=== PATIENT | male | born 1965 | race African-American/Black ===

== ENCOUNTER 2016-12-06 04:02 | Inpatient (IN) | payer MEDICARE, OTHER ==
[~2016-12-06] VITALS: Ht 170.2 cm; Wt 142.0 kg
[2016-12-06] VITALS (9 sets, daily range): BP systolic 79–177; BP diastolic 36–100
[2016-12-06] MEDS ORDERED: GABAPENTIN100 MG ORAL (04:09)
[2016-12-06] MEDS ORDERED: ASPIRIN81 MG ORAL (04:09)
[2016-12-06] MEDS ORDERED: METOPROLOL SUC100 MG ORAL (04:09)
[2016-12-06] MEDS ORDERED: CALCIUM ACETAT667 MG PO (04:09)
[2016-12-06] MEDS ORDERED: MINOXIDIL2.5 MG PO (04:09)
[2016-12-06] MEDS ORDERED: CLOPIDOGREL75 MG ORAL (04:09)
--- NOTE | 2016-12-06 04:26 | Emergency Room Report ---
History of Present Illness General Chief Complaint: Dyspnea/Respdistress Source: Patient, EMS Present Illness HPI This is a 51-year-old male with a history of renal failure on hemodialysis Thursday, and Thursday. He had a recent clotted right upper arm fistula. He had a thrombectomy but was unsuccessful for salvage. This was done at [facility] on December 01. He went back to [facility] last night because of fever 102 at home. He has some fever and chills. Some mild short of breath. Also with mild cough to He was diagnosed with pneumonia and UTI. Discharge home with prescription for Levaquin. His lab works there were unremarkable. Troponin negative. BNP is 138. Urine is positive for many bacteria, WBC 11-25. Lactic Acid is 1.3. Potassium is normal. WBC 11.8. Hemoglobin 10.1. Allergies: Coded Allergies: No Known Allergies (Unverified , 12/06/16) Patient History Past Medical History: see triage record, old chart reviewed Past Surgical History: other Pertinent Family History: none Social History: Denies: smoking Immunizations: other Reviewed Nursing Documentation: PMH: Agreed, PSxH: Agreed Nursing Documentation-PMH Hx Hypertension: Yes Hx Dialysis: Yes - T- TH-S Review of Systems Constitutional: Reports: chills, fever, malaise, sweats, weakness Eye: Denies: blurred vision, eye pain ENT: Denies: ear pain, nose congestion, throat swelling Respiratory: Reports: cough Cardiovascular: Denies: chest pain, palpitations Gastrointestinal: Denies: abdominal pain, diarrhea, nausea, vomiting Musculoskeletal: Denies: back pain, joint pain Skin: Denies: rash Neurological: Denies: headache, numbness Endocrine: Denies: increased thirst, increased urine Hematologic/Lymphatic: Denies: easy bruising All Other Systems: negative except mentioned in HPI Physical Exam Vital Signs Date Time Temp Pulse Resp B/P Pulse Ox O2 Delivery O2 Flow Rate FiO2 12/06/16 04:01 98.8 88 18 157/76 95 Room Air vitals with hypertension Sp02 EP Interpretation: reviewed, normal General Appearance: well appearing, alert, mild distress, obese Head: normocephalic, atraumatic Eyes: bilateral eye EOMI, bilateral eye PERRL ENT: hearing grossly normal, normal pharynx Neck: full range of motion, supple, no meningismus Respiratory: chest non-tender, normal breath sounds, decreased breath sounds Cardiovascular #1: regular rate, rhythm, no murmur Gastrointestinal: normal bowel sounds, non tender, no mass, no organomegaly, no bruit, non-distended Musculoskeletal: back normal, normal range of motion, other - Right upper arm: Fistula with no thrill. No pulse. Neurologic: alert, oriented x3 Psychiatric: mood/affect normal Skin: warm/dry Medical Decision Making Diagnostic Impression: Primary Impression: Sepsis Qualified Codes: A41.9 - Sepsis, unspecified organism Additional Impressions: UTI (urinary tract infection) Qualified Codes: N30.00 - Acute cystitis without hematuria ESRD on hemodialysis Morbid obesity with BMI of 45.0-49.9, adult ER Course Patient presents with fever and sepsis. He did have a positive urinalysis at [facility]. I was able to access the EHR bear. Labs are unremarkable. Because patient has a new Edgar catheter, this is concerning for possible line sepsis also. She given Zosyn and vancomycin. Blood pressure stable. We' ll admit for IV antibiotics. I discussed the case with Dr. Pastrana who will admit. EKG Diagnostic Results EKG Time: 04:32 Rate: tachycardiac Rhythm: NSR, other - RBBB. ST Segments: no acute changes Rhythm Strip Diag. Results Rhythm Strip Time: 04:32 EP Interpretation: yes Rate: 100 Rhythm: NSR, no PVC's, no ectopy Chest X-Ray Diagnostic Results Chest X-Ray Diagnostic Results : Chest X-Ray Ordered: Yes # of Views/Limited/Complete: 1 View Indication: Shortness of Breath EP Interpretation: Yes Interpretation: no consolidation, no effusion, no pneumothorax, other - CM Impression: No acute disease Last Vital Signs Date Time Temp Pulse Resp B/P Pulse Ox O2 Delivery O2 Flow Rate FiO2 12/06/16 04:01 98.8 88 18 157/76 95 Room Air Status: improved Disposition: ADMITTED INPATIENT Condition: Serious ALEJA MCCARTY M.D. Dec 06, 2016 04:26
[2016-12-06] MEDS ORDERED: Vancomycin 1.5gm/D5W 250ml 250 ML IVPB ONE (04:30)
[2016-12-06] MEDS ORDERED: Piperacillin/Tazobactam 3.375 GM in NS 110 ML IVPB ONE (04:30)
[2016-12-06] MEDS ORDERED: Acetaminophen 500mg (ES) tab ORAL ONE (04:30)
[2016-12-06] MEDS ORDERED: Zosyn 3.375gm inj ONE (04:50)
[2016-12-06 05:40] LABS: MEAN CORPUSCULAR HEMOGLOBIN 27.8 PG (27.0-31.0); MEAN CORPUSCULAR HGB CONC 31.2 G/DL (32.0-36.0); MEAN CORPUSCULAR VOLUME 89 FL (80-99); MEAN PLATELET VOLUME 7.2 FL (6.5-10.1); PLATELET COUNT 246 K/UL (150-450); RED BLOOD COUNT 3.49 M/UL (4.70-6.10); RED CELL DISTRIBUTION WIDTH 13.3 % (11.6-14.8); WHITE BLOOD COUNT 19.6 K/UL (4.8-10.8)
[2016-12-06 05:45] LABS: INR 1.1 (0.9-1.1); PROTHROMBIN TIME 11.3 SEC (9.30-11.50)
[2016-12-06 05:57] LABS: ALANINE AMINOTRANSFERASE 6 U/L (3-41); ALBUMIN/GLOBULIN RATIO 1.2 (1.0-2.7); ANION GAP 18 (5-15); ASPARTATE AMINO TRANSFERASE 14 U/L (5-40); CALCIUM 9.5 mg/dL (8.6-10.2); CARBON DIOXIDE 22 mEQ/L (20-30); CHLORIDE 97 mEQ/L (98-107); CREATININE 9.3 mg/dL (0.7-1.2); GLOMERULAR FILTRATION RATE 7.3 mL/min (>60); HEMOLYSIS 80; POTASSIUM 5.2 mEQ/L (3.4-4.9); SODIUM 137 mEQ/L (135-145); TOTAL PROTEIN 7.3 g/dL (6.6-8.7)
[2016-12-06 06:04] LABS: REFLEX LACTIC ACID YES OR NO YES
[2016-12-06 06:05] LABS: TROPONIN I < 0.30 ng/mL (<=0.30)
[2016-12-06 06:12] LABS: CKMB < 1.5 ng/mL (< 6.7)
[2016-12-06] MEDS ORDERED: Amikacin Rx to dose MISC PRN (07:45)
[2016-12-06] MEDS ORDERED: Miralax 17gm pkt ORAL PRN (07:45)
[2016-12-06] MEDS ORDERED: D5 1/2NS 1,000 ML IV SCH (08:00)
--- NOTE | 2016-12-06 08:30 | Diagnostic Imaging Report ---
Indication: SOB Technique: XRAY CHEST 1 V Comparison:None Findings: The heart is enlarged. There is pulmonary vascular distribution. A right permacath is in place. A right subclavian/brachiocephalic stent is also present. No pleural fluid. The bones are grossly unremarkable. Impression: Right subclavian/brachycephalic stent. Right-sided permacath. Cardiomegaly with congestive heart failure.
[2016-12-06] MEDS: DuoNeb 0.5-3(2.5)mg/3ml neb HHN PRN ×2 (08:55→13:03)
[2016-12-06 08:59] LABS: LYMPHOCYTES % (MANUAL) 5 % (20-45); NEUTROPHILS % (MANUAL) 93 % (45-75); TOTAL CELLS COUNTED 100
[2016-12-06 09:00] LABS: BAND NEUTROPHILS % (MANUAL) 0 % (0-8); BASOPHILS % (MANUAL) 0 % (0-2); EOSINOPHILS % (MANUAL) 0 % (0-3); HYPOCHROMASIA 1+; PLATELET ESTIMATE ADEQUATE; PLATELET MORPHOLOGY NORMAL
[2016-12-06] MEDS ORDERED: Metoprolol Succinate XL 100mg tab ORAL SCH (09:00)
[2016-12-06] MEDS ORDERED: Minoxidil 2.5mg tab ORAL SCH (09:00)
--- NOTE | 2016-12-06 09:46 | History and Physical ---
History of Present Illness General Date patient seen: Dec 06, 2016 Time patient seen: 09:00 Reason for Hospitalization: Dyspnea/Respdistress Present Illness HPI 51-year-old male with PMH of HTN, ESRD, on hemodialysis Thursday, and Thursday, s/p recent thrombectomy of clotted right upper arm fistula. at [facility] patient came to [place] last night because of fever 102 at home, mild shortness of breath, cough He was diagnosed with pneumonia and UTI and was discharge home with prescription for Levaquin. At home took antibiotic, but had fever, chills and came to ER for evaluation ED workup revealed leukocytosis-19.6, elevated lactic acid-2.3 troponin negative , HH with evidence of anemia renal parameters characteristics of ESRD CXR with evidence of CHF and cardiomegaly ECG SR with RBBB patient reported recently diagnosed with FRANCISCO JAVIER, just received CPAP , not used it yet Allergies: Coded Allergies: No Known Allergies (Unverified , 12/06/16) Medication History Scheduled Aspirin* (Aspirin*), 81 MG ORAL DAILY, (Reported) Clopidogrel* (Clopidogrel*), 75 MG ORAL DAILY, (Reported) Gabapentin* (Gabapentin*), 100 MG ORAL THREE TIMES A DAY, (Reported) Metoprolol Succinate* (Metoprolol Succinate*), 100 MG ORAL DAILY, (Reported) Minoxidil* (Loniten*), 2.5 MG PO DAILY, (Reported) Miscellaneous Medications Calcium Acetate (Calcium Acetate), 667 MG PO, (Reported) Patient History Healthcare decision maker Resuscitation status Advanced Directive on File Review of Systems Constitutional: Reports: fever, weakness Eye: Reports: no symptoms ENT: Reports: no symptoms Respiratory: Reports: see HPI Cardiovascular: Reports: see HPI Gastrointestinal: Reports: no symptoms Genitourinary: Reports: other - ESRD Skin: Reports: no symptoms Psychiatric: Reports: no symptoms Neurological: Reports: no symptoms Endocrine: Reports: no symptoms Hematologic/Lymphatic: Reports: anemia Physical Exam General Appearance: no apparent distress, other - A/A/O x 4 morbidly obese male Lines, tubes and drains: peripheral HEENT: normocephalic, atraumatic, anicteric, mucous membranes moist, PERRL Neck: non-tender, supple Respiratory/Chest: lungs clear, no respiratory distress, no accessory muscle use Cardiovascular/Chest: normal rate, regular rhythm - SR-ST ( up to 108) with BBB Abdomen: normal bowel sounds, non tender, soft - obese Extremities: normal range of motion, non-tender, no calf tenderness, normal capillary refill, non-pitting - +2 BLE Neurologic: no motor/sensory deficits, alert, oriented x 3, responsive Musculoskeletal: normal muscle bulk Last 24 Hour Vital Signs Date Time Temp Pulse Resp B/P Pulse Ox O2 Delivery O2 Flow Rate FiO2 12/06/16 09:09 100 Nasal Cannula 2.0 12/06/16 09:08 Nasal Cannula 2.0 12/06/16 09:06 106 22 100 Nasal Cannula 2.0 12/06/16 08:55 106 22 100 Nasal Cannula 2.0 12/06/16 08:54 106 22 Nasal Cannula 2.0 12/06/16 08:34 98.1 93 22 116/69 93 Nasal Cannula 2.0 12/06/16 06:55 93 28 104/58 100 Nasal Cannula 2.0 12/06/16 06:19 99.1 24 104/47 95 Nasal Cannula 2.0 12/06/16 05:59 99.1 91 24 85/50 100 Nasal Cannula 2.0 12/06/16 05:30 99.4 112 16 177/100 97 Nasal Cannula 2.0 12/06/16 05:30 113 22 Nasal Cannula 2.0 94 12/06/16 04:01 98.8 88 18 157/76 95 Room Air Laboratory Tests Test 12/06/16 04:40 12/06/16 06:50 White Blood Count 19.6 K/UL (4.8-10.8) H Red Blood Count 3.49 M/UL (4.70-6.10) L Hemoglobin 9.7 G/DL (14.2-18.0) L Hematocrit 31.1 % (42.0-52.0) L Mean Corpuscular Volume 89 FL (80-99) Mean Corpuscular Hemoglobin 27.8 PG (27.0-31.0) Mean Corpuscular Hemoglobin Concent 31.2 G/DL (32.0-36.0) L Red Cell Distribution Width 13.3 % (11.6-14.8) Platelet Count 246 K/UL (150-450) Mean Platelet Volume 7.2 FL (6.5-10.1) Neutrophils (%) (Auto) % (45.0-75.0) Lymphocytes (%) (Auto) % (20.0-45.0) Monocytes (%) (Auto) % (1.0-10.0) Eosinophils (%) (Auto) % (0.0-3.0) Basophils (%) (Auto) % (0.0-2.0) Differential Total Cells Counted 100 Neutrophils % (Manual) 93 % (45-75) H Lymphocytes % (Manual) 5 % (20-45) L Monocytes % (Manual) 2 % (1-10) Eosinophils % (Manual) 0 % (0-3) Basophils % (Manual) 0 % (0-2) Band Neutrophils 0 % (0-8) Platelet Estimate Adequate Platelet Morphology Normal Hypochromasia 1+ Prothrombin Time 11.3 SEC (9.30-11.50) Prothromb Time International Ratio 1.1 (0.9-1.1) Activated Partial Thromboplast Time 27 SEC (23-33) Sodium Level 137 mEQ/L (135-145) Potassium Level 5.2 mEQ/L (3.4-4.9) H Chloride Level 97 mEQ/L (98-107) L Carbon Dioxide Level 22 mEQ/L (20-30) Anion Gap 18 (5-15) H Blood Urea Nitrogen 53 mg/dL (7-23) H Creatinine 9.3 mg/dL (0.7-1.2) H Estimat Glomerular Filtration Rate 7.3 mL/min (>60) Glucose Level 119 mg/dL (74-106) H Lactic Acid Level 2.30 mmol/L (0.66-2.22) H 2.10 mmol/L (0.66-2.22) Calcium Level 9.5 mg/dL (8.6-10.2) Total Bilirubin 0.4 mg/dL (0.0-1.2) Aspartate Amino Transf (AST/SGOT) 14 U/L (5-40) Alanine Aminotransferase (ALT/SGPT) 6 U/L (3-41) Alkaline Phosphatase 48 U/L (40-129) Total Creatine Kinase 96 U/L (38-174) Creatine Kinase MB < 1.5 ng/mL (< 6.7) Creatine Kinase MB Relative Index 1.5 Troponin I < 0.30 ng/mL (<=0.30) Total Protein 7.3 g/dL (6.6-8.7) Albumin 4.0 g/dL (3.5-5.2) Globulin 3.3 g/dL Albumin/Globulin Ratio 1.2 (1.0-2.7) Height (Feet): 5 Height (Inches): 7.00 Weight (Pounds): 308 Medications Current Medications Medications (Trade) Dose Ordered Sig/Jeremy Route PRN Reason Start Time Stop Time Status Last Admin Dose Admin Acetaminophen (Tylenol) 650 mg Q4H PRN ORAL Fever 12/06/16 07:45 01/05/17 07:44 Albuterol/ Ipratropium (DuoNeb 0.5-3(2.5)mg/3ml) 3 ml Q4H PRN HHN Shortness of Breath 12/06/16 07:45 12/11/16 07:44 12/06/16 08:55 Amikacin Protocol (Amikacin pharmacy to dose) 1 ea DAILY PRN MISC Per rx protocol 12/06/16 07:45 01/05/17 07:44 Amikacin Sulfate/ Sodium Chloride (Amikin/Sodium Chloride) 112.8 ml @ 225.6 mls/ hr ONCE ONCE IV 12/06/16 11:00 12/06/16 11:29 Aspirin (ASA) 81 mg DAILY ORAL 12/06/16 09:00 01/05/17 08:59 Clopidogrel Bisulfate (Plavix) 75 mg DAILY ORAL 12/06/16 09:00 01/05/17 08:59 Dextrose STAT PRN IV Hypoglycemia 12/06/16 07:45 01/05/17 07:44 Dextrose/Sodium Chloride (D5 0.45% NS) 1,000 ml @ 50 mls/hr Q20H IV 12/06/16 08:00 01/05/17 07:59 Gabapentin (Neurontin) 100 mg THREE TIMES A DAY ORAL 12/06/16 09:00 01/05/17 08:59 Heparin Sodium (Porcine) (Heparin 5000 units/ml) 5,000 units EVERY 12 HOURS SUBQ 12/06/16 09:00 01/05/17 08:59 Metoprolol Succinate (Toprol XL) 100 mg DAILY ORAL 12/06/16 09:00 01/05/17 08:59 Minoxidil (Loniten) 2.5 mg DAILY ORAL 12/06/16 09:00 01/05/17 08:59 Ondansetron HCl (Zofran) 4 mg Q6H PRN IVP Nausea & Vomiting 12/06/16 07:45 01/05/17 07:44 Piperacillin Sod/ Tazobactam Sod 2.25 gm/Dextrose 55 ml @ 110 mls/hr Q8HR IV 12/06/16 14:00 12/11/16 13:59 Polyethylene Glycol (Miralax) 17 gm DAILYPRN PRN ORAL Constipation 12/06/16 07:45 01/05/17 07:44 Temazepam (Restoril) 15 mg HSPRN PRN ORAL Insomnia 12/06/16 07:45 12/13/16 07:44 Vancomycin HCl 1 ea 1 ea DAILY PRN MISC Per rx protocol 12/06/16 07:45 01/05/17 07:44 Assessment/Plan Assessment/Plan ASSESSMENT sepsis , likely with bacteremia ( given clinical course) UTI possible PNA likely skin /soft tissue infection R upper extremity arteriovenous fistula, status post recent thrombectomy. possible infected residual thrombus in Rt upper extremity fistula. diastolic dysfunction pulmonary edema ESRD, on HD hx of HTN FRANCISCO JAVIER anemia of chronic renal disease morbid obesity PLAN OF CARE tele empiric abx fup cx ID consult nephro evla for HD arrangement monitor renal parameters lytes O2 to keep sat above 92% pulmonary toilet prn fup with CXR BiPAP at night BP support, hold all anti HTN at this time ECHO with pEF -60% and RVSP of 29 monitor HH , transfuse prn with goal to keep Hgb above 7 DVT , GI prophylaxis case discussed and evaluated by supervising physician Keith Simon),Denia MEZA Dec 06, 2016 09:46
[2016-12-06] MEDS: Aspirin Baby 81mg ORAL SCH (10:17)
[2016-12-06] MEDS: Heparin 5000 units/ml inj SUBQ SCH ×2 (10:23→22:16)
--- NOTE | 2016-12-06 10:49 | Consultation ---
Consult Note Consult Note asked to eval for dialysis management Chief Complaint: Dyspnea/Respdistress This is a 51-year-old male with a history of renal failure on hemodialysis Thursday, and Thursday. He had a recent clotted right upper arm fistula. He had a thrombectomy but was unsuccessful for salvage. This was done at [facility] on December 01. He went back to [facility] last night because of fever 102 at home. He has some fever and chills. Some mild short of breath. Also with mild cough to He was diagnosed with pneumonia and UTI. Discharge home with prescription for Levaquin. His lab works there were unremarkable. Troponin negative. BNP is 138. Urine is positive for many bacteria, WBC 11-25. Lactic Acid is 1.3. Potassium is normal. WBC 11.8. Hemoglobin 10.1. Hx Hypertension: Yes Hx Dialysis: Yes - T- TH-S . Assessment/Plan ESRD last dialysis [facility] 2 days ago Admitted with sepsis , has right permacath put in 4 days ago HTN Obesity Anemia Plan: HD today Antibiotics BP control Per orders GENNY JACK Dec 06, 2016 10:49
[2016-12-06] MEDS: Amikacin 700 MG in NS 110 ML IV ONE ×2 (11:00→11:48)
[2016-12-06] MEDS ORDERED: Piperacillin/Tazobactam 3.375 GM in NS 110 ML IVPB SCH (12:00)
[2016-12-06 15:47] LABS: TROPONIN I < 0.30 ng/mL (<=0.30)
[2016-12-06] MEDS ORDERED: Amikacin 700 MG in NS 110 ML IV ONE (16:00)
[2016-12-06] MEDS: Zosyn 2.25 gm in D5W 55ml IV SCH ×2 (16:02→22:14)
--- NOTE | 2016-12-06 18:41 | Infectious Diseases Prog Note ---
Assessment/Plan Assessment/Plan Full Infectious diseases consult dictated, work # [id number]. in brief, 51 y/o AAM, morbidly obese, HTNsive nephropathy, ESRD on THS HD, now with sepsis most likely secondary to presumed bacteremia s/p RUE AVF thrombectomy performed on . some blistering over R lateral arm concerning for underlying skin/soft tissue infection or abscess, or could be pressure phenomenom if significant residual clot burden. Continue empiric IV vancomycin, zosyn, and amikacin for now, but suspect his blood cx will end up growing most likely staph aures vs less likely enterococcus. RUQ u/s now of RUE to r/o abscess. hemodynamically tenuous right now but is mentating well and oxygenating on minimal O2 support. please call me with questions, c [phone], covering for Dr. Varela. Subjective Allergies: Coded Allergies: No Known Allergies (Unverified , 12/06/16) Objective Vital Signs Last 24 Hour Vital Signs Date Time Temp Pulse Resp B/P Pulse Ox O2 Delivery O2 Flow Rate FiO2 12/06/16 17:26 102.2 12/06/16 16:00 101.7 98 21 120/64 100 Nasal Cannula 2.0 12/06/16 15:00 Nasal Cannula 2.0 12/06/16 13:06 104 22 100 Nasal Cannula 2.0 12/06/16 13:00 102 22 100 Nasal Cannula 2.0 12/06/16 12:00 99.9 93 26 115/67 100 Nasal Cannula 2.0 12/06/16 11:55 Nasal Cannula 2.0 12/06/16 10:17 150/65 12/06/16 10:17 92 150/65 12/06/16 09:09 100 Nasal Cannula 2.0 12/06/16 09:08 Nasal Cannula 2.0 12/06/16 09:06 106 22 100 Nasal Cannula 2.0 12/06/16 08:55 106 22 100 Nasal Cannula 2.0 12/06/16 08:54 106 22 Nasal Cannula 2.0 12/06/16 08:34 98.1 93 22 116/69 93 Nasal Cannula 2.0 12/06/16 06:55 93 28 104/58 100 Nasal Cannula 2.0 12/06/16 06:19 99.1 24 104/47 95 Nasal Cannula 2.0 12/06/16 05:59 99.1 91 24 85/50 100 Nasal Cannula 2.0 12/06/16 05:30 99.4 112 16 177/100 97 Nasal Cannula 2.0 12/06/16 05:30 113 22 Nasal Cannula 2.0 94 12/06/16 04:01 98.8 88 18 157/76 95 Room Air Height (Feet): 5 Height (Inches): 7.00 Weight (Pounds): 308 Laboratory Tests Test 12/06/16 04:40 12/06/16 06:50 12/06/16 10:23 White Blood Count 19.6 K/UL (4.8-10.8) H Red Blood Count 3.49 M/UL (4.70-6.10) L Hemoglobin 9.7 G/DL (14.2-18.0) L Hematocrit 31.1 % (42.0-52.0) L Mean Corpuscular Volume 89 FL (80-99) Mean Corpuscular Hemoglobin 27.8 PG (27.0-31.0) Mean Corpuscular Hemoglobin Concent 31.2 G/DL (32.0-36.0) L Red Cell Distribution Width 13.3 % (11.6-14.8) Platelet Count 246 K/UL (150-450) Mean Platelet Volume 7.2 FL (6.5-10.1) Neutrophils (%) (Auto) % (45.0-75.0) Lymphocytes (%) (Auto) % (20.0-45.0) Monocytes (%) (Auto) % (1.0-10.0) Eosinophils (%) (Auto) % (0.0-3.0) Basophils (%) (Auto) % (0.0-2.0) Differential Total Cells Counted 100 Neutrophils % (Manual) 93 % (45-75) H Lymphocytes % (Manual) 5 % (20-45) L Monocytes % (Manual) 2 % (1-10) Eosinophils % (Manual) 0 % (0-3) Basophils % (Manual) 0 % (0-2) Band Neutrophils 0 % (0-8) Platelet Estimate Adequate Platelet Morphology Normal Hypochromasia 1+ Prothrombin Time 11.3 SEC (9.30-11.50) Prothromb Time International Ratio 1.1 (0.9-1.1) Activated Partial Thromboplast Time 27 SEC (23-33) Sodium Level 137 mEQ/L (135-145) Potassium Level 5.2 mEQ/L (3.4-4.9) H Chloride Level 97 mEQ/L (98-107) L Carbon Dioxide Level 22 mEQ/L (20-30) Anion Gap 18 (5-15) H Blood Urea Nitrogen 53 mg/dL (7-23) H Creatinine 9.3 mg/dL (0.7-1.2) H Estimat Glomerular Filtration Rate 7.3 mL/min (>60) Glucose Level 119 mg/dL (74-106) H Lactic Acid Level 2.30 mmol/L (0.66-2.22) H 2.10 mmol/L (0.66-2.22) Calcium Level 9.5 mg/dL (8.6-10.2) Total Bilirubin 0.4 mg/dL (0.0-1.2) Aspartate Amino Transf (AST/SGOT) 14 U/L (5-40) Alanine Aminotransferase (ALT/SGPT) 6 U/L (3-41) Alkaline Phosphatase 48 U/L (40-129) Total Creatine Kinase 96 U/L (38-174) Creatine Kinase MB < 1.5 ng/mL (< 6.7) Creatine Kinase MB Relative Index 1.5 Troponin I < 0.30 ng/mL (<=0.30) < 0.30 ng/mL (<=0.30) Total Protein 7.3 g/dL (6.6-8.7) Albumin 4.0 g/dL (3.5-5.2) Globulin 3.3 g/dL Albumin/Globulin Ratio 1.2 (1.0-2.7) Current Medications Medications (Trade) Dose Ordered Sig/Jeremy Route PRN Reason Start Time Stop Time Status Last Admin Dose Admin Acetaminophen (Tylenol) 650 mg Q4H PRN ORAL Fever 12/06/16 07:45 01/05/17 07:44 12/06/16 16:27 Albuterol/ Ipratropium (DuoNeb 0.5-3(2.5)mg/3ml) 3 ml Q4H PRN HHN Shortness of Breath 12/06/16 07:45 12/11/16 07:44 12/06/16 13:03 Amikacin Protocol 1 ea 1 ea DAILY PRN MISC Per rx protocol 12/06/16 07:45 01/05/17 07:44 Aspirin (ASA) 81 mg DAILY ORAL 12/06/16 09:00 01/05/17 08:59 12/06/16 10:17 Clonidine HCl (Catapres) 0.1 mg Q4H PRN ORAL BP over 160 syst 12/06/16 11:00 01/05/17 10:59 Clopidogrel Bisulfate (Plavix) 75 mg DAILY ORAL 12/06/16 09:00 01/05/17 08:59 12/06/16 10:17 Dextrose (Dextrose 50%) STAT PRN IV Hypoglycemia 12/06/16 07:45 01/05/17 07:44 Gabapentin (Neurontin) 100 mg THREE TIMES A DAY ORAL 12/06/16 09:00 01/05/17 08:59 12/06/16 16:24 Heparin Sodium (Porcine) (Heparin 5000 units/ml) 5,000 units EVERY 12 HOURS SUBQ 12/06/16 09:00 01/05/17 08:59 12/06/16 10:23 Ondansetron HCl (Zofran) 4 mg Q6H PRN IVP Nausea & Vomiting 12/06/16 07:45 01/05/17 07:44 Pantoprazole (Protonix) 40 mg EVERY 12 HOURS ORAL 12/06/16 11:00 01/05/17 10:59 12/06/16 11:48 Piperacillin Sod/ Tazobactam Sod/ Dextrose (Zosyn/D5W) 55 ml @ 110 mls/hr Q8HR IV 12/06/16 14:00 12/11/16 13:59 12/06/16 16:02 Polyethylene Glycol (Miralax) 17 gm DAILYPRN PRN ORAL Constipation 12/06/16 07:45 01/05/17 07:44 Temazepam (Restoril) 15 mg HSPRN PRN ORAL Insomnia 12/06/16 07:45 12/13/16 07:44 Vancomycin HCl (Vanco rx to dose) 1 ea DAILY PRN MISC Per rx protocol 12/06/16 17:30 01/05/17 17:29 Humphrey Arana M.D. Dec 06, 2016 18:40
--- NOTE | 2016-12-06 21:15 | Consultation ---
DATE OF CONSULTATION: 12/06/2016 INFECTIOUS DISEASES CONSULTATION Covering for Dr. Varela. CONSULTING PHYSICIAN: Humphrey Arana M.D. REQUESTING PHYSICIAN: Екатерина Pastrana M.D. REASON FOR CONSULTATION: Fever and hypotension in a dialysis patient. HISTORY OF PRESENT ILLNESS: This is a 51-year-old male with hypertensive nephropathy and a history of end-stage renal disease, on hemodialysis, Thursday, , and Thursday, now admitted for four days of subjective fevers and chills, malaise, mild nausea, concerned for septicemia. 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 He has always received dialysis through this fistula, never through a dialysis catheter. His fistula had been working well until of late. He underwent thrombectomy, but was unsuccessful for salvage on Thursday, which was four days prior to presentation on 12/01/2016 at [facility]. Within one to two hours after thrombectomy, began to feel unwell with fevers of 102 degrees at home. He was diagnosed with pneumonia and a UTI and was sent home with prescription for levofloxacin. The patient reports he only took one dose and has continued to feel unwell. The patient endorsed a prior history of staph infection, but no prior history of MRSA infection to his knowledge and he has never had a prior infection in his fistula. He had a right chest wall Port-A-Cath placed on 12/01/2016 and has continued to receive dialysis through it. Upon presentation to our ER this morning, he was noted to be febrile with a T-max of 102 Fahrenheit and initially was tachycardic to heart rate of 106 beats per minute, was borderline tachypneic with a respiratory rate of 22, and had a new O2 requirement requiring two liters nasal cannula. He was initially hypertensive and subsequently underwent the hemodialysis today with net two liters negative off and since that time, he has been hypotensive with systolic blood pressures in the 90s. His laboratory evaluation was notable for a peripheral leukocytosis of 19.6 with a left shift, hemoglobin of 9.7, and platelet count of 246,000. His chemistry panel is notable for hyperkalemia with a potassium of 5.2, a borderline normal carbon dioxide of 22 with an anion gap of 18, and serum creatinine 9.3, presumably at its baseline. Noted to have normal liver function tests and normal total creatinine kinase and a serum albumin of 2.0. He did have an elevated serum lactate at 2.3 that subsequently normalized to 2.1 and he had a coag panel that was within normal limits. He was ordered for urinalysis and urine culture that has to be sent. The patient is oliguric at baseline making less than 6 mL of urine per day and blood cultures x2 from the ER were sent prior to initiation of antibiotics. Both blood culture sets were drawn from peripheral stick and none were drawn from the new Port-A-Cath. In the ER this morning, he was given a dose of intravenous vancomycin 1.5 g at 6 am, a dose of IV Zosyn 3.375 g shortly thereafter, and he has been continued on Zosyn 2.25 g IV q.8 hours since that time. He received a dose of amikacin 700 mg at 4 p.m. today and the patient continues to be febrile. PAST MEDICAL HISTORY: Hypertension, end-stage renal disease, on dialysis Thursday, , and Thursday, right upper extremity AV fistula placed placed approximately three years ago, right AV fistula thrombectomy unsuccessful on 12/01/2016, placement of right chest wall Port-A-Cath for dialysis on 12/01/2016, and a remote history of open cholecystectomy. MEDICATIONS: His home medications include aspirin 81 mg daily, calcium acetate, Plavix, gabapentin, metoprolol long acting daily, and minoxidil. Current and recent antibiotics as described above in the history of present illness. ALLERGIES: No known drug allergies. FAMILY HISTORY: No history of diabetes. No history of end-stage renal disease. Family history is otherwise noncontributory. SOCIAL HISTORY: The patient lives at home. Nonsmoker. Denies any alcohol use. Denies any intravenous drug use. REVIEW OF SYSTEMS: A 11-point review of systems is negative other than as described above in the history of present illness. PHYSICAL EXAMINATION: VITAL SIGNS: Currently vital signs, temperature of 102.2 degrees Fahrenheit, pulse 98, respiratory rate 22, current blood pressure obtained on the left forearm was 90 systolic over 50 diastolic, and he is saturating 98% on 2 liters nasal cannula. GENERAL: The patient is mildly toxic appearing. Appears fatigued and has conversational dyspnea at five to seven words. HEENT: He has no cervical lymphadenopathy. No pharyngeal injection or exudate and he has no conjunctival injection and his sclerae are anicteric. CARDIOVASCULAR: The patient is tachycardic. No murmurs appreciated. PULMONARY: Decreased breath sounds at the bases with poor inspiratory effort. No wheezes or rhonchi appreciated. ABDOMEN: Healed right upper quadrant surgical scar from prior cholecystectomy, obese abdomen, nontender to palpation in all quadrants, and hypoactive bowel sounds. GENITOURINARY: Circumcised. No scrotal edema. No rash. EXTREMITIES: A 1+ bilateral lower extremity edema. Right upper extremity, abnormal anatomy. Has two small clear fluid-filled bullae overlying the lateral aspect of his right upper arm in the medial aspect of the right upper arm. I cannot palpate a thrill nor hear a bruit to his right AV fistula. There is no overlying erythema, but there is warmth and there is swelling at the site. SKIN: He does have a right chest wall Port-A-Cath in place that is healthy in appearance and is nontender to palpation over the exit site. LABORATORY DATA: As described above in the history of present illness, two sets of blood cultures are pending. No growth to date at less than 12 hours. Chest x-ray notable for cardiomegaly and evidence of mild pulmonary edema. ASSESSMENT: This is a 51-year-old obese male with hypertensive nephropathy complicated by end-stage renal disease on chronic dialysis, now admitted with sepsis presumed secondarily to recent right upper extremity thrombectomy and probable bacteremia. The patient is febrile and hypotensive status post two liters negative hemodialysis earlier today, but he is mentating normally and other hemodynamic parameters are within normal limits. 1. Sepsis. 2. Probable bacteremia, pending blood cultures. 3. Probable skin and soft tissue infection round right upper extremity arteriovenous fistula status post recent thrombectomy. 4. Concern for infected residual thrombus in that right upper extremity fistula. 5. Pulmonary edema and increased O2 requirement. 6. Hypotension as above. 7. End-stage renal disease, on dialysis. 8. Morbid obesity. PLAN: 1. Continue empiric intravenous vancomycin dose per pharmacy for troughs greater than 15 to 20, amikacin dose per pharmacy, and Zosyn dose per pharmacy, currently on day #1 of therapy. 2. Urgent right upper extremity ultrasound to rule out soft tissue abscess and to rule out significant residual clot burden in that right AV fistula. 3. Followup blood cultures. 4. Follow cardiopulmonary status and chest x-ray. Thank you for this consultation. Please call me on my cell phone with any questions. Humphrey Arana MD DR: GEOVANNA JOB#: [id number] CC: TATA
[2016-12-07 04:00] VITALS: BP 144/60
[2016-12-07] MEDS: Zosyn 2.25 gm in D5W 55ml IV SCH ×3 (05:18→22:04)
[2016-12-07 05:47] LABS: ABG BASE EXCESS -1.8; ABG PCO2 38.7 mmHg (35.0-45.0)
[2016-12-07 05:48] LABS: ABG ALLEN TEST POSITIVE
[2016-12-07 07:19] LABS: MEAN CORPUSCULAR HGB CONC 30.6 G/DL (32.0-36.0); MEAN CORPUSCULAR VOLUME 92 FL (80-99); PLATELET COUNT 183 K/UL (150-450); RED BLOOD COUNT 3.18 M/UL (4.70-6.10); RED CELL DISTRIBUTION WIDTH 13.9 % (11.6-14.8); WHITE BLOOD COUNT 18.6 K/UL (4.8-10.8)
[2016-12-07 07:50] LABS: MAGNESIUM 1.5 mg/dL (1.7-2.5); PHOSPHORUS 1.9 mg/dL (2.5-4.8)
[2016-12-07 07:52] LABS: CALCIUM 8.9 mg/dL (8.6-10.2); CREATININE 8.1 mg/dL (0.7-1.2); GLOMERULAR FILTRATION RATE 8.5 mL/min (>60); POTASSIUM 4.4 mEQ/L (3.4-4.9); TOTAL PROTEIN 6.9 g/dL (6.6-8.7)
[2016-12-07 07:55] LABS: BAND NEUTROPHILS % (MANUAL) 3 % (0-8); LYMPHOCYTES % (MANUAL) 6 % (20-45); NEUTROPHILS % (MANUAL) 88 % (45-75); TOTAL CELLS COUNTED 100
[2016-12-07 07:56] LABS: BASOPHILS % (MANUAL) 0 % (0-2); EOSINOPHILS % (MANUAL) 0 % (0-3); HYPOCHROMASIA 1+; PLATELET ESTIMATE ADEQUATE; PLATELET MORPHOLOGY NORMAL
[2016-12-07 08:00] VITALS: BP 108/50
[2016-12-07 08:28] LABS: TROPONIN I < 0.30 ng/mL (<=0.30)
[2016-12-07 08:32] LABS: CHOLESTEROL/HDL RATIO 3.7 (3.3-4.4); CRP QUANT 31.9 mg/dL (< 0.5); URIC ACID 4.6 mg/dL (3.0-7.5)
[2016-12-07 08:33] LABS: HEMOGLOBIN A1C 5.1 % (< 6.0)
[2016-12-07 08:41] LABS: THYROID STIMULATING HORMONE 0.736 uIU/mL (0.300-4.500)
--- NOTE | 2016-12-07 09:22 | General Progress Note ---
Assessment/Plan Status: unchanged Assessment/Plan status: ESRD last dialysis 12/06 Admitted with sepsis , has right permacath put in 12/02 HTN Obesity Anemia Plan: HD again in am EPO . B12 ,.... Phos and Mag as needed Antibiotics BP control Per orders and per consultants Subjective ROS Limited/Unobtainable: No Constitutional: Reports: malaise, weakness Respiratory: Reports: shortness of breath Allergies: Coded Allergies: No Known Allergies (Unverified , 12/06/16) Objective Last 24 Hour Vital Signs Date Time Temp Pulse Resp B/P Pulse Ox O2 Delivery O2 Flow Rate FiO2 12/07/16 08:08 Nasal Cannula 3.0 32 12/07/16 08:08 98 Nasal Cannula 3.0 32 12/07/16 08:07 114 20 Nasal Cannula 3.0 32 12/07/16 06:18 102.2 12/07/16 04:00 102.4 109 18 144/60 100 Bi-pap 40 12/07/16 04:00 104 12/07/16 03:55 105 23 96 Facial 40 12/07/16 01:56 100 22 98 Facial 40 12/07/16 00:30 97 17 97 Facial 40 12/07/16 00:00 98 12/06/16 23:13 90 20 Nasal Cannula 2.0 28 12/06/16 23:12 99 Nasal Cannula 2.0 28 12/06/16 23:12 Nasal Cannula 2.0 28 12/06/16 20:34 102.2 90 24 116/60 100 Nasal Cannula 2.0 12/06/16 20:00 98 12/06/16 19:08 98 79/36 12/06/16 17:10 102.0 95 87/50 12/06/16 16:00 101.7 98 21 120/64 100 Nasal Cannula 2.0 12/06/16 16:00 100 12/06/16 15:00 Nasal Cannula 2.0 12/06/16 13:06 104 22 100 Nasal Cannula 2.0 12/06/16 13:00 102 22 100 Nasal Cannula 2.0 12/06/16 12:00 95 12/06/16 12:00 99.9 93 26 115/67 100 Nasal Cannula 2.0 12/06/16 11:55 Nasal Cannula 2.0 12/06/16 10:17 150/65 12/06/16 10:17 92 150/65 Intake and Output 12/06/16 12/07/16 19:00 07:00 Intake Total 540 ml Output Total 2032 ml Balance -1492 ml Intake Oral 540 ml Output Urine Total 2 ml Hemodialysis UF 2030 ml # Bowel Movements 1 3 Laboratory Tests 12/06/16 10:23: Troponin I < 0.30 12/07/16 00:47: Arterial Blood pH 7.391, Arterial Blood Partial Pressure CO2 38.7, Arterial Blood Partial Pressure O2 61.7L, Arterial Blood HCO3 23.0, Arterial Blood Oxygen Saturation 92.9, Arterial Blood Base Excess -1.8, Valdo Test Positive 12/07/16 05:30: Troponin I < 0.30, White Blood Count 18.6H, Red Blood Count 3.18L, Hemoglobin 8.9L, Hematocrit 29.2L, Mean Corpuscular Volume 92, Mean Corpuscular Hemoglobin 28.0, Mean Corpuscular Hemoglobin Concent 30.6L, Red Cell Distribution Width 13.9, Platelet Count 183, Mean Platelet Volume 8.0, Neutrophils (%) (Auto) , Lymphocytes (%) (Auto) , Monocytes (%) (Auto) , Eosinophils (%) (Auto) , Basophils (%) (Auto) , Differential Total Cells Counted 100, Neutrophils % ( Manual) 88H, Lymphocytes % (Manual) 6L, Monocytes % (Manual) 3, Eosinophils % ( Manual) 0, Basophils % (Manual) 0, Band Neutrophils 3, Platelet Estimate Adequate, Platelet Morphology Normal, Hypochromasia 1+, Sodium Level 132L, Potassium Level 4.4, Chloride Level 87L, Carbon Dioxide Level 22, Anion Gap 23H , Blood Urea Nitrogen 45H, Creatinine 8.1H, Estimat Glomerular Filtration Rate 8.5, Glucose Level 250#H, Hemoglobin A1c 5.1, Uric Acid 4.6, Calcium Level 8.9, Phosphorus Level 1.9L, Magnesium Level 1.5L, Iron Level 13L, Total Iron Binding Capacity 175L, Percent Iron Saturation 7L, Unsaturated Iron Binding 162, Ferritin 1040H, Total Bilirubin 0.5, Aspartate Amino Transf (AST/SGOT) 20, Alanine Aminotransferase (ALT/SGPT) 9, Alkaline Phosphatase 42, C-Reactive Protein, Quantitative 31.9H, Pro-B-Type Natriuretic Peptide 81386C, Total Protein 6.9, Albumin 3.5, Globulin 3.4, Albumin/Globulin Ratio 1.0, Triglycerides Level 119, Cholesterol Level 108, LDL Cholesterol 55L, HDL Cholesterol 29, Cholesterol/HDL Ratio 3.7, Vitamin B12 Level 345, Folate [ Pending], Thyroid Stimulating Hormone (TSH) 0.736, Random Vancomycin Level 12.5 Height (Feet): 5 Height (Inches): 7.00 Weight (Pounds): 308 General Appearance: no apparent distress Cardiovascular: tachycardia Respiratory/Chest: decreased breath sounds Abdomen: other - obese GENNY JACK Dec 07, 2016 09:22
[2016-12-07] MEDS ORDERED: Vancomycin 1.5 GM/D5W 250ML IVPB ONE (10:00)
[2016-12-07] MEDS: Vitamin D 50,000 units cap ORAL SCH (10:00)
[2016-12-07] MEDS: Aspirin Baby 81mg ORAL SCH (10:36)
[2016-12-07] MEDS: Heparin 5000 units/ml inj SUBQ SCH ×2 (10:41→22:04)
[2016-12-07 12:00] VITALS: BP 98/44
[2016-12-07] MEDS ORDERED: Sodium Phosphate 15 MM in NS 275 ML IVPB ONE (12:00)
--- NOTE | 2016-12-07 14:59 | Pulmonology Progress Note ---
Assessment/Plan Assessment/Plan ASSESSMENT sepsis with gram positive bacteremia UTI possible PNA likely skin /soft tissue infection R upper extremity arteriovenous fistula, status post recent thrombectomy. possible infected residual thrombus in Rt upper extremity fistula. diastolic dysfunction pulmonary edema ESRD, on HD hx of HTN FRANCISCO JAVIER anemia of chronic renal disease morbid obesity PLAN OF CARE tele empiric abx blood cx + GPC ID follows HD as per nephro, nephro follows monitor renal parameters lytes O2 to keep sat above 92% pulmonary toilet prn CXR today BiPAP at night if agrees BP support, hold all anti HTN at this time ECHO with pEF -60% and RVSP of 29 monitor HH , transfuse prn with goal to keep Hgb above 7 DVT , GI prophylaxis case discussed and evaluated by supervising physician Subjective Allergies: Coded Allergies: No Known Allergies (Unverified , 12/06/16) Subjective leukocytosis, fever blood cx back + GPC no chest pain, no SOB tachy l BP remains on the low side Objective Last 24 Hour Vital Signs Date Time Temp Pulse Resp B/P Pulse Ox O2 Delivery O2 Flow Rate FiO2 12/07/16 12:00 102.0 116 19 98/44 98 Nasal Cannula 3.0 12/07/16 08:08 Nasal Cannula 3.0 32 12/07/16 08:08 98 Nasal Cannula 3.0 32 12/07/16 08:07 114 20 Nasal Cannula 3.0 32 12/07/16 08:00 101.5 110 18 108/50 99 Nasal Cannula 3.0 12/07/16 06:18 102.2 12/07/16 04:00 102.4 109 18 144/60 100 Bi-pap 40 12/07/16 04:00 104 12/07/16 03:55 105 23 96 Facial 40 12/07/16 01:56 100 22 98 Facial 40 12/07/16 00:30 97 17 97 Facial 40 12/07/16 00:00 98 12/06/16 23:13 90 20 Nasal Cannula 2.0 28 12/06/16 23:12 99 Nasal Cannula 2.0 28 12/06/16 23:12 Nasal Cannula 2.0 28 12/06/16 20:34 102.2 90 24 116/60 100 Nasal Cannula 2.0 12/06/16 20:00 98 12/06/16 19:08 98 79/36 12/06/16 17:10 102.0 95 87/50 8/5/17 16:00 101.7 98 21 120/64 100 Nasal Cannula 2.0 12/06/16 16:00 100 12/06/16 15:00 Nasal Cannula 2.0 Intake and Output 12/06/16 12/07/16 19:00 07:00 Intake Total 540 ml Output Total 2032 ml Balance -1492 ml Intake Oral 540 ml Output Urine Total 2 ml Hemodialysis UF 2030 ml # Bowel Movements 1 3 Objective General Appearance: no apparent distress, other - A/A/O x 4 morbidly obese male Lines, tubes and drains: peripheral HEENT: normocephalic, atraumatic, anicteric, mucous membranes moist, PERRL Neck: non-tender, supple Respiratory/Chest: lungs clear, no respiratory distress, no accessory muscle use Cardiovascular/Chest: normal rate, regular rhythm - SR-ST ( up to 108) with BBB Abdomen: normal bowel sounds, non tender, soft - obese Extremities: normal range of motion, non-tender, no calf tenderness, normal capillary refill, non-pitting - +2 BLE Neurologic: no motor/sensory deficits, alert, oriented x 3, responsive Musculoskeletal: normal muscle bulk Microbiology Date/Time Source Procedure Growth Status 12/06/16 05:00 Blood Blood Culture - Preliminary Resulted 12/06/16 04:40 Blood Blood Culture - Preliminary Resulted 12/07/16 04:03 Stool Clostridium difficile Toxin Assay - Final Complete Laboratory Tests 12/07/16 00:47: Arterial Blood pH 7.391, Arterial Blood Partial Pressure CO2 38.7, Arterial Blood Partial Pressure O2 61.7L, Arterial Blood HCO3 23.0, Arterial Blood Oxygen Saturation 92.9, Arterial Blood Base Excess -1.8, Valdo Test Positive 12/07/16 05:30: White Blood Count 18.6H, Red Blood Count 3.18L, Hemoglobin 8.9L, Hematocrit 29.2L, Mean Corpuscular Volume 92, Mean Corpuscular Hemoglobin 28.0, Mean Corpuscular Hemoglobin Concent 30.6L, Red Cell Distribution Width 13.9, Platelet Count 183, Mean Platelet Volume 8.0, Neutrophils (%) (Auto) , Lymphocytes (%) (Auto) , Monocytes (%) (Auto) , Eosinophils (%) (Auto) , Basophils (%) (Auto) , Differential Total Cells Counted 100, Neutrophils % ( Manual) 88H, Lymphocytes % (Manual) 6L, Monocytes % (Manual) 3, Eosinophils % ( Manual) 0, Basophils % (Manual) 0, Band Neutrophils 3, Platelet Estimate Adequate, Platelet Morphology Normal, Hypochromasia 1+, Sodium Level 132L, Potassium Level 4.4, Chloride Level 87L, Carbon Dioxide Level 22, Anion Gap 23H , Blood Urea Nitrogen 45H, Creatinine 8.1H, Estimat Glomerular Filtration Rate 8.5, Glucose Level 250#H, Hemoglobin A1c 5.1, Uric Acid 4.6, Calcium Level 8.9, Phosphorus Level 1.9L, Magnesium Level 1.5L, Iron Level 13L, Total Iron Binding Capacity 175L, Percent Iron Saturation 7L, Unsaturated Iron Binding 162, Ferritin 1040H, Total Bilirubin 0.5, Aspartate Amino Transf (AST/SGOT) 20, Alanine Aminotransferase (ALT/SGPT) 9, Alkaline Phosphatase 42, Troponin I < 0.30, C-Reactive Protein, Quantitative 31.9H, Pro-B-Type Natriuretic Peptide 97702K, Total Protein 6.9, Albumin 3.5, Globulin 3.4, Albumin/Globulin Ratio 1.0 , Triglycerides Level 119, Cholesterol Level 108, LDL Cholesterol 55L, HDL Cholesterol 29, Cholesterol/HDL Ratio 3.7, Vitamin B12 Level 345, Folate [ Pending], Thyroid Stimulating Hormone (TSH) 0.736, Random Vancomycin Level 12.5 Current Medications Medications (Trade) Dose Ordered Sig/Jeremy Route PRN Reason Start Time Stop Time Status Last Admin Dose Admin Acetaminophen (Tylenol) 650 mg Q4H PRN ORAL Fever 12/06/16 07:45 01/05/17 07:44 12/07/16 05:19 Albuterol/ Ipratropium (DuoNeb 0.5-3(2.5)mg/3ml) 3 ml Q4H PRN HHN Shortness of Breath 12/06/16 07:45 12/11/16 07:44 12/06/16 13:03 Amikacin Protocol 1 ea 1 ea DAILY PRN MISC Per rx protocol 12/06/16 07:45 01/05/17 07:44 Aspirin (ASA) 81 mg DAILY ORAL 12/06/16 09:00 01/05/17 08:59 12/07/16 10:36 Clonidine HCl (Catapres) 0.1 mg Q4H PRN ORAL BP over 160 syst 12/06/16 11:00 01/05/17 10:59 Clopidogrel Bisulfate (Plavix) 75 mg DAILY ORAL 12/06/16 09:00 01/05/17 08:59 12/07/16 10:36 Cyanocobalamin (Vitamin B12) 1,000 mcg DAILY SUBQ 12/08/16 09:00 12/10/16 09:01 Dextrose (Dextrose 50%) STAT PRN IV Hypoglycemia 12/06/16 07:45 01/05/17 07:44 Epoetin Dionte (Procrit (for ESRD on dialysis)) 10,000 units THU-THU-THU SUBQ 12/08/16 21:00 01/07/17 20:59 Ergocalciferol (Drisdol) 50,000 intlu QWEEK ORAL 12/07/16 10:00 01/06/17 09:59 Folic Acid (Folate) 2 mg DAILY ORAL 12/07/16 10:00 01/06/17 09:59 12/07/16 10:36 Gabapentin (Neurontin) 100 mg THREE TIMES A DAY ORAL 12/06/16 09:00 01/05/17 08:59 12/07/16 10:50 Heparin Sodium (Porcine) (Heparin 5000 units/ml) 5,000 units EVERY 12 HOURS SUBQ 12/06/16 09:00 01/05/17 08:59 12/07/16 10:41 Ondansetron HCl (Zofran) 4 mg Q6H PRN IVP Nausea & Vomiting 12/06/16 07:45 01/05/17 07:44 Pantoprazole (Protonix) 40 mg EVERY 12 HOURS ORAL 12/06/16 11:00 01/05/17 10:59 12/07/16 10:50 Piperacillin Sod/ Tazobactam Sod/ Dextrose (Zosyn/D5W) 55 ml @ 110 mls/hr Q8HR IV 12/06/16 14:00 12/11/16 13:59 12/07/16 05:18 Polyethylene Glycol (Miralax) 17 gm DAILYPRN PRN ORAL Constipation 12/06/16 07:45 01/05/17 07:44 Sodium Phosphate/ Sodium Chloride (NaPO4/Sodium Chloride) 280 ml @ 70.273 mls/ hr ONCE ONCE IVPB 12/07/16 12:00 12/07/16 15:59 Temazepam (Restoril) 15 mg HSPRN PRN ORAL Insomnia 12/06/16 07:45 12/13/16 07:44 12/07/16 01:49 Vancomycin HCl 1 ea 1 ea DAILY PRN MISC Per rx protocol 12/06/16 17:30 01/05/17 17:29 Keith (LuizaDenia pepper NP Dec 07, 2016 14:59
--- NOTE | 2016-12-07 15:59 | Infectious Diseases Prog Note ---
Assessment/Plan Assessment/Plan ASSESSMENT: 51 y/o AAM, morbidly obese, HTNsive nephropathy, ESRD on [facility] HD, now with sepsis, high grade (4of4 bottles) bacteremia with GPC in clusters. will know ident tommorrow, but most likely staph aureus. s/p RUE AVF thrombectomy performed on . some blistering over R lateral arm concerning for underlying skin/soft tissue infection or abscess, or could be pressure phenomenom if significant residual clot burden. Continue empiric IV vancomycin, zosyn, and amikacin for now, as he is persistently febrile and will wait to narrow abx tommorrow pending final blood cx results. RUQ u/s on thursday of RUE to r/o abscess. hemodynamically tenuous right now but is mentating well and oxygenating on minimal O2 support. His persistent fevers are concerning for infected thrombus. 1. Sepsis. 2. high grade gram positive bacteremia, pending blood cultures. 3. Probable skin and soft tissue infection round right upper extremity arteriovenous fistula status post recent thrombectomy. 4. Concern for infected residual thrombus in that right upper extremity fistula. 5. Pulmonary edema and increased O2 requirement. 6. Hypotension as above. 7. End-stage renal disease, on dialysis. 8. Morbid obesity. PLAN: 1. continue empiric IV vancomycin, amikacin, and zosyn D#2 2. right upper extremity ultrasound to rule out soft tissue abscess and to rule out significant residual clot burden in that right AV fistula. 3. Followup blood cultures final result. 4. repeat blood cx x2 sets now to see if he is starting to clear his bacteremia. 5. obtain blood cx from his R chest wall portacath on thursday with HD 6. TTE on thursday to rule out obvious vegetation on valves. 7. Follow cardiopulmonary status and chest x-ray. covering for Dr. Varela. Subjective Constitutional: Reports: anorexia, chills, fatigue, fever HEENT: Reports: no symptoms Respiratory: Reports: shortness of breath Cardiovascular: Reports: no symptoms Genitourinary: Reports: no symptoms Neurologic: Reports: no symptoms Psychiatric: Reports: no symptoms Skin: Reports: no symptoms Allergies: Coded Allergies: No Known Allergies (Unverified , 12/06/16) Subjective 24 hr events: still febrile o/n. confirmed GPC bacteremia 4/4 bottles. Objective Vital Signs Last 24 Hour Vital Signs Date Time Temp Pulse Resp B/P Pulse Ox O2 Delivery O2 Flow Rate FiO2 12/07/16 12:00 102.0 116 19 98/44 98 Nasal Cannula 3.0 12/07/16 08:08 Nasal Cannula 3.0 32 12/07/16 08:08 98 Nasal Cannula 3.0 32 12/07/16 08:07 114 20 Nasal Cannula 3.0 32 12/07/16 08:00 101.5 110 18 108/50 99 Nasal Cannula 3.0 12/07/16 06:18 102.2 12/07/16 04:00 102.4 109 18 144/60 100 Bi-pap 40 12/07/16 04:00 104 12/07/16 03:55 105 23 96 Facial 40 12/07/16 01:56 100 22 98 Facial 40 12/07/16 00:30 97 17 97 Facial 40 12/07/16 00:00 98 12/06/16 23:13 90 20 Nasal Cannula 2.0 28 12/06/16 23:12 99 Nasal Cannula 2.0 28 12/06/16 23:12 Nasal Cannula 2.0 28 12/06/16 20:34 102.2 90 24 116/60 100 Nasal Cannula 2.0 12/06/16 20:00 98 12/06/16 19:08 98 79/36 12/06/16 17:10 102.0 95 87/50 12/06/16 16:00 101.7 98 21 120/64 100 Nasal Cannula 2.0 12/06/16 16:00 100 Height (Feet): 5 Height (Inches): 7.00 Weight (Pounds): 308 Objective GENERAL: The patient is mildly toxic appearing. Appears fatigued and has conversational dyspnea at five to seven words. falling asleep on rounds. satting well on 2L NC HEENT: He has no cervical lymphadenopathy. No pharyngeal injection or exudate and he has no conjunctival injection and his sclerae are anicteric. CARDIOVASCULAR: The patient is tachycardic. No murmurs appreciated. PULMONARY: Decreased breath sounds at the bases with poor inspiratory effort. No wheezes or rhonchi appreciated. not tachypneic today like he was yesterday ABDOMEN: Healed right upper quadrant surgical scar from prior cholecystectomy, obese abdomen, nontender to palpation in all quadrants, and hypoactive bowel sounds. GENITOURINARY: Circumcised. No scrotal edema. No rash. EXTREMITIES: A 1+ bilateral lower extremity edema. Right upper extremity, abnormal anatomy. Has two small clear fluid-filled bullae overlying the lateral aspect of his right upper arm in the medial aspect of the right upper arm. I cannot palpate a thrill nor hear a bruit to his right AV fistula. There is no overlying erythema, but there is warmth and there is swelling at the site. SKIN: He does have a right chest wall Port-A-Cath in place that is healthy in appearance and is nontender to palpation over the exit site. Microbiology Date/Time Source Procedure Growth Status 12/06/16 05:00 Blood Blood Culture - Preliminary Resulted 12/06/16 04:40 Blood Blood Culture - Preliminary Resulted 12/07/16 04:03 Stool Clostridium difficile Toxin Assay - Final Complete Laboratory Tests Test 12/07/16 00:47 12/07/16 05:30 Arterial Blood pH 7.391 (7.350-7.450) Arterial Blood Partial Pressure CO2 38.7 mmHg (35.0-45.0) Arterial Blood Partial Pressure O2 61.7 mmHg (75.0-100.0) L Arterial Blood HCO3 23.0 mmol/L (22.0-26.0) Arterial Blood Oxygen Saturation 92.9 % (92.0-98.0) Arterial Blood Base Excess -1.8 Valdo Test Positive White Blood Count 18.6 K/UL (4.8-10.8) H Red Blood Count 3.18 M/UL (4.70-6.10) L Hemoglobin 8.9 G/DL (14.2-18.0) L Hematocrit 29.2 % (42.0-52.0) L Mean Corpuscular Volume 92 FL (80-99) Mean Corpuscular Hemoglobin 28.0 PG (27.0-31.0) Mean Corpuscular Hemoglobin Concent 30.6 G/DL (32.0-36.0) L Red Cell Distribution Width 13.9 % (11.6-14.8) Platelet Count 183 K/UL (150-450) Mean Platelet Volume 8.0 FL (6.5-10.1) Neutrophils (%) (Auto) % (45.0-75.0) Lymphocytes (%) (Auto) % (20.0-45.0) Monocytes (%) (Auto) % (1.0-10.0) Eosinophils (%) (Auto) % (0.0-3.0) Basophils (%) (Auto) % (0.0-2.0) Differential Total Cells Counted 100 Neutrophils % (Manual) 88 % (45-75) H Lymphocytes % (Manual) 6 % (20-45) L Monocytes % (Manual) 3 % (1-10) Eosinophils % (Manual) 0 % (0-3) Basophils % (Manual) 0 % (0-2) Band Neutrophils 3 % (0-8) Platelet Estimate Adequate Platelet Morphology Normal Hypochromasia 1+ Sodium Level 132 mEQ/L (135-145) L Potassium Level 4.4 mEQ/L (3.4-4.9) Chloride Level 87 mEQ/L (98-107) L Carbon Dioxide Level 22 mEQ/L (20-30) Anion Gap 23 (5-15) H Blood Urea Nitrogen 45 mg/dL (7-23) H Creatinine 8.1 mg/dL (0.7-1.2) H Estimat Glomerular Filtration Rate 8.5 mL/min (>60) Glucose Level 250 mg/dL (74-106) #H Hemoglobin A1c 5.1 % (< 6.0) Uric Acid 4.6 mg/dL (3.0-7.5) Calcium Level 8.9 mg/dL (8.6-10.2) Phosphorus Level 1.9 mg/dL (2.5-4.8) L Magnesium Level 1.5 mg/dL (1.7-2.5) L Iron Level 13 ug/dL (59-158) L Total Iron Binding Capacity 175 ug/dL (250-400) L Percent Iron Saturation 7 % (15-50) L Unsaturated Iron Binding 162 ug/dL (112-346) Ferritin 1040 ng/mL (10-230) H Total Bilirubin 0.5 mg/dL (0.0-1.2) Aspartate Amino Transf (AST/SGOT) 20 U/L (5-40) Alanine Aminotransferase (ALT/SGPT) 9 U/L (3-41) Alkaline Phosphatase 42 U/L (40-129) Troponin I < 0.30 ng/mL (<=0.30) C-Reactive Protein, Quantitative 31.9 mg/dL (< 0.5) H Pro-B-Type Natriuretic Peptide 13526 pg/mL (0-125) H Total Protein 6.9 g/dL (6.6-8.7) Albumin 3.5 g/dL (3.5-5.2) Globulin 3.4 g/dL Albumin/Globulin Ratio 1.0 (1.0-2.7) Triglycerides Level 119 mg/dL (< 150) Cholesterol Level 108 mg/dL (< 200) LDL Cholesterol 55 mg/dL (60-99) L HDL Cholesterol 29 mg/dL (> 60) Cholesterol/HDL Ratio 3.7 (3.3-4.4) Vitamin B12 Level 345 pg/mL (211-946) Folate Pending Thyroid Stimulating Hormone (TSH) 0.736 uIU/mL (0.300-4.500) Random Vancomycin Level 12.5 ug/mL Current Medications Medications (Trade) Dose Ordered Sig/Jeremy Route PRN Reason Start Time Stop Time Status Last Admin Dose Admin Acetaminophen (Tylenol) 650 mg Q4H PRN ORAL Fever 12/06/16 07:45 01/05/17 07:44 12/07/16 05:19 Albuterol/ Ipratropium (DuoNeb 0.5-3(2.5)mg/3ml) 3 ml Q4H PRN HHN Shortness of Breath 12/06/16 07:45 12/11/16 07:44 12/06/16 13:03 Amikacin Protocol 1 ea 1 ea DAILY PRN MISC Per rx protocol 12/06/16 07:45 01/05/17 07:44 Aspirin (ASA) 81 mg DAILY ORAL 12/06/16 09:00 01/05/17 08:59 12/07/16 10:36 Clonidine HCl (Catapres) 0.1 mg Q4H PRN ORAL BP over 160 syst 12/06/16 11:00 01/05/17 10:59 Clopidogrel Bisulfate (Plavix) 75 mg DAILY ORAL 12/06/16 09:00 01/05/17 08:59 12/07/16 10:36 Cyanocobalamin (Vitamin B12) 1,000 mcg DAILY SUBQ 12/08/16 09:00 12/10/16 09:01 Dextrose (Dextrose 50%) STAT PRN IV Hypoglycemia 12/06/16 07:45 9/4/17 07:44 Epoetin Dionte (Procrit (for ESRD on dialysis)) 10,000 units THU-THU-THU SUBQ 12/08/16 21:00 01/07/17 20:59 Ergocalciferol (Drisdol) 50,000 intlu QWEEK ORAL 12/07/16 10:00 01/06/17 09:59 12/07/16 10:00 Folic Acid (Folate) 2 mg DAILY ORAL 12/07/16 10:00 01/06/17 09:59 12/07/16 10:36 Gabapentin (Neurontin) 100 mg THREE TIMES A DAY ORAL 12/06/16 09:00 01/05/17 08:59 12/07/16 13:00 Heparin Sodium (Porcine) (Heparin 5000 units/ml) 5,000 units EVERY 12 HOURS SUBQ 12/06/16 09:00 01/05/17 08:59 12/07/16 10:41 Ondansetron HCl (Zofran) 4 mg Q6H PRN IVP Nausea & Vomiting 12/06/16 07:45 01/05/17 07:44 Pantoprazole (Protonix) 40 mg EVERY 12 HOURS ORAL 12/06/16 11:00 01/05/17 10:59 12/07/16 10:50 Piperacillin Sod/ Tazobactam Sod/ Dextrose (Zosyn/D5W) 55 ml @ 110 mls/hr Q8HR IV 12/06/16 14:00 12/11/16 13:59 12/07/16 14:00 Polyethylene Glycol (Miralax) 17 gm DAILYPRN PRN ORAL Constipation 12/06/16 07:45 01/05/17 07:44 Sodium Phosphate/ Sodium Chloride (NaPO4/Sodium Chloride) 280 ml @ 70.273 mls/ hr ONCE ONCE IVPB 12/07/16 12:00 12/07/16 15:59 12/07/16 12:00 Temazepam (Restoril) 15 mg HSPRN PRN ORAL Insomnia 12/06/16 07:45 12/13/16 07:44 12/07/16 01:49 Vancomycin HCl 1 ea 1 ea DAILY PRN MISC Per rx protocol 12/06/16 17:30 01/05/17 17:29 Humphrey Arana M.D. Dec 07, 2016 15:59
[2016-12-07 16:00] VITALS: BP 139/86
--- NOTE | 2016-12-07 16:21 | Cardiology Report ---
APPROVED REPORT EKG Measurement Heart [id number] Sinus tachycardia Right bundle branch block Anteroseptal infarct, age undetermined Abnormal ECG
[2016-12-07 20:00] VITALS: BP 93/69
[2016-12-07] MEDS: DuoNeb 0.5-3(2.5)mg/3ml neb HHN PRN (20:09)
[2016-12-07 23:45] VITALS: BP 116/65
[2016-12-08] MEDS ORDERED: CALCIUM ACETAT667 M1 PO (00:44)
[2016-12-08] MEDS ORDERED: MINOXIDIL10 MG PO (00:44)
[2016-12-08] MEDS ORDERED: METOPROLOL TAR100 M1 ORAL (00:44)
[2016-12-08] MEDS: DuoNeb 0.5-3(2.5)mg/3ml neb HHN PRN ×3 (03:03→14:32)
[2016-12-08 04:00] VITALS: BP 118/56
[2016-12-08 05:20] LABS: APPEARANCE,URINE CLEAR; KETONES,URINE NEGATIVE (NEGATIVE); LEUKOCYTE ESTERASE ,URINE NEGATIVE (NEGATIVE); NITRITE,URINE NEGATIVE (NEGATIVE); PH,URINE 5 (4.5-8.0); PROTEIN,URINE 3+ (NEGATIVE); UROBILINOGEN,URINE NORMAL MG/DL (0.0-1.0)
[2016-12-08 05:29] LABS: BACTERIA,URINE FEW /HPF; RBC,URINE 0-2 /HPF (0 - 0); SQUAMOUS EPITHELIAL CELL,UR FEW /LPF (NONE/OCC); WBC,URINE 0-2 /HPF (0 - 0)
[2016-12-08 05:30] LABS: AMORPHOUS SEDIMENT,UR MODERATE /LPF
[2016-12-08] MEDS: Zosyn 2.25 gm in D5W 55ml IV SCH ×2 (05:48→13:38)
[2016-12-08 07:48] LABS: MEAN CORPUSCULAR HEMOGLOBIN 29.1 PG (27.0-31.0); MEAN CORPUSCULAR HGB CONC 32.5 G/DL (32.0-36.0); MEAN CORPUSCULAR VOLUME 90 FL (80-99); MEAN PLATELET VOLUME 8.3 FL (6.5-10.1); PLATELET COUNT 184 K/UL (150-450); RED BLOOD COUNT 3.42 M/UL (4.70-6.10); RED CELL DISTRIBUTION WIDTH 13.5 % (11.6-14.8); WHITE BLOOD COUNT 17.1 K/UL (4.8-10.8)
[2016-12-08 08:00] VITALS: BP 104/60
[2016-12-08 09:05] LABS: BAND NEUTROPHILS % (MANUAL) 0 % (0-8); BASOPHILS % (MANUAL) 0 % (0-2); EOSINOPHILS % (MANUAL) 0 % (0-3); LYMPHOCYTES % (MANUAL) 12 % (20-45); NEUTROPHILS % (MANUAL) 83 % (45-75); PLATELET ESTIMATE ADEQUATE; PLATELET MORPHOLOGY NORMAL; TOTAL CELLS COUNTED 100
[2016-12-08 09:06] LABS: HYPOCHROMASIA 1+
[2016-12-08 09:35] LABS: TROPONIN I < 0.30 ng/mL (<=0.30)
--- NOTE | 2016-12-08 09:42 | General Progress Note ---
Assessment/Plan Status: unchanged Assessment/Plan status: ESRD last dialysis 12/06 Admitted with sepsis , has right permacath put in 12/02 HTN Obesity Anemia Plan: Labs pending recheck ABG today HD today EPO . B12 ,.... Phos and Mag as needed Antibiotics BP control Per orders and per consultants Subjective ROS Limited/Unobtainable: No Constitutional: Reports: malaise Allergies: Coded Allergies: No Known Allergies (Unverified , 12/06/16) Objective Last 24 Hour Vital Signs Date Time Temp Pulse Resp B/P Pulse Ox O2 Delivery O2 Flow Rate FiO2 12/08/16 08:38 69 24 95 Nasal Cannula 3.0 32 12/08/16 08:36 Nasal Cannula 3.0 32 12/08/16 08:36 95 Nasal Cannula 3.0 32 12/08/16 08:36 63 24 Nasal Cannula 3.0 32 12/08/16 08:00 99.1 111 22 104/60 97 Nasal Cannula 3.0 12/08/16 04:00 95 12/08/16 04:00 102.2 110 20 118/56 96 Nasal Cannula 2.0 12/08/16 03:20 102.0 12/08/16 03:02 116 24 95 Nasal Cannula 3.0 32 12/08/16 00:00 117 12/07/16 23:45 101.8 101 22 116/65 95 Nasal Cannula 3.0 12/07/16 22:48 80 22 94 12/07/16 20:18 108 25 100 Bi-pap 40 12/07/16 20:16 108 25 100 Facial 40 12/07/16 20:12 Nasal Cannula 3.0 32 12/07/16 20:11 95 Nasal Cannula 3.0 32 12/07/16 20:11 110 22 Nasal Cannula 3.0 32 12/07/16 20:09 110 22 95 Nasal Cannula 3.0 32 12/07/16 20:00 117 12/07/16 20:00 99.9 108 19 93/69 97 Nasal Cannula 3.0 12/07/16 16:00 100 12/07/16 16:00 99.3 89 24 139/86 100 Nasal Cannula 3.0 12/07/16 12:00 101 12/07/16 12:00 102.0 116 19 98/44 98 Nasal Cannula 3.0 Intake and Output 12/07/16 12/08/16 19:00 07:00 Intake Total 460 ml 110 ml Balance 460 ml 110 ml Intake Oral 460 ml 110 ml # Bowel Movements 2 2 Laboratory Tests 12/08/16 03:45: Urine Color Pale yellow, Urine Appearance Clear, Urine pH 5, Urine Specific [place] 1.010, Urine Protein 3+H, Urine Glucose (UA) Negative, Urine Ketones Negative, Urine Occult Blood 1+H, Urine Nitrite Negative, Urine Bilirubin Negative, Urine Urobilinogen Normal, Urine Leukocyte Esterase Negative, Urine RBC 0-2H, Urine WBC 0-2, Urine Squamous Epithelial Cells Few, Urine Amorphous Sediment ModerateH, Urine Bacteria Few 12/08/16 05:55: White Blood Count 17.1H, Red Blood Count 3.42L, Hemoglobin 10.0L, Hematocrit 30.7L, Mean Corpuscular Volume 90, Mean Corpuscular Hemoglobin 29.1, Mean Corpuscular Hemoglobin Concent 32.5, Red Cell Distribution Width 13.5, Platelet Count 184, Mean Platelet Volume 8.3, Neutrophils (%) (Auto) , Lymphocytes (%) ( Auto) , Monocytes (%) (Auto) , Eosinophils (%) (Auto) , Basophils (%) (Auto) , Differential Total Cells Counted 100, Neutrophils % (Manual) 83H, Lymphocytes % (Manual) 12L, Monocytes % (Manual) 5, Eosinophils % (Manual) 0, Basophils % ( Manual) 0, Band Neutrophils 0, Platelet Estimate Adequate, Platelet Morphology Normal, Hypochromasia 1+, Sodium Level [Pending], Potassium Level [Pending], Chloride Level [Pending], Carbon Dioxide Level [Pending], Blood Urea Nitrogen [ Pending], Creatinine [Pending], Estimat Glomerular Filtration Rate [Pending], Glucose Level [Pending], Uric Acid [Pending], Calcium Level [Pending], Phosphorus Level [Pending], Magnesium Level [Pending], Total Bilirubin [Pending] , Aspartate Amino Transf (AST/SGOT) [Pending], Alanine Aminotransferase (ALT/ SGPT) [Pending], Alkaline Phosphatase [Pending], Troponin I < 0.30, C-Reactive Protein, Quantitative [Pending], Pro-B-Type Natriuretic Peptide [Pending], Total Protein [Pending], Albumin [Pending], Globulin [Pending] Height (Feet): 5 Height (Inches): 7.00 Weight (Pounds): 308 General Appearance: no apparent distress Cardiovascular: other - variable Respiratory/Chest: decreased breath sounds Objective no change in PE GENNY JACK Dec 08, 2016 09:42
[2016-12-08 09:45] LABS: CALCIUM 9.9 mg/dL (8.6-10.2); CRP QUANT 30.5 mg/dL (< 0.5); GLOMERULAR FILTRATION RATE 5.9 mL/min (>60); MAGNESIUM 2.1 mg/dL (1.7-2.5); PHOSPHORUS 5.3 mg/dL (2.5-4.8); POTASSIUM 4.5 mEQ/L (3.4-4.9); TOTAL PROTEIN 7.2 g/dL (6.6-8.7); URIC ACID 6.1 mg/dL (3.0-7.5)
[2016-12-08] MEDS: Vitamin B12 1000mcg/ml Inj SUBQ SCH (09:46)
[2016-12-08] MEDS: Aspirin Baby 81mg ORAL SCH (09:46)
[2016-12-08] MEDS: Heparin 5000 units/ml inj SUBQ SCH ×2 (09:47→21:04)
[2016-12-08 10:19] LABS: ABG ALLEN TEST POSITIVE; ABG BASE EXCESS -5.1; ABG PCO2 43.2 mmHg (35.0-45.0)
--- NOTE | 2016-12-08 11:04 | Diagnostic Imaging Report ---
Indication:Right arm pain. Patient has a arteriovenous access. There is concern for thrombosis an abscess. Technique: Grayscale and duplex Doppler imaging of the right forearm performed. Comparison: None Findings: There is a arteriovenous graft noted within the right forearm. In the area of clinical concern there is a mixed, heterogeneous, hypoechoic collection surrounding the graft. This is either hematoma or phlegmon. Both flow imaging shows no evidence of flow within the graft consistent with thrombosis. Impression: Thrombosed arteriovenous graft in the right forearm. Surrounding heterogeneous collection may be hematoma or abscess. These correlate clinically.
[2016-12-08 12:00] VITALS: BP 127/68
--- NOTE | 2016-12-08 13:02 | Pulmonology Progress Note ---
Assessment/Plan Problems: (1) Sepsis (2) Bacteremia (3) ESRD on hemodialysis (4) Morbid obesity with BMI of 45.0-49.9, adult Assessment/Plan continue Iv abx, check sensitivity WBC slowly coming down HD by nephrology getting better Subjective Constitutional: Reports: no symptoms HEENT: Repors: no symptoms Cardiovascular: Reports: no symptoms Gastrointestinal/Abdominal: Reports: no symptoms Genitourinary: Reports: no symptoms Neurologic: Reports: no symptoms Psychiatric: Reports: no symptoms Skin: Reports: no symptoms Endocrine: Reports: no symptoms Hematologic: Reports: no symptoms Musculoskeletal: Reports: no symptoms Allergies: Coded Allergies: No Known Allergies (Unverified , 12/06/16) Objective Last 24 Hour Vital Signs Date Time Temp Pulse Resp B/P Pulse Ox O2 Delivery O2 Flow Rate FiO2 12/08/16 12:45 76 24 99 Nasal Cannula 4.0 36 12/08/16 12:00 98.2 87 24 127/68 97 Nasal Cannula 2.0 12/08/16 09:04 98.5 12/08/16 08:38 69 24 95 Nasal Cannula 3.0 32 12/08/16 08:36 Nasal Cannula 3.0 32 12/08/16 08:36 95 Nasal Cannula 3.0 32 12/08/16 08:36 63 24 Nasal Cannula 3.0 32 12/08/16 08:00 99.1 111 22 104/60 97 Nasal Cannula 3.0 12/08/16 04:00 95 12/08/16 04:00 102.2 110 20 118/56 96 Nasal Cannula 2.0 12/08/16 03:02 116 24 95 Nasal Cannula 3.0 32 12/08/16 00:00 117 12/07/16 23:45 101.8 101 22 116/65 95 Nasal Cannula 3.0 12/07/16 22:48 80 22 94 12/07/16 20:18 108 25 100 Bi-pap 40 12/07/16 20:16 108 25 100 Facial 40 12/07/16 20:12 Nasal Cannula 3.0 32 12/07/16 20:11 95 Nasal Cannula 3.0 32 12/07/16 20:11 110 22 Nasal Cannula 3.0 32 12/07/16 20:09 110 22 95 Nasal Cannula 3.0 32 12/07/16 20:00 117 12/07/16 20:00 99.9 108 19 93/69 97 Nasal Cannula 3.0 12/07/16 16:00 100 12/07/16 16:00 99.3 89 24 139/86 100 Nasal Cannula 3.0 Intake and Output 12/07/16 12/08/16 19:00 07:00 Intake Total 460 ml 110 ml Balance 460 ml 110 ml Intake Oral 460 ml 110 ml # Bowel Movements 2 2 General Appearance: WD/WN HEENT: normocephalic, atraumatic Respiratory/Chest: chest wall non-tender, lungs clear Cardiovascular: normal peripheral pulses, normal rate, no JVD Abdomen: normal bowel sounds, soft, non tender Extremities: no cyanosis Skin: no rash, no ulcers 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 Complete 12/07/16 04:03 Stool Clostridium difficile Toxin Assay - Final Complete 12/06/16 06:20 Rectum VRE Culture - Final NO VANCOMYCIN RESISTANT ENTEROCOCCUS ... Complete Laboratory Tests 12/08/16 03:45: Urine Color Pale yellow, Urine Appearance Clear, Urine pH 5, Urine Specific [place] 1.010, Urine Protein 3+H, Urine Glucose (UA) Negative, Urine Ketones Negative, Urine Occult Blood 1+H, Urine Nitrite Negative, Urine Bilirubin Negative, Urine Urobilinogen Normal, Urine Leukocyte Esterase Negative, Urine RBC 0-2H, Urine WBC 0-2, Urine Squamous Epithelial Cells Few, Urine Amorphous Sediment ModerateH, Urine Bacteria Few 12/08/16 05:55: White Blood Count 17.1H, Red Blood Count 3.42L, Hemoglobin 10.0L, Hematocrit 30.7L, Mean Corpuscular Volume 90, Mean Corpuscular Hemoglobin 29.1, Mean Corpuscular Hemoglobin Concent 32.5, Red Cell Distribution Width 13.5, Platelet Count 184, Mean Platelet Volume 8.3, Neutrophils (%) (Auto) , Lymphocytes (%) ( Auto) , Monocytes (%) (Auto) , Eosinophils (%) (Auto) , Basophils (%) (Auto) , Differential Total Cells Counted 100, Neutrophils % (Manual) 83H, Lymphocytes % (Manual) 12L, Monocytes % (Manual) 5, Eosinophils % (Manual) 0, Basophils % ( Manual) 0, Band Neutrophils 0, Platelet Estimate Adequate, Platelet Morphology Normal, Hypochromasia 1+, Sodium Level 133L, Potassium Level 4.5, Chloride Level 95L, Carbon Dioxide Level 20, Anion Gap 18H, Blood Urea Nitrogen 64H, Creatinine 11.0H, Estimat Glomerular Filtration Rate 5.9, Glucose Level 101#, Uric Acid 6.1, Calcium Level 9.9, Phosphorus Level 5.3H, Magnesium Level 2.1, Total Bilirubin 0.4, Aspartate Amino Transf (AST/SGOT) 36, Alanine Aminotransferase (ALT/SGPT) 18, Alkaline Phosphatase 50, Troponin I < 0.30, C- Reactive Protein, Quantitative 30.5H, Pro-B-Type Natriuretic Peptide [id number], Total Protein 7.2, Albumin 3.6, Globulin 3.6, Albumin/Globulin Ratio 1.0 12/08/16 09:42: Arterial Blood pH 7.304L, Arterial Blood Partial Pressure CO2 43.2, Arterial Blood Partial Pressure O2 101.1H, Arterial Blood HCO3 21.0L, Arterial Blood Oxygen Saturation 97.2, Arterial Blood Base Excess -5.1, Valdo Test Positive Current Medications Medications (Trade) Dose Ordered Sig/Jeremy Route PRN Reason Start Time Stop Time Status Last Admin Dose Admin Acetaminophen (Tylenol) 650 mg Q4H PRN ORAL Fever 12/06/16 07:45 01/05/17 07:44 12/08/16 08:05 Albuterol/ Ipratropium (DuoNeb 0.5-3(2.5)mg/3ml) 3 ml Q4H PRN HHN Shortness of Breath 12/06/16 07:45 12/11/16 07:44 12/08/16 08:31 Amikacin Protocol 1 ea 1 ea DAILY PRN MISC Per rx protocol 12/06/16 07:45 01/05/17 07:44 Aspirin (ASA) 81 mg DAILY ORAL 12/06/16 09:00 01/05/17 08:59 12/08/16 09:46 Clonidine HCl (Catapres) 0.1 mg Q4H PRN ORAL BP over 160 syst 12/06/16 11:00 01/05/17 10:59 Clopidogrel Bisulfate (Plavix) 75 mg DAILY ORAL 12/06/16 09:00 01/05/17 08:59 12/08/16 09:46 Cyanocobalamin (Vitamin B12) 1,000 mcg DAILY SUBQ 12/08/16 09:00 12/10/16 09:01 12/08/16 09:46 Dextrose (Dextrose 50%) STAT PRN IV Hypoglycemia 12/06/16 07:45 01/05/17 07:44 Epoetin Dionte (Procrit (for ESRD on dialysis)) 10,000 units THU-THU-THU SUBQ 12/08/16 21:00 01/07/17 20:59 Ergocalciferol (Drisdol) 50,000 intlu QWEEK ORAL 12/07/16 10:00 01/06/17 09:59 12/07/16 10:00 Folic Acid (Folate) 2 mg DAILY ORAL 12/07/16 10:00 01/06/17 09:59 12/08/16 09:46 Gabapentin (Neurontin) 100 mg THREE TIMES A DAY ORAL 12/06/16 09:00 01/05/17 08:59 12/08/16 09:46 Heparin Sodium (Porcine) (Heparin 5000 units/ml) 5,000 units EVERY 12 HOURS SUBQ 12/06/16 09:00 01/05/17 08:59 12/08/16 09:47 Ondansetron HCl (Zofran) 4 mg Q6H PRN IVP Nausea & Vomiting 12/06/16 07:45 01/05/17 07:44 Pantoprazole (Protonix) 40 mg EVERY 12 HOURS ORAL 12/06/16 11:00 01/05/17 10:59 12/08/16 09:46 Piperacillin Sod/ Tazobactam Sod/ Dextrose (Zosyn/D5W) 55 ml @ 110 mls/hr Q8HR IV 12/06/16 14:00 12/11/16 13:59 12/08/16 05:48 Polyethylene Glycol (Miralax) 17 gm DAILYPRN PRN ORAL Constipation 12/06/16 07:45 01/05/17 07:44 Temazepam (Restoril) 15 mg HSPRN PRN ORAL Insomnia 12/06/16 07:45 12/13/16 07:44 12/07/16 22:03 Vancomycin HCl (Vanco rx to dose) 1 ea DAILY PRN MISC Per rx protocol 12/06/16 17:30 01/05/17 17:29 BERNADETTE COSTA Dec 08, 2016 13:02
--- NOTE | 2016-12-08 15:06 | Infectious Diseases Prog Note ---
Assessment/Plan Assessment/Plan ASSESSMENT: 51 y/o AAM, morbidly obese, HTNsive nephropathy, ESRD on [facility]S HD, now with high grade Staph aureus bacteremia, and will know whether this is MRSA vs MSSA later today. source appears to be infected RUE thrombosed AVF s/p failed thrombectomy on . U/S demonstrates early abscess formation. surveillance blood cx sent today from HD cath and one peripheral. I suspect he has infected thrombus. 1. Sepsis. 2. high grade Staph aureus bacteremia 3. Infected soft tissue around RUE arteriovenous fistula status post recent thrombectomy. 4. Concern for infected residual thrombus in that right upper extremity fistula. 5. Pulmonary edema and increased O2 requirement. 6. Hypotension as above. 7. End-stage renal disease, on dialysis. 8. Morbid obesity. 9. FRANCISCO JAVIER--not currently using his CPAP 10. TTE on admission negative for obvious Infective Endocarditis PLAN: 1. continue empiric IV vancomycin D#3 2. D/c amikacin and zosyn D#3 now. 2. Vascular surgery consult to evaluate infected RUE AVF 3. Followup admission blood cultures final result (confirm MRSA vs MSSA), and f/ u surveillance blood cx sent 12/08/16. 4. Remove portacath for at least until surveillance blood cx negative for 48 hrs. 5. Follow cardiopulmonary status and chest x-ray. covering for Dr. Varela. Subjective Constitutional: Reports: chills, fever Respiratory: Reports: shortness of breath Gastrointestinal/Abdominal: Reports: no symptoms Genitourinary: Reports: no symptoms Neurologic: Reports: no symptoms Skin: Reports: no symptoms Hematologic: Reports: no symptoms Allergies: Coded Allergies: No Known Allergies (Unverified , 12/06/16) Subjective 24 hr events: still febrile o/n, but looks to have defervesced this afternoon, and patient generally feels better. still with daytime somnolence, hasn't been using his CPAP since admission. confirmed staph aureus bacteremia 08/05 bottles. Objective Vital Signs Last 24 Hour Vital Signs Date Time Temp Pulse Resp B/P Pulse Ox O2 Delivery O2 Flow Rate FiO2 12/08/16 14:40 76 24 99 Nasal Cannula 4.0 36 12/08/16 14:32 76 24 93 Nasal Cannula 3.0 32 12/08/16 14:00 98.1 12/08/16 12:45 76 24 99 Nasal Cannula 4.0 36 12/08/16 12:00 104 12/08/16 12:00 98.2 87 24 127/68 97 Nasal Cannula 2.0 12/08/16 09:04 98.5 12/08/16 08:38 69 24 95 Nasal Cannula 3.0 32 12/08/16 08:36 Nasal Cannula 3.0 32 12/08/16 08:36 95 Nasal Cannula 3.0 32 12/08/16 08:36 63 24 Nasal Cannula 3.0 32 12/08/16 08:00 109 12/08/16 08:00 99.1 111 22 104/60 97 Nasal Cannula 3.0 12/08/16 07:45 99.2 12/08/16 04:00 95 12/08/16 04:00 102.2 110 20 118/56 96 Nasal Cannula 2.0 12/08/16 03:02 116 24 95 Nasal Cannula 3.0 32 12/08/16 00:00 117 12/07/16 23:45 101.8 101 22 116/65 95 Nasal Cannula 3.0 12/07/16 22:48 80 22 94 12/07/16 20:18 108 25 100 Bi-pap 40 12/07/16 20:16 108 25 100 Facial 40 12/07/16 20:12 Nasal Cannula 3.0 32 12/07/16 20:11 95 Nasal Cannula 3.0 32 12/07/16 20:11 110 22 Nasal Cannula 3.0 32 12/07/16 20:09 110 22 95 Nasal Cannula 3.0 32 12/07/16 20:00 117 12/07/16 20:00 99.9 108 19 93/69 97 Nasal Cannula 3.0 12/07/16 16:00 100 12/07/16 16:00 99.3 89 24 139/86 100 Nasal Cannula 3.0 Height (Feet): 5 Height (Inches): 7.00 Weight (Pounds): 308 Objective GENERAL: The patient is mildly toxic appearing. Appears fatigued and has conversational dyspnea at five to seven words. falling asleep on rounds. satting well on 2L [place] HEENT: He has no cervical lymphadenopathy. No pharyngeal injection or exudate and he has no conjunctival injection and his sclerae are anicteric. CARDIOVASCULAR: The patient is tachycardic. No murmurs appreciated. PULMONARY: Decreased breath sounds at the bases with poor inspiratory effort. No wheezes or rhonchi appreciated. not tachypneic today like he was yesterday ABDOMEN: Healed right upper quadrant surgical scar from prior cholecystectomy, obese abdomen, nontender to palpation in all quadrants, and hypoactive bowel sounds. GENITOURINARY: Circumcised. No scrotal edema. No rash. EXTREMITIES: A 1+ bilateral lower extremity edema. Right upper extremity, abnormal anatomy. Has two small clear fluid-filled bullae overlying the lateral aspect of his right upper arm in the medial aspect of the right upper arm. I cannot palpate a thrill nor hear a bruit to his right AV fistula. There is no overlying erythema, but there is warmth and there is swelling at the site. SKIN: He does have a right chest wall Port-A-Cath in place that is healthy in appearance and is nontender to palpation over the exit site. MSK: no pain to palpation over spinous processes. Microbiology Date/Time Source Procedure Growth Status 12/06/16 05:00 Blood Blood Culture - Preliminary Staphylococcus Aureus Resulted 12/06/16 04:40 Blood Blood Culture - Preliminary Staphylococcus Aureus Resulted 12/06/16 06:20 Nasal Nares MRSA Culture - Final NO METHICILLIN RESISTANT STAPH AUREUS... Complete 12/07/16 04:03 Stool Clostridium difficile Toxin Assay - Final Complete 12/06/16 06:20 Rectum VRE Culture - Final NO VANCOMYCIN RESISTANT ENTEROCOCCUS ... Complete Laboratory Tests Test 12/08/16 03:45 12/08/16 05:55 12/08/16 09:42 Urine Color Pale yellow Urine Appearance Clear Urine pH 5 (4.5-8.0) Urine Specific [place] 1.010 (1.005-1.035) Urine Protein 3+ (NEGATIVE) H Urine Glucose (UA) Negative (NEGATIVE) Urine Ketones Negative (NEGATIVE) Urine Occult Blood 1+ (NEGATIVE) H Urine Nitrite Negative (NEGATIVE) Urine Bilirubin Negative (NEGATIVE) Urine Urobilinogen Normal MG/DL (0.0-1.0) Urine Leukocyte Esterase Negative (NEGATIVE) Urine RBC 0-2 /HPF (0 - 0) H Urine WBC 0-2 /HPF (0 - 0) Urine Squamous Epithelial Cells Few /LPF (NONE/OCC) Urine Amorphous Sediment Moderate /LPF (NONE) H Urine Bacteria Few /HPF (NONE) White Blood Count 17.1 K/UL (4.8-10.8) H Red Blood Count 3.42 M/UL (4.70-6.10) L Hemoglobin 10.0 G/DL (14.2-18.0) L Hematocrit 30.7 % (42.0-52.0) L Mean Corpuscular Volume 90 FL (80-99) Mean Corpuscular Hemoglobin 29.1 PG (27.0-31.0) Mean Corpuscular Hemoglobin Concent 32.5 G/DL (32.0-36.0) Red Cell Distribution Width 13.5 % (11.6-14.8) Platelet Count 184 K/UL (150-450) Mean Platelet Volume 8.3 FL (6.5-10.1) Neutrophils (%) (Auto) % (45.0-75.0) Lymphocytes (%) (Auto) % (20.0-45.0) Monocytes (%) (Auto) % (1.0-10.0) Eosinophils (%) (Auto) % (0.0-3.0) Basophils (%) (Auto) % (0.0-2.0) Differential Total Cells Counted 100 Neutrophils % (Manual) 83 % (45-75) H Lymphocytes % (Manual) 12 % (20-45) L Monocytes % (Manual) 5 % (1-10) Eosinophils % (Manual) 0 % (0-3) Basophils % (Manual) 0 % (0-2) Band Neutrophils 0 % (0-8) Platelet Estimate Adequate Platelet Morphology Normal Hypochromasia 1+ Sodium Level 133 mEQ/L (135-145) L Potassium Level 4.5 mEQ/L (3.4-4.9) Chloride Level 95 mEQ/L (98-107) L Carbon Dioxide Level 20 mEQ/L (20-30) Anion Gap 18 (5-15) H Blood Urea Nitrogen 64 mg/dL (7-23) H Creatinine 11.0 mg/dL (0.7-1.2) H Estimat Glomerular Filtration Rate 5.9 mL/min (>60) Glucose Level 101 mg/dL (74-106) # Uric Acid 6.1 mg/dL (3.0-7.5) Calcium Level 9.9 mg/dL (8.6-10.2) Phosphorus Level 5.3 mg/dL (2.5-4.8) H Magnesium Level 2.1 mg/dL (1.7-2.5) Total Bilirubin 0.4 mg/dL (0.0-1.2) Aspartate Amino Transf (AST/SGOT) 36 U/L (5-40) Alanine Aminotransferase (ALT/SGPT) 18 U/L (3-41) Alkaline Phosphatase 50 U/L (40-129) Troponin I < 0.30 ng/mL (<=0.30) C-Reactive Protein, Quantitative 30.5 mg/dL (< 0.5) H Pro-B-Type Natriuretic Peptide 15450 pg/mL (0-125) H Total Protein 7.2 g/dL (6.6-8.7) Albumin 3.6 g/dL (3.5-5.2) Globulin 3.6 g/dL Albumin/Globulin Ratio 1.0 (1.0-2.7) Arterial Blood pH 7.304 (7.350-7.450) Arterial Blood Partial Pressure CO2 43.2 mmHg (35.0-45.0) Arterial Blood Partial Pressure O2 101.1 mmHg (75.0-100.0) H Arterial Blood HCO3 21.0 mmol/L (22.0-26.0) L Arterial Blood Oxygen Saturation 97.2 % (92.0-98.0) Arterial Blood Base Excess -5.1 Valdo Test Positive Current Medications Medications (Trade) Dose Ordered Sig/Jeremy Route PRN Reason Start Time Stop Time Status Last Admin Dose Admin Acetaminophen (Tylenol) 650 mg Q4H PRN ORAL Fever 12/06/16 07:45 01/05/17 07:44 12/08/16 08:05 Albuterol/ Ipratropium (DuoNeb 0.5-3(2.5)mg/3ml) 3 ml Q4H PRN HHN Shortness of Breath 12/06/16 07:45 12/11/16 07:44 12/08/16 14:32 Amikacin Protocol 1 ea 1 ea DAILY PRN MISC Per rx protocol 12/06/16 07:45 01/05/17 07:44 Aspirin (ASA) 81 mg DAILY ORAL 12/06/16 09:00 01/05/17 08:59 12/08/16 09:46 Clonidine HCl (Catapres) 0.1 mg Q4H PRN ORAL BP over 160 syst 12/06/16 11:00 01/05/17 10:59 Clopidogrel Bisulfate (Plavix) 75 mg DAILY ORAL 12/06/16 09:00 01/05/17 08:59 12/08/16 09:46 Cyanocobalamin (Vitamin B12) 1,000 mcg DAILY SUBQ 12/08/16 09:00 12/10/16 09:01 12/08/16 09:46 Dextrose (Dextrose 50%) STAT PRN IV Hypoglycemia 12/06/16 07:45 01/05/17 07:44 Epoetin Dionte (Procrit (for ESRD on dialysis)) 10,000 units THU-THU-THU SUBQ 12/08/16 21:00 01/07/17 20:59 Ergocalciferol (Drisdol) 50,000 intlu QWEEK ORAL 12/07/16 10:00 01/06/17 09:59 12/07/16 10:00 Folic Acid (Folate) 2 mg DAILY ORAL 12/07/16 10:00 01/06/17 09:59 12/08/16 09:46 Gabapentin (Neurontin) 100 mg THREE TIMES A DAY ORAL 12/06/16 09:00 01/05/17 08:59 12/08/16 13:38 Heparin Sodium (Porcine) (Heparin 5000 units/ml) 5,000 units EVERY 12 HOURS SUBQ 12/06/16 09:00 01/05/17 08:59 12/08/16 09:47 Ondansetron HCl (Zofran) 4 mg Q6H PRN IVP Nausea & Vomiting 12/06/16 07:45 01/05/17 07:44 Pantoprazole (Protonix) 40 mg EVERY 12 HOURS ORAL 12/06/16 11:00 01/05/17 10:59 12/08/16 09:46 Piperacillin Sod/ Tazobactam Sod/ Dextrose (Zosyn/D5W) 55 ml @ 110 mls/hr Q8HR IV 12/06/16 14:00 12/11/16 13:59 12/08/16 13:38 Polyethylene Glycol (Miralax) 17 gm DAILYPRN PRN ORAL Constipation 12/06/16 07:45 01/05/17 07:44 Temazepam (Restoril) 15 mg HSPRN PRN ORAL Insomnia 12/06/16 07:45 12/13/16 07:44 12/07/16 22:03 Vancomycin HCl (Vanco rx to dose) 1 ea DAILY PRN MISC Per rx protocol 12/06/16 17:30 01/05/17 17:29 Humphrey Arana M.D. Dec 08, 2016 15:06
[2016-12-08 16:00] VITALS: BP 144/88
[2016-12-08] MEDS ORDERED: NS 550ML IV ONE (16:43)
[2016-12-08 20:13] VITALS: BP 115/72
[2016-12-08] MEDS: Epogen (for ESRD on dialysis) SUBQ SCH (21:05)
[2016-12-09] VITALS (8 sets, daily range): BP systolic 114–182; BP diastolic 56–92
[2016-12-09] MEDS: DuoNeb 0.5-3(2.5)mg/3ml neb HHN PRN ×3 (03:58→18:30)
[2016-12-09 04:47] LABS: BASOPHILS % (AUTO) 0.6 % (0.0-2.0); EOSINOPHILS % (AUTO) 1.6 % (0.0-3.0); LYMPHOCYTES % (AUTO) 9.6 % (20.0-45.0); MEAN CORPUSCULAR HEMOGLOBIN 29.3 PG (27.0-31.0); MEAN CORPUSCULAR HGB CONC 32.9 G/DL (32.0-36.0); MEAN CORPUSCULAR VOLUME 89 FL (80-99); MEAN PLATELET VOLUME 8.2 FL (6.5-10.1); MONOCYTES % (AUTO) 10.5 % (1.0-10.0); NEUTROPHILS % (AUTO) 77.7 % (45.0-75.0); PLATELET COUNT 184 K/UL (150-450); RED CELL DISTRIBUTION WIDTH 13.4 % (11.6-14.8); WHITE BLOOD COUNT 13.7 K/UL (4.8-10.8)
[2016-12-09 05:03] LABS: ALBUMIN/GLOBULIN RATIO 0.9 (1.0-2.7); CALCIUM 9.7 mg/dL (8.6-10.2); CREATININE 11.6 mg/dL (0.7-1.2); GLOMERULAR FILTRATION RATE 5.6 mL/min (>60); POTASSIUM 4.7 mEQ/L (3.4-4.9); TOTAL PROTEIN 7.4 g/dL (6.6-8.7)
[2016-12-09] MEDS ORDERED: Cathflo Alteplase 2mg Inj INJ ONE ×3 (08:15→10:00)
--- NOTE | 2016-12-09 08:58 | General Progress Note ---
Assessment/Plan Status: unchanged Status Narrative on HD now- WBCs lowering Assessment/Plan status: ESRD Admitted with sepsis , has right permacath put in 12/02 HTN Obesity Anemia Plan: HD today, in process EPO . B12 ,.... Phos and Mag as needed Antibiotics BP control Per orders and per consultants Subjective ROS Limited/Unobtainable: No Constitutional: Reports: malaise, weakness Allergies: Coded Allergies: No Known Allergies (Unverified , 12/06/16) Objective Last 24 Hour Vital Signs Date Time Temp Pulse Resp B/P Pulse Ox O2 Delivery O2 Flow Rate FiO2 12/09/16 05:10 Nasal Cannula 4.0 12/09/16 05:00 99.3 101 24 182/92 98 Nasal Cannula 5.0 12/09/16 04:26 196/110 12/09/16 04:00 95 12/09/16 03:59 88 20 96 Nasal Cannula 2.0 28 12/09/16 03:59 84 20 94 Nasal Cannula 2.0 28 12/09/16 03:39 98.2 74 21 100 Nasal Cannula 12/09/16 00:12 97.7 75 20 135/75 99 Nasal Cannula 2.0 12/09/16 00:00 58 12/08/16 20:13 98.1 102 21 115/72 98 Room Air 12/08/16 20:00 69 12/08/16 19:30 80 20 Nasal Cannula 2.0 28 12/08/16 19:30 Nasal Cannula 2.0 28 12/08/16 19:30 94 Nasal Cannula 2.0 28 12/08/16 19:15 98.1 12/08/16 16:00 98.4 85 24 144/88 95 Room Air 12/08/16 16:00 103 12/08/16 14:40 76 24 99 Nasal Cannula 4.0 36 12/08/16 14:32 76 24 93 Nasal Cannula 3.0 32 12/08/16 14:00 98.1 12/08/16 12:45 76 24 99 Nasal Cannula 4.0 36 12/08/16 12:00 104 12/08/16 12:00 98.2 87 24 127/68 97 Nasal Cannula 2.0 Intake and Output 12/08/16 12/09/16 19:00 07:00 Output Total 300 ml Balance -300 ml Output Urine Total 300 ml Laboratory Tests 12/08/16 09:42: Arterial Blood pH 7.304L, Arterial Blood Partial Pressure CO2 43.2, Arterial Blood Partial Pressure O2 101.1H, Arterial Blood HCO3 21.0L, Arterial Blood Oxygen Saturation 97.2, Arterial Blood Base Excess -5.1, Valdo Test Positive 12/08/16 17:40: Random Amikacin Level 11.6 12/09/16 04:30: White Blood Count 13.7H, Red Blood Count 3.20L, Hemoglobin 9.4L, Hematocrit 28.4L, Mean Corpuscular Volume 89, Mean Corpuscular Hemoglobin 29.3, Mean Corpuscular Hemoglobin Concent 32.9, Red Cell Distribution Width 13.4, Platelet Count 184, Mean Platelet Volume 8.2, Neutrophils (%) (Auto) 77.7H, Lymphocytes ( %) (Auto) 9.6L, Monocytes (%) (Auto) 10.5H, Eosinophils (%) (Auto) 1.6, Basophils (%) (Auto) 0.6, Sodium Level 130L, Potassium Level 4.7, Chloride Level 91L, Carbon Dioxide Level 20, Anion Gap 19H, Blood Urea Nitrogen 72H, Creatinine 11.6H, Estimat Glomerular Filtration Rate 5.6, Glucose Level 99, Calcium Level 9.7, Total Bilirubin 0.4, Aspartate Amino Transf (AST/SGOT) 25, Alanine Aminotransferase (ALT/SGPT) 17, Alkaline Phosphatase 48, Pro-B-Type Natriuretic Peptide 54650P, Total Protein 7.4, Albumin 3.6, Globulin 3.8, Albumin/Globulin Ratio 0.9L, Random Vancomycin Level 22.2 Height (Feet): 5 Height (Inches): 7.00 Weight (Pounds): 308 General Appearance: no apparent distress, lethargic Cardiovascular: tachycardia Respiratory/Chest: decreased breath sounds Abdomen: other - obese Edema: 1+ Arm (L), 1+ Arm (R), 1+ Leg (L), 1+ Leg (R), 1+ Pedal (L), 1+ Pedal ( R), 1+ Generalized Objective no change in PE GENNY JACK Dec 09, 2016 08:58
[2016-12-09] MEDS ORDERED: Heparin Sod 1000 units/ml 10ml INJ PRN ×2 (09:00)
--- NOTE | 2016-12-09 09:03 | Diagnostic Imaging Report ---
Indication: SOB Technique: XRAY CHEST 1 V. Comparison: 12/06/2016 Findings: The cardiomediastinal silhouette is unchanged. No new infiltrates are identified. Impression: No significant change from prior examination.
[2016-12-09] MEDS: Aspirin Baby 81mg ORAL SCH (10:53)
[2016-12-09] MEDS: Heparin 5000 units/ml inj SUBQ SCH ×2 (10:56→21:00)
[2016-12-09] MEDS: Vitamin B12 1000mcg/ml Inj SUBQ SCH (10:56)
--- NOTE | 2016-12-09 11:31 | Pulmonology Progress Note ---
Assessment/Plan Problems: (1) Sepsis (2) Bacteremia (3) ESRD on hemodialysis (4) Morbid obesity with BMI of 45.0-49.9, adult Assessment/Plan continue Iv abx, check sensitivity, available now HD by nephrology getting better wbc decreasing Portocath was removed today, Shunt exploration in am Subjective ROS Limited/Unobtainable: No Interval Events: more confused Constitutional: Reports: no symptoms Allergies: Coded Allergies: No Known Allergies (Unverified , 12/06/16) Objective Last 24 Hour Vital Signs Date Time Temp Pulse Resp B/P Pulse Ox O2 Delivery O2 Flow Rate FiO2 12/09/16 10:36 98.6 87 25 144/65 97 Nasal Cannula 4.0 12/09/16 10:35 Nasal Cannula 4.0 12/09/16 08:00 97.1 70 20 114/65 96 12/09/16 05:10 Nasal Cannula 4.0 12/09/16 05:00 99.3 101 24 182/92 98 Nasal Cannula 5.0 12/09/16 04:26 196/110 12/09/16 04:00 95 12/09/16 03:59 88 20 96 Nasal Cannula 2.0 28 12/09/16 03:59 84 20 94 Nasal Cannula 2.0 28 12/09/16 03:39 98.2 74 21 100 Nasal Cannula 12/09/16 00:12 97.7 75 20 135/75 99 Nasal Cannula 2.0 12/09/16 00:00 58 12/08/16 20:13 98.1 102 21 115/72 98 Room Air 12/08/16 20:00 69 12/08/16 19:30 80 20 Nasal Cannula 2.0 28 12/08/16 19:30 Nasal Cannula 2.0 28 12/08/16 19:30 94 Nasal Cannula 2.0 28 12/08/16 19:15 98.1 12/08/16 16:00 98.4 85 24 144/88 95 Room Air 12/08/16 16:00 103 12/08/16 14:40 76 24 99 Nasal Cannula 4.0 36 12/08/16 14:32 76 24 93 Nasal Cannula 3.0 32 12/08/16 14:00 98.1 12/08/16 12:45 76 24 99 Nasal Cannula 4.0 36 12/08/16 12:00 104 12/08/16 12:00 98.2 87 24 127/68 97 Nasal Cannula 2.0 Intake and Output 12/08/16 12/09/16 19:00 07:00 Output Total 300 ml Balance -300 ml Output Urine Total 300 ml General Appearance: WD/WN HEENT: normocephalic, atraumatic Respiratory/Chest: chest wall non-tender, lungs clear Cardiovascular: normal peripheral pulses, normal rate Abdomen: normal bowel sounds, soft, non tender Extremities: no cyanosis Skin: no rash Microbiology Date/Time Source Procedure Growth Status 12/07/16 18:40 Blood Blood Culture - Preliminary Resulted 12/07/16 18:30 Blood Blood Culture - Preliminary Resulted 12/07/16 04:03 Stool Clostridium difficile Toxin Assay - Final Complete 12/08/16 03:45 Urine,Clean Catch Urine Culture - Preliminary NO GROWTH Resulted Laboratory Tests 12/08/16 17:40: Random Amikacin Level 11.6 12/09/16 04:30: White Blood Count 13.7H, Red Blood Count 3.20L, Hemoglobin 9.4L, Hematocrit 28.4L, Mean Corpuscular Volume 89, Mean Corpuscular Hemoglobin 29.3, Mean Corpuscular Hemoglobin Concent 32.9, Red Cell Distribution Width 13.4, Platelet Count 184, Mean Platelet Volume 8.2, Neutrophils (%) (Auto) 77.7H, Lymphocytes ( %) (Auto) 9.6L, Monocytes (%) (Auto) 10.5H, Eosinophils (%) (Auto) 1.6, Basophils (%) (Auto) 0.6, Sodium Level 130L, Potassium Level 4.7, Chloride Level 91L, Carbon Dioxide Level 20, Anion Gap 19H, Blood Urea Nitrogen 72H, Creatinine 11.6H, Estimat Glomerular Filtration Rate 5.6, Glucose Level 99, Calcium Level 9.7, Total Bilirubin 0.4, Aspartate Amino Transf (AST/SGOT) 25, Alanine Aminotransferase (ALT/SGPT) 17, Alkaline Phosphatase 48, Pro-B-Type Natriuretic Peptide 86422J, Total Protein 7.4, Albumin 3.6, Globulin 3.8, Albumin/Globulin Ratio 0.9L, Random Vancomycin Level 22.2 Current Medications Medications (Trade) Dose Ordered Sig/Jeremy Route PRN Reason Start Time Stop Time Status Last Admin Dose Admin Acetaminophen (Tylenol) 650 mg Q4H PRN ORAL Fever 12/06/16 07:45 01/05/17 07:44 12/09/16 10:48 Albuterol/ Ipratropium (DuoNeb 0.5-3(2.5)mg/3ml) 3 ml Q4H PRN HHN Shortness of Breath 12/06/16 07:45 12/11/16 07:44 12/09/16 03:58 Aspirin (ASA) 81 mg DAILY ORAL 12/06/16 09:00 01/05/17 08:59 12/09/16 10:53 Clonidine HCl (Catapres) 0.1 mg Q4H PRN ORAL BP over 160 syst 12/06/16 11:00 01/05/17 10:59 12/09/16 04:26 Clopidogrel Bisulfate (Plavix) 75 mg DAILY ORAL 12/06/16 09:00 01/05/17 08:59 12/09/16 10:49 Cyanocobalamin (Vitamin B12) 1,000 mcg DAILY SUBQ 12/08/16 09:00 12/10/16 09:01 12/09/16 10:56 Dextrose (Dextrose 50%) STAT PRN IV Hypoglycemia 12/06/16 07:45 01/05/17 07:44 Epoetin Dionte (Procrit (for ESRD on dialysis)) 10,000 units THU-THU-THU SUBQ 12/08/16 21:00 01/07/17 20:59 12/08/16 21:05 Ergocalciferol (Drisdol) 50,000 intlu QWEEK ORAL 12/07/16 10:00 01/06/17 09:59 12/07/16 10:00 Folic Acid (Folate) 2 mg DAILY ORAL 12/07/16 10:00 01/06/17 09:59 12/09/16 10:54 Gabapentin (Neurontin) 100 mg THREE TIMES A DAY ORAL 12/06/16 09:00 01/05/17 08:59 12/09/16 10:55 Heparin Sodium (Porcine) (Heparin 5000 units/ml) 5,000 units EVERY 12 HOURS SUBQ 12/06/16 09:00 01/05/17 08:59 12/09/16 10:56 Ondansetron HCl (Zofran) 4 mg Q6H PRN IVP Nausea & Vomiting 12/06/16 07:45 01/05/17 07:44 Pantoprazole (Protonix) 40 mg EVERY 12 HOURS ORAL 12/06/16 11:00 01/05/17 10:59 12/09/16 10:53 Polyethylene Glycol (Miralax) 17 gm DAILYPRN PRN ORAL Constipation 12/06/16 07:45 01/05/17 07:44 Temazepam (Restoril) 15 mg HSPRN PRN ORAL Insomnia 12/06/16 07:45 12/13/16 07:44 12/07/16 22:03 Vancomycin HCl (Vanco rx to dose) 1 ea DAILY PRN MISC Per rx protocol 12/06/16 17:30 01/05/17 17:29 BERNADETTE COSTA Dec 09, 2016 11:30
--- NOTE | 2016-12-09 12:20 | Consultation ---
Consult Note Consult Note Pt admitted with fever and bacteremia, suspicious for dialysis access infection. He reports a recent procedure elsewhere to open a clotted AVF in RUE which was unsuccessful. A Permcath was placed at that time. PMH/ROS/Hosp. course noted. Exam -- NAD; AVSS; cor RRR; lungs CTA; abd. soft, NT/D; extr. no C/C/E, RUE AVF without thrill, palpable organized thrombus, no erythema, NT; Permcath site without discharge or erythema. Labs/imaging reviewed. Assessment/Plan Fever and bacteremia, likely due to infected Permcath -- thrombosed AVF infection less likely. -- Permcath removed and tip sent for C&S... large amount of brownish pus expressed from catheter site and also sent for C&S. -- f/u on culture results -- cont. abx per ID -- temp. catheter placement after a period of abx -- long-term HD access will be planned for when repeat cx's neg. and pt cleared medically for procedure. Discussed with pt and PMD. CYNDI LOPES Dec 09, 2016 12:20
--- NOTE | 2016-12-09 14:16 | Infectious Diseases Prog Note ---
Assessment/Plan Assessment/Plan ASSESSMENT: 51 y/o AAM, morbidly obese, HTNsive nephropathy, ESRD on S HD, now with high grade MSSA bacteremia, and had R chest wall tunneled HD cath tunneled site infection, s/p removal of cath today with exudate and tip being sent for cx. Has RUE thrombosed AVF s/p failed thrombectomy on with fluid collection adjacent to the site seen on u/s. surveillance blood cx from 12/08 from HD cath and one peripheral is ngtd at 24 hrs. 1. Sepsis, resolving. 2. high grade MSSA bacteremia 3. Infected HD cath tunnel tract, s/p removal and bedside debridement 12/09/16. 4. Concern for infected residual thrombus in that right upper extremity fistula vs post procedure hematoma. 5. Pulmonary edema and increased O2 requirement. 6. Hypotension as above. 7. End-stage renal disease, on dialysis. 8. Morbid obesity. 9. FRANCISCO JAVIER--not currently using his CPAP 10. TTE on admission negative for obvious Infective Endocarditis PLAN: --Start Cefazolin IV this afternoon for confirmed MSSA bacteremia. If he had normal renal function, I'd recommend 2g iv q8hr. Given his renal dysfunction, and already responding to vanc, his dose while in hospital will be 1gm IV q24hr and will be dosed in the afternoons to ensure given after HD on dialysis days. Once surveillance blood cx are neg for >72 hrs, has been afebrile for 48-72 hrs , is tolerating therapy, and we confirm RUE not infected, at eventual hospital discharge, he will be switched to Cefazolin 2gm/2gm/3gm (eg. 2gm IV after HD, 2gm after HD, and 3gm after thursday HD). Duration minimum 14 days from time of clearance of blood cultures, but given the thrombus in his RUE, we should plan for 4-6 weeks. --D/c IV vancomycin D#4 now --(12/08 s/p amikacin and zosyn D#3) --Vascular surgery consult to evaluate infected RUE AVF --f/u surveillance blood cx sent 12/08/16. --f/u portacath tip cx and tunneled tract pus. --line holiday for 48-72 hrs. --repeat RUE u/s later this week to re-evaluate whether this fluid collection has organized more into abscess or perhaps rather is stable hematoma --Follow cardiopulmonary status and chest x-ray. covering for Dr. Varela. Subjective Constitutional: Reports: no symptoms Respiratory: Reports: shortness of breath Gastrointestinal/Abdominal: Reports: no symptoms Genitourinary: Reports: no symptoms Allergies: Coded Allergies: No Known Allergies (Unverified , 12/06/16) Subjective 24 hr events: defervesed . still with daytime somnolence, hasn't been using his CPAP since admission. vascular pulled his r chest wall tunneled HD cath and had pus tracked along catheter. swab of exudate and cath tip being sent for cx. Objective Vital Signs Last 24 Hour Vital Signs Date Time Temp Pulse Resp B/P Pulse Ox O2 Delivery O2 Flow Rate FiO2 12/09/16 12:00 98.4 89 21 131/63 98 Room Air 12/09/16 11:53 99 24 98 Nasal Cannula 4.0 36 12/09/16 11:50 Nasal Cannula 4.0 36 12/09/16 11:49 95 Nasal Cannula 4.0 36 12/09/16 11:47 98.4 12/09/16 11:43 91 23 95 Nasal Cannula 4.0 36 12/09/16 11:40 91 23 Nasal Cannula 4.0 36 12/09/16 10:36 98.6 87 25 144/65 97 Nasal Cannula 4.0 12/09/16 10:35 Nasal Cannula 4.0 12/09/16 08:00 97.1 70 20 114/65 96 12/09/16 05:10 Nasal Cannula 4.0 12/09/16 05:00 99.3 101 24 182/92 98 Nasal Cannula 5.0 12/09/16 04:26 196/110 12/09/16 04:00 95 12/09/16 03:59 88 20 96 Nasal Cannula 2.0 28 12/09/16 03:59 84 20 94 Nasal Cannula 2.0 28 12/09/16 03:39 98.2 74 21 100 Nasal Cannula 12/09/16 00:12 97.7 75 20 135/75 99 Nasal Cannula 2.0 12/09/16 00:00 58 12/08/16 20:13 98.1 102 21 115/72 98 Room Air 12/08/16 20:00 69 12/08/16 19:30 80 20 Nasal Cannula 2.0 28 12/08/16 19:30 Nasal Cannula 2.0 28 12/08/16 19:30 94 Nasal Cannula 2.0 28 12/08/16 16:00 98.4 85 24 144/88 95 Room Air 12/08/16 16:00 103 12/08/16 14:40 76 24 99 Nasal Cannula 4.0 36 12/08/16 14:32 76 24 93 Nasal Cannula 3.0 32 Height (Feet): 5 Height (Inches): 7.00 Weight (Pounds): 308 Objective GENERAL: The patient is mildly toxic appearing. Appears fatigued and has conversational dyspnea at five to seven words. falling asleep on rounds. satting well on 2L NC HEENT: He has no cervical lymphadenopathy. No pharyngeal injection or exudate and he has no conjunctival injection and his sclerae are anicteric. CARDIOVASCULAR: The patient is tachycardic. No murmurs appreciated. PULMONARY: Decreased breath sounds at the bases with poor inspiratory effort. No wheezes or rhonchi appreciated. not tachypneic today like he was yesterday ABDOMEN: Healed right upper quadrant surgical scar from prior cholecystectomy, obese abdomen, nontender to palpation in all quadrants, and hypoactive bowel sounds. GENITOURINARY: Circumcised. No scrotal edema. No rash. EXTREMITIES: A 1+ bilateral lower extremity edema. Right upper extremity, abnormal anatomy. Has two small clear fluid-filled bullae overlying the lateral aspect of his right upper arm in the medial aspect of the right upper arm. I cannot palpate a thrill nor hear a bruit to his right AV fistula. There is no overlying erythema, but there is warmth and there is swelling at the site. SKIN: He does have a right chest wall Port-A-Cath in place that is healthy in appearance and is nontender to palpation over the exit site. MSK: no pain to palpation over spinous processes. Microbiology Date/Time Source Procedure Growth Status 12/07/16 18:40 Blood Blood Culture - Preliminary Resulted 12/07/16 18:30 Blood Blood Culture - Preliminary Resulted 12/08/16 19:45 Sputum Expectorated Gram Stain - Final Resulted 12/08/16 19:45 Sputum Expectorated Sputum Culture Pending Resulted 12/07/16 04:03 Stool Clostridium difficile Toxin Assay - Final Complete 12/08/16 03:45 Urine,Clean Catch Urine Culture - Preliminary NO GROWTH Resulted Laboratory Tests Test 12/08/16 17:40 12/09/16 04:30 Random Amikacin Level 11.6 ug/mL White Blood Count 13.7 K/UL (4.8-10.8) H Red Blood Count 3.20 M/UL (4.70-6.10) L Hemoglobin 9.4 G/DL (14.2-18.0) L Hematocrit 28.4 % (42.0-52.0) L Mean Corpuscular Volume 89 FL (80-99) Mean Corpuscular Hemoglobin 29.3 PG (27.0-31.0) Mean Corpuscular Hemoglobin Concent 32.9 G/DL (32.0-36.0) Red Cell Distribution Width 13.4 % (11.6-14.8) Platelet Count 184 K/UL (150-450) Mean Platelet Volume 8.2 FL (6.5-10.1) Neutrophils (%) (Auto) 77.7 % (45.0-75.0) H Lymphocytes (%) (Auto) 9.6 % (20.0-45.0) L Monocytes (%) (Auto) 10.5 % (1.0-10.0) H Eosinophils (%) (Auto) 1.6 % (0.0-3.0) Basophils (%) (Auto) 0.6 % (0.0-2.0) Sodium Level 130 mEQ/L (135-145) L Potassium Level 4.7 mEQ/L (3.4-4.9) Chloride Level 91 mEQ/L (98-107) L Carbon Dioxide Level 20 mEQ/L (20-30) Anion Gap 19 (5-15) H Blood Urea Nitrogen 72 mg/dL (7-23) H Creatinine 11.6 mg/dL (0.7-1.2) H Estimat Glomerular Filtration Rate 5.6 mL/min (>60) Glucose Level 99 mg/dL (74-106) Calcium Level 9.7 mg/dL (8.6-10.2) Total Bilirubin 0.4 mg/dL (0.0-1.2) Aspartate Amino Transf (AST/SGOT) 25 U/L (5-40) Alanine Aminotransferase (ALT/SGPT) 17 U/L (3-41) Alkaline Phosphatase 48 U/L (40-129) Pro-B-Type Natriuretic Peptide 62239 pg/mL (0-125) H Total Protein 7.4 g/dL (6.6-8.7) Albumin 3.6 g/dL (3.5-5.2) Globulin 3.8 g/dL Albumin/Globulin Ratio 0.9 (1.0-2.7) L Random Vancomycin Level 22.2 ug/mL Current Medications Medications (Trade) Dose Ordered Sig/Jeremy Route PRN Reason Start Time Stop Time Status Last Admin Dose Admin Acetaminophen (Tylenol) 650 mg Q4H PRN ORAL Fever 12/06/16 07:45 01/05/17 07:44 12/09/16 10:48 Albuterol/ Ipratropium (DuoNeb 0.5-3(2.5)mg/3ml) 3 ml Q4H PRN HHN Shortness of Breath 12/06/16 07:45 12/11/16 07:44 12/09/16 11:46 Aspirin (ASA) 81 mg DAILY ORAL 12/06/16 09:00 01/05/17 08:59 12/09/16 10:53 Cefazolin Sodium/ Dextrose (Ancef/D5W) 55 ml @ 110 mls/hr Q24HRS IVPB 12/09/16 13:45 12/22/16 15:59 UNV Clonidine HCl (Catapres) 0.1 mg Q4H PRN ORAL BP over 160 syst 12/06/16 11:00 01/05/17 10:59 12/09/16 04:26 Clopidogrel Bisulfate (Plavix) 75 mg DAILY ORAL 12/06/16 09:00 01/05/17 08:59 12/09/16 10:49 Cyanocobalamin (Vitamin B12) 1,000 mcg DAILY SUBQ 12/08/16 09:00 12/10/16 09:01 12/09/16 10:56 Dextrose (Dextrose 50%) STAT PRN IV Hypoglycemia 12/06/16 07:45 01/05/17 07:44 Epoetin Dionte (Procrit (for ESRD on dialysis)) 10,000 units MON-WED-THU SUBQ 12/08/16 21:00 01/07/17 20:59 12/08/16 21:05 Ergocalciferol 20204 intlu 50,000 intlu QWEEK ORAL 12/07/16 10:00 01/06/17 09:59 12/07/16 10:00 Folic Acid (Folate) 2 mg DAILY ORAL 12/07/16 10:00 01/06/17 09:59 12/09/16 10:54 Gabapentin (Neurontin) 100 mg THREE TIMES A DAY ORAL 12/06/16 09:00 01/05/17 08:59 12/09/16 10:55 Heparin Sodium (Porcine) (Heparin 5000 units/ml) 5,000 units EVERY 12 HOURS SUBQ 12/06/16 09:00 01/05/17 08:59 12/09/16 10:56 Ondansetron HCl (Zofran) 4 mg Q6H PRN IVP Nausea & Vomiting 12/06/16 07:45 01/05/17 07:44 Pantoprazole (Protonix) 40 mg EVERY 12 HOURS ORAL 12/06/16 11:00 01/05/17 10:59 12/09/16 10:53 Polyethylene Glycol (Miralax) 17 gm DAILYPRN PRN ORAL Constipation 12/06/16 07:45 01/05/17 07:44 Temazepam (Restoril) 15 mg HSPRN PRN ORAL Insomnia 12/06/16 07:45 12/13/16 07:44 12/07/16 22:03 Humphrey Arana M.D. Dec 09, 2016 14:16
--- NOTE | 2016-12-09 16:12 | Diagnostic Imaging Report ---
Indication: DYSPNEA Technique: One view of the chest Comparison: 12/07/2016 Findings: The heart is enlarged. There is mild interstitial congestion, similar to prior exam allowing for differences in exposure technique. Right subclavian and innominate venous stent is again demonstrated. Previously demonstrated tunneled dialysis catheter has been removed. Impression: Interim tunneled dialysis catheter removal Stable interstitial congestion and cardiomegaly, over 2 days
[2016-12-09] MEDS: ceFAZolin sod 1 GM in D5W 55 ML IVPB SCH (21:05)
[2016-12-10 03:57] VITALS: BP 150/96
--- NOTE | 2016-12-10 06:07 | Infectious Diseases Prog Note ---
Assessment/Plan Assessment/Plan ASSESSMENT: 51 y/o AAM, morbidly obese, HTNsive nephropathy, ESRD on S HD, now with high grade MSSA bacteremia secondary to R chest wall tunneled HD cath tunneled site infection, s/p removal of cath 12/09/16 with exudate and tip sent for cx. Has RUE thrombosed AVF s/p failed thrombectomy on with fluid collection adjacent to the site seen on u/s. surveillance blood cx from 12/07 growing Staph again, but blood cx drawn on 12/08 from HD cath is ngtd at >24 hrs. defervesced as of 12/08. 1. Sepsis, resolving. 2. high grade MSSA bacteremia 3. Infected HD cath tunnel tract, s/p removal and bedside debridement 12/09/16. 4. Concern for infected residual thrombus in that right upper extremity fistula vs post procedure hematoma. 5. Pulmonary edema and increased O2 requirement. 6. Hypotension as above. 7. End-stage renal disease, on dialysis. 8. Morbid obesity. 9. FRANCISCO JAVIER--not currently using his CPAP 10. TTE on admission negative for obvious Infective Endocarditis PLAN: --Continue Cefazolin IV this afternoon for confirmed MSSA bacteremia. If he had normal renal function, I'd recommend 2g iv q8hr. Given his renal dysfunction, and already responding to vanc, his dose while in hospital will be 1gm IV q24hr and will be dosed in the afternoons to ensure given after HD on dialysis days. Once surveillance blood cx are neg for >72 hrs, has been afebrile for 48-72 hrs, is tolerating therapy, and we confirm RUE not infected, at eventual hospital discharge, he will be switched to Cefazolin 2gm/2gm/3gm ( eg. 2gm IV after HD, 2gm after HD, and 3gm after thursday HD). Duration minimum 14 days from time of clearance of blood cultures, but given the thrombus in his RUE, and known indwelling R subclavian vascular stent, we should plan for 4-6 weeks. -- (12/09 s/p IV vancomycin D#) --(12/08 s/p amikacin and zosyn D#3) --s/p Vascular surgery consult --f/u surveillance blood cx sent 12/08/16. --f/u portacath tip cx and tunneled tract pus. --line holiday for 48-72 hrs. --repeat RUE u/s later this week to re-evaluate whether this fluid collection has organized more into abscess or perhaps rather is stable hematoma --Follow cardiopulmonary status and chest x-ray. --repeat surveillance blood cx now. covering for Dr. Varela. Subjective Allergies: Coded Allergies: No Known Allergies (Unverified , 12/06/16) Subjective 24 hr events: defervesed . still with daytime somnolence, hasn't been using his CPAP since admission. vascular pulled his r chest wall tunneled HD cath on 12/09/16 and had pus tracked along catheter. swab of exudate and cath tip being sent for cx. Objective Vital Signs Last 24 Hour Vital Signs Date Time Temp Pulse Resp B/P Pulse Ox O2 Delivery O2 Flow Rate FiO2 12/10/16 04:00 91 12/10/16 03:57 98.2 87 20 150/96 97 Room Air 12/10/16 00:00 75 12/09/16 23:51 98.4 76 21 120/78 93 Nasal Cannula 3.0 12/09/16 22:30 85 20 92 Nasal 12/09/16 20:04 98.6 79 19 134/79 94 Nasal Cannula 3.0 12/09/16 20:00 89 12/09/16 18:32 Nasal Cannula 3.0 32 12/09/16 18:32 92 Nasal Cannula 3.0 32 12/09/16 18:30 68 20 Nasal Cannula 3.0 32 12/09/16 16:00 62 12/09/16 16:00 98.4 62 21 126/56 96 Room Air 12/09/16 12:00 98.4 89 21 131/63 98 Room Air 12/09/16 12:00 94 12/09/16 11:53 99 24 98 Nasal Cannula 4.0 36 12/09/16 11:50 Nasal Cannula 4.0 36 12/09/16 11:49 95 Nasal Cannula 4.0 36 12/09/16 11:47 98.4 12/09/16 11:43 91 23 95 Nasal Cannula 4.0 36 12/09/16 11:40 91 23 Nasal Cannula 4.0 36 12/09/16 10:36 98.6 87 25 144/65 97 Nasal Cannula 4.0 12/09/16 10:35 Nasal Cannula 4.0 12/09/16 08:00 97.1 70 20 114/65 96 12/09/16 08:00 67 Height (Feet): 5 Height (Inches): 7.00 Weight (Pounds): 308 Objective GENERAL: The patient is mildly toxic appearing. Appears fatigued and has conversational dyspnea at five to seven words. falling asleep on rounds. satting well on 2L NC HEENT: He has no cervical lymphadenopathy. No pharyngeal injection or exudate and he has no conjunctival injection and his sclerae are anicteric. CARDIOVASCULAR: The patient is tachycardic. No murmurs appreciated. PULMONARY: Decreased breath sounds at the bases with poor inspiratory effort. No wheezes or rhonchi appreciated. not tachypneic today like he was yesterday ABDOMEN: Healed right upper quadrant surgical scar from prior cholecystectomy, obese abdomen, nontender to palpation in all quadrants, and hypoactive bowel sounds. GENITOURINARY: Circumcised. No scrotal edema. No rash. EXTREMITIES: A 1+ bilateral lower extremity edema. Right upper extremity, abnormal anatomy. Has two small clear fluid-filled bullae overlying the lateral aspect of his right upper arm in the medial aspect of the right upper arm. I cannot palpate a thrill nor hear a bruit to his right AV fistula. There is no overlying erythema, but there is no longer any warmth but there is swelling at the site. SKIN: s/p removal of R chest wall Port-a-cath. no erythema, no fluctuance MSK: no pain to palpation over spinous processes. Microbiology Date/Time Source Procedure Growth Status 12/08/16 10:35 Blood Blood Culture - Preliminary NO GROWTH AFTER 24 HOURS Resulted 12/07/16 18:40 Blood Blood Culture - Preliminary Resulted 12/07/16 18:30 Blood Blood Culture - Preliminary Resulted 12/08/16 19:45 Sputum Expectorated Gram Stain - Final Resulted 12/08/16 19:45 Sputum Expectorated Sputum Culture Pending Resulted 12/08/16 03:45 Urine,Clean Catch Urine Culture - Preliminary NO GROWTH Resulted Patient : RICHMOND MEDELLIN Referring Physician: BERNADETTE COSTA ID Number: [id number] Service Date: 12/09/16 : 1965 Report Date: 12/09/16 Gender: M Accession No.: [id number] Location: 2E Procedure: XRAY Chest 1v Indication: DYSPNEA Technique: One view of the chest Comparison: 12/07/2016 Findings: The heart is enlarged. There is mild interstitial congestion, similar to prior exam allowing for differences in exposure technique. Right subclavian and innominate venous stent is again demonstrated. Previously demonstrated tunneled dialysis catheter has been removed. Impression: Interim tunneled dialysis catheter removal Stable interstitial congestion and cardiomegaly, over 2 days Current Medications Medications (Trade) Dose Ordered Sig/Jeremy Route PRN Reason Start Time Stop Time Status Last Admin Dose Admin Acetaminophen (Tylenol) 650 mg Q4H PRN ORAL Fever 12/06/16 07:45 01/05/17 07:44 12/09/16 10:48 Albuterol/ Ipratropium (DuoNeb 0.5-3(2.5)mg/3ml) 3 ml Q4H PRN HHN Shortness of Breath 12/06/16 07:45 12/11/16 07:44 12/09/16 18:30 Aspirin (ASA) 81 mg DAILY ORAL 12/06/16 09:00 01/05/17 08:59 12/09/16 10:53 Cefazolin Sodium/ Dextrose (Ancef/D5W) 55 ml @ 110 mls/hr Q24HRS IVPB 12/09/16 21:00 12/22/16 20:59 12/09/16 21:05 Clonidine HCl (Catapres) 0.1 mg Q4H PRN ORAL BP over 160 syst 12/06/16 11:00 01/05/17 10:59 12/09/16 04:26 Clopidogrel Bisulfate (Plavix) 75 mg DAILY ORAL 12/06/16 09:00 01/05/17 08:59 12/09/16 10:49 Cyanocobalamin (Vitamin B12) 1,000 mcg DAILY SUBQ 12/08/16 09:00 12/10/16 09:01 12/09/16 10:56 Dextrose (Dextrose 50%) STAT PRN IV Hypoglycemia 12/06/16 07:45 01/05/17 07:44 Epoetin Dionte (Procrit (for ESRD on dialysis)) 10,000 units MON-WED-FRI SUBQ 12/08/16 21:00 01/07/17 20:59 12/08/16 21:05 Ergocalciferol 53288 intlu 50,000 intlu QWEEK ORAL 12/07/16 10:00 01/06/17 09:59 12/07/16 10:00 Folic Acid (Folate) 2 mg DAILY ORAL 12/07/16 10:00 01/06/17 09:59 12/09/16 10:54 Gabapentin (Neurontin) 100 mg THREE TIMES A DAY ORAL 12/06/16 09:00 01/05/17 08:59 12/09/16 18:22 Heparin Sodium (Porcine) (Heparin 5000 units/ml) 5,000 units EVERY 12 HOURS SUBQ 12/06/16 09:00 01/05/17 08:59 12/09/16 10:56 Ondansetron HCl (Zofran) 4 mg Q6H PRN IVP Nausea & Vomiting 12/06/16 07:45 01/05/17 07:44 Pantoprazole (Protonix) 40 mg EVERY 12 HOURS ORAL 12/06/16 11:00 01/05/17 10:59 12/09/16 21:07 Polyethylene Glycol (Miralax) 17 gm DAILYPRN PRN ORAL Constipation 12/06/16 07:45 01/05/17 07:44 Temazepam (Restoril) 15 mg HSPRN PRN ORAL Insomnia 12/06/16 07:45 12/13/16 07:44 12/07/16 22:03 Richmond Arana M.D. Dec 10, 2016 06:06
[2016-12-10 07:22] LABS: BASOPHILS % (AUTO) 1.5 % (0.0-2.0); EOSINOPHILS % (AUTO) 3.9 % (0.0-3.0); LYMPHOCYTES % (AUTO) 11.2 % (20.0-45.0); MEAN CORPUSCULAR HGB CONC 32.1 G/DL (32.0-36.0); MEAN CORPUSCULAR VOLUME 87 FL (80-99); MEAN PLATELET VOLUME 8.6 FL (6.5-10.1); MONOCYTES % (AUTO) 13.1 % (1.0-10.0); NEUTROPHILS % (AUTO) 70.3 % (45.0-75.0); PLATELET COUNT 152 K/UL (150-450); RED BLOOD COUNT 3.19 M/UL (4.70-6.10); RED CELL DISTRIBUTION WIDTH 13.3 % (11.6-14.8); WHITE BLOOD COUNT 10.4 K/UL (4.8-10.8)
[2016-12-10 07:38] LABS: ALBUMIN/GLOBULIN RATIO 1.2 (1.0-2.7); CALCIUM 8.9 mg/dL (8.6-10.2); CREATININE 10.6 mg/dL (0.7-1.2); CRP QUANT 15.7 mg/dL (< 0.5); GLOMERULAR FILTRATION RATE 6.2 mL/min (>60); MAGNESIUM 2.2 mg/dL (1.7-2.5); PHOSPHORUS 6.2 mg/dL (2.5-4.8); POTASSIUM 4.3 mEQ/L (3.4-4.9); TOTAL PROTEIN 6.3 g/dL (6.6-8.7); URIC ACID 6.5 mg/dL (3.0-7.5)
[2016-12-10 08:00] VITALS: BP 136/91
[2016-12-10] MEDS: Aspirin Baby 81mg ORAL SCH (09:00)
[2016-12-10] MEDS: Vitamin B12 1000mcg/ml Inj SUBQ SCH (09:01)
[2016-12-10] MEDS: Heparin 5000 units/ml inj SUBQ SCH ×2 (09:05→20:58)
--- NOTE | 2016-12-10 12:19 | Pulmonology Progress Note ---
Assessment/Plan Problems: (1) Sepsis (2) Bacteremia (3) ESRD on hemodialysis (4) Morbid obesity with BMI of 45.0-49.9, adult Assessment/Plan continue Iv abx, HD by nephrology getting better wbc decreasing Portocath was removed bc from 12/09 still positive pt will get new dialysis access when ok with ID Subjective ROS Limited/Unobtainable: No Constitutional: Reports: no symptoms HEENT: Repors: no symptoms Respiratory: Reports: no symptoms Allergies: Coded Allergies: No Known Allergies (Unverified , 12/06/16) Objective Last 24 Hour Vital Signs Date Time Temp Pulse Resp B/P Pulse Ox O2 Delivery O2 Flow Rate FiO2 12/10/16 08:00 103 12/10/16 08:00 97.7 76 16 136/91 98 Nasal Cannula 3.0 12/10/16 07:58 93 Nasal Cannula 3.0 32 12/10/16 07:58 75 20 Nasal Cannula 3.0 32 12/10/16 07:58 Nasal Cannula 3.0 32 12/10/16 04:00 91 12/10/16 03:57 98.2 87 20 150/96 97 Room Air 12/10/16 00:00 75 12/09/16 23:51 98.4 76 21 120/78 93 Nasal Cannula 3.0 12/09/16 22:30 85 20 92 Nasal 12/09/16 20:04 98.6 79 19 134/79 94 Nasal Cannula 3.0 12/09/16 20:00 89 12/09/16 18:32 Nasal Cannula 3.0 32 12/09/16 18:32 92 Nasal Cannula 3.0 32 12/09/16 18:30 68 20 Nasal Cannula 3.0 32 12/09/16 16:00 62 12/09/16 16:00 98.4 62 21 126/56 96 Room Air Intake and Output 12/09/16 12/10/16 19:00 07:00 Intake Total 200 ml Output Total 3500 ml Balance -3300 ml Intake Oral 200 ml Hemodialysis UF 3500 ml # Bowel Movements 1 General Appearance: WD/WN HEENT: normocephalic, atraumatic Respiratory/Chest: chest wall non-tender, lungs clear Cardiovascular: normal peripheral pulses, normal rate Abdomen: normal bowel sounds, soft, non tender Genitourinary: normal external genitalia Extremities: no cyanosis Skin: no rash 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, no motor/sensory deficits Lymphatic: no neck adenopathy Microbiology Date/Time Source Procedure Growth Status 12/09/16 07:45 Blood Blood Culture - Preliminary Resulted 12/08/16 10:35 Blood Blood Culture - Preliminary NO GROWTH AFTER 24 HOURS Resulted 12/07/16 18:40 Blood Blood Culture - Preliminary Staphylococcus Aureus Resulted 12/07/16 18:30 Blood Blood Culture - Preliminary Staphylococcus Aureus Resulted 12/09/16 11:30 Drainage Fluid Gram Stain Pending Resulted 12/09/16 11:30 Drainage Fluid Body Fluid Culture - Preliminary NO GROWTH AFTER 24 HOURS Resulted 12/09/16 11:30 Other(Specify in comment) Catheter Tip Culture - Preliminary Resulted 12/08/16 19:45 Sputum Expectorated Gram Stain - Final Resulted 12/08/16 19:45 Sputum Expectorated Sputum Culture Pending Resulted 12/08/16 03:45 Urine,Clean Catch Urine Culture - Preliminary NO GROWTH AFTER 24 HOURS Resulted Laboratory Tests 12/10/16 06:20: White Blood Count 10.4, Red Blood Count 3.19L, Hemoglobin 8.9L, Hematocrit 27.8L , Mean Corpuscular Volume 87, Mean Corpuscular Hemoglobin 28.0, Mean Corpuscular Hemoglobin Concent 32.1, Red Cell Distribution Width 13.3, Platelet Count 152, Mean Platelet Volume 8.6, Neutrophils (%) (Auto) 70.3, Lymphocytes (% ) (Auto) 11.2L, Monocytes (%) (Auto) 13.1H, Eosinophils (%) (Auto) 3.9H, Basophils (%) (Auto) 1.5, Sodium Level 135, Potassium Level 4.3, Chloride Level 95L, Carbon Dioxide Level 17L, Anion Gap 23H, Blood Urea Nitrogen 63H, Creatinine 10.6H, Estimat Glomerular Filtration Rate 6.2, Glucose Level 94, Uric Acid 6.5, Calcium Level 8.9, Phosphorus Level 6.2H, Magnesium Level 2.2, Total Bilirubin 0.3, Aspartate Amino Transf (AST/SGOT) 19, Alanine Aminotransferase (ALT/SGPT) 16, Alkaline Phosphatase 51, C-Reactive Protein, Quantitative 15.7H, Pro-B-Type Natriuretic Peptide 67059D, Total Protein 6.3L, Albumin 3.5, Globulin 2.8, Albumin/Globulin Ratio 1.2 Current Medications Medications (Trade) Dose Ordered Sig/Jeremy Route PRN Reason Start Time Stop Time Status Last Admin Dose Admin Acetaminophen (Tylenol) 650 mg Q4H PRN ORAL Fever 12/06/16 07:45 01/05/17 07:44 12/09/16 10:48 Albuterol/ Ipratropium (DuoNeb 0.5-3(2.5)mg/3ml) 3 ml Q4H PRN HHN Shortness of Breath 12/06/16 07:45 12/11/16 07:44 12/09/16 18:30 Aspirin (ASA) 81 mg DAILY ORAL 12/06/16 09:00 01/05/17 08:59 12/10/16 09:00 Cefazolin Sodium/ Dextrose (Ancef/D5W) 55 ml @ 110 mls/hr Q24HRS IVPB 12/09/16 21:00 12/22/16 20:59 12/09/16 21:05 Clonidine HCl (Catapres) 0.1 mg Q4H PRN ORAL BP over 160 syst 12/06/16 11:00 01/05/17 10:59 12/09/16 04:26 Clopidogrel Bisulfate (Plavix) 75 mg DAILY ORAL 12/06/16 09:00 01/05/17 08:59 12/10/16 09:00 Dextrose (Dextrose 50%) STAT PRN IV Hypoglycemia 12/06/16 07:45 01/05/17 07:44 Epoetin Dionte (Procrit (for ESRD on dialysis)) 10,000 units THU-THU-THU SUBQ 12/08/16 21:00 01/07/17 20:59 12/08/16 21:05 Ergocalciferol 24516 intlu 50,000 intlu QWEEK ORAL 12/07/16 10:00 01/06/17 09:59 12/07/16 10:00 Folic Acid (Folate) 2 mg DAILY ORAL 12/07/16 10:00 01/06/17 09:59 12/10/16 09:01 Gabapentin (Neurontin) 100 mg THREE TIMES A DAY ORAL 12/06/16 09:00 01/05/17 08:59 12/10/16 09:01 Heparin Sodium (Porcine) (Heparin 5000 units/ml) 5,000 units EVERY 12 HOURS SUBQ 12/06/16 09:00 01/05/17 08:59 12/10/16 09:05 Ondansetron HCl (Zofran) 4 mg Q6H PRN IVP Nausea & Vomiting 12/06/16 07:45 01/05/17 07:44 Pantoprazole (Protonix) 40 mg EVERY 12 HOURS ORAL 12/06/16 11:00 01/05/17 10:59 12/10/16 09:01 Polyethylene Glycol (Miralax) 17 gm DAILYPRN PRN ORAL Constipation 12/06/16 07:45 01/05/17 07:44 Temazepam (Restoril) 15 mg HSPRN PRN ORAL Insomnia 12/06/16 07:45 12/13/16 07:44 12/07/16 22:03 BERNADETTE COSTA Dec 10, 2016 12:19
--- NOTE | 2016-12-10 13:02 | General Progress Note ---
Progress Note Progress Note All noted; pt feeling better today. Exam -- AVSS; NAD; cath site C&D, no d/c or collection labs/imaging reviewed. Discussed with PMD/Renal -- will plan for new AV shunt and Permcath once cx's neg and cleared for OR by ID/IM. new temp. catheter in meantime for HD access. abx per ID. CYNDI LOPES Dec 10, 2016 13:02
--- NOTE | 2016-12-10 13:42 | General Progress Note ---
Assessment/Plan Status: stable Assessment/Plan status: ESRD Admitted with sepsis , has right permacath put in 12/02 HTN Obesity Anemia Plan: HD 12/09 , permacath removed- EPO . B12 ,.... Phos and Mag as needed Antibiotics BP control Per orders and per consultants re insert Cath in 48-72 hours Subjective ROS Limited/Unobtainable: No Constitutional: Reports: malaise Allergies: Coded Allergies: No Known Allergies (Unverified , 12/06/16) Objective Last 24 Hour Vital Signs Date Time Temp Pulse Resp B/P Pulse Ox O2 Delivery O2 Flow Rate FiO2 12/10/16 08:00 103 12/10/16 08:00 97.7 76 16 136/91 98 Nasal Cannula 3.0 12/10/16 07:58 93 Nasal Cannula 3.0 32 12/10/16 07:58 75 20 Nasal Cannula 3.0 32 12/10/16 07:58 Nasal Cannula 3.0 32 12/10/16 04:00 91 12/10/16 03:57 98.2 87 20 150/96 97 Room Air 12/10/16 00:00 75 12/09/16 23:51 98.4 76 21 120/78 93 Nasal Cannula 3.0 12/09/16 22:30 85 20 92 Nasal 12/09/16 20:04 98.6 79 19 134/79 94 Nasal Cannula 3.0 12/09/16 20:00 89 12/09/16 18:32 Nasal Cannula 3.0 32 12/09/16 18:32 92 Nasal Cannula 3.0 32 12/09/16 18:30 68 20 Nasal Cannula 3.0 32 12/09/16 16:00 62 12/09/16 16:00 98.4 62 21 126/56 96 Room Air Intake and Output 12/09/16 12/10/16 19:00 07:00 Intake Total 200 ml Output Total 3500 ml Balance -3300 ml Intake Oral 200 ml Hemodialysis UF 3500 ml # Bowel Movements 1 Laboratory Tests 12/10/16 06:20: White Blood Count 10.4, Red Blood Count 3.19L, Hemoglobin 8.9L, Hematocrit 27.8L , Mean Corpuscular Volume 87, Mean Corpuscular Hemoglobin 28.0, Mean Corpuscular Hemoglobin Concent 32.1, Red Cell Distribution Width 13.3, Platelet Count 152, Mean Platelet Volume 8.6, Neutrophils (%) (Auto) 70.3, Lymphocytes (% ) (Auto) 11.2L, Monocytes (%) (Auto) 13.1H, Eosinophils (%) (Auto) 3.9H, Basophils (%) (Auto) 1.5, Sodium Level 135, Potassium Level 4.3, Chloride Level 95L, Carbon Dioxide Level 17L, Anion Gap 23H, Blood Urea Nitrogen 63H, Creatinine 10.6H, Estimat Glomerular Filtration Rate 6.2, Glucose Level 94, Uric Acid 6.5, Calcium Level 8.9, Phosphorus Level 6.2H, Magnesium Level 2.2, Total Bilirubin 0.3, Aspartate Amino Transf (AST/SGOT) 19, Alanine Aminotransferase (ALT/SGPT) 16, Alkaline Phosphatase 51, C-Reactive Protein, Quantitative 15.7H, Pro-B-Type Natriuretic Peptide 25386F, Total Protein 6.3L, Albumin 3.5, Globulin 2.8, Albumin/Globulin Ratio 1.2 Height (Feet): 5 Height (Inches): 7.00 Weight (Pounds): 308 General Appearance: no apparent distress Respiratory/Chest: other - permacath out Objective no change in PE GENNY JACK Dec 10, 2016 13:42
[2016-12-10] MEDS: DuoNeb 0.5-3(2.5)mg/3ml neb HHN PRN (15:09)
[2016-12-10 16:00] VITALS: BP 135/74
[2016-12-10 20:00] VITALS: BP 117/65
[2016-12-10] MEDS: Epogen (for ESRD on dialysis) SUBQ SCH (20:58)
[2016-12-10] MEDS: ceFAZolin sod 1 GM in D5W 55 ML IVPB SCH (20:58)
[2016-12-10] MEDS ORDERED: NS 275ml ONE (21:45)
[2016-12-10] MEDS ORDERED: Tubing IV Secondary IV ONE (21:45)
[2016-12-11] VITALS (10 sets, daily range): BP systolic 125–158; BP diastolic 79–95
[2016-12-11 08:44] LABS: INR 1.1 (0.9-1.1); PROTHROMBIN TIME 11.1 SEC (9.30-11.50)
[2016-12-11] MEDS: Aspirin Baby 81mg ORAL SCH (08:50)
[2016-12-11] MEDS: Heparin 5000 units/ml inj SUBQ SCH ×2 (08:50→21:15)
[2016-12-11] MEDS ORDERED: Heparin 2000 units/Ns 1000ml INJ SCH (09:45)
[2016-12-11] MEDS ORDERED: Lidocaine 1% Plain 30 ml INJ SCH (10:00)
--- NOTE | 2016-12-11 11:12 | General Progress Note ---
Assessment/Plan Status: unchanged Assessment/Plan status: ESRD Admitted with sepsis- Line related , has right permacath put in 12/02 HTN Obesity Anemia Plan: HD 12/09 , permacath removed- new cath , temporary for HD- EPO . B12 ,.... Phos and Mag as needed Antibiotics BP control Per orders and per consultants re insert Perma Cath when c/s negative Subjective ROS Limited/Unobtainable: No Constitutional: Reports: malaise Allergies: Coded Allergies: No Known Allergies (Unverified , 12/06/16) Objective Last 24 Hour Vital Signs Date Time Temp Pulse Resp B/P Pulse Ox O2 Delivery O2 Flow Rate FiO2 12/11/16 08:25 91 18 Nasal Cannula 3.0 32 12/11/16 08:25 98 Nasal Cannula 3.0 32 12/11/16 08:25 Nasal Cannula 3.0 32 12/11/16 08:20 98.2 73 20 142/83 100 Room Air 12/11/16 07:37 63 12/11/16 04:00 77 12/11/16 00:00 94 12/11/16 00:00 97.6 87 20 146/79 100 Nasal Cannula 3.0 32 12/10/16 20:19 Nasal Cannula 3.0 32 12/10/16 20:19 79 18 Nasal Cannula 3.0 32 12/10/16 20:18 96 Nasal Cannula 3.0 32 12/10/16 20:00 97.5 82 20 117/65 99 Nasal Cannula 3.0 32 12/10/16 20:00 56 12/10/16 16:00 97.5 86 19 135/74 95 Nasal Cannula 3.0 12/10/16 16:00 90 12/10/16 15:10 90 20 98 Nasal Cannula 3.0 32 12/10/16 12:00 81 Intake and Output 12/10/16 12/11/16 19:00 07:00 Output Total 1 ml Balance -1 ml Stool Total 1 ml # Voids 1 2 # Bowel Movements 1 2 Laboratory Tests 12/11/16 08:10: Prothrombin Time 11.1, Prothromb Time International Ratio 1.1, Activated Partial Thromboplast Time 21L Height (Feet): 5 Height (Inches): 7.00 Weight (Pounds): 308 General Appearance: no apparent distress Cardiovascular: normal rate Respiratory/Chest: decreased breath sounds Abdomen: soft, other - obese Objective no change in PE GENNY JACK Dec 11, 2016 11:12
--- NOTE | 2016-12-11 12:53 | Pulmonology Progress Note ---
Assessment/Plan Problems: (1) Sepsis (2) Bacteremia (3) ESRD on hemodialysis (4) Morbid obesity with BMI of 45.0-49.9, adult Assessment/Plan continue Iv abx, HD by nephrology getting better wbc decreasing, normal now Portocath was removed bc from 12/09 still positive temporary HD access for now Subjective ROS Limited/Unobtainable: No Constitutional: Reports: no symptoms HEENT: Repors: no symptoms Respiratory: Reports: no symptoms Allergies: Coded Allergies: No Known Allergies (Unverified , 12/06/16) Objective Last 24 Hour Vital Signs Date Time Temp Pulse Resp B/P Pulse Ox O2 Delivery O2 Flow Rate FiO2 12/11/16 08:25 91 18 Nasal Cannula 3.0 32 12/11/16 08:25 98 Nasal Cannula 3.0 32 12/11/16 08:25 Nasal Cannula 3.0 32 12/11/16 08:20 98.2 73 20 142/83 100 Room Air 12/11/16 07:37 63 12/11/16 04:00 77 12/11/16 00:00 94 12/11/16 00:00 97.6 87 20 146/79 100 Nasal Cannula 3.0 32 12/10/16 20:19 Nasal Cannula 3.0 32 12/10/16 20:19 79 18 Nasal Cannula 3.0 32 12/10/16 20:18 96 Nasal Cannula 3.0 32 12/10/16 20:00 97.5 82 20 117/65 99 Nasal Cannula 3.0 32 12/10/16 20:00 56 12/10/16 16:00 97.5 86 19 135/74 95 Nasal Cannula 3.0 12/10/16 16:00 90 12/10/16 15:10 90 20 98 Nasal Cannula 3.0 32 Intake and Output 12/10/16 12/11/16 19:00 07:00 Output Total 1 ml Balance -1 ml Stool Total 1 ml # Voids 1 2 # Bowel Movements 1 2 General Appearance: WD/WN HEENT: normocephalic, atraumatic Respiratory/Chest: chest wall non-tender, lungs clear Cardiovascular: normal peripheral pulses, normal rate Abdomen: normal bowel sounds, soft, non tender Genitourinary: normal external genitalia Extremities: no clubbing Microbiology Date/Time Source Procedure Growth Status 12/09/16 07:45 Blood Blood Culture - Preliminary Staphylococcus Aureus Resulted 12/09/16 11:30 Drainage Fluid Gram Stain - Final Resulted 12/09/16 11:30 Body Fluid Culture - Preliminary Staphylococcus Aureus Resulted 12/09/16 11:30 Other(Specify in comment) Catheter Tip Culture - Preliminary Staphylococcus Aureus Resulted 12/08/16 19:45 Sputum Expectorated Gram Stain - Final Complete 12/08/16 19:45 Sputum Expectorated Sputum Culture - Final NORMAL UPPER RESPIRATORY LINA PRESENT Complete Laboratory Tests 12/11/16 08:10: Prothrombin Time 11.1, Prothromb Time International Ratio 1.1, Activated Partial Thromboplast Time 21L Current Medications Medications (Trade) Dose Ordered Sig/Jeremy Route PRN Reason Start Time Stop Time Status Last Admin Dose Admin Acetaminophen (Tylenol) 650 mg Q4H PRN ORAL Fever 12/06/16 07:45 01/05/17 07:44 12/09/16 10:48 Aspirin (ASA) 81 mg DAILY ORAL 12/06/16 09:00 01/05/17 08:59 12/10/16 09:00 Cefazolin Sodium/ Dextrose (Ancef/D5W) 55 ml @ 110 mls/hr Q24HRS IVPB 12/09/16 21:00 12/22/16 20:59 12/10/16 20:58 Clonidine HCl (Catapres) 0.1 mg Q4H PRN ORAL BP over 160 syst 12/06/16 11:00 01/05/17 10:59 12/09/16 04:26 Clopidogrel Bisulfate (Plavix) 75 mg DAILY ORAL 12/06/16 09:00 01/05/17 08:59 12/10/16 09:00 Dextrose (Dextrose 50%) STAT PRN IV Hypoglycemia 12/06/16 07:45 01/05/17 07:44 Epoetin Dionte (Procrit (for ESRD on dialysis)) 10,000 units MON-WED-FRI SUBQ 12/08/16 21:00 01/07/17 20:59 12/10/16 20:58 Ergocalciferol 95774 intlu 50,000 intlu QWEEK ORAL 12/07/16 10:00 01/06/17 09:59 12/07/16 10:00 Folic Acid (Folate) 2 mg DAILY ORAL 12/07/16 10:00 01/06/17 09:59 12/11/16 08:49 Gabapentin (Neurontin) 100 mg THREE TIMES A DAY ORAL 12/06/16 09:00 01/05/17 08:59 12/11/16 08:49 Heparin Sodium (Porcine) (Heparin 5000 units/ml) 5,000 units EVERY 12 HOURS SUBQ 12/06/16 09:00 01/05/17 08:59 12/10/16 09:05 Heparin Sodium/ Sodium Chloride (Heparin 2000 units/Ns 1000ml premix) 2,000 unit ONCE INJ 12/11/16 09:45 12/11/16 15:00 Lidocaine HCl (Xylocaine 1% 30ml) 30 ml ONCE INJ 12/11/16 10:00 12/11/16 15:00 Ondansetron HCl (Zofran) 4 mg Q6H PRN IVP Nausea & Vomiting 12/06/16 07:45 01/05/17 07:44 Pantoprazole (Protonix) 40 mg EVERY 12 HOURS ORAL 12/06/16 11:00 01/05/17 10:59 12/11/16 08:49 Polyethylene Glycol (Miralax) 17 gm DAILYPRN PRN ORAL Constipation 12/06/16 07:45 01/05/17 07:44 Temazepam (Restoril) 15 mg HSPRN PRN ORAL Insomnia 12/06/16 07:45 12/13/16 07:44 12/07/16 22:03 BERNADETTE COSTA Dec 11, 2016 12:53
[2016-12-11] MEDS ORDERED: Heparin Sod 1000 units/ml 10ml ONE (14:29)
--- NOTE | 2016-12-11 15:30 | Diagnostic Imaging Report ---
Indication: Patient requires hemodialysis. Renal failure Findings: After the indications, procedure, risks, complications, and alternatives of the procedure were explained, written informed consent was obtained. The neck was prepped with alcohol. All elements of maximal sterile barrier technique were followed including usage of a cap, mask, sterile gown, sterile gloves, hand hygiene and a large sterile sheet. 1% lidocaine was used to anesthetize the skin. Sonographic evaluation was performed demonstrating a patent and compressible right femoral vein. Access was obtained under real-time ultrasound guidance using an 18 gauge needle and a digital image was saved in archive. An 0.035 wire was then advanced into the vein. Needle exchanged for a dilator. A 30 cm temporary hemodialysis catheter was then advanced over the wire. Wire was removed. Catheter was secured to the skin using 2-0 Prolene suture. Both ports aspirate and flush easily. Fluoroscopic imaging was utilized to negotiate the 035 wire into position. Final position of the hemodialysis catheter was confirmed by fluoroscopy to be within the IVC in good position. The catheter is cleared for use. Total fluoroscopic time 0.5 minutes Impression: Successful placement of right femoral hemodialysis catheter. Catheter is cleared for immediate hemodialysis.
[2016-12-11] MEDS: Heparin Sod 1000 units/ml 10ml INJ SCH (17:15)
[2016-12-11] MEDS: ceFAZolin sod 1 GM in D5W 55 ML IVPB SCH (21:13)
[2016-12-12] VITALS: BP 140/79
[2016-12-12 04:00] VITALS: BP 128/77
[2016-12-12 08:00] VITALS: BP 146/81
[2016-12-12 08:09] LABS: BASOPHILS % (AUTO) 1.1 % (0.0-2.0); EOSINOPHILS % (AUTO) 1.5 % (0.0-3.0); LYMPHOCYTES % (AUTO) 18.8 % (20.0-45.0); MEAN CORPUSCULAR HGB CONC 31.9 G/DL (32.0-36.0); MEAN CORPUSCULAR VOLUME 88 FL (80-99); MEAN PLATELET VOLUME 7.2 FL (6.5-10.1); MONOCYTES % (AUTO) 12.2 % (1.0-10.0); NEUTROPHILS % (AUTO) 66.4 % (45.0-75.0); PLATELET COUNT 260 K/UL (150-450); RED BLOOD COUNT 3.28 M/UL (4.70-6.10); RED CELL DISTRIBUTION WIDTH 13.5 % (11.6-14.8); WHITE BLOOD COUNT 12.8 K/UL (4.8-10.8)
[2016-12-12] MEDS: Aspirin Baby 81mg ORAL SCH (08:28)
[2016-12-12] MEDS: Heparin 5000 units/ml inj SUBQ SCH ×2 (08:31→20:46)
[2016-12-12 08:35] LABS: CALCIUM 9.1 mg/dL (8.6-10.2); CREATININE 8.8 mg/dL (0.7-1.2); CRP QUANT 16.9 mg/dL (< 0.5); GLOMERULAR FILTRATION RATE 7.8 mL/min (>60); PHOSPHORUS 4.2 mg/dL (2.5-4.8); POTASSIUM 3.5 mEQ/L (3.4-4.9); URIC ACID 6.4 mg/dL (3.0-7.5)
--- NOTE | 2016-12-12 10:05 | Infectious Diseases Prog Note ---
Assessment/Plan Assessment/Plan A; MSSA sepsis HD line infection Morbid obesity ESRD on HD Anemia P; Continue Ancef Subjective ROS Limited/Unobtainable: Yes Constitutional: Reports: other - low grade fever, [id number] Allergies: Coded Allergies: No Known Allergies (Unverified , 12/06/16) Objective Vital Signs Last 24 Hour Vital Signs Date Time Temp Pulse Resp B/P Pulse Ox O2 Delivery O2 Flow Rate FiO2 12/12/16 09:29 98.6 12/12/16 09:00 98.6 12/12/16 08:27 108 18 Room Air 12/12/16 08:27 95 Room Air 12/12/16 08:27 Room Air 12/12/16 08:00 100.0 101 19 146/81 96 Room Air 12/12/16 04:00 90 12/12/16 04:00 98.6 72 20 128/77 100 Nasal Cannula 3.0 32 12/12/16 00:00 98.6 98 20 140/79 99 Nasal Cannula 3.0 32 12/12/16 00:00 83 12/11/16 20:00 77 12/11/16 20:00 97.6 72 20 141/93 95 Nasal Cannula 3.0 32 12/11/16 19:48 Nasal Cannula 3.0 32 12/11/16 19:48 97 Nasal Cannula 3.0 32 12/11/16 19:48 83 18 Nasal Cannula 3.0 32 12/11/16 19:06 Room Air 2.0 32 12/11/16 16:23 77 12/11/16 16:00 97.5 82 20 148/88 100 Room Air 12/11/16 15:50 Room Air 2.0 32 12/11/16 15:20 78 24 154/92 100 Nasal Cannula 2.0 12/11/16 15:15 70 22 152/88 100 Nasal Cannula 2.0 12/11/16 15:10 75 24 149/88 100 Nasal Cannula 2.0 12/11/16 15:05 70 25 158/95 100 Nasal Cannula 2.0 12/11/16 14:31 55 25 2.0 12/11/16 12:00 97.5 72 19 149/84 97 Room Air 12/11/16 11:32 87 Height (Feet): 5 Height (Inches): 7.00 Weight (Pounds): 308 General Appearance: no acute distress HEENT: mucous membranes moist Respiratory/Chest: lungs clear Cardiovascular: normal rate Abdomen: soft, non tender Extremities: other - edema of legs Neurologic/Psychiatric: other - sleeping Microbiology Date/Time Source Procedure Growth Status 12/10/16 08:50 Blood Blood Culture - Preliminary NO GROWTH AFTER 24 HOURS Resulted 12/10/16 08:45 Blood Blood Culture - Preliminary NO GROWTH AFTER 24 HOURS Resulted 12/09/16 11:30 Drainage Fluid Gram Stain - Final Resulted 12/09/16 11:30 Body Fluid Culture - Preliminary Staphylococcus Aureus Resulted 12/09/16 11:30 Other(Specify in comment) Catheter Tip Culture - Preliminary Staphylococcus Aureus Resulted Laboratory Tests Test 12/12/16 07:50 White Blood Count 12.8 K/UL (4.8-10.8) H Red Blood Count 3.28 M/UL (4.70-6.10) L Hemoglobin 9.2 G/DL (14.2-18.0) L Hematocrit 28.8 % (42.0-52.0) L Mean Corpuscular Volume 88 FL (80-99) Mean Corpuscular Hemoglobin 28.0 PG (27.0-31.0) Mean Corpuscular Hemoglobin Concent 31.9 G/DL (32.0-36.0) L Red Cell Distribution Width 13.5 % (11.6-14.8) Platelet Count 260 K/UL (150-450) Mean Platelet Volume 7.2 FL (6.5-10.1) Neutrophils (%) (Auto) 66.4 % (45.0-75.0) Lymphocytes (%) (Auto) 18.8 % (20.0-45.0) L Monocytes (%) (Auto) 12.2 % (1.0-10.0) H Eosinophils (%) (Auto) 1.5 % (0.0-3.0) Basophils (%) (Auto) 1.1 % (0.0-2.0) Sodium Level 136 mEQ/L (135-145) Potassium Level 3.5 mEQ/L (3.4-4.9) Chloride Level 93 mEQ/L (98-107) L Carbon Dioxide Level 26 mEQ/L (20-30) Anion Gap 17 (5-15) H Blood Urea Nitrogen 49 mg/dL (7-23) H Creatinine 8.8 mg/dL (0.7-1.2) H Estimat Glomerular Filtration Rate 7.8 mL/min (>60) Glucose Level 103 mg/dL (74-106) Uric Acid 6.4 mg/dL (3.0-7.5) Calcium Level 9.1 mg/dL (8.6-10.2) Phosphorus Level 4.2 mg/dL (2.5-4.8) Magnesium Level 2.0 mg/dL (1.7-2.5) Total Bilirubin 0.3 mg/dL (0.0-1.2) Aspartate Amino Transf (AST/SGOT) 22 U/L (5-40) Alanine Aminotransferase (ALT/SGPT) 12 U/L (3-41) Alkaline Phosphatase 70 U/L (40-129) C-Reactive Protein, Quantitative 16.9 mg/dL (< 0.5) H Pro-B-Type Natriuretic Peptide 22747 pg/mL (0-125) H Total Protein 7.0 g/dL (6.6-8.7) Albumin 3.5 g/dL (3.5-5.2) Globulin 3.5 g/dL Albumin/Globulin Ratio 1.0 (1.0-2.7) Current Medications Medications (Trade) Dose Ordered Sig/Jeremy Route PRN Reason Start Time Stop Time Status Last Admin Dose Admin Acetaminophen (Tylenol) 650 mg Q4H PRN ORAL Fever 12/06/16 07:45 01/05/17 07:44 12/12/16 08:30 Aspirin (ASA) 81 mg DAILY ORAL 12/06/16 09:00 01/05/17 08:59 12/12/16 08:28 Cefazolin Sodium/ Dextrose (Ancef/D5W) 55 ml @ 110 mls/hr Q24HRS IVPB 12/09/16 21:00 12/22/16 20:59 12/11/16 21:13 Clonidine HCl (Catapres) 0.1 mg Q4H PRN ORAL BP over 160 syst 12/06/16 11:00 01/05/17 10:59 12/09/16 04:26 Clopidogrel Bisulfate (Plavix) 75 mg DAILY ORAL 12/06/16 09:00 01/05/17 08:59 12/12/16 08:30 Dextrose (Dextrose 50%) STAT PRN IV Hypoglycemia 12/06/16 07:45 01/05/17 07:44 Epoetin Dionte (Procrit (for ESRD on dialysis)) 10,000 units THU-THU-THU SUBQ 12/08/16 21:00 01/07/17 20:59 12/10/16 20:58 Ergocalciferol 95795 intlu 50,000 intlu QWEEK ORAL 12/07/16 10:00 01/06/17 09:59 12/07/16 10:00 Folic Acid (Folate) 2 mg DAILY ORAL 12/07/16 10:00 01/06/17 09:59 12/12/16 08:28 Gabapentin (Neurontin) 100 mg THREE TIMES A DAY ORAL 12/06/16 09:00 01/05/17 08:59 12/12/16 08:28 Heparin Sodium (Porcine) (Heparin 5000 units/ml) 5,000 units EVERY 12 HOURS SUBQ 12/06/16 09:00 01/05/17 08:59 12/12/16 08:31 Heparin Sodium (Porcine) (Heparin Sod 1000 units/ml 10ml) 2,000 unit ONCE INJ 12/11/16 17:15 12/16/16 17:14 Ondansetron HCl (Zofran) 4 mg Q6H PRN IVP Nausea & Vomiting 12/06/16 07:45 01/05/17 07:44 Pantoprazole (Protonix) 40 mg EVERY 12 HOURS ORAL 12/06/16 11:00 01/05/17 10:59 12/12/16 08:28 Polyethylene Glycol (Miralax) 17 gm DAILYPRN PRN ORAL Constipation 12/06/16 07:45 01/05/17 07:44 Temazepam (Restoril) 15 mg HSPRN PRN ORAL Insomnia 12/06/16 07:45 12/13/16 07:44 12/07/16 22:03 KIRBY SEGURA Dec 12, 2016 10:05
--- NOTE | 2016-12-12 10:42 | General Progress Note ---
Assessment/Plan Status: stable Status Narrative now has femoral cath Assessment/Plan status: ESRD Admitted with sepsis- Line related , has right permacath put in 12/02 HTN Obesity Anemia Plan: HD 12/11 , permacath removed- new cath , temporary for HD- next 12/13 EPO . B12 ,.... Phos and Mag as needed Antibiotics BP control Per orders and per consultants re insert Perma Cath when c/s negative Subjective ROS Limited/Unobtainable: No Constitutional: Reports: malaise Allergies: Coded Allergies: No Known Allergies (Unverified , 12/06/16) Objective Last 24 Hour Vital Signs Date Time Temp Pulse Resp B/P Pulse Ox O2 Delivery O2 Flow Rate FiO2 12/12/16 09:29 98.6 12/12/16 09:00 98.6 12/12/16 08:27 108 18 Room Air 12/12/16 08:27 95 Room Air 12/12/16 08:27 Room Air 12/12/16 08:00 100.0 101 19 146/81 96 Room Air 12/12/16 07:28 100 12/12/16 04:00 90 12/12/16 04:00 98.6 72 20 128/77 100 Nasal Cannula 3.0 32 12/12/16 00:00 98.6 98 20 140/79 99 Nasal Cannula 3.0 32 12/12/16 00:00 83 12/11/16 20:00 77 12/11/16 20:00 97.6 72 20 141/93 95 Nasal Cannula 3.0 32 12/11/16 19:48 Nasal Cannula 3.0 32 12/11/16 19:48 97 Nasal Cannula 3.0 32 12/11/16 19:48 83 18 Nasal Cannula 3.0 32 12/11/16 19:06 Room Air 2.0 32 12/11/16 16:23 77 12/11/16 16:00 97.5 82 20 148/88 100 Room Air 12/11/16 15:50 Room Air 2.0 32 12/11/16 15:20 78 24 154/92 100 Nasal Cannula 2.0 12/11/16 15:15 70 22 152/88 100 Nasal Cannula 2.0 12/11/16 15:10 75 24 149/88 100 Nasal Cannula 2.0 12/11/16 15:05 70 25 158/95 100 Nasal Cannula 2.0 12/11/16 14:31 55 25 2.0 12/11/16 12:00 97.5 72 19 149/84 97 Room Air 12/11/16 11:32 87 Intake and Output 12/11/16 12/12/16 19:00 07:00 Intake Total 440 ml 55 ml Output Total 3300 ml Balance 440 ml -3245 ml Intake Oral 440 ml IV Total 55 ml Hemodialysis UF 3300 ml # Voids 3 Laboratory Tests 12/12/16 07:50: White Blood Count 12.8H, Red Blood Count 3.28L, Hemoglobin 9.2L, Hematocrit 28.8L, Mean Corpuscular Volume 88, Mean Corpuscular Hemoglobin 28.0, Mean Corpuscular Hemoglobin Concent 31.9L, Red Cell Distribution Width 13.5, Platelet Count 260, Mean Platelet Volume 7.2, Neutrophils (%) (Auto) 66.4, Lymphocytes (%) (Auto) 18.8L, Monocytes (%) (Auto) 12.2H, Eosinophils (%) (Auto ) 1.5, Basophils (%) (Auto) 1.1, Sodium Level 136, Potassium Level 3.5, Chloride Level 93L, Carbon Dioxide Level 26, Anion Gap 17H, Blood Urea Nitrogen 49H, Creatinine 8.8H, Estimat Glomerular Filtration Rate 7.8, Glucose Level 103 , Uric Acid 6.4, Calcium Level 9.1, Phosphorus Level 4.2, Magnesium Level 2.0, Total Bilirubin 0.3, Aspartate Amino Transf (AST/SGOT) 22, Alanine Aminotransferase (ALT/SGPT) 12, Alkaline Phosphatase 70, C-Reactive Protein, Quantitative 16.9H, Pro-B-Type Natriuretic Peptide 75829H, Total Protein 7.0, Albumin 3.5, Globulin 3.5, Albumin/Globulin Ratio 1.0 Height (Feet): 5 Height (Inches): 7.00 Weight (Pounds): 308 General Appearance: no apparent distress Objective no change in PE GENNY JACK Dec 12, 2016 10:42
[2016-12-12 12:00] VITALS: BP 133/96
--- NOTE | 2016-12-12 13:02 | Pulmonology Progress Note ---
Assessment/Plan Problems: (1) Sepsis (2) Bacteremia (3) ESRD on hemodialysis (4) Morbid obesity with BMI of 45.0-49.9, adult Assessment/Plan continue Iv abx, wbc still high blood cultures are negative now Portocath was removed bc from 12/09 still positive temporary HD access for now Subjective ROS Limited/Unobtainable: No Constitutional: Reports: no symptoms HEENT: Repors: no symptoms Respiratory: Reports: no symptoms Allergies: Coded Allergies: No Known Allergies (Unverified , 12/06/16) Objective Last 24 Hour Vital Signs Date Time Temp Pulse Resp B/P Pulse Ox O2 Delivery O2 Flow Rate FiO2 12/12/16 12:00 98.1 93 19 133/96 96 Room Air 12/12/16 09:29 98.6 12/12/16 09:00 98.6 12/12/16 08:27 108 18 Room Air 12/12/16 08:27 95 Room Air 12/12/16 08:27 Room Air 12/12/16 08:00 100.0 101 19 146/81 96 Room Air 12/12/16 07:28 100 12/12/16 04:00 90 12/12/16 04:00 98.6 72 20 128/77 100 Nasal Cannula 3.0 32 12/12/16 00:00 98.6 98 20 140/79 99 Nasal Cannula 3.0 32 12/12/16 00:00 83 12/11/16 20:00 77 12/11/16 20:00 97.6 72 20 141/93 95 Nasal Cannula 3.0 32 12/11/16 19:48 Nasal Cannula 3.0 32 12/11/16 19:48 97 Nasal Cannula 3.0 32 12/11/16 19:48 83 18 Nasal Cannula 3.0 32 12/11/16 19:06 Room Air 2.0 32 12/11/16 16:23 77 12/11/16 16:00 97.5 82 20 148/88 100 Room Air 12/11/16 15:50 Room Air 2.0 32 12/11/16 15:20 78 24 154/92 100 Nasal Cannula 2.0 12/11/16 15:15 70 22 152/88 100 Nasal Cannula 2.0 12/11/16 15:10 75 24 149/88 100 Nasal Cannula 2.0 12/11/16 15:05 70 25 158/95 100 Nasal Cannula 2.0 12/11/16 14:31 55 25 2.0 Intake and Output 12/11/16 12/12/16 19:00 07:00 Intake Total 440 ml 55 ml Output Total 3300 ml Balance 440 ml -3245 ml Intake Oral 440 ml IV Total 55 ml Hemodialysis UF 3300 ml # Voids 3 General Appearance: WD/WN, no acute distress HEENT: normocephalic, atraumatic, anicteric Respiratory/Chest: chest wall non-tender, lungs clear Cardiovascular: normal peripheral pulses, normal rate Abdomen: normal bowel sounds, soft, non tender Genitourinary: normal external genitalia Extremities: no clubbing Skin: no rash 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 Microbiology Date/Time Source Procedure Growth Status 12/10/16 08:50 Blood Blood Culture - Preliminary NO GROWTH AFTER 24 HOURS Resulted 12/10/16 08:45 Blood Blood Culture - Preliminary NO GROWTH AFTER 24 HOURS Resulted Laboratory Tests 12/12/16 07:50: White Blood Count 12.8H, Red Blood Count 3.28L, Hemoglobin 9.2L, Hematocrit 28.8L, Mean Corpuscular Volume 88, Mean Corpuscular Hemoglobin 28.0, Mean Corpuscular Hemoglobin Concent 31.9L, Red Cell Distribution Width 13.5, Platelet Count 260, Mean Platelet Volume 7.2, Neutrophils (%) (Auto) 66.4, Lymphocytes (%) (Auto) 18.8L, Monocytes (%) (Auto) 12.2H, Eosinophils (%) (Auto ) 1.5, Basophils (%) (Auto) 1.1, Sodium Level 136, Potassium Level 3.5, Chloride Level 93L, Carbon Dioxide Level 26, Anion Gap 17H, Blood Urea Nitrogen 49H, Creatinine 8.8H, Estimat Glomerular Filtration Rate 7.8, Glucose Level 103 , Uric Acid 6.4, Calcium Level 9.1, Phosphorus Level 4.2, Magnesium Level 2.0, Total Bilirubin 0.3, Aspartate Amino Transf (AST/SGOT) 22, Alanine Aminotransferase (ALT/SGPT) 12, Alkaline Phosphatase 70, C-Reactive Protein, Quantitative 16.9H, Pro-B-Type Natriuretic Peptide 73631G, Total Protein 7.0, Albumin 3.5, Globulin 3.5, Albumin/Globulin Ratio 1.0 Current Medications Medications (Trade) Dose Ordered Sig/Jeremy Route PRN Reason Start Time Stop Time Status Last Admin Dose Admin Acetaminophen (Tylenol) 650 mg Q4H PRN ORAL Fever 12/06/16 07:45 01/05/17 07:44 12/12/16 08:30 Aspirin (ASA) 81 mg DAILY ORAL 12/06/16 09:00 01/05/17 08:59 12/12/16 08:28 Cefazolin Sodium/ Dextrose (Ancef/D5W) 55 ml @ 110 mls/hr Q24HRS IVPB 12/09/16 21:00 12/22/16 20:59 12/11/16 21:13 Clonidine HCl (Catapres) 0.1 mg Q4H PRN ORAL BP over 160 syst 12/06/16 11:00 01/05/17 10:59 12/09/16 04:26 Clopidogrel Bisulfate (Plavix) 75 mg DAILY ORAL 12/06/16 09:00 01/05/17 08:59 12/12/16 08:30 Dextrose (Dextrose 50%) STAT PRN IV Hypoglycemia 12/06/16 07:45 01/05/17 07:44 Epoetin Dionte (Procrit (for ESRD on dialysis)) 10,000 units MON-THU-THU SUBQ 12/08/16 21:00 01/07/17 20:59 12/10/16 20:58 Ergocalciferol 01680 intlu 50,000 intlu QWEEK ORAL 12/07/16 10:00 01/06/17 09:59 12/07/16 10:00 Folic Acid (Folate) 2 mg DAILY ORAL 12/07/16 10:00 01/06/17 09:59 12/12/16 08:28 Gabapentin (Neurontin) 100 mg THREE TIMES A DAY ORAL 12/06/16 09:00 01/05/17 08:59 12/12/16 08:28 Heparin Sodium (Porcine) (Heparin 5000 units/ml) 5,000 units EVERY 12 HOURS SUBQ 12/06/16 09:00 01/05/17 08:59 12/12/16 08:31 Heparin Sodium (Porcine) (Heparin Sod 1000 units/ml 10ml) 2,000 unit ONCE INJ 12/11/16 17:15 12/16/16 17:14 Ondansetron HCl (Zofran) 4 mg Q6H PRN IVP Nausea & Vomiting 12/06/16 07:45 01/05/17 07:44 Pantoprazole (Protonix) 40 mg EVERY 12 HOURS ORAL 12/06/16 11:00 01/05/17 10:59 12/12/16 08:28 Polyethylene Glycol (Miralax) 17 gm DAILYPRN PRN ORAL Constipation 12/06/16 07:45 01/05/17 07:44 Temazepam (Restoril) 15 mg HSPRN PRN ORAL Insomnia 12/06/16 07:45 12/13/16 07:44 12/07/16 22:03 BERNADETTE COSTA Dec 12, 2016 13:02
--- NOTE | 2016-12-12 15:55 | Cardiology Progress Note ---
Assessment/Plan Assessment/Plan intermittent episodes of av block adn mark not clear if duet o sissy sissy morbid obesity esrd on hd [facility] [place] neg chronotropic agents observe if pt is sleep or not during epidose of mark keep on tele iv abx cathter has been removed ekg will repeated [id number] Objective Last 24 Hour Vital Signs Date Time Temp Pulse Resp B/P Pulse Ox O2 Delivery O2 Flow Rate FiO2 12/12/16 12:00 98.1 93 19 133/96 96 Room Air 12/12/16 11:57 42 12/12/16 11:57 82 12/12/16 09:29 98.6 12/12/16 09:00 98.6 12/12/16 08:27 108 18 Room Air 12/12/16 08:27 95 Room Air 12/12/16 08:27 Room Air 12/12/16 08:00 100.0 101 19 146/81 96 Room Air 12/12/16 07:28 100 12/12/16 04:00 90 12/12/16 04:00 98.6 72 20 128/77 100 Nasal Cannula 3.0 32 12/12/16 00:00 98.6 98 20 140/79 99 Nasal Cannula 3.0 32 12/12/16 00:00 83 12/11/16 20:00 77 12/11/16 20:00 97.6 72 20 141/93 95 Nasal Cannula 3.0 32 12/11/16 19:48 Nasal Cannula 3.0 32 12/11/16 19:48 97 Nasal Cannula 3.0 32 12/11/16 19:48 83 18 Nasal Cannula 3.0 32 12/11/16 19:06 Room Air 2.0 32 12/11/16 16:23 77 12/11/16 16:00 97.5 82 20 148/88 100 Room Air Intake and Output 12/11/16 12/12/16 19:00 07:00 Intake Total 440 ml 55 ml Output Total 3300 ml Balance 440 ml -3245 ml Intake Oral 440 ml IV Total 55 ml Hemodialysis UF 3300 ml # Voids 3 Laboratory Tests Test 12/12/16 07:50 White Blood Count 12.8 K/UL (4.8-10.8) H Red Blood Count 3.28 M/UL (4.70-6.10) L Hemoglobin 9.2 G/DL (14.2-18.0) L Hematocrit 28.8 % (42.0-52.0) L Mean Corpuscular Volume 88 FL (80-99) Mean Corpuscular Hemoglobin 28.0 PG (27.0-31.0) Mean Corpuscular Hemoglobin Concent 31.9 G/DL (32.0-36.0) L Red Cell Distribution Width 13.5 % (11.6-14.8) Platelet Count 260 K/UL (150-450) Mean Platelet Volume 7.2 FL (6.5-10.1) Neutrophils (%) (Auto) 66.4 % (45.0-75.0) Lymphocytes (%) (Auto) 18.8 % (20.0-45.0) L Monocytes (%) (Auto) 12.2 % (1.0-10.0) H Eosinophils (%) (Auto) 1.5 % (0.0-3.0) Basophils (%) (Auto) 1.1 % (0.0-2.0) Sodium Level 136 mEQ/L (135-145) Potassium Level 3.5 mEQ/L (3.4-4.9) Chloride Level 93 mEQ/L (98-107) L Carbon Dioxide Level 26 mEQ/L (20-30) Anion Gap 17 (5-15) H Blood Urea Nitrogen 49 mg/dL (7-23) H Creatinine 8.8 mg/dL (0.7-1.2) H Estimat Glomerular Filtration Rate 7.8 mL/min (>60) Glucose Level 103 mg/dL (74-106) Uric Acid 6.4 mg/dL (3.0-7.5) Calcium Level 9.1 mg/dL (8.6-10.2) Phosphorus Level 4.2 mg/dL (2.5-4.8) Magnesium Level 2.0 mg/dL (1.7-2.5) Total Bilirubin 0.3 mg/dL (0.0-1.2) Aspartate Amino Transf (AST/SGOT) 22 U/L (5-40) Alanine Aminotransferase (ALT/SGPT) 12 U/L (3-41) Alkaline Phosphatase 70 U/L (40-129) C-Reactive Protein, Quantitative 16.9 mg/dL (< 0.5) H Pro-B-Type Natriuretic Peptide 77301 pg/mL (0-125) H Total Protein 7.0 g/dL (6.6-8.7) Albumin 3.5 g/dL (3.5-5.2) Globulin 3.5 g/dL Albumin/Globulin Ratio 1.0 (1.0-2.7) Microbiology Date/Time Source Procedure Growth Status 12/10/16 08:50 Blood Blood Culture - Preliminary NO GROWTH AFTER 24 HOURS Resulted 12/10/16 08:45 Blood Blood Culture - Preliminary NO GROWTH AFTER 24 HOURS Resulted TALAT DEJESUS Dec 12, 2016 15:55
[2016-12-12 16:00] VITALS: BP 131/83
[2016-12-12] MEDS: Heparin Sod 1000 units/ml 10ml INJ SCH (17:15)
[2016-12-12 20:00] VITALS: BP 147/92
[2016-12-12] MEDS: ceFAZolin sod 1 GM in D5W 55 ML IVPB SCH (20:40)
[2016-12-12] MEDS: Epogen (for ESRD on dialysis) SUBQ SCH (20:40)
[2016-12-13] VITALS (7 sets, daily range): BP systolic 132–143; BP diastolic 71–93
--- NOTE | 2016-12-13 03:01 | Consultation ---
DATE OF CONSULTATION: 12/12/2016 CARDIOLOGY CONSULTATION: CONSULTING PHYSICIAN: Yusef Velasco M.D. REFERRING PHYSICIAN: Екатерина Pastrana M.D. REASON FOR REFERRAL: Bradycardia. HISTORY OF PRESENT ILLNESS: This is a middle-aged gentleman, 51 years old, who has had history of renal failure, is on hemodialysis with significant history of morbid obesity. He has sleep apnea and he started using a CPAP a few days ago. He is on dialysis and apparently he had an infected shunt and he developed significant chills that caused him to come to the hospital. Usually, he does not have any chest pain, does have shortness of breath. No palpitation. No syncope. No near syncope. No dizziness on standing. He has never had any heart problems previously either, although he has a history of high blood pressure. During the hospitalization over the past few days, he has been noticed to have some episodes of bradycardia, mainly occurring today with these episodes causing some pauses up to 2.4 and 2.5 seconds in duration and questionable episodes of an AV block of a high grade in nature. Therefore, this consultation is requested for evaluation and therapy due to episodes of bradycardia. He really has not had any symptoms, however, associated with these and is not clear whether these occurred at the time of sleep and/or apnea. PAST MEDICAL HISTORY: Positive for high blood pressure. No history of heart attack. No cancer. No stroke. No hepatitis or tuberculosis. No asthma or emphysema. No ulcers. He does have end-stage renal disease, on hemodialysis. No anemia, arthritis, or blood clots anywhere except what was associated due to his shunt and dialysis catheter. No HIV or AIDS. No prior heart issues. He has had a history of cardiac tamponade for which he apparently had two liters of pericardiocentesis that is after diagnosis of his renal failure was occurred and he also has a history of hemodialysis. SOCIAL HISTORY: He used to smoke more than 30 years ago. Does not use tobacco or alcohol or drugs at this time. He tells me that he has been in the [employer] business. FAMILY HISTORY: Negative. REVIEW OF SYSTEMS: Gastrointestinal: He denies any nausea, vomiting, or diarrhea. Some constipation. Genitourinary: He still makes some urine. Pulmonary: He has occasional coughing and, as mentioned, sleep apnea. Neurologic: Negative. Constitutional: He has had fevers and chills as mentioned. PHYSICAL EXAMINATION: GENERAL: Shows to be morbidly obese middle-aged gentleman, very pleasant, in no apparent respiratory distress. VITAL SIGNS: His blood pressure has ranged between 128/77 to 154/92 with heart rates anywhere between 42 to 108. His temperature orally maximum was 100 degrees today. NECK: Supple. LUNGS: Appear to be clear to auscultation and percussion. CARDIAC: Regular rate and rhythm at the present time. No heaves or thrills noted. ABDOMEN: Soft and nontender. Positive bowel sounds. EXTREMITIES: There is no clubbing, cyanosis, or edema. NEUROLOGICAL: He is awake, alert, and responsive. LABORATORY AND DIAGNOSTIC DATA: White count is 12.2, hemoglobin 9.2, and the platelet count 260,000. Sodium was 132, potassium 3.5, chloride 93, bicarbonate 26, BUN 49, creatinine 8.8, and glucose of 103. His A1c was 5.1. His proBNP has been as high as 36,000 and as low as 15,000. His CRP is 16. It has been as high as 30. His coagulations, INR 1.1 and a PTT of 21. His urinalysis on 12/08/2016 showed 0 to 2 RBCs and WBCs. On 12/09/2016, most recent chest x-ray shows enlarged cardiac structures, mild congestion, left subclavian innominate vein stents being present. Tunneled dialysis catheter has been removed. His ultrasound shows thrombosed AV fistula graft in the right forearm and a hematoma or abscess around it. Telemetry shows episodes of bradycardia, possibly Mobitz I and some episodes of Mobitz II. He has high-grade AV block intermixed with sinus rhythm, right bundle-branch conduction defect. The patient has had an echocardiogram. Preliminary report shows ejection fraction 60%. Technically difficult study. Severe right atrial and right ventricular enlargement, pulmonary artery pressures of 29. IVC dilated at 12.3. EKG shows sinus tachycardia with right bundle-branch conduction defect. NOTE: DICTATION INCOMPLETE Yusef Velasco M.D. DR: Mary JOB#: [id number] CC:
[2016-12-13 07:23] LABS: BASOPHILS % (AUTO) 1.3 % (0.0-2.0); EOSINOPHILS % (AUTO) 2.3 % (0.0-3.0); LYMPHOCYTES % (AUTO) 20.9 % (20.0-45.0); MEAN CORPUSCULAR HEMOGLOBIN 28.1 PG (27.0-31.0); MEAN CORPUSCULAR HGB CONC 31.8 G/DL (32.0-36.0); MEAN CORPUSCULAR VOLUME 88 FL (80-99); MEAN PLATELET VOLUME 7.7 FL (6.5-10.1); MONOCYTES % (AUTO) 11.6 % (1.0-10.0); PLATELET COUNT 300 K/UL (150-450); RED CELL DISTRIBUTION WIDTH 13.6 % (11.6-14.8); WHITE BLOOD COUNT 13.4 K/UL (4.8-10.8)
[2016-12-13 07:40] LABS: ALBUMIN/GLOBULIN RATIO 0.9 (1.0-2.7); CALCIUM 9.6 mg/dL (8.6-10.2); CREATININE 10.6 mg/dL (0.7-1.2); GLOMERULAR FILTRATION RATE 6.2 mL/min (>60); MAGNESIUM 2.1 mg/dL (1.7-2.5); PHOSPHORUS 6.8 mg/dL (2.5-4.8); POTASSIUM 3.6 mEQ/L (3.4-4.9); TOTAL PROTEIN 6.9 g/dL (6.6-8.7)
[2016-12-13] MEDS: Aspirin Baby 81mg ORAL SCH (08:25)
[2016-12-13] MEDS: Heparin 5000 units/ml inj SUBQ SCH ×2 (08:30→21:11)
--- NOTE | 2016-12-13 10:58 | General Progress Note ---
Assessment/Plan Status: stable Assessment/Plan status: ESRD Admitted with sepsis- Line related , has right permacath put in 12/02 HTN Obesity Anemia Plan: HD 12/11 , permacath removed- new cath , temporary for HD- 12/13 today- Permacath on Friday 12/15 EPO . B12 ,.... Phos and Mag as needed Antibiotics BP control Per orders and per consultants re insert Perma Cath when c/s negative Subjective ROS Limited/Unobtainable: No Allergies: Coded Allergies: No Known Allergies (Unverified , 12/06/16) Objective Last 24 Hour Vital Signs Date Time Temp Pulse Resp B/P Pulse Ox O2 Delivery O2 Flow Rate FiO2 12/13/16 09:07 Nasal Cannula 3.0 12/13/16 09:07 99 Nasal Cannula 3.0 12/13/16 09:06 94 17 Nasal Cannula 3.0 12/13/16 08:34 97.7 92 20 132/85 97 Nasal Cannula 4.0 12/13/16 08:00 51 12/13/16 04:00 97.7 90 20 136/77 100 Room Air 3.0 32 12/13/16 04:00 83 12/13/16 00:00 97.0 62 20 134/85 100 Room Air 3.0 32 12/13/16 00:00 85 12/12/16 20:00 77 12/12/16 20:00 98.4 75 20 147/92 100 Room Air 3.0 32 12/12/16 19:49 Room Air 12/12/16 19:49 70 20 Room Air 12/12/16 19:49 96 Room Air 12/12/16 16:05 86 12/12/16 16:00 98.1 79 20 131/83 100 Nasal Cannula 3.0 12/12/16 12:00 98.1 93 19 133/96 96 Room Air 12/12/16 11:57 42 12/12/16 11:57 82 Intake and Output 12/12/16 12/13/16 19:00 07:00 Intake Total 720 ml 20 ml Balance 720 ml 20 ml Intake Oral 720 ml 20 ml # Voids 2 # Bowel Movements 2 Laboratory Tests 12/13/16 06:35: White Blood Count 13.4H, Red Blood Count 3.10L, Hemoglobin 8.7L, Hematocrit 27.4L, Mean Corpuscular Volume 88, Mean Corpuscular Hemoglobin 28.1, Mean Corpuscular Hemoglobin Concent 31.8L, Red Cell Distribution Width 13.6, Platelet Count 300, Mean Platelet Volume 7.7, Neutrophils (%) (Auto) 64.0, Lymphocytes (%) (Auto) 20.9, Monocytes (%) (Auto) 11.6H, Eosinophils (%) (Auto) 2.3, Basophils (%) (Auto) 1.3, Sodium Level 135, Potassium Level 3.6, Chloride Level 92L, Carbon Dioxide Level 25, Anion Gap 18H, Blood Urea Nitrogen 60H, Creatinine 10.6H, Estimat Glomerular Filtration Rate 6.2, Glucose Level 105, Calcium Level 9.6, Phosphorus Level 6.8H, Magnesium Level 2.1, Total Bilirubin 0.3, Aspartate Amino Transf (AST/SGOT) 16, Alanine Aminotransferase (ALT/SGPT) 7 , Alkaline Phosphatase 78, Total Protein 6.9, Albumin 3.4L, Globulin 3.5, Albumin/Globulin Ratio 0.9L Height (Feet): 5 Height (Inches): 7.00 Weight (Pounds): 308 General Appearance: no apparent distress Respiratory/Chest: decreased breath sounds Abdomen: soft Objective no change in PE GENNY JACK Dec 13, 2016 10:57
--- NOTE | 2016-12-13 11:13 | Pulmonology Progress Note ---
Assessment/Plan Problems: (1) Sepsis (2) Bacteremia (3) ESRD on hemodialysis (4) Bradycardia (5) Morbid obesity with BMI of 45.0-49.9, adult Assessment/Plan continue Iv abx, wbc still high blood cultures are negative now Portocath was removed cardiology f/u for bradycardia temporary HD access for now keep in teli Subjective ROS Limited/Unobtainable: No Interval Events: no new complains Allergies: Coded Allergies: No Known Allergies (Unverified , 12/06/16) Objective Last 24 Hour Vital Signs Date Time Temp Pulse Resp B/P Pulse Ox O2 Delivery O2 Flow Rate FiO2 12/13/16 09:07 Nasal Cannula 3.0 12/13/16 09:07 99 Nasal Cannula 3.0 12/13/16 09:06 94 17 Nasal Cannula 3.0 12/13/16 08:34 97.7 92 20 132/85 97 Nasal Cannula 4.0 12/13/16 08:00 51 12/13/16 04:00 97.7 90 20 136/77 100 Room Air 3.0 32 12/13/16 04:00 83 12/13/16 00:00 97.0 62 20 134/85 100 Room Air 3.0 32 12/13/16 00:00 85 12/12/16 20:00 77 12/12/16 20:00 98.4 75 20 147/92 100 Room Air 3.0 32 12/12/16 19:49 Room Air 12/12/16 19:49 70 20 Room Air 12/12/16 19:49 96 Room Air 12/12/16 16:05 86 12/12/16 16:00 98.1 79 20 131/83 100 Nasal Cannula 3.0 12/12/16 12:00 98.1 93 19 133/96 96 Room Air 12/12/16 11:57 42 12/12/16 11:57 82 Intake and Output 12/12/16 12/13/16 19:00 07:00 Intake Total 720 ml 20 ml Balance 720 ml 20 ml Intake Oral 720 ml 20 ml # Voids 2 # Bowel Movements 2 Objective General Appearance: WD/WN Lines, tubes and drains: peripheral, central line HEENT: normocephalic, atraumatic Neck: non-tender, normal alignment Respiratory/Chest: chest wall non-tender, lungs clear Cardiovascular/Chest: normal peripheral pulses, normal rate Laboratory Tests 12/13/16 06:35: White Blood Count 13.4H, Red Blood Count 3.10L, Hemoglobin 8.7L, Hematocrit 27.4L, Mean Corpuscular Volume 88, Mean Corpuscular Hemoglobin 28.1, Mean Corpuscular Hemoglobin Concent 31.8L, Red Cell Distribution Width 13.6, Platelet Count 300, Mean Platelet Volume 7.7, Neutrophils (%) (Auto) 64.0, Lymphocytes (%) (Auto) 20.9, Monocytes (%) (Auto) 11.6H, Eosinophils (%) (Auto) 2.3, Basophils (%) (Auto) 1.3, Sodium Level 135, Potassium Level 3.6, Chloride Level 92L, Carbon Dioxide Level 25, Anion Gap 18H, Blood Urea Nitrogen 60H, Creatinine 10.6H, Estimat Glomerular Filtration Rate 6.2, Glucose Level 105, Calcium Level 9.6, Phosphorus Level 6.8H, Magnesium Level 2.1, Total Bilirubin 0.3, Aspartate Amino Transf (AST/SGOT) 16, Alanine Aminotransferase (ALT/SGPT) 7 , Alkaline Phosphatase 78, Total Protein 6.9, Albumin 3.4L, Globulin 3.5, Albumin/Globulin Ratio 0.9L Current Medications Medications (Trade) Dose Ordered Sig/Jeremy Route PRN Reason Start Time Stop Time Status Last Admin Dose Admin Acetaminophen (Tylenol) 650 mg Q4H PRN ORAL Fever 12/06/16 07:45 01/05/17 07:44 12/12/16 08:30 Aspirin (ASA) 81 mg DAILY ORAL 12/06/16 09:00 01/05/17 08:59 12/13/16 08:25 Cefazolin Sodium/ Dextrose (Ancef/D5W) 55 ml @ 110 mls/hr Q24HRS IVPB 12/09/16 21:00 12/22/16 20:59 12/12/16 20:40 Clopidogrel Bisulfate (Plavix) 75 mg DAILY ORAL 12/06/16 09:00 01/05/17 08:59 12/13/16 08:25 Dextrose (Dextrose 50%) STAT PRN IV Hypoglycemia 12/06/16 07:45 01/05/17 07:44 Epoetin Dionte (Procrit (for ESRD on dialysis)) 10,000 units THU-THU-THU SUBQ 12/08/16 21:00 01/07/17 20:59 12/12/16 20:40 Ergocalciferol 79651 intlu 50,000 intlu QWEEK ORAL 12/07/16 10:00 01/06/17 09:59 12/07/16 10:00 Folic Acid (Folate) 2 mg DAILY ORAL 12/07/16 10:00 01/06/17 09:59 12/13/16 08:25 Gabapentin (Neurontin) 100 mg THREE TIMES A DAY ORAL 12/06/16 09:00 01/05/17 08:59 12/13/16 08:25 Heparin Sodium (Porcine) (Heparin 5000 units/ml) 5,000 units EVERY 12 HOURS SUBQ 12/06/16 09:00 01/05/17 08:59 12/13/16 08:30 Heparin Sodium (Porcine) (Heparin Sod 1000 units/ml 10ml) 2,000 unit ONCE INJ 12/11/16 17:15 12/16/16 17:14 Ondansetron HCl (Zofran) 4 mg Q6H PRN IVP Nausea & Vomiting 12/06/16 07:45 01/05/17 07:44 Pantoprazole (Protonix) 40 mg EVERY 12 HOURS ORAL 12/06/16 11:00 01/05/17 10:59 12/13/16 08:25 Polyethylene Glycol (Miralax) 17 gm DAILYPRN PRN ORAL Constipation 12/06/16 07:45 01/05/17 07:44 BERNADETTE COSTA Dec 13, 2016 11:13
[2016-12-13] MEDS ORDERED: Vancomycin 1.5 GM/D5W 250ML IVPB ONE ×2 (14:00→18:00)
[2016-12-13] MEDS: Heparin Sod 1000 units/ml 10ml INJ SCH (17:15)
[2016-12-13] MEDS: ceFAZolin sod 1 GM in D5W 55 ML IVPB SCH (21:09)
[2016-12-14] VITALS: BP 135/77
[2016-12-14 04:00] VITALS: BP 148/76
[2016-12-14 07:51] VITALS: BP 148/79
[2016-12-14] MEDS: Vitamin D 50,000 units cap ORAL SCH (09:43)
[2016-12-14] MEDS: Aspirin Baby 81mg ORAL SCH (09:44)
[2016-12-14] MEDS: Heparin 5000 units/ml inj SUBQ SCH ×2 (09:47→20:55)
--- NOTE | 2016-12-14 10:35 | General Progress Note ---
Assessment/Plan Status: stable Assessment/Plan status: ESRD Admitted with sepsis- Line related , has right permacath put in 12/02 HTN Obesity Anemia Plan: HD 12/11 , permacath removed- new cath , temporary for HD- 12/13 done- Permacath on Friday 12/15 EPO . B12 ,.... Phos and Mag as needed Antibiotics BP control Per orders and per consultants re insert Perma Cath when c/s negative Subjective ROS Limited/Unobtainable: No Constitutional: Reports: malaise Allergies: Coded Allergies: No Known Allergies (Unverified , 12/06/16) Objective Last 24 Hour Vital Signs Date Time Temp Pulse Resp B/P Pulse Ox O2 Delivery O2 Flow Rate FiO2 12/14/16 07:57 Room Air 12/14/16 07:56 100 Room Air 21 12/14/16 07:55 106 16 Room Air 21 12/14/16 07:51 97.5 72 20 148/79 99 Nasal Cannula 3.0 12/14/16 04:25 68 12/14/16 04:00 98.8 76 22 148/76 100 Room Air 12/14/16 00:00 79 12/14/16 00:00 97.7 77 18 135/77 100 Room Air 12/13/16 20:00 98.8 65 20 137/82 100 12/13/16 20:00 56 12/13/16 19:16 95 Nasal Cannula 3.0 12/13/16 19:16 95 17 Nasal Cannula 3.0 12/13/16 19:16 Nasal Cannula 3.0 12/13/16 16:00 98.2 88 20 143/71 100 Nasal Cannula 3.0 12/13/16 16:00 90 12/13/16 15:15 Nasal Cannula 2.0 12/13/16 12:10 Nasal Cannula 2.0 12/13/16 12:00 93 12/13/16 12:00 97.5 84 18 143/93 100 Nasal Cannula 3.0 Intake and Output 12/13/16 12/14/16 19:00 07:00 Intake Total 120 ml 120 ml Output Total 2300 ml 100 ml Balance -2180 ml 20 ml Intake Oral 120 ml 120 ml Output Urine Total 100 ml Hemodialysis UF 2300 ml # Voids 2 Height (Feet): 5 Height (Inches): 7.00 Weight (Pounds): 308 General Appearance: no apparent distress Extremities: other - right upper arm swollen Objective no change in PE GENNY JACK Dec 14, 2016 10:35
--- NOTE | 2016-12-14 10:46 | Pulmonology Progress Note ---
Assessment/Plan Problems: (1) Sepsis (2) Bacteremia (3) ESRD on hemodialysis (4) Bradycardia (5) Morbid obesity with BMI of 45.0-49.9, adult Assessment/Plan continue Iv abx, wbc still high, afebrile blood cultures are negative now Portocath was removed cardiology f/u for bradycardia temporary HD access for now keep in teli Subjective ROS Limited/Unobtainable: No Constitutional: Reports: no symptoms HEENT: Repors: no symptoms Respiratory: Reports: no symptoms Allergies: Coded Allergies: No Known Allergies (Unverified , 12/06/16) Objective Last 24 Hour Vital Signs Date Time Temp Pulse Resp B/P Pulse Ox O2 Delivery O2 Flow Rate FiO2 12/14/16 07:57 Room Air 12/14/16 07:56 100 Room Air 21 12/14/16 07:55 106 16 Room Air 12/14/16 07:51 97.5 72 20 148/79 99 Nasal Cannula 3.0 12/14/16 04:25 68 12/14/16 04:00 98.8 76 22 148/76 100 Room Air 12/14/16 00:00 79 12/14/16 00:00 97.7 77 18 135/77 100 Room Air 12/13/16 20:00 98.8 65 20 137/82 100 12/13/16 20:00 56 12/13/16 19:16 95 Nasal Cannula 3.0 12/13/16 19:16 95 17 Nasal Cannula 3.0 12/13/16 19:16 Nasal Cannula 3.0 12/13/16 16:00 98.2 88 20 143/71 100 Nasal Cannula 3.0 12/13/16 16:00 90 12/13/16 15:15 Nasal Cannula 2.0 12/13/16 12:10 Nasal Cannula 2.0 12/13/16 12:00 93 12/13/16 12:00 97.5 84 18 143/93 100 Nasal Cannula 3.0 Intake and Output 12/13/16 12/14/16 19:00 07:00 Intake Total 120 ml 120 ml Output Total 2300 ml 100 ml Balance -2180 ml 20 ml Intake Oral 120 ml 120 ml Output Urine Total 100 ml Hemodialysis UF 2300 ml # Voids 2 Objective General Appearance: WD/WN Lines, tubes and drains: peripheral, central line HEENT: normocephalic, atraumatic Neck: non-tender, normal alignment Respiratory/Chest: chest wall non-tender, lungs clear Cardiovascular/Chest: normal peripheral pulses, normal rate Current Medications Medications (Trade) Dose Ordered Sig/Jeremy Route PRN Reason Start Time Stop Time Status Last Admin Dose Admin Acetaminophen (Tylenol) 650 mg Q4H PRN ORAL Fever 12/06/16 07:45 01/05/17 07:44 12/12/16 08:30 Aspirin (ASA) 81 mg DAILY ORAL 12/06/16 09:00 01/05/17 08:59 12/14/16 09:44 Cefazolin Sodium/ Dextrose (Ancef/D5W) 55 ml @ 110 mls/hr Q24HRS IVPB 12/09/16 21:00 12/22/16 20:59 12/13/16 21:09 Clopidogrel Bisulfate (Plavix) 75 mg DAILY ORAL 12/06/16 09:00 01/05/17 08:59 12/14/16 09:43 Dextrose (Dextrose 50%) STAT PRN IV Hypoglycemia 12/06/16 07:45 01/05/17 07:44 Epoetin Dionte (Procrit (for ESRD on dialysis)) 10,000 units MON-WED-THU SUBQ 12/08/16 21:00 01/07/17 20:59 12/12/16 20:40 Ergocalciferol 55700 intlu 50,000 intlu QWEEK ORAL 12/07/16 10:00 01/06/17 09:59 12/14/16 09:43 Folic Acid (Folate) 2 mg DAILY ORAL 12/07/16 10:00 01/06/17 09:59 12/14/16 09:44 Gabapentin (Neurontin) 100 mg THREE TIMES A DAY ORAL 12/06/16 09:00 01/05/17 08:59 12/14/16 09:43 Heparin Sodium (Porcine) (Heparin 5000 units/ml) 5,000 units EVERY 12 HOURS SUBQ 12/06/16 09:00 01/05/17 08:59 12/14/16 09:47 Heparin Sodium (Porcine) (Heparin Sod 1000 units/ml 10ml) 2,000 unit ONCE INJ 12/11/16 17:15 12/16/16 17:14 Ondansetron HCl (Zofran) 4 mg Q6H PRN IVP Nausea & Vomiting 12/06/16 07:45 01/05/17 07:44 Pantoprazole (Protonix) 40 mg EVERY 12 HOURS ORAL 12/06/16 11:00 01/05/17 10:59 12/14/16 09:43 Polyethylene Glycol (Miralax) 17 gm DAILYPRN PRN ORAL Constipation 12/06/16 07:45 01/05/17 07:44 Vancomycin HCl (Vanco rx to dose) 1 ea DAILY PRN MISC Per rx protocol 12/13/16 13:00 01/12/17 12:59 BERNADETTE COSTA Dec 14, 2016 10:46
[2016-12-14 11:44] VITALS: BP 139/75
--- NOTE | 2016-12-14 12:12 | Infectious Diseases Prog Note ---
Assessment/Plan Assessment/Plan A; MSSA sepsis HD line infection Morbid obesity ESRD on HD Anemia P; Continue Ancef Discontinue IV Vancomycin Patient is clear for HD access placement Subjective ROS Limited/Unobtainable: No Respiratory: Reports: no symptoms Cardiovascular: Reports: no symptoms Musculoskeletal: Reports: other - in right arm, site of AV fistula, pain, swelling Allergies: Coded Allergies: No Known Allergies (Unverified , 12/06/16) Objective Vital Signs Last 24 Hour Vital Signs Date Time Temp Pulse Resp B/P Pulse Ox O2 Delivery O2 Flow Rate FiO2 12/14/16 11:44 97.2 61 20 139/75 98 Nasal Cannula 3.0 12/14/16 08:00 92 12/14/16 07:57 Room Air 12/14/16 07:56 100 Room Air 21 12/14/16 07:55 106 16 Room Air 21 12/14/16 07:51 97.5 72 20 148/79 99 Nasal Cannula 3.0 12/14/16 04:25 68 12/14/16 04:00 98.8 76 22 148/76 100 Room Air 12/14/16 00:00 79 12/14/16 00:00 97.7 77 18 135/77 100 Room Air 12/13/16 20:00 98.8 65 20 137/82 100 12/13/16 20:00 56 12/13/16 19:16 95 Nasal Cannula 3.0 12/13/16 19:16 95 17 Nasal Cannula 3.0 12/13/16 19:16 Nasal Cannula 3.0 12/13/16 16:00 98.2 88 20 143/71 100 Nasal Cannula 3.0 12/13/16 16:00 90 12/13/16 15:15 Nasal Cannula 2.0 12/13/16 12:10 Nasal Cannula 2.0 Height (Feet): 5 Height (Inches): 7.00 Weight (Pounds): 308 General Appearance: no acute distress HEENT: mucous membranes moist Respiratory/Chest: lungs clear Cardiovascular: normal rate Abdomen: soft, non tender Extremities: other - edema of R arm, femoral HD access Neurologic/Psychiatric: alert, oriented x 3, responsive Current Medications Medications (Trade) Dose Ordered Sig/Jeremy Route PRN Reason Start Time Stop Time Status Last Admin Dose Admin Acetaminophen (Tylenol) 650 mg Q4H PRN ORAL Fever 12/06/16 07:45 9/4/17 07:44 12/12/16 08:30 Aspirin (ASA) 81 mg DAILY ORAL 12/06/16 09:00 01/05/17 08:59 12/14/16 09:44 Cefazolin Sodium/ Dextrose (Ancef/D5W) 55 ml @ 110 mls/hr Q24HRS IVPB 12/09/16 21:00 12/22/16 20:59 12/13/16 21:09 Clopidogrel Bisulfate (Plavix) 75 mg DAILY ORAL 12/06/16 09:00 01/05/17 08:59 12/14/16 09:43 Dextrose (Dextrose 50%) STAT PRN IV Hypoglycemia 12/06/16 07:45 01/05/17 07:44 Epoetin Dionte (Procrit (for ESRD on dialysis)) 10,000 units THU-THU-THU SUBQ 12/08/16 21:00 01/07/17 20:59 12/12/16 20:40 Ergocalciferol 21338 intlu 50,000 intlu QWEEK ORAL 12/07/16 10:00 01/06/17 09:59 12/14/16 09:43 Folic Acid (Folate) 2 mg DAILY ORAL 12/07/16 10:00 01/06/17 09:59 12/14/16 09:44 Gabapentin (Neurontin) 100 mg THREE TIMES A DAY ORAL 12/06/16 09:00 01/05/17 08:59 12/14/16 09:43 Heparin Sodium (Porcine) (Heparin 5000 units/ml) 5,000 units EVERY 12 HOURS SUBQ 12/06/16 09:00 01/05/17 08:59 12/14/16 09:47 Heparin Sodium (Porcine) (Heparin Sod 1000 units/ml 10ml) 2,000 unit ONCE INJ 12/11/16 17:15 12/16/16 17:14 Ondansetron HCl (Zofran) 4 mg Q6H PRN IVP Nausea & Vomiting 12/06/16 07:45 01/05/17 07:44 Pantoprazole (Protonix) 40 mg EVERY 12 HOURS ORAL 12/06/16 11:00 01/05/17 10:59 12/14/16 09:43 Polyethylene Glycol (Miralax) 17 gm DAILYPRN PRN ORAL Constipation 12/06/16 07:45 01/05/17 07:44 Vancomycin HCl (Vanco rx to dose) 1 ea DAILY PRN MISC Per rx protocol 12/13/16 13:00 01/12/17 12:59 KIRBY SEGURA Dec 14, 2016 12:12
--- NOTE | 2016-12-14 14:05 | Consultation ---
Consult Note Consult Note Cardiac EP full consult dictated # [id number] JOBY ROSS Dec 14, 2016 14:05
[2016-12-14] MEDS ORDERED: Heparin 2000 units/Ns 1000ml INJ ONE (14:15)
[2016-12-14 14:35] LABS: BASOPHILS % (AUTO) 1.2 % (0.0-2.0); EOSINOPHILS % (AUTO) 2.5 % (0.0-3.0); LYMPHOCYTES % (AUTO) 17.6 % (20.0-45.0); MEAN CORPUSCULAR HEMOGLOBIN 27.1 PG (27.0-31.0); MEAN CORPUSCULAR HGB CONC 30.6 G/DL (32.0-36.0); MEAN CORPUSCULAR VOLUME 89 FL (80-99); MEAN PLATELET VOLUME 7.5 FL (6.5-10.1); MONOCYTES % (AUTO) 8.3 % (1.0-10.0); NEUTROPHILS % (AUTO) 70.4 % (45.0-75.0); PLATELET COUNT 399 K/UL (150-450); RED BLOOD COUNT 3.41 M/UL (4.70-6.10); RED CELL DISTRIBUTION WIDTH 13.8 % (11.6-14.8); WHITE BLOOD COUNT 13.3 K/UL (4.8-10.8)
[2016-12-14 14:44] LABS: CALCIUM 9.6 mg/dL (8.6-10.2); CREATININE 8.4 mg/dL (0.7-1.2); GLOMERULAR FILTRATION RATE 8.1 mL/min (>60); POTASSIUM 3.8 mEQ/L (3.4-4.9)
[2016-12-14] MEDS ORDERED: NS IV SCH (15:00)
[2016-12-14] MEDS ORDERED: Lidocaine 1% Plain 30 ml INJ PRN (15:00)
[2016-12-14] MEDS ORDERED: SODIUM ACETATE IV SCH (15:00)
[2016-12-14 15:35] VITALS: BP 151/95
[2016-12-14] MEDS ORDERED: Tubing IV Secondary IV ONE (16:44)
[2016-12-14 20:00] VITALS: BP 124/90
[2016-12-14] MEDS: ceFAZolin sod 1 GM in D5W 55 ML IVPB SCH (20:58)
[2016-12-15] VITALS (13 sets, daily range): BP systolic 91–154; BP diastolic 57–93
--- NOTE | 2016-12-15 00:45 | Consultation ---
DATE OF CONSULTATION: 12/14/2016 CARDIAC ELECTROPHYSIOLOGY CONSULT REQUESTING PHYSICIAN: Yusef Velasco M.D. REASON FOR CONSULT: Bradycardia. History Of Present Illness: The patient is a 51-year-old man with a history of hypertension; hypertensive nephropathy with end-stage renal disease, on chronic hemodialysis; history of morbid obesity; and obstructive sleep apnea. He was admitted on 12/06/2016 with fever to 102 degrees, shortness of breath, and cough. He was initially diagnosed with pneumonia and urinary tract infection, treated with Levaquin, but had persistent symptoms and presented to the emergency room. He was diagnosed with an infection of his right tunneled hemodialysis catheter symptoms. He was admitted and diagnosed with an infected right PermCath. This has been removed. He also had a previous unsuccessful thrombectomy for clotted right upper extremity fistula (09/2016). He was placed on telemetry and has been noted to have periods of bradycardia with rates of 50 beats per minute as well as episodes of second degree Mobitz I AV block during the day, periods of bradycardia associated with AV dissociation and second-degree Mobitz I AV block. On 12/12/2016, he was noted to have an episode of AV dissociation. Atrial rate was about 50 beats per minute and ventricular rate 38 beats per minute. This occurred at 1451 hours. Today at about 10:30 a.m., he had another episode of AV block associated with a 2.4 second pause. He reports that today he did take a nap without his CPAP and believes that this was at about left AV block with a pause of 2.4 seconds. He reports having taken a nap this morning. He believes around 11 a.m., without his CPAP. He denies any dizziness, lightheadedness, or syncope. He reports occasional palpitations with sensation of slow heartbeat when awakening from sleep. Cardiac testing done this admission included an echocardiogram, which was a technically difficult study due to the patient's body habitus, but reportedly showed an EF of 60%, moderate left ventricular hypertrophy, right atrial and ventricular enlargement and no significant valve lesions. RV systolic pressure was 29 mmHg. PAST MEDICAL HISTORY: As noted above, hypertension; end-stage renal disease, on hemodialysis; status post right upper extremity AV fistula with subsequent thrombosis; history of right PermCath placement and removal for infection; history of morbid obesity; anemia of chronic disease; and obstructive sleep apnea, on evening CPAP. MEDICATIONS: Subcutaneous heparin 5000 units q.12 h.; Keflex 1 g IV q.24 h.; Epogen 10,000 units Thursday, Thursday, and Thursday subcutaneously; folic acid 2 mg daily; ergocalciferol 50,000 units weekly; Protonix 40 mg b.i.d.; aspirin 81 mg daily, Plavix 75 mg daily, Neurontin 100 mg 3 times daily, Zofran, Tylenol, and MiraLax p.r.n. ALLERGIES: No known drug allergies. SOCIAL HISTORY: The patient is a nonsmoker. Does not drink alcohol or use any drugs. PHYSICAL EXAMINATION: VITAL SIGNS: Blood pressure is 139/75; pulse 61, regular; respirations 20; and afebrile. GENERAL: Alert, morbidly obese, male, in no acute distress. HEENT: Normocephalic and atraumatic. Pupils are equal, round, and reactive to light. Sclerae anicteric. NECK: Supple. There is no jugular venous distention. No carotid bruits. LUNGS: Clear to auscultation bilaterally. HEART: Regular. S1 and S2 with a 1/6 systolic ejection murmur along the left sternal border. No S3. ABDOMEN: Obese, soft, and nontender. Exam limited by obesity. EXTREMITIES: 2+ pitting pedal and ankle edema bilaterally. LABORATORY AND DIAGNOSTIC DATA: Hemoglobin 8.7, white blood count 13,400, and platelets 300,000. Sodium 135, potassium 3.6, chloride 92, bicarbonate 25, BUN 60, and creatinine 10.6. TSH 0.73. On 12/07/2016, troponin less than 0.3. EKG shows sinus tachycardia at 114 beats per minute, right bundle-branch block, and Q-waves V1 to V3 (no old EKG available for comparison), EKG from 12/06/2016. Telemetry has shown sinus rhythm to sinus tachycardia as well as 2 episodes of AV block with pauses up to 2.4 seconds. ASSESSMENT AND RECOMMENDATIONS: The patient is a 51-year-old man with a history of obstructive sleep apnea, on evening CPAP; end-stage renal disease, on hemodialysis; hypertension; and morbid obesity, who was admitted with an infected PermCath, which has been removed. He is being treated with intravenous antibiotics. Initial blood cultures showed Staphylococcus aureus (2 on 12/07/2016 and 2 on ). His blood cultures from 12/07/2016 through 12/09/2016 were positive for Staphylococcus aureus as was the catheter-tip culture. Subsequent blood cultures have been negative. He is noted to have episodes of bradycardia with AV block/AV dissociation. These episodes have occurred without symptoms and occur during the day, however, I suspect they are during sleep and reflects sleep apnea at times when he is not wearing his CPAP mask. I would recommend continued telemetry monitoring and use of CPAP with sleep. He had been on beta-blockers, but these have been discontinued (metoprolol 100 mg daily). I would recommend that the patient remain off all negative chronotropic and dromotropic agents. At this point, there is no indication for permanent or temporary pacing. Thank you for allowing me to see him in electrophysiology consultation. I will be happy to follow him with you as needed for any arrhythmia issues that arise. Tomasa Obregon M.D. DR: Roby JOB#: [id number] CC:
[2016-12-15] MEDS: Aspirin Baby 81mg ORAL SCH (07:23)
[2016-12-15] MEDS: Heparin 5000 units/ml inj SUBQ SCH ×2 (07:24→21:00)
[2016-12-15 08:03] LABS: BASOPHILS % (AUTO) 0.8 % (0.0-2.0); EOSINOPHILS % (AUTO) 2.6 % (0.0-3.0); MEAN CORPUSCULAR HEMOGLOBIN 28.3 PG (27.0-31.0); MEAN CORPUSCULAR HGB CONC 31.8 G/DL (32.0-36.0); MEAN CORPUSCULAR VOLUME 89 FL (80-99); MONOCYTES % (AUTO) 8.4 % (1.0-10.0); NEUTROPHILS % (AUTO) 71.1 % (45.0-75.0); PLATELET COUNT 412 K/UL (150-450); RED BLOOD COUNT 3.01 M/UL (4.70-6.10); RED CELL DISTRIBUTION WIDTH 14.1 % (11.6-14.8)
[2016-12-15 08:18] LABS: PROTHROMBIN TIME 10.4 SEC (9.30-11.50)
[2016-12-15 08:26] LABS: CALCIUM 9.7 mg/dL (8.6-10.2); CRP QUANT 16.3 mg/dL (< 0.5); GLOMERULAR FILTRATION RATE 6.7 mL/min (>60); PHOSPHORUS 6.4 mg/dL (2.5-4.8); POTASSIUM 3.6 mEQ/L (3.4-4.9); TOTAL PROTEIN 7.2 g/dL (6.6-8.7)
--- NOTE | 2016-12-15 08:55 | Infectious Diseases Prog Note ---
Assessment/Plan Assessment/Plan A; MSSA sepsis HD line infection Morbid obesity ESRD on HD Anemia P; Continue Ancef Patient is clear for HD access placement Subjective ROS Limited/Unobtainable: No Constitutional: Reports: no symptoms Respiratory: Reports: no symptoms Cardiovascular: Reports: no symptoms Gastrointestinal/Abdominal: Reports: no symptoms Genitourinary: Reports: no symptoms Musculoskeletal: Reports: other, swelling Allergies: Coded Allergies: No Known Allergies (Unverified , 12/06/16) Objective Vital Signs Last 24 Hour Vital Signs Date Time Temp Pulse Resp B/P Pulse Ox O2 Delivery O2 Flow Rate FiO2 12/15/16 08:00 97.9 67 21 154/93 98 Nasal Cannula 2.0 12/15/16 04:00 82 12/15/16 04:00 98.3 58 24 124/78 97 Bi-pap 12/15/16 00:00 70 20 139/75 97 Nasal Cannula 3.0 12/15/16 00:00 78 12/14/16 20:24 62 12/14/16 20:00 98.0 86 20 124/90 99 Nasal Cannula 3.0 12/14/16 19:30 98 20 Nasal Cannula 2.0 28 12/14/16 19:30 95 Nasal Cannula 2.0 28 12/14/16 19:30 Nasal Cannula 2.0 28 12/14/16 16:00 97 12/14/16 15:35 97.7 93 20 151/95 100 Nasal Cannula 3.0 12/14/16 12:00 67 12/14/16 11:44 97.2 61 20 139/75 98 Nasal Cannula 3.0 Height (Feet): 5 Height (Inches): 7.00 Weight (Pounds): 308 General Appearance: no acute distress HEENT: mucous membranes moist Respiratory/Chest: lungs clear Cardiovascular: normal rate Abdomen: soft, non tender Extremities: other - edema of R arm Neurologic/Psychiatric: alert, oriented x 3, responsive Laboratory Tests Test 12/14/16 13:45 12/15/16 07:35 White Blood Count 13.3 K/UL (4.8-10.8) H 13.0 K/UL (4.8-10.8) H Red Blood Count 3.41 M/UL (4.70-6.10) L 3.01 M/UL (4.70-6.10) L Hemoglobin 9.2 G/DL (14.2-18.0) L 8.5 G/DL (14.2-18.0) L Hematocrit 30.2 % (42.0-52.0) L 26.8 % (42.0-52.0) L Mean Corpuscular Volume 89 FL (80-99) 89 FL (80-99) Mean Corpuscular Hemoglobin 27.1 PG (27.0-31.0) 28.3 PG (27.0-31.0) Mean Corpuscular Hemoglobin Concent 30.6 G/DL (32.0-36.0) L 31.8 G/DL (32.0-36.0) L Red Cell Distribution Width 13.8 % (11.6-14.8) 14.1 % (11.6-14.8) Platelet Count 399 K/UL (150-450) 412 K/UL (150-450) Mean Platelet Volume 7.5 FL (6.5-10.1) 7.0 FL (6.5-10.1) Neutrophils (%) (Auto) 70.4 % (45.0-75.0) 71.1 % (45.0-75.0) Lymphocytes (%) (Auto) 17.6 % (20.0-45.0) L 17.0 % (20.0-45.0) L Monocytes (%) (Auto) 8.3 % (1.0-10.0) 8.4 % (1.0-10.0) Eosinophils (%) (Auto) 2.5 % (0.0-3.0) 2.6 % (0.0-3.0) Basophils (%) (Auto) 1.2 % (0.0-2.0) 0.8 % (0.0-2.0) Sodium Level 135 mEQ/L (135-145) 137 mEQ/L (135-145) Potassium Level 3.8 mEQ/L (3.4-4.9) 3.6 mEQ/L (3.4-4.9) Chloride Level 95 mEQ/L (98-107) L 95 mEQ/L (98-107) L Carbon Dioxide Level 25 mEQ/L (20-30) 25 mEQ/L (20-30) Anion Gap 15 (5-15) 17 (5-15) H Blood Urea Nitrogen 47 mg/dL (7-23) H 53 mg/dL (7-23) H Creatinine 8.4 mg/dL (0.7-1.2) H 10.0 mg/dL (0.7-1.2) H Estimat Glomerular Filtration Rate 8.1 mL/min (>60) 6.7 mL/min (>60) Glucose Level 107 mg/dL (74-106) H 87 mg/dL (74-106) Calcium Level 9.6 mg/dL (8.6-10.2) 9.7 mg/dL (8.6-10.2) Prothrombin Time 10.4 SEC (9.30-11.50) Prothromb Time International Ratio 1.0 (0.9-1.1) Activated Partial Thromboplast Time 29 SEC (23-33) Phosphorus Level 6.4 mg/dL (2.5-4.8) H Magnesium Level 2.5 mg/dL (1.7-2.5) Total Bilirubin 0.3 mg/dL (0.0-1.2) Aspartate Amino Transf (AST/SGOT) 11 U/L (5-40) Alanine Aminotransferase (ALT/SGPT) 5 U/L (3-41) Alkaline Phosphatase 66 U/L (40-129) C-Reactive Protein, Quantitative 16.3 mg/dL (< 0.5) H Total Protein 7.2 g/dL (6.6-8.7) Albumin 3.6 g/dL (3.5-5.2) Globulin 3.6 g/dL Albumin/Globulin Ratio 1.0 (1.0-2.7) Current Medications Medications (Trade) Dose Ordered Sig/Jeremy Route PRN Reason Start Time Stop Time Status Last Admin Dose Admin Acetaminophen (Tylenol) 650 mg Q4H PRN ORAL Fever 12/06/16 07:45 01/05/17 07:44 12/12/16 08:30 Aspirin (ASA) 81 mg DAILY ORAL 12/06/16 09:00 01/05/17 08:59 12/14/16 09:44 Cefazolin Sodium/ Dextrose (Ancef/D5W) 55 ml @ 110 mls/hr Q24HRS IVPB 12/09/16 21:00 12/22/16 20:59 12/14/16 20:58 Clopidogrel Bisulfate (Plavix) 75 mg DAILY ORAL 12/06/16 09:00 01/05/17 08:59 12/14/16 09:43 Dextrose (Dextrose 50%) STAT PRN IV Hypoglycemia 12/06/16 07:45 01/05/17 07:44 Epoetin Dionte (Procrit (for ESRD on dialysis)) 10,000 units THU-THU-THU SUBQ 12/08/16 21:00 01/07/17 20:59 12/12/16 20:40 Ergocalciferol 43099 intlu 50,000 intlu QWEEK ORAL 12/07/16 10:00 01/06/17 09:59 12/14/16 09:43 Folic Acid (Folate) 2 mg DAILY ORAL 12/07/16 10:00 01/06/17 09:59 12/15/16 08:14 Gabapentin (Neurontin) 100 mg THREE TIMES A DAY ORAL 12/06/16 09:00 01/05/17 08:59 12/15/16 08:14 Heparin Sodium (Porcine) (Heparin 5000 units/ml) 5,000 units EVERY 12 HOURS SUBQ 12/06/16 09:00 01/05/17 08:59 12/14/16 09:47 Heparin Sodium/ Sodium Chloride (Heparin 2000 units/Ns 1000ml premix) 2,000 unit ONCE ONCE INJ 12/15/16 11:30 12/15/16 11:31 Lidocaine/ Epinephrine (Xylocaine 1%/ Epi MPF) 20 ml ONCE ONCE INJ 12/15/16 11:30 12/15/16 11:31 Ondansetron HCl (Zofran) 4 mg Q6H PRN IVP Nausea & Vomiting 12/06/16 07:45 01/05/17 07:44 Pantoprazole (Protonix) 40 mg EVERY 12 HOURS ORAL 12/06/16 11:00 01/05/17 10:59 12/15/16 08:14 Polyethylene Glycol (Miralax) 17 gm DAILYPRN PRN ORAL Constipation 12/06/16 07:45 01/05/17 07:44 KIRBY SEGURA Dec 15, 2016 08:55
[2016-12-15] MEDS ORDERED: Dyna-Hex 2% Top Sol 8oz TOPIC SCH (09:00)
[2016-12-15] MEDS ORDERED: Lidocaine 1% Plain 30 ml INJ ONE ×2 (09:56→16:36)
[2016-12-15] MEDS ORDERED: Bacitracin Oint 15gm Tube TOPIC ONE (09:56)
[2016-12-15] MEDS ORDERED: Bupivacaine 0.5% Inj 30 ml vial INJ ONE ×2 (09:57→16:36)
[2016-12-15] MEDS ORDERED: Bacitracin 50000 Units Vial ONE (09:57)
--- NOTE | 2016-12-15 10:57 | General Progress Note ---
Assessment/Plan Status: stable Assessment/Plan status: ESRD Admitted with sepsis- Line related , has right permacath put in 12/02 HTN Obesity Anemia Plan: HD 12/11 , permacath removed- new cath , temporary for HD- 12/13 done- next 12/16 Permacath on Friday 12/15 EPO . B12 ,.... Phos and Mag as needed Antibiotics BP control Per orders and per consultants re insert Perma Cath when c/s negative Subjective ROS Limited/Unobtainable: No Constitutional: Reports: malaise Allergies: Coded Allergies: No Known Allergies (Unverified , 12/06/16) Objective Last 24 Hour Vital Signs Date Time Temp Pulse Resp B/P Pulse Ox O2 Delivery O2 Flow Rate FiO2 12/15/16 08:00 97.9 67 21 154/93 98 Nasal Cannula 2.0 12/15/16 08:00 85 12/15/16 04:00 82 12/15/16 04:00 98.3 58 24 124/78 97 Bi-pap 12/15/16 00:00 70 20 139/75 97 Nasal Cannula 3.0 12/15/16 00:00 78 12/14/16 20:24 62 12/14/16 20:00 98.0 86 20 124/90 99 Nasal Cannula 3.0 12/14/16 19:30 98 20 Nasal Cannula 2.0 28 12/14/16 19:30 95 Nasal Cannula 2.0 28 12/14/16 19:30 Nasal Cannula 2.0 28 12/14/16 16:00 97 12/14/16 15:35 97.7 93 20 151/95 100 Nasal Cannula 3.0 12/14/16 12:00 67 12/14/16 11:44 97.2 61 20 139/75 98 Nasal Cannula 3.0 Intake and Output 12/14/16 12/15/16 19:00 07:00 Intake Total 360 ml Balance 360 ml Intake Oral 360 ml # Voids 1 Laboratory Tests 12/14/16 13:45: White Blood Count 13.3H, Red Blood Count 3.41L, Hemoglobin 9.2L, Hematocrit 30.2L, Mean Corpuscular Volume 89, Mean Corpuscular Hemoglobin 27.1, Mean Corpuscular Hemoglobin Concent 30.6L, Red Cell Distribution Width 13.8, Platelet Count 399, Mean Platelet Volume 7.5, Neutrophils (%) (Auto) 70.4, Lymphocytes (%) (Auto) 17.6L, Monocytes (%) (Auto) 8.3, Eosinophils (%) (Auto) 2.5, Basophils (%) (Auto) 1.2, Sodium Level 135, Potassium Level 3.8, Chloride Level 95L, Carbon Dioxide Level 25, Anion Gap 15, Blood Urea Nitrogen 47H, Creatinine 8.4H, Estimat Glomerular Filtration Rate 8.1, Glucose Level 107H, Calcium Level 9.6 12/15/16 07:35: White Blood Count 13.0H, Red Blood Count 3.01L, Hemoglobin 8.5L, Hematocrit 26.8L, Mean Corpuscular Volume 89, Mean Corpuscular Hemoglobin 28.3, Mean Corpuscular Hemoglobin Concent 31.8L, Red Cell Distribution Width 14.1, Platelet Count 412, Mean Platelet Volume 7.0, Neutrophils (%) (Auto) 71.1, Lymphocytes (%) (Auto) 17.0L, Monocytes (%) (Auto) 8.4, Eosinophils (%) (Auto) 2.6, Basophils (%) (Auto) 0.8, Sodium Level 137, Potassium Level 3.6, Chloride Level 95L, Carbon Dioxide Level 25, Anion Gap 17H, Blood Urea Nitrogen 53H, Creatinine 10.0H, Estimat Glomerular Filtration Rate 6.7, Glucose Level 87, Calcium Level 9.7, Prothrombin Time 10.4, Prothromb Time International Ratio 1.0 , Activated Partial Thromboplast Time 29, Phosphorus Level 6.4H, Magnesium Level 2.5, Total Bilirubin 0.3, Aspartate Amino Transf (AST/SGOT) 11, Alanine Aminotransferase (ALT/SGPT) 5, Alkaline Phosphatase 66, C-Reactive Protein, Quantitative 16.3H, Total Protein 7.2, Albumin 3.6, Globulin 3.6, Albumin/ Globulin Ratio 1.0 Height (Feet): 5 Height (Inches): 7.00 Weight (Pounds): 308 General Appearance: no apparent distress Objective no change in PE GENNY JACK Dec 15, 2016 10:57
--- NOTE | 2016-12-15 11:19 | Pulmonology Progress Note ---
Assessment/Plan Problems: (1) Sepsis (2) Bacteremia (3) ESRD on hemodialysis (4) Bradycardia (5) Morbid obesity with BMI of 45.0-49.9, adult Assessment/Plan continue Iv abx, afebrile blood cultures are negative now Portocath was removed cardiology f/u for bradycardia temporary HD access for now for HD access today Subjective ROS Limited/Unobtainable: No Constitutional: Reports: no symptoms HEENT: Repors: no symptoms Respiratory: Reports: no symptoms Allergies: Coded Allergies: No Known Allergies (Unverified , 12/06/16) Objective Last 24 Hour Vital Signs Date Time Temp Pulse Resp B/P Pulse Ox O2 Delivery O2 Flow Rate FiO2 12/15/16 08:00 97.9 67 21 154/93 98 Nasal Cannula 2.0 12/15/16 08:00 85 12/15/16 04:00 82 12/15/16 04:00 98.3 58 24 124/78 97 Bi-pap 12/15/16 00:00 70 20 139/75 97 Nasal Cannula 3.0 12/15/16 00:00 78 12/14/16 20:24 62 12/14/16 20:00 98.0 86 20 124/90 99 Nasal Cannula 3.0 12/14/16 19:30 98 20 Nasal Cannula 2.0 28 12/14/16 19:30 95 Nasal Cannula 2.0 28 12/14/16 19:30 Nasal Cannula 2.0 28 12/14/16 16:00 97 12/14/16 15:35 97.7 93 20 151/95 100 Nasal Cannula 3.0 12/14/16 12:00 67 12/14/16 11:44 97.2 61 20 139/75 98 Nasal Cannula 3.0 Intake and Output 12/14/16 12/15/16 19:00 07:00 Intake Total 360 ml Balance 360 ml Intake Oral 360 ml # Voids 1 Objective General Appearance: WD/WN Lines, tubes and drains: peripheral, central line HEENT: normocephalic, atraumatic Neck: non-tender, normal alignment Respiratory/Chest: chest wall non-tender, lungs clear Cardiovascular/Chest: normal peripheral pulses, normal rate Laboratory Tests 12/14/16 13:45: White Blood Count 13.3H, Red Blood Count 3.41L, Hemoglobin 9.2L, Hematocrit 30.2L, Mean Corpuscular Volume 89, Mean Corpuscular Hemoglobin 27.1, Mean Corpuscular Hemoglobin Concent 30.6L, Red Cell Distribution Width 13.8, Platelet Count 399, Mean Platelet Volume 7.5, Neutrophils (%) (Auto) 70.4, Lymphocytes (%) (Auto) 17.6L, Monocytes (%) (Auto) 8.3, Eosinophils (%) (Auto) 2.5, Basophils (%) (Auto) 1.2, Sodium Level 135, Potassium Level 3.8, Chloride Level 95L, Carbon Dioxide Level 25, Anion Gap 15, Blood Urea Nitrogen 47H, Creatinine 8.4H, Estimat Glomerular Filtration Rate 8.1, Glucose Level 107H, Calcium Level 9.6 12/15/16 07:35: White Blood Count 13.0H, Red Blood Count 3.01L, Hemoglobin 8.5L, Hematocrit 26.8L, Mean Corpuscular Volume 89, Mean Corpuscular Hemoglobin 28.3, Mean Corpuscular Hemoglobin Concent 31.8L, Red Cell Distribution Width 14.1, Platelet Count 412, Mean Platelet Volume 7.0, Neutrophils (%) (Auto) 71.1, Lymphocytes (%) (Auto) 17.0L, Monocytes (%) (Auto) 8.4, Eosinophils (%) (Auto) 2.6, Basophils (%) (Auto) 0.8, Sodium Level 137, Potassium Level 3.6, Chloride Level 95L, Carbon Dioxide Level 25, Anion Gap 17H, Blood Urea Nitrogen 53H, Creatinine 10.0H, Estimat Glomerular Filtration Rate 6.7, Glucose Level 87, Calcium Level 9.7, Prothrombin Time 10.4, Prothromb Time International Ratio 1.0 , Activated Partial Thromboplast Time 29, Phosphorus Level 6.4H, Magnesium Level 2.5, Total Bilirubin 0.3, Aspartate Amino Transf (AST/SGOT) 11, Alanine Aminotransferase (ALT/SGPT) 5, Alkaline Phosphatase 66, C-Reactive Protein, Quantitative 16.3H, Total Protein 7.2, Albumin 3.6, Globulin 3.6, Albumin/ Globulin Ratio 1.0 Current Medications Medications (Trade) Dose Ordered Sig/Jeremy Route PRN Reason Start Time Stop Time Status Last Admin Dose Admin Acetaminophen (Tylenol) 650 mg Q4H PRN ORAL Fever 12/06/16 07:45 01/05/17 07:44 12/12/16 08:30 Aspirin (ASA) 81 mg DAILY ORAL 12/06/16 09:00 01/05/17 08:59 12/14/16 09:44 Cefazolin Sodium/ Dextrose (Ancef/D5W) 55 ml @ 110 mls/hr Q24HRS IVPB 12/09/16 21:00 12/22/16 20:59 12/14/16 20:58 Clopidogrel Bisulfate (Plavix) 75 mg DAILY ORAL 12/06/16 09:00 01/05/17 08:59 12/14/16 09:43 Dextrose (Dextrose 50%) STAT PRN IV Hypoglycemia 12/06/16 07:45 01/05/17 07:44 Epoetin Dionte (Procrit (for ESRD on dialysis)) 10,000 units THU-THU-THU SUBQ 12/08/16 21:00 01/07/17 20:59 12/12/16 20:40 Ergocalciferol 30694 intlu 50,000 intlu QWEEK ORAL 12/07/16 10:00 01/06/17 09:59 12/14/16 09:43 Folic Acid (Folate) 2 mg DAILY ORAL 12/07/16 10:00 01/06/17 09:59 12/15/16 08:14 Gabapentin (Neurontin) 100 mg THREE TIMES A DAY ORAL 12/06/16 09:00 01/05/17 08:59 12/15/16 08:14 Heparin Sodium (Porcine) (Heparin 5000 units/ml) 5,000 units EVERY 12 HOURS SUBQ 12/06/16 09:00 01/05/17 08:59 12/14/16 09:47 Heparin Sodium/ Sodium Chloride (Heparin 2000 units/Ns 1000ml premix) 2,000 unit ONCE ONCE INJ 12/15/16 11:30 12/15/16 11:31 Lidocaine/ Epinephrine (Xylocaine 1%/ Epi MPF) 20 ml ONCE ONCE INJ 12/15/16 11:30 12/15/16 11:31 Ondansetron HCl (Zofran) 4 mg Q6H PRN IVP Nausea & Vomiting 12/06/16 07:45 01/05/17 07:44 Pantoprazole (Protonix) 40 mg EVERY 12 HOURS ORAL 12/06/16 11:00 01/05/17 10:59 12/15/16 08:14 Polyethylene Glycol (Miralax) 17 gm DAILYPRN PRN ORAL Constipation 12/06/16 07:45 01/05/17 07:44 BERNADETTE COSTA Dec 15, 2016 11:19
[2016-12-15] MEDS ORDERED: Lidocaine 1% 10mg/ml/Epi 0.005mg/ml 30ml vial INJ ONE (11:30)
[2016-12-15] MEDS ORDERED: Heparin 2000 units/Ns 1000ml INJ ONE (11:30)
[2016-12-15] MEDS ORDERED: Zemuron 50mg/5ml Inj IV ONE (12:00)
[2016-12-15] MEDS ORDERED: NS Irrig 1000ml ONE (12:00)
[2016-12-15] MEDS ORDERED: fentaNYL 100 mcg/2 mL IV ONE (12:00)
[2016-12-15] MEDS ORDERED: ePHEDrine 50mg/ml Inj ONE (12:00)
[2016-12-15] MEDS ORDERED: Nimbex 2mg/ml Inj 10ML IVP ONE (12:00)
[2016-12-15] MEDS ORDERED: Sterile Water Irrig 1000ml IRRIG ONE (12:00)
[2016-12-15] MEDS ORDERED: Midazolam 2mg/2ml Inj ONE (12:00)
[2016-12-15] MEDS ORDERED: NS 275ml ONE (12:00)
[2016-12-15] MEDS ORDERED: NS Irrig 1000ml IRRIG ONE (12:15)
--- NOTE | 2016-12-15 12:20 | Pre-Procedure Note/Attestation ---
Pre-Procedure Note/Attestation Complete Prior to Procedure Planned Procedure: right Procedure Narrative: Exploration of right arm dialysis shunt, possible thrombectomy, revision, ligation, and dialysis catheter replacement Indications for Procedure Pre-Operative Diagnosis: Thrombosed AVF; ESRD Attestation I attest that I discussed the nature of the procedure; its benefits; risks and complications; and alternatives (and the risks and benefits of such alternatives ), prior to the procedure, with the patient (or the patient's legal pharmacy services representative). I attest that, if there was a reasonable possibility of needing a blood transfusion, the patient (or the patient's legal pharmacy services representative) was given the [facility] standardized written summary, pursuant to the Marty Jewell Blood Safety Act ([place] Health and Safety Code # 1645, as amended). I attest that I re-evaluated the patient just prior to the surgery and that there has been no change in the patient's H&P, except as documented below: CYNDI LOPES Dec 15, 2016 12:20
[2016-12-15] MEDS ORDERED: Iothalamate Meglumine 60% 30ML INJ ONE ×2 (13:29→16:42)
--- NOTE | 2016-12-15 13:47 | Anethesia Preoperative Eval ---
Anesthesia Pre-op PMH/ROS General Date of Evaluation: Dec 15, 2016 Time of Evaluation: 12:00 Anesthesiologist: Semaj ASA Score: ASA 3 Mallampati Score Class I : Soft palate, uvula, fauces, pillars visible Class II: Soft palate, uvula, fauces visible Class III: Soft palate, base of uvula visible Class IV: Only hard plate visible Mallampati Classification: Class III Surgeon: Yas Diagnosis: Clotted right UE AV Fistula Surgical Procedure: Dialysis catheter placement, A-V shunt right upper extremity Family History: no anesthesia problems Allergies: Coded Allergies: No Known Allergies (Unverified , 12/06/16) Medications: see eMAR Past Medical History Cardiovascular: Reports: HTN, IA - Sammy-septal IA by EKG, Denies: CAD, arrhythmia, other, valve dz Pulmonary: Reports: FRANCISCO JAVIER, Denies: COPD, asthma, other Gastrointestinal/Genitourinary: Reports: ESRD - On HD (last 12/13), Denies: CRI, GERD, other Neurologic/Psychiatric: Denies: CVA, TIA, dementia, depression/anxiety, other Endocrine: Denies: DM, hypothyroidism, other, steroids HEENT: Denies: [place]SK[place] (L), KALSKAG (R), cataract (L), cataract (R), glaucoma, other Hematology/Immune: Denies: DVT, anemia, bleeding disorder, other Other: obesity PMH Narrative: HTN, ESRD, FRANCISCO JAVIER, morbid obesity, UTI, Pneumonia PSxH Narrative: A-V fistula Anesthesia Pre-op Phys. Exam Physician Exam Last Vital Signs Date Time Temp Pulse Resp B/P Pulse Ox O2 Delivery O2 Flow Rate FiO2 12/15/16 08:00 97.9 67 21 154/93 98 Nasal Cannula 2.0 12/14/16 19:30 28 Constitutional: NAD Neurologic: CN 2-12 intact Cardiovascular: RRR, no M/R/G Respiratory: CTA Gastrointestinal: S/NT/ND Airway Exam Mallampati Score: Class III MO: full ROM: full Teeth: intact Anesthesia Pre-op A/P Labs Hematology Test 12/14/16 13:45 12/15/16 07:35 White Blood Count 13.3 K/UL (4.8-10.8) H 13.0 K/UL (4.8-10.8) H Red Blood Count 3.41 M/UL (4.70-6.10) L 3.01 M/UL (4.70-6.10) L Hemoglobin 9.2 G/DL (14.2-18.0) L 8.5 G/DL (14.2-18.0) L Hematocrit 30.2 % (42.0-52.0) L 26.8 % (42.0-52.0) L Mean Corpuscular Volume 89 FL (80-99) 89 FL (80-99) Mean Corpuscular Hemoglobin 27.1 PG (27.0-31.0) 28.3 PG (27.0-31.0) Mean Corpuscular Hemoglobin Concent 30.6 G/DL (32.0-36.0) L 31.8 G/DL (32.0-36.0) L Red Cell Distribution Width 13.8 % (11.6-14.8) 14.1 % (11.6-14.8) Platelet Count 399 K/UL (150-450) 412 K/UL (150-450) Mean Platelet Volume 7.5 FL (6.5-10.1) 7.0 FL (6.5-10.1) Neutrophils (%) (Auto) 70.4 % (45.0-75.0) 71.1 % (45.0-75.0) Lymphocytes (%) (Auto) 17.6 % (20.0-45.0) L 17.0 % (20.0-45.0) L Monocytes (%) (Auto) 8.3 % (1.0-10.0) 8.4 % (1.0-10.0) Eosinophils (%) (Auto) 2.5 % (0.0-3.0) 2.6 % (0.0-3.0) Basophils (%) (Auto) 1.2 % (0.0-2.0) 0.8 % (0.0-2.0) Coagulation Test 12/15/16 07:35 Prothrombin Time 10.4 SEC (9.30-11.50) Prothromb Time International Ratio 1.0 (0.9-1.1) Activated Partial Thromboplast Time 29 SEC (23-33) Chemistry Test 12/14/16 13:45 12/15/16 07:35 Sodium Level 135 mEQ/L (135-145) 137 mEQ/L (135-145) Potassium Level 3.8 mEQ/L (3.4-4.9) 3.6 mEQ/L (3.4-4.9) Chloride Level 95 mEQ/L (98-107) L 95 mEQ/L (98-107) L Carbon Dioxide Level 25 mEQ/L (20-30) 25 mEQ/L (20-30) Anion Gap 15 (5-15) 17 (5-15) H Blood Urea Nitrogen 47 mg/dL (7-23) H 53 mg/dL (7-23) H Creatinine 8.4 mg/dL (0.7-1.2) H 10.0 mg/dL (0.7-1.2) H Estimat Glomerular Filtration Rate 8.1 mL/min (>60) 6.7 mL/min (>60) Glucose Level 107 mg/dL (74-106) H 87 mg/dL (74-106) Calcium Level 9.6 mg/dL (8.6-10.2) 9.7 mg/dL (8.6-10.2) Phosphorus Level 6.4 mg/dL (2.5-4.8) H Magnesium Level 2.5 mg/dL (1.7-2.5) Total Bilirubin 0.3 mg/dL (0.0-1.2) Aspartate Amino Transf (AST/SGOT) 11 U/L (5-40) Alanine Aminotransferase (ALT/SGPT) 5 U/L (3-41) Alkaline Phosphatase 66 U/L (40-129) C-Reactive Protein, Quantitative 16.3 mg/dL (< 0.5) H Total Protein 7.2 g/dL (6.6-8.7) Albumin 3.6 g/dL (3.5-5.2) Globulin 3.6 g/dL Albumin/Globulin Ratio 1.0 (1.0-2.7) Studies Pre-op Studies: EKG - Sinus tachy, RBBB, Sammy-septal IA, echo - EF 55%, LVH, BARBIE Risk Assessment & Plan Assessment: Morbidly obese, ESRD, HTN patient here for dialysis catheter exchange and right UE shunt and removal of right UE clotted shunt. Plan: GA (LMA vs ETT). Status Change Before Surgery: No Pre-Antibiotics Drug: Patient on abx LINDEN ROSE M.D. Dec 15, 2016 13:47
--- NOTE | 2016-12-15 13:51 | Immediate Post-Op Evaluation ---
Immediate Post-Op Evalulation Immediate Post-Op Evalulation Procedure: Dialysis catheter change, A-V shunt right UE Date of Evaluation: Dec 15, 2016 Time of Evaluation: 19:20 IV Fluids: 1700 Blood Products: 250 Estimated Blood Loss: 700 Blood Pressure Systolic: 99 Blood Pressure Diastolic: 58 Pulse Rate: 110 Respiratory Rate: 14 O2 Sat by Pulse Oximetry: 99 Nausea: No Vomiting: No Complications Patient extubated in the OR but was tachypneic and unable to maintain his airway. Attempted to intubate with glide scope unsuccessful. LMA placed but was not able to oxygenate or ventilate effectively. Patient had 2 brief periods of hypoxia down to approximately 30% saturation with bradycardia to 45 BPM. Each episode was followed with saturations of 88-93%. Patient eventually intubated using fiberoptic nasal intubation with #7.0 ETT. Saturations of 100% , HR 120, BP 155/97. Cis-Atracurium, Dilauded and Rocuronium given. CXR in OR showed that the ETT was above the approximately 4cm above the zurdo. Patient was transferred to the ICU on a vent. Patient to be dialyzed tonight as per Dr. Sorenson. Labs to be drawn and one unit ob PRBC to be transfused if warranted. Patient Status: no response, ventilated, none Hydration Status: adequate Drug: None LINDEN ROSE M.D. Dec 15, 2016 13:51
[2016-12-15] MEDS ORDERED: Tubing IV Secondary IV ONE (16:26)
--- NOTE | 2016-12-15 19:13 | Brief Operative Note ---
Immediate Post Operative Note Operative Note Pre-op Diagnosis: Thrombosed AVF; ESRD Procedure: right arm AV shunt exploration, thrombectomy, resection of aneurysm, excision of stent-graft, repair of brachial artery, permcath placement Post-op Diagnosis: same as pre-op Findings: consistent w/pre-op dx studies Surgeon: Ana Maria Sorenson Anesthesiologist: Semaj Anesthesia: general Specimen: yes - AVF aneurysm and stent-graft Complications: none Condition: stable Fluids: 1700 ml crystalloid and 1 unit PRBC Estimated Blood Loss: volume - 700 ml Drains: HIGINIO Implant(s) used?: Yes - permcath via left IJ CYNDI SORENSON Dec 15, 2016 19:13
[2016-12-15] MEDS ORDERED: LORazepam Inj 2mg/ml 1ml IV PRN ×2 (19:30→20:00)
[2016-12-15] MEDS ORDERED: Hydromorphone 0.5mg/0.5ml inj IVP PRN ×2 (19:30→20:00)
[2016-12-15 20:05] LABS: MEAN CORPUSCULAR HEMOGLOBIN 29.8 PG (27.0-31.0); MEAN CORPUSCULAR VOLUME 90 FL (80-99); MEAN PLATELET VOLUME 6.9 FL (6.5-10.1); PLATELET COUNT 350 K/UL (150-450); RED BLOOD COUNT 2.86 M/UL (4.70-6.10); RED CELL DISTRIBUTION WIDTH 14.4 % (11.6-14.8); WHITE BLOOD COUNT 15.9 K/UL (4.8-10.8)
[2016-12-15 20:07] LABS: BASOPHILS % (AUTO) 0.6 % (0.0-2.0); EOSINOPHILS % (AUTO) 0.5 % (0.0-3.0); LYMPHOCYTES % (AUTO) 6.9 % (20.0-45.0); NEUTROPHILS % (AUTO) 87.9 % (45.0-75.0)
--- NOTE | 2016-12-15 20:07 | Cardiology Progress Note ---
Assessment/Plan Assessment/Plan intermittent episodes of av block possible due to FRANCISCO JAVIER francisco javier morbid obesity esrd on hd infected dialysis catheter hs of cardiac tamponade years ago staph bacteremia avoid neg chronotropic agents now postop: right arm AV shunt exploration, thrombectomy, resection of aneurysm , excision of stent-graft, repair of brachial artery, permcath placement monitor rate adn rhytm iv abx wean off vent as possible not bardy now iv abx watch h/h post op Subjective ROS Limited/Unobtainable: Yes Subjective post op seen in icu morgan vent nto communicative Objective Last 24 Hour Vital Signs Date Time Temp Pulse Resp B/P Pulse Ox O2 Delivery O2 Flow Rate FiO2 12/15/16 19:53 106 15 60 12/15/16 19:45 60 12/15/16 19:45 97.6 106 11 96/64 97 Mechanical Ventilator 60 12/15/16 19:30 105 15 99/57 97 Mechanical Ventilator 60 12/15/16 19:30 Mechanical Ventilator 12/15/16 19:30 Mechanical Ventilator 12/15/16 19:22 110 14 99 12/15/16 19:20 109 16 94/58 97 Mechanical Ventilator 60 12/15/16 19:10 110 16 91/58 96 Mechanical Ventilator 60 12/15/16 19:05 110 16 99/58 96 Mechanical Ventilator 60 12/15/16 19:00 60 12/15/16 19:00 97.1 109 16 95/58 97 Mechanical Ventilator 60 12/15/16 08:00 97.9 67 21 154/93 98 Nasal Cannula 2.0 12/15/16 08:00 85 12/15/16 04:00 82 12/15/16 04:00 98.3 58 24 124/78 97 Bi-pap 12/15/16 00:00 70 20 139/75 97 Nasal Cannula 3.0 12/15/16 00:00 78 12/14/16 20:24 62 General Appearance: on vent, other - responsive to his nam bu4 very drwosey Cardiovascular: normal rate, tachycardia Respiratory/Chest: rhonchi - bilaterally Abdomen: normal bowel sounds, non tender, soft Extremities: no swelling Intake and Output 12/14/16 12/15/16 19:00 07:00 Intake Total 360 ml Balance 360 ml Intake Oral 360 ml # Voids 1 Laboratory Tests Test 12/15/16 07:35 12/15/16 19:48 White Blood Count 13.0 K/UL (4.8-10.8) H Pending Red Blood Count 3.01 M/UL (4.70-6.10) L Pending Hemoglobin 8.5 G/DL (14.2-18.0) L Pending Hematocrit 26.8 % (42.0-52.0) L Pending Mean Corpuscular Volume 89 FL (80-99) Pending Mean Corpuscular Hemoglobin 28.3 PG (27.0-31.0) Pending Mean Corpuscular Hemoglobin Concent 31.8 G/DL (32.0-36.0) L Pending Red Cell Distribution Width 14.1 % (11.6-14.8) Pending Platelet Count 412 K/UL (150-450) Pending Mean Platelet Volume 7.0 FL (6.5-10.1) Pending Neutrophils (%) (Auto) 71.1 % (45.0-75.0) Pending Lymphocytes (%) (Auto) 17.0 % (20.0-45.0) L Pending Monocytes (%) (Auto) 8.4 % (1.0-10.0) Pending Eosinophils (%) (Auto) 2.6 % (0.0-3.0) Pending Basophils (%) (Auto) 0.8 % (0.0-2.0) Pending Prothrombin Time 10.4 SEC (9.30-11.50) Prothromb Time International Ratio 1.0 (0.9-1.1) Activated Partial Thromboplast Time 29 SEC (23-33) Sodium Level 137 mEQ/L (135-145) Pending Potassium Level 3.6 mEQ/L (3.4-4.9) Pending Chloride Level 95 mEQ/L (98-107) L Pending Carbon Dioxide Level 25 mEQ/L (20-30) Pending Anion Gap 17 (5-15) H Blood Urea Nitrogen 53 mg/dL (7-23) H Pending Creatinine 10.0 mg/dL (0.7-1.2) H Pending Estimat Glomerular Filtration Rate 6.7 mL/min (>60) Pending Glucose Level 87 mg/dL (74-106) Pending Calcium Level 9.7 mg/dL (8.6-10.2) Pending Phosphorus Level 6.4 mg/dL (2.5-4.8) H Magnesium Level 2.5 mg/dL (1.7-2.5) Total Bilirubin 0.3 mg/dL (0.0-1.2) Aspartate Amino Transf (AST/SGOT) 11 U/L (5-40) Alanine Aminotransferase (ALT/SGPT) 5 U/L (3-41) Alkaline Phosphatase 66 U/L (40-129) C-Reactive Protein, Quantitative 16.3 mg/dL (< 0.5) H Total Protein 7.2 g/dL (6.6-8.7) Albumin 3.6 g/dL (3.5-5.2) Globulin 3.6 g/dL Albumin/Globulin Ratio 1.0 (1.0-2.7) TALAT DEJESUS Dec 15, 2016 20:07
[2016-12-15 20:23] LABS: CALCIUM 8.9 mg/dL (8.6-10.2); CREATININE 9.9 mg/dL (0.7-1.2); GLOMERULAR FILTRATION RATE 6.7 mL/min (>60); POTASSIUM 4.3 mEQ/L (3.4-4.9)
[2016-12-15] MEDS ORDERED: Miralax 17gm pkt ORAL PRN (20:30)
[2016-12-15] MEDS: ceFAZolin sod 1 GM in D5W 55 ML IVPB SCH (21:16)
[2016-12-15 21:54] LABS: ABG PCO2 56.7 mmHg (35.0-45.0)
[2016-12-15 21:55] LABS: ABG ALLEN TEST POSITIVE; ABG BASE EXCESS -7.1
[2016-12-15] MEDS: Epogen (for ESRD on dialysis) SUBQ SCH (21:55)
[2016-12-16] VITALS (26 sets, daily range): BP systolic 100–133; BP diastolic 50–87
[2016-12-16] MEDS: Morphine Sulfate 4mg/ml Inj IVP PRN ×2 (00:47→03:03)
[2016-12-16] MEDS: LORazepam Inj 2mg/ml 1ml IV PRN ×2 (01:31→04:34)
[2016-12-16 04:53] LABS: MEAN CORPUSCULAR HEMOGLOBIN 28.4 PG (27.0-31.0); MEAN CORPUSCULAR HGB CONC 32.1 G/DL (32.0-36.0); MEAN CORPUSCULAR VOLUME 89 FL (80-99); MEAN PLATELET VOLUME 6.4 FL (6.5-10.1); PLATELET COUNT 377 K/UL (150-450); RED BLOOD COUNT 2.74 M/UL (4.70-6.10); WHITE BLOOD COUNT 13.7 K/UL (4.8-10.8)
[2016-12-16 05:08] LABS: ALBUMIN/GLOBULIN RATIO 0.8 (1.0-2.7); CALCIUM 8.9 mg/dL (8.6-10.2); CREATININE 10.7 mg/dL (0.7-1.2); GLOMERULAR FILTRATION RATE 6.2 mL/min (>60); MAGNESIUM 1.9 mg/dL (1.7-2.5); PHOSPHORUS 7.4 mg/dL (2.5-4.8); POTASSIUM 4.7 mEQ/L (3.4-4.9); TOTAL PROTEIN 6.6 g/dL (6.6-8.7)
--- NOTE | 2016-12-16 07:40 | Pulmonolgy Critical Care Note ---
Critical Care - Asmt/Plan Problems: (1) Respiratory failure, acute (2) Sepsis (3) Bacteremia (4) UTI (urinary tract infection) (5) Morbid obesity with BMI of 45.0-49.9, adult (6) ESRD on hemodialysis Respiratory: monitor respiratory rate, adjust FIO2, CXR Cardiac: continue to monitor HR/BP Renal: F/U I&O, keep IV fluid, check electrolytes Infectious Disease: check cultures, continue antibiotics Gastrointestinal: continue feedings/current rate Endocrine: monitor blood sugar, check HgA1C, continue sliding scale insulin Hematologic: monitor H/H, transfuse if hgb<8.5 Neurologic: PRN Ativan, keep patient comfortable Affect: PRN ativan Prophylaxis: Heparin Notes Reviewed: electronics engineer, cardio, renal Discussed with: nurses, consultants, immigration case managerassistant front desk manager - Objective Last 24 Hour Vital Signs Date Time Temp Pulse Resp B/P Pulse Ox O2 Delivery O2 Flow Rate FiO2 12/16/16 07:00 76 18 114/68 100 Mechanical Ventilator 40 12/16/16 06:00 40 12/16/16 06:00 78 18 115/70 99 Mechanical Ventilator 40 12/16/16 05:12 80 18 40 12/16/16 05:00 75 16 107/66 100 Mechanical Ventilator 40 12/16/16 04:00 78 12/16/16 04:00 97.6 77 18 111/77 100 Mechanical Ventilator 40 12/16/16 03:30 84 18 40 12/16/16 03:03 97.6 12/16/16 03:00 85 16 109/69 100 Mechanical Ventilator 40 12/16/16 02:00 76 16 114/72 100 Mechanical Ventilator 40 12/16/16 02:00 40 12/16/16 01:00 76 16 107/70 98 Mechanical Ventilator 40 12/16/16 00:35 85 18 40 12/16/16 00:00 98.7 86 16 115/75 100 Mechanical Ventilator 40 12/16/16 00:00 92 12/15/16 23:30 84 18 40 12/15/16 23:00 92 16 113/74 98 Mechanical Ventilator 40 12/15/16 22:00 101 14 115/71 98 Mechanical Ventilator 40 12/15/16 22:00 40 12/15/16 21:30 102 14 40 12/15/16 21:00 104 14 143/76 99 Mechanical Ventilator 60 12/15/16 20:00 98.7 102 10 124/78 93 Mechanical Ventilator 60 12/15/16 20:00 60 12/15/16 20:00 98 12/15/16 19:53 106 15 60 12/15/16 19:45 60 12/15/16 19:45 97.6 106 11 96/64 97 Mechanical Ventilator 60 12/15/16 19:30 105 15 99/57 97 Mechanical Ventilator 60 12/15/16 19:30 Mechanical Ventilator 12/15/16 19:30 Mechanical Ventilator 12/15/16 19:22 110 14 99 12/15/16 19:20 109 16 94/58 97 Mechanical Ventilator 60 12/15/16 19:10 110 16 91/58 96 Mechanical Ventilator 60 12/15/16 19:05 110 16 99/58 96 Mechanical Ventilator 60 12/15/16 19:00 60 12/15/16 19:00 97.1 109 16 95/58 97 Mechanical Ventilator 60 12/15/16 08:00 97.9 67 21 154/93 98 Nasal Cannula 2.0 12/15/16 08:00 85 Status: sedated Condition: critical HEENT: atraumatic Neck: full ROM Lungs: clear Heart: HR/BP stable, HR/BP unstable, regular Abdomen: soft, non-tender, feeding tube Extremities: no C/C/E, edema Decubiti: location Critical Care - Subjective ROS Limited/Unobtainable: Yes ICU Day: 2 Intubation Day: 2 Condition: critical EKG Rhythm: Sinus Rhythm FI02: 40 Vent Support Breath Rate: 18 Vent Support Mode: AC Vent Tidal Volume: 700 Sputum Amount: Small PIP: 34 I&O: Intake and Output 12/15/16 12/16/16 19:00 07:00 Intake Total 1950 ml 355 ml Output Total 750 ml 40 ml Balance 1200 ml 315 ml IV Total 1700 ml 355 ml Blood Product 250 ml Drainage Total 50 ml 40 ml Estimated Blood Loss 700 ml CXR: ET tube in correct position, No pulmonary edema ET-Tube: 7.0 Labs: Laboratory Tests Test 12/15/16 19:48 12/15/16 21:32 12/16/16 04:00 White Blood Count 15.9 K/UL (4.8-10.8) H 13.7 K/UL (4.8-10.8) H Red Blood Count 2.86 M/UL (4.70-6.10) L 2.74 M/UL (4.70-6.10) L Hemoglobin 8.5 G/DL (14.2-18.0) L 7.8 G/DL (14.2-18.0) L Hematocrit 25.8 % (42.0-52.0) L 24.3 % (42.0-52.0) L Mean Corpuscular Volume 90 FL (80-99) 89 FL (80-99) Mean Corpuscular Hemoglobin 29.8 PG (27.0-31.0) 28.4 PG (27.0-31.0) Mean Corpuscular Hemoglobin Concent 33.0 G/DL (32.0-36.0) 32.1 G/DL (32.0-36.0) Red Cell Distribution Width 14.4 % (11.6-14.8) 14.0 % (11.6-14.8) Platelet Count 350 K/UL (150-450) 377 K/UL (150-450) Mean Platelet Volume 6.9 FL (6.5-10.1) 6.4 FL (6.5-10.1) L Neutrophils (%) (Auto) 87.9 % (45.0-75.0) H % (45.0-75.0) Lymphocytes (%) (Auto) 6.9 % (20.0-45.0) L % (20.0-45.0) Monocytes (%) (Auto) 4.0 % (1.0-10.0) % (1.0-10.0) Eosinophils (%) (Auto) 0.5 % (0.0-3.0) % (0.0-3.0) Basophils (%) (Auto) 0.6 % (0.0-2.0) % (0.0-2.0) Sodium Level 138 mEQ/L (135-145) 138 mEQ/L (135-145) Potassium Level 4.3 mEQ/L (3.4-4.9) 4.7 mEQ/L (3.4-4.9) Chloride Level 98 mEQ/L (98-107) 97 mEQ/L (98-107) L Carbon Dioxide Level 20 mEQ/L (20-30) 21 mEQ/L (20-30) Anion Gap 20 (5-15) H 20 (5-15) H Blood Urea Nitrogen 55 mg/dL (7-23) H 59 mg/dL (7-23) H Creatinine 9.9 mg/dL (0.7-1.2) H 10.7 mg/dL (0.7-1.2) H Estimat Glomerular Filtration Rate 6.7 mL/min (>60) 6.2 mL/min (>60) Glucose Level 142 mg/dL (74-106) H 108 mg/dL (74-106) H Calcium Level 8.9 mg/dL (8.6-10.2) 8.9 mg/dL (8.6-10.2) Arterial Blood pH 7.188 (7.350-7.450) Arterial Blood Partial Pressure CO2 56.7 mmHg (35.0-45.0) *H Arterial Blood Partial Pressure O2 200.7 mmHg (75.0-100.0) H Arterial Blood HCO3 21.1 mmol/L (22.0-26.0) L Arterial Blood Oxygen Saturation 98.6 % (92.0-98.0) H Arterial Blood Base Excess -7.1 Valdo Test Positive Neutrophils % (Manual) Pending Lymphocytes % (Manual) Pending Platelet Estimate Pending Platelet Morphology Pending Phosphorus Level 7.4 mg/dL (2.5-4.8) H Magnesium Level 1.9 mg/dL (1.7-2.5) Total Bilirubin 0.4 mg/dL (0.0-1.2) Aspartate Amino Transf (AST/SGOT) 45 U/L (5-40) H Alanine Aminotransferase (ALT/SGPT) 8 U/L (3-41) Alkaline Phosphatase 192 U/L (40-129) H Total Protein 6.6 g/dL (6.6-8.7) Albumin 3.1 g/dL (3.5-5.2) L Globulin 3.5 g/dL Albumin/Globulin Ratio 0.8 (1.0-2.7) L BERNADETTE COSTA Dec 16, 2016 07:40
[2016-12-16 07:43] LABS: ANISOCYTOSIS 1+; BAND NEUTROPHILS % (MANUAL) 0 % (0-8); BASOPHILS % (MANUAL) 0 % (0-2); EOSINOPHILS % (MANUAL) 1 % (0-3); HYPOCHROMASIA 1+; LYMPHOCYTES % (MANUAL) 16 % (20-45); NEUTROPHILS % (MANUAL) 79 % (45-75); PLATELET ESTIMATE ADEQUATE; PLATELET MORPHOLOGY NORMAL; TOTAL CELLS COUNTED 100
--- NOTE | 2016-12-16 07:47 | 48 Hour Post Anesthesia Eval ---
Post Anesthesia Evaluation Procedure: Dialysis catheter change, A-V shunt right UE Date of Evaluation: Dec 16, 2016 Time of Evaluation: 07:45 Blood Pressure Systolic: 114 0: 68 Pulse Rate: 76 Respiratory Rate: 18 Temperature (Fahrenheit): 97.6 O2 Sat by Pulse Oximetry: 100 Airway: patent Nausea: No Vomiting: No Pain Intensity: 2 Hydration Status: adequate Cardiopulmonary Status: Stable Mental Status/LOC: patient returned to baseline Follow-up Care/Observations: 0 Post-Anesthesia Complications: 0 Follow-up care needed: N/A Sebas Lemon MD Dec 16, 2016 07:47
[2016-12-16] MEDS: Heparin 5000 units/ml inj SUBQ SCH ×2 (09:00→20:32)
[2016-12-16] MEDS: Aspirin Baby 81mg ORAL SCH (09:00)
[2016-12-16] MEDS ORDERED: Heparin Sod 1000 units/ml 10ml INJ ONE (09:30)
--- NOTE | 2016-12-16 10:42 | Infectious Diseases Prog Note ---
Assessment/Plan Assessment/Plan A; MSSA sepsis HD line infection Morbid obesity ESRD on HD Anemia Perioprative respiratory failure s/p removal of AV graft & repair of aneurysm P; Continue Ancef Antibiotics should continued at least for 4 weeks from 12/09/2016 @ time of discharge may switch to IV Vancomycin @ time of HD Subjective ROS Limited/Unobtainable: Yes Respiratory: Reports: other - developed perioperative respiratory failure, intubated, in ICU Hematologic: Reports: bleeding, other - from R arm SV shunt sugery Allergies: Coded Allergies: No Known Allergies (Unverified , 12/06/16) Objective Vital Signs Last 24 Hour Vital Signs Date Time Temp Pulse Resp B/P Pulse Ox O2 Delivery O2 Flow Rate FiO2 12/16/16 10:00 95 18 106/66 99 Mechanical Ventilator 40 12/16/16 09:34 Endotracheal Tube 40 12/16/16 09:32 99.8 80 18 114/72 100 Mechanical Ventilator 40 12/16/16 09:28 84 18 40 12/16/16 09:00 82 18 114/72 100 Mechanical Ventilator 40 12/16/16 08:00 98.8 80 18 114/71 100 Mechanical Ventilator 40 12/16/16 08:00 40 12/16/16 08:00 80 12/16/16 07:47 76 18 100 12/16/16 07:29 77 18 40 12/16/16 07:00 76 18 114/68 100 Mechanical Ventilator 40 12/16/16 06:00 40 12/16/16 06:00 78 18 115/70 99 Mechanical Ventilator 40 12/16/16 05:12 80 18 40 12/16/16 05:00 75 16 107/66 100 Mechanical Ventilator 40 12/16/16 04:00 78 12/16/16 04:00 97.6 77 18 111/77 100 Mechanical Ventilator 40 12/16/16 03:30 84 18 40 12/16/16 03:03 97.6 12/16/16 03:00 85 16 109/69 100 Mechanical Ventilator 40 12/16/16 02:00 76 16 114/72 100 Mechanical Ventilator 40 12/16/16 02:00 40 12/16/16 01:00 76 16 107/70 98 Mechanical Ventilator 40 12/16/16 00:35 85 18 40 12/16/16 00:00 98.7 86 16 115/75 100 Mechanical Ventilator 40 12/16/16 00:00 92 12/15/16 23:30 84 18 40 12/15/16 23:00 92 16 113/74 98 Mechanical Ventilator 40 12/15/16 22:00 101 14 115/71 98 Mechanical Ventilator 40 12/15/16 22:00 40 12/15/16 21:30 102 14 40 12/15/16 21:00 104 14 143/76 99 Mechanical Ventilator 60 12/15/16 20:00 98.7 102 10 124/78 93 Mechanical Ventilator 60 12/15/16 20:00 60 12/15/16 20:00 98 12/15/16 19:53 106 15 60 12/15/16 19:45 60 12/15/16 19:45 97.6 106 11 96/64 97 Mechanical Ventilator 60 12/15/16 19:30 105 15 99/57 97 Mechanical Ventilator 60 12/15/16 19:30 Mechanical Ventilator 12/15/16 19:30 Mechanical Ventilator 12/15/16 19:22 110 14 99 12/15/16 19:20 109 16 94/58 97 Mechanical Ventilator 60 12/15/16 19:10 110 16 91/58 96 Mechanical Ventilator 60 12/15/16 19:05 110 16 99/58 96 Mechanical Ventilator 60 12/15/16 19:00 60 12/15/16 19:00 97.1 109 16 95/58 97 Mechanical Ventilator 60 Height (Feet): 5 Height (Inches): 7.00 Weight (Pounds): 0 HEENT: other - orally intubated Respiratory/Chest: lungs clear, other - on ventilator Cardiovascular: normal rate, other - Tunneled HD line Abdomen: soft, non tender Extremities: other - generalized edema Neurologic/Psychiatric: alert, responsive Laboratory Tests Test 12/15/16 19:48 12/15/16 21:32 12/16/16 04:00 White Blood Count 15.9 K/UL (4.8-10.8) H 13.7 K/UL (4.8-10.8) H Red Blood Count 2.86 M/UL (4.70-6.10) L 2.74 M/UL (4.70-6.10) L Hemoglobin 8.5 G/DL (14.2-18.0) L 7.8 G/DL (14.2-18.0) L Hematocrit 25.8 % (42.0-52.0) L 24.3 % (42.0-52.0) L Mean Corpuscular Volume 90 FL (80-99) 89 FL (80-99) Mean Corpuscular Hemoglobin 29.8 PG (27.0-31.0) 28.4 PG (27.0-31.0) Mean Corpuscular Hemoglobin Concent 33.0 G/DL (32.0-36.0) 32.1 G/DL (32.0-36.0) Red Cell Distribution Width 14.4 % (11.6-14.8) 14.0 % (11.6-14.8) Platelet Count 350 K/UL (150-450) 377 K/UL (150-450) Mean Platelet Volume 6.9 FL (6.5-10.1) 6.4 FL (6.5-10.1) L Neutrophils (%) (Auto) 87.9 % (45.0-75.0) H % (45.0-75.0) Lymphocytes (%) (Auto) 6.9 % (20.0-45.0) L % (20.0-45.0) Monocytes (%) (Auto) 4.0 % (1.0-10.0) % (1.0-10.0) Eosinophils (%) (Auto) 0.5 % (0.0-3.0) % (0.0-3.0) Basophils (%) (Auto) 0.6 % (0.0-2.0) % (0.0-2.0) Sodium Level 138 mEQ/L (135-145) 138 mEQ/L (135-145) Potassium Level 4.3 mEQ/L (3.4-4.9) 4.7 mEQ/L (3.4-4.9) Chloride Level 98 mEQ/L (98-107) 97 mEQ/L (98-107) L Carbon Dioxide Level 20 mEQ/L (20-30) 21 mEQ/L (20-30) Anion Gap 20 (5-15) H 20 (5-15) H Blood Urea Nitrogen 55 mg/dL (7-23) H 59 mg/dL (7-23) H Creatinine 9.9 mg/dL (0.7-1.2) H 10.7 mg/dL (0.7-1.2) H Estimat Glomerular Filtration Rate 6.7 mL/min (>60) 6.2 mL/min (>60) Glucose Level 142 mg/dL (74-106) H 108 mg/dL (74-106) H Calcium Level 8.9 mg/dL (8.6-10.2) 8.9 mg/dL (8.6-10.2) Arterial Blood pH 7.188 (7.350-7.450) Arterial Blood Partial Pressure CO2 56.7 mmHg (35.0-45.0) *H Arterial Blood Partial Pressure O2 200.7 mmHg (75.0-100.0) H Arterial Blood HCO3 21.1 mmol/L (22.0-26.0) L Arterial Blood Oxygen Saturation 98.6 % (92.0-98.0) H Arterial Blood Base Excess -7.1 Valdo Test Positive Differential Total Cells Counted 100 Neutrophils % (Manual) 79 % (45-75) H Lymphocytes % (Manual) 16 % (20-45) L Monocytes % (Manual) 4 % (1-10) Eosinophils % (Manual) 1 % (0-3) Basophils % (Manual) 0 % (0-2) Band Neutrophils 0 % (0-8) Platelet Estimate Adequate Platelet Morphology Normal Hypochromasia 1+ Anisocytosis 1+ Phosphorus Level 7.4 mg/dL (2.5-4.8) H Magnesium Level 1.9 mg/dL (1.7-2.5) Total Bilirubin 0.4 mg/dL (0.0-1.2) Aspartate Amino Transf (AST/SGOT) 45 U/L (5-40) H Alanine Aminotransferase (ALT/SGPT) 8 U/L (3-41) Alkaline Phosphatase 192 U/L (40-129) H Total Protein 6.6 g/dL (6.6-8.7) Albumin 3.1 g/dL (3.5-5.2) L Globulin 3.5 g/dL Albumin/Globulin Ratio 0.8 (1.0-2.7) L Current Medications Medications (Trade) Dose Ordered Sig/Jeremy Route PRN Reason Start Time Stop Time Status Last Admin Dose Admin Acetaminophen (Tylenol) 650 mg Q4H PRN ORAL T>100.5 12/15/16 08:00 01/14/17 07:59 Aspirin (ASA) 81 mg DAILY ORAL 12/16/16 09:00 01/15/17 08:59 Cefazolin Sodium/ Dextrose (Ancef/D5W) 55 ml @ 110 mls/hr Q24HRS IVPB 12/15/16 21:00 12/22/16 20:59 12/15/16 21:16 Chlorhexidine Gluconate (Annamarie-Hex 2%) 1 applic BEDTIME TOPIC 12/16/16 21:00 01/15/17 20:59 Clopidogrel Bisulfate (Plavix) 75 mg DAILY ORAL 12/16/16 09:00 01/15/17 08:59 Dextrose (Dextrose 50%) STAT PRN IV Hypoglycemia 12/15/16 21:00 01/14/17 20:59 Epoetin Dionte (Procrit (for ESRD on dialysis)) 10,000 units [id number] SUBQ 12/17/16 21:00 01/16/17 20:59 Ergocalciferol (Drisdol) 50,000 intlu QWEEK ORAL 12/21/16 10:00 01/20/17 09:59 Folic Acid (Folate) 2 mg DAILY ORAL 12/16/16 09:00 01/15/17 08:59 Gabapentin (Neurontin) 100 mg THREE TIMES A DAY ORAL 12/16/16 09:00 01/15/17 08:59 Heparin Sodium (Porcine) (Heparin 5000 units/ml) 5,000 units EVERY 12 HOURS SUBQ 12/15/16 21:00 01/14/17 20:59 Lorazepam (Ativan 2mg/ml 1ml) 2 mg Q2H PRN IV For Anxiety 12/15/16 21:45 12/22/16 21:44 12/16/16 04:34 Morphine Sulfate (Morphine Sulfate) 4 mg Q2H PRN IVP PAIN 4-10 12/15/16 21:45 12/22/16 21:44 12/16/16 03:03 Ondansetron HCl (Zofran) 4 mg Q6H PRN IVP Nausea & Vomiting 12/15/16 22:00 01/14/17 21:59 Pantoprazole (Protonix) 40 mg EVERY 12 HOURS ORAL 12/15/16 21:00 01/14/17 20:59 Polyethylene Glycol (Miralax) 17 gm DAILYPRN PRN ORAL Constipation 12/15/16 20:30 01/14/17 20:29 KIRBY SEGURA Dec 16, 2016 10:42
--- NOTE | 2016-12-16 10:43 | Diagnostic Imaging Report ---
Indication: Post intubation Technique: One view of the chest Comparison: 12/09/2016 Findings: Interim placement of an endotracheal tube, tip of which projects just above the thoracic inlet. Interim placement of a left jugular tunneled dialysis catheter, tip making a hairpin turn at the innominate venous confluence. Right subclavian/innominate venous stent is again demonstrated. Heart remains enlarged. There is atelectasis and some consolidation at the right lung base. The left lung and pleural space are clear. Impression: High position of endotracheal tube, tip just above the thoracic inlet and just below the vocal cords. This critical value was discussed by phone with Dr. Pastrana at the time of interpretation Suboptimal position of tip of tunneled dialysis catheter, as described. This was discussed by phone with Dr. Sorenson at the time of interpretation graft developing right basilar atelectasis and possible consolidation Cardiomegaly Other findings as described
--- NOTE | 2016-12-16 12:10 | Diagnostic Imaging Report ---
Indication: DYSPNEA Technique: One view of the chest Comparison: 12/15/2016 Findings: Persistent high position of endotracheal tube, above the thoracic inlet and just below the vocal cords. Persistent position of left arm tunneled dialysis catheter, making a hairpin loop within the downstream innominate vein. Right sided venous stent unchanged. Less optimal inspiration with increasing bibasilar atelectasis. Heart remains enlarged. Impression: Persistent high position of endotracheal tube. Dr. Pastrana previously notified Hypoventilatory exam with basilar atelectasis and crowding of vascular markings. Cardiomegaly Other findings as described
--- NOTE | 2016-12-16 12:42 | General Progress Note ---
Assessment/Plan Status: unchanged Status Narrative post op vascular surg on 12/15 now on vent in ICU Assessment/Plan status: ESRD Admitted with sepsis- Line related , has right permacath put in 12/02 HTN Obesity Anemia Plan: HD today- and UF weaning as possible- Has left permacath now EPO . B12 ,.... monitor H&H Phos and Mag as needed Antibiotics BP control Per orders and per consultants Subjective ROS Limited/Unobtainable: Yes Allergies: Coded Allergies: No Known Allergies (Unverified , 12/06/16) Objective Last 24 Hour Vital Signs Date Time Temp Pulse Resp B/P Pulse Ox O2 Delivery O2 Flow Rate FiO2 12/16/16 12:00 99 12/16/16 12:00 99.6 80 17 100/72 100 Mechanical Ventilator 40 12/16/16 12:00 40 12/16/16 11:00 98 16 106/66 100 Mechanical Ventilator 40 12/16/16 10:59 97 18 40 12/16/16 10:00 95 18 106/66 99 Mechanical Ventilator 40 12/16/16 09:34 Endotracheal Tube 40 12/16/16 09:32 99.8 80 18 114/72 100 Mechanical Ventilator 40 12/16/16 09:28 84 18 40 12/16/16 09:00 82 18 114/72 100 Mechanical Ventilator 40 12/16/16 08:00 98.8 80 18 114/71 100 Mechanical Ventilator 40 12/16/16 08:00 40 12/16/16 08:00 80 12/16/16 07:47 76 18 100 12/16/16 07:29 77 18 40 12/16/16 07:00 76 18 114/68 100 Mechanical Ventilator 40 12/16/16 06:00 40 12/16/16 06:00 78 18 115/70 99 Mechanical Ventilator 40 12/16/16 05:12 80 18 40 12/16/16 05:00 75 16 107/66 100 Mechanical Ventilator 40 12/16/16 04:00 78 12/16/16 04:00 97.6 77 18 111/77 100 Mechanical Ventilator 40 12/16/16 03:30 84 18 40 12/16/16 03:03 97.6 12/16/16 03:00 85 16 109/69 100 Mechanical Ventilator 40 12/16/16 02:00 76 16 114/72 100 Mechanical Ventilator 40 12/16/16 02:00 40 12/16/16 01:00 76 16 107/70 98 Mechanical Ventilator 40 12/16/16 00:35 85 18 40 12/16/16 00:00 98.7 86 16 115/75 100 Mechanical Ventilator 40 12/16/16 00:00 92 12/15/16 23:30 84 18 40 12/15/16 23:00 92 16 113/74 98 Mechanical Ventilator 40 12/15/16 22:00 101 14 115/71 98 Mechanical Ventilator 40 12/15/16 22:00 40 12/15/16 21:30 102 14 40 12/15/16 21:00 104 14 143/76 99 Mechanical Ventilator 60 12/15/16 20:00 98.7 102 10 124/78 93 Mechanical Ventilator 60 12/15/16 20:00 60 12/15/16 20:00 98 12/15/16 19:53 106 15 60 12/15/16 19:45 60 12/15/16 19:45 97.6 106 11 96/64 97 Mechanical Ventilator 60 12/15/16 19:30 105 15 99/57 97 Mechanical Ventilator 60 12/15/16 19:30 Mechanical Ventilator 12/15/16 19:30 Mechanical Ventilator 12/15/16 19:22 110 14 99 12/15/16 19:20 109 16 94/58 97 Mechanical Ventilator 60 12/15/16 19:10 110 16 91/58 96 Mechanical Ventilator 60 12/15/16 19:05 110 16 99/58 96 Mechanical Ventilator 60 12/15/16 19:00 60 12/15/16 19:00 97.1 109 16 95/58 97 Mechanical Ventilator 60 Intake and Output 12/15/16 12/16/16 19:00 07:00 Intake Total 1950 ml 355 ml Output Total 750 ml 40 ml Balance 1200 ml 315 ml Intake Oral 0 ml IV Total 1700 ml 355 ml Blood Product 250 ml Drainage Total 50 ml 40 ml Estimated Blood Loss 700 ml Laboratory Tests 12/15/16 19:48: White Blood Count 15.9H, Red Blood Count 2.86L, Hemoglobin 8.5L, Hematocrit 25.8L, Mean Corpuscular Volume 90, Mean Corpuscular Hemoglobin 29.8, Mean Corpuscular Hemoglobin Concent 33.0, Red Cell Distribution Width 14.4, Platelet Count 350, Mean Platelet Volume 6.9, Neutrophils (%) (Auto) 87.9H, Lymphocytes ( %) (Auto) 6.9L, Monocytes (%) (Auto) 4.0, Eosinophils (%) (Auto) 0.5, Basophils (%) (Auto) 0.6, Sodium Level 138, Potassium Level 4.3, Chloride Level 98, Carbon Dioxide Level 20, Anion Gap 20H, Blood Urea Nitrogen 55H, Creatinine 9.9H , Estimat Glomerular Filtration Rate 6.7, Glucose Level 142H, Calcium Level 8.9 12/15/16 21:32: Arterial Blood pH 7.188*L, Arterial Blood Partial Pressure CO2 56.7*H, Arterial Blood Partial Pressure O2 200.7H, Arterial Blood HCO3 21.1L, Arterial Blood Oxygen Saturation 98.6H, Arterial Blood Base Excess -7.1, Valdo Test Positive 12/16/16 04:00: White Blood Count 13.7H, Red Blood Count 2.74L, Hemoglobin 7.8L, Hematocrit 24.3L, Mean Corpuscular Volume 89, Mean Corpuscular Hemoglobin 28.4, Mean Corpuscular Hemoglobin Concent 32.1, Red Cell Distribution Width 14.0, Platelet Count 377, Mean Platelet Volume 6.4L, Neutrophils (%) (Auto) , Lymphocytes (%) ( Auto) , Monocytes (%) (Auto) , Eosinophils (%) (Auto) , Basophils (%) (Auto) , Sodium Level 138, Potassium Level 4.7, Chloride Level 97L, Carbon Dioxide Level 21, Anion Gap 20H, Blood Urea Nitrogen 59H, Creatinine 10.7H, Estimat Glomerular Filtration Rate 6.2, Glucose Level 108H, Calcium Level 8.9, Differential Total Cells Counted 100, Neutrophils % (Manual) 79H, Lymphocytes % (Manual) 16L, Monocytes % (Manual) 4, Eosinophils % (Manual) 1, Basophils % ( Manual) 0, Band Neutrophils 0, Platelet Estimate Adequate, Platelet Morphology Normal, Hypochromasia 1+, Anisocytosis 1+, Phosphorus Level 7.4H, Magnesium Level 1.9, Total Bilirubin 0.4, Aspartate Amino Transf (AST/SGOT) 45H, Alanine Aminotransferase (ALT/SGPT) 8, Alkaline Phosphatase 192H, Total Protein 6.6, Albumin 3.1L, Globulin 3.5, Albumin/Globulin Ratio 0.8L Height (Feet): 5 Height (Inches): 7.00 Weight (Pounds): 0 General Appearance: no apparent distress EENT: other - intubated on Vent Cardiovascular: normal rate Respiratory/Chest: decreased breath sounds Abdomen: soft, other - obese Objective no other change in PE GENNY JACK Dec 16, 2016 12:42
--- NOTE | 2016-12-16 13:46 | Cardiology Progress Note ---
Assessment/Plan Assessment/Plan intermittent episodes of av block possible due to FRANCISCO JAVIER francisco javier morbid obesity esrd on hd infected dialysis catheter hs of cardiac tamponade years ago staph bacteremia avoid neg chronotropic agents now postop: right arm AV shunt exploration, thrombectomy, resection of aneurysm , excision of stent-graft, repair of brachial artery, permcath placement monitor rate adn rhytm iv abx wean off vent as possible not bardy now telel showed 2 episodes of short pause at tiem of sleep iv abx watch h/h post op Subjective Cardiovascular: Denies: chest pain, lightheadedness Gastrointestinal/Abdominal: Denies: nausea Genitourinary: Denies: burning Subjective in icu on the vent responsive Objective Last 24 Hour Vital Signs Date Time Temp Pulse Resp B/P Pulse Ox O2 Delivery O2 Flow Rate FiO2 12/16/16 13:16 102 27 40 12/16/16 13:00 102 20 111/72 100 Mechanical Ventilator 40 12/16/16 12:44 Mechanical Ventilator 40 12/16/16 12:42 99.4 99 18 106/67 100 Mechanical Ventilator 40 12/16/16 12:00 99 12/16/16 12:00 99.6 80 17 100/72 100 Mechanical Ventilator 40 12/16/16 12:00 40 12/16/16 11:00 98 16 106/66 100 Mechanical Ventilator 40 12/16/16 10:59 97 18 40 12/16/16 10:00 95 18 106/66 99 Mechanical Ventilator 40 12/16/16 09:34 Endotracheal Tube 40 12/16/16 09:32 99.8 80 18 114/72 100 Mechanical Ventilator 40 12/16/16 09:28 84 18 40 12/16/16 09:00 82 18 114/72 100 Mechanical Ventilator 40 12/16/16 08:00 98.8 80 18 114/71 100 Mechanical Ventilator 40 12/16/16 08:00 40 12/16/16 08:00 80 12/16/16 07:47 76 18 100 12/16/16 07:29 77 18 40 12/16/16 07:00 76 18 114/68 100 Mechanical Ventilator 40 12/16/16 06:00 40 12/16/16 06:00 78 18 115/70 99 Mechanical Ventilator 40 12/16/16 05:12 80 18 40 12/16/16 05:00 75 16 107/66 100 Mechanical Ventilator 40 12/16/16 04:00 78 12/16/16 04:00 97.6 77 18 111/77 100 Mechanical Ventilator 40 12/16/16 03:30 84 18 40 12/16/16 03:03 97.6 12/16/16 03:00 85 16 109/69 100 Mechanical Ventilator 40 12/16/16 02:00 76 16 114/72 100 Mechanical Ventilator 40 12/16/16 02:00 40 12/16/16 01:00 76 16 107/70 98 Mechanical Ventilator 40 12/16/16 00:35 85 18 40 12/16/16 00:00 98.7 86 16 115/75 100 Mechanical Ventilator 40 12/16/16 00:00 92 12/15/16 23:30 84 18 40 12/15/16 23:00 92 16 113/74 98 Mechanical Ventilator 40 12/15/16 22:00 101 14 115/71 98 Mechanical Ventilator 40 12/15/16 22:00 40 12/15/16 21:30 102 14 40 12/15/16 21:00 104 14 143/76 99 Mechanical Ventilator 60 12/15/16 20:00 98.7 102 10 124/78 93 Mechanical Ventilator 60 12/15/16 20:00 60 12/15/16 20:00 98 12/15/16 19:53 106 15 60 12/15/16 19:45 60 12/15/16 19:45 97.6 106 11 96/64 97 Mechanical Ventilator 60 12/15/16 19:30 105 15 99/57 97 Mechanical Ventilator 60 12/15/16 19:30 Mechanical Ventilator 12/15/16 19:30 Mechanical Ventilator 12/15/16 19:22 110 14 99 12/15/16 19:20 109 16 94/58 97 Mechanical Ventilator 60 12/15/16 19:10 110 16 91/58 96 Mechanical Ventilator 60 12/15/16 19:05 110 16 99/58 96 Mechanical Ventilator 60 12/15/16 19:00 60 12/15/16 19:00 97.1 109 16 95/58 97 Mechanical Ventilator 60 General Appearance: no apparent distress, obese, on vent, isolation precautions Neck: supple Cardiovascular: normal rate, regular rhythm Respiratory/Chest: lungs clear, rhonchi - bilaterally Abdomen: normal bowel sounds, non tender, soft Extremities: no swelling Intake and Output 12/15/16 12/16/16 19:00 07:00 Intake Total 1950 ml 355 ml Output Total 750 ml 40 ml Balance 1200 ml 315 ml Intake Oral 0 ml IV Total 1700 ml 355 ml Blood Product 250 ml Drainage Total 50 ml 40 ml Estimated Blood Loss 700 ml Laboratory Tests Test 12/15/16 19:48 12/15/16 21:32 12/16/16 04:00 White Blood Count 15.9 K/UL (4.8-10.8) H 13.7 K/UL (4.8-10.8) H Red Blood Count 2.86 M/UL (4.70-6.10) L 2.74 M/UL (4.70-6.10) L Hemoglobin 8.5 G/DL (14.2-18.0) L 7.8 G/DL (14.2-18.0) L Hematocrit 25.8 % (42.0-52.0) L 24.3 % (42.0-52.0) L Mean Corpuscular Volume 90 FL (80-99) 89 FL (80-99) Mean Corpuscular Hemoglobin 29.8 PG (27.0-31.0) 28.4 PG (27.0-31.0) Mean Corpuscular Hemoglobin Concent 33.0 G/DL (32.0-36.0) 32.1 G/DL (32.0-36.0) Red Cell Distribution Width 14.4 % (11.6-14.8) 14.0 % (11.6-14.8) Platelet Count 350 K/UL (150-450) 377 K/UL (150-450) Mean Platelet Volume 6.9 FL (6.5-10.1) 6.4 FL (6.5-10.1) L Neutrophils (%) (Auto) 87.9 % (45.0-75.0) H % (45.0-75.0) Lymphocytes (%) (Auto) 6.9 % (20.0-45.0) L % (20.0-45.0) Monocytes (%) (Auto) 4.0 % (1.0-10.0) % (1.0-10.0) Eosinophils (%) (Auto) 0.5 % (0.0-3.0) % (0.0-3.0) Basophils (%) (Auto) 0.6 % (0.0-2.0) % (0.0-2.0) Sodium Level 138 mEQ/L (135-145) 138 mEQ/L (135-145) Potassium Level 4.3 mEQ/L (3.4-4.9) 4.7 mEQ/L (3.4-4.9) Chloride Level 98 mEQ/L (98-107) 97 mEQ/L (98-107) L Carbon Dioxide Level 20 mEQ/L (20-30) 21 mEQ/L (20-30) Anion Gap 20 (5-15) H 20 (5-15) H Blood Urea Nitrogen 55 mg/dL (7-23) H 59 mg/dL (7-23) H Creatinine 9.9 mg/dL (0.7-1.2) H 10.7 mg/dL (0.7-1.2) H Estimat Glomerular Filtration Rate 6.7 mL/min (>60) 6.2 mL/min (>60) Glucose Level 142 mg/dL (74-106) H 108 mg/dL (74-106) H Calcium Level 8.9 mg/dL (8.6-10.2) 8.9 mg/dL (8.6-10.2) Arterial Blood pH 7.188 (7.350-7.450) Arterial Blood Partial Pressure CO2 56.7 mmHg (35.0-45.0) *H Arterial Blood Partial Pressure O2 200.7 mmHg (75.0-100.0) H Arterial Blood HCO3 21.1 mmol/L (22.0-26.0) L Arterial Blood Oxygen Saturation 98.6 % (92.0-98.0) H Arterial Blood Base Excess -7.1 Valdo Test Positive Differential Total Cells Counted 100 Neutrophils % (Manual) 79 % (45-75) H Lymphocytes % (Manual) 16 % (20-45) L Monocytes % (Manual) 4 % (1-10) Eosinophils % (Manual) 1 % (0-3) Basophils % (Manual) 0 % (0-2) Band Neutrophils 0 % (0-8) Platelet Estimate Adequate Platelet Morphology Normal Hypochromasia 1+ Anisocytosis 1+ Phosphorus Level 7.4 mg/dL (2.5-4.8) H Magnesium Level 1.9 mg/dL (1.7-2.5) Total Bilirubin 0.4 mg/dL (0.0-1.2) Aspartate Amino Transf (AST/SGOT) 45 U/L (5-40) H Alanine Aminotransferase (ALT/SGPT) 8 U/L (3-41) Alkaline Phosphatase 192 U/L (40-129) H Total Protein 6.6 g/dL (6.6-8.7) Albumin 3.1 g/dL (3.5-5.2) L Globulin 3.5 g/dL Albumin/Globulin Ratio 0.8 (1.0-2.7) L TALAT DEJESUS Dec 16, 2016 13:46
[2016-12-16 14:33] LABS: ABG ALLEN TEST POSITIVE; ABG BASE EXCESS -3.2; ABG PCO2 38.7 mmHg (35.0-45.0)
--- NOTE | 2016-12-16 16:45 | Cardiology Report ---
APPROVED REPORT EKG Measurement Heart [id number] Sinus tachycardia Left axis deviation Right bundle branch block Abnormal ECG
[2016-12-16] MEDS: ceFAZolin sod 1 GM in D5W 55 ML IVPB SCH (20:31)
[2016-12-16] MEDS ORDERED: Dyna-Hex 2% Top Sol 8oz TOPIC SCH (21:00)
[2016-12-17] VITALS (20 sets, daily range): BP systolic 104–157; BP diastolic 72–110
[2016-12-17 05:31] LABS: TROPONIN I < 0.30 ng/mL (<=0.30)
[2016-12-17 05:34] LABS: ALBUMIN/GLOBULIN RATIO 0.7 (1.0-2.7); CALCIUM 9.6 mg/dL (8.6-10.2); CREATININE 8.9 mg/dL (0.7-1.2); GLOMERULAR FILTRATION RATE 7.6 mL/min (>60); MAGNESIUM 1.9 mg/dL (1.7-2.5); PHOSPHORUS 7.3 mg/dL (2.5-4.8); TOTAL PROTEIN 7.6 g/dL (6.6-8.7)
[2016-12-17 05:41] LABS: CRP QUANT 18.2 mg/dL (< 0.5); URIC ACID 8.4 mg/dL (3.0-7.5)
[2016-12-17 05:44] LABS: BASOPHILS % (AUTO) 0.6 % (0.0-2.0); LYMPHOCYTES % (AUTO) 12.4 % (20.0-45.0); MEAN CORPUSCULAR HEMOGLOBIN 28.1 PG (27.0-31.0); MEAN CORPUSCULAR HGB CONC 31.7 G/DL (32.0-36.0); MEAN CORPUSCULAR VOLUME 89 FL (80-99); MEAN PLATELET VOLUME 6.7 FL (6.5-10.1); MONOCYTES % (AUTO) 8.9 % (1.0-10.0); NEUTROPHILS % (AUTO) 76.1 % (45.0-75.0); PLATELET COUNT 396 K/UL (150-450); RED BLOOD COUNT 3.16 M/UL (4.70-6.10); RED CELL DISTRIBUTION WIDTH 13.6 % (11.6-14.8); WHITE BLOOD COUNT 15.4 K/UL (4.8-10.8)
[2016-12-17 08:05] LABS: OTHERS PATHOLOGIST COMMENT
[2016-12-17] MEDS: Heparin 5000 units/ml inj SUBQ SCH ×2 (08:56→21:46)
[2016-12-17] MEDS: Aspirin Baby 81mg ORAL SCH (09:33)
[2016-12-17] MEDS ORDERED: NS 275ml ONE (10:01)
--- NOTE | 2016-12-17 10:10 | Pulmonolgy Critical Care Note ---
Critical Care - Asmt/Plan Problems: (1) Respiratory failure, acute (2) Sepsis (3) Bacteremia (4) UTI (urinary tract infection) (5) Morbid obesity with BMI of 45.0-49.9, adult (6) ESRD on hemodialysis Respiratory: monitor respiratory rate, adjust FIO2, CXR Cardiac: continue to monitor HR/BP Renal: F/U I&O, check electrolytes, other - HD Infectious Disease: check cultures Gastrointestinal: continue feedings/current rate Endocrine: monitor blood sugar, check TSH, check HgA1C Hematologic: monitor H/H Neurologic: PRN Morphine Prophylaxis: Protonix Notes Reviewed: scrap picker, cardio, renal Discussed with: nurses, consultants, telephonic case managercircuit manager - Objective Last 24 Hour Vital Signs Date Time Temp Pulse Resp B/P Pulse Ox O2 Delivery O2 Flow Rate FiO2 12/17/16 09:00 102 19 153/93 99 Venturi Mask 40 12/17/16 08:00 98 12/17/16 08:00 10.0 40 12/17/16 08:00 99.0 98 18 149/99 98 Venturi Mask 40 12/17/16 07:44 Venturi Mask 8.0 40 12/17/16 07:43 99 Venturi Mask 8.0 40 12/17/16 07:00 100 17 157/102 99 Venturi Mask 40 12/17/16 06:00 88 15 145/99 95 Venturi Mask 40 12/17/16 05:00 104 25 140/93 98 Venturi Mask 40 12/17/16 04:00 10.0 40 12/17/16 04:00 98.0 84 25 145/72 98 Venturi Mask 40 12/17/16 04:00 104 12/17/16 03:00 104 25 136/84 98 Venturi Mask 40 12/17/16 02:00 105 19 123/110 100 Venturi Mask 40 12/17/16 01:00 105 19 141/78 100 Venturi Mask 40 12/17/16 00:00 10.0 40 12/17/16 00:00 75 12/17/16 00:00 97.9 90 25 142/85 97 Venturi Mask 40 12/16/16 23:00 99 12 124/50 98 Venturi Mask 40 12/16/16 22:00 96 12 124/81 98 Venturi Mask 40 12/16/16 21:00 91 14 119/87 98 Venturi Mask 40 12/16/16 20:43 98 Venturi Mask 8.0 40 12/16/16 20:43 Venturi Mask 8.0 40 12/16/16 20:00 97.8 80 16 125/69 97 Venturi Mask 40 12/16/16 20:00 90 12/16/16 20:00 10.0 12/16/16 19:00 96 12 124/81 98 Venturi Mask 10.0 40 12/16/16 18:00 96 26 131/82 100 Venturi Mask 10.0 40 12/16/16 17:00 97 25 133/85 100 Venturi Mask 10.0 40 12/16/16 16:00 98.0 97 27 133/85 100 Venturi Mask 10.0 40 12/16/16 16:00 10.0 12/16/16 15:52 98 12/16/16 15:30 99 Venturi Mask 8.0 40 12/16/16 15:13 Venturi Mask 8.0 40 12/16/16 15:13 Venturi Mask 8.0 40 12/16/16 15:00 103 21 125/87 99 Mechanical Ventilator 40 12/16/16 14:00 102 21 132/86 99 Mechanical Ventilator 40 12/16/16 13:16 102 27 40 12/16/16 13:00 102 20 111/72 100 Mechanical Ventilator 40 12/16/16 12:44 Mechanical Ventilator 40 12/16/16 12:42 99.4 99 18 106/67 100 Mechanical Ventilator 40 12/16/16 12:00 99 12/16/16 12:00 99.6 80 17 100/72 100 Mechanical Ventilator 40 12/16/16 12:00 40 12/16/16 11:00 98 16 106/66 100 Mechanical Ventilator 40 12/16/16 10:59 97 18 40 Status: awake Condition: improving HEENT: atraumatic Lungs: clear Heart: HR/BP stable, HR/BP unstable, regular Abdomen: non-tender, active bowel sounds, feeding tube Extremities: no C/C/E, edema Critical Care - Subjective ROS Limited/Unobtainable: No ICU Day: 3 Intubation Day: extubated yesterday Condition: improving FI02: 40 Vent Support Breath Rate: 18 Vent Support Mode: CPAP Vent Tidal Volume: 700 Sputum Amount: Moderate PIP: 39 I&O: Intake and Output 12/16/16 12/17/16 19:00 07:00 Intake Total 270 ml 75 ml Output Total 3025 ml 100 ml Balance -2755 ml -25 ml Intake Oral 0 ml 20 ml IV Total 55 ml Blood Product 250 ml Other 20 ml Output Urine Total 100 ml Hemodialysis UF 3000 ml Other 25 ml CXR: DRE ET-Tube: 7.0 ET Position: 26 Labs: Laboratory Tests Test 12/16/16 14:20 12/17/16 04:59 Arterial Blood pH 7.369 (7.350-7.450) Arterial Blood Partial Pressure CO2 38.7 mmHg (35.0-45.0) Arterial Blood Partial Pressure O2 89.7 mmHg (75.0-100.0) Arterial Blood HCO3 21.8 mmol/L (22.0-26.0) L Arterial Blood Oxygen Saturation 96.3 % (92.0-98.0) Arterial Blood Base Excess -3.2 Valdo Test Positive White Blood Count 15.4 K/UL (4.8-10.8) H Red Blood Count 3.16 M/UL (4.70-6.10) L Hemoglobin 8.9 G/DL (14.2-18.0) L Hematocrit 28.0 % (42.0-52.0) L Mean Corpuscular Volume 89 FL (80-99) Mean Corpuscular Hemoglobin 28.1 PG (27.0-31.0) Mean Corpuscular Hemoglobin Concent 31.7 G/DL (32.0-36.0) L Red Cell Distribution Width 13.6 % (11.6-14.8) Platelet Count 396 K/UL (150-450) Mean Platelet Volume 6.7 FL (6.5-10.1) Neutrophils (%) (Auto) 76.1 % (45.0-75.0) H Lymphocytes (%) (Auto) 12.4 % (20.0-45.0) L Monocytes (%) (Auto) 8.9 % (1.0-10.0) Eosinophils (%) (Auto) 2.0 % (0.0-3.0) Basophils (%) (Auto) 0.6 % (0.0-2.0) Sodium Level 137 mEQ/L (135-145) Potassium Level 4.0 mEQ/L (3.4-4.9) Chloride Level 96 mEQ/L (98-107) L Carbon Dioxide Level 21 mEQ/L (20-30) Anion Gap 20 (5-15) H Blood Urea Nitrogen 46 mg/dL (7-23) H Creatinine 8.9 mg/dL (0.7-1.2) H Estimat Glomerular Filtration Rate 7.6 mL/min (>60) Glucose Level 103 mg/dL (74-106) Uric Acid 8.4 mg/dL (3.0-7.5) H Calcium Level 9.6 mg/dL (8.6-10.2) Phosphorus Level 7.3 mg/dL (2.5-4.8) H Magnesium Level 1.9 mg/dL (1.7-2.5) Total Bilirubin 0.4 mg/dL (0.0-1.2) Aspartate Amino Transf (AST/SGOT) 30 U/L (5-40) Alanine Aminotransferase (ALT/SGPT) 5 U/L (3-41) Alkaline Phosphatase 178 U/L (40-129) H Troponin I < 0.30 ng/mL (<=0.30) C-Reactive Protein, Quantitative 18.2 mg/dL (< 0.5) H Pro-B-Type Natriuretic Peptide 6254 pg/mL (0-125) H Total Protein 7.6 g/dL (6.6-8.7) Albumin 3.3 g/dL (3.5-5.2) L Globulin 4.3 g/dL Albumin/Globulin Ratio 0.7 (1.0-2.7) L BERNADETTE COSTA Dec 17, 2016 10:10
--- NOTE | 2016-12-17 11:03 | Diagnostic Imaging Report ---
Indication: DYSPNEA Technique: One view of the chest Comparison: 12/16/2016 Findings: Better inspiration currently. Interim endotracheal extubation. Persists a hairpin configuration of the tip of the left chest port catheter. Right subclavian/innominate venous stent again demonstrated. The heart is enlarged. Atelectasis and/or scarring is seen in the left lung base. Lungs and pleural spaces are otherwise clear. Impression: Improved inspiration. Minimal left basilar atelectasis but no acute process otherwise Other stable findings as described
--- NOTE | 2016-12-17 12:36 | Infectious Diseases Prog Note ---
Assessment/Plan Assessment/Plan ASSESSMENT: 51 y/o AAM, morbidly obese, HTNsive nephropathy, ESRD on THS HD, now with high grade MSSA bacteremia secondary to R chest wall tunneled HD cath tunneled site MSSA infection, s/p removal of cath 12/09/16, with clearance of bacteremia on 12/10/16. s/p RUE AV fistula thrombectomy, resection of aneurysm, excision of endoluminal stent-graft, and placement of tunneled L IJ HD cath on , extubated post-op on 12/16/16. 1. Sepsis, resolving. 2. high grade MSSA bacteremia, s/p line holiday. 3. Infected HD cath tunnel tract, s/p removal and bedside debridement 12/09/16. 4. Infected RUE fistula thrombus requiring thrombectomy, resection of aneurysm, and excision of endoluminal stent graft on 12/15/16. 5. Pulmonary edema improving s/p extubation 12/16/16. 6. Hypotension as above. 7. End-stage renal disease, on dialysis. 8. Morbid obesity. 9. FRANCISCO JAVIER 10. TTE on admission negative for obvious Infective Endocarditis 11. leukocytosis, stable today PLAN: --Continue Cefazolin IV 1gm IV q24hr , D#11/28 s/p clearance of bacteremia. -- (12/09 s/p IV vancomycin D#) --(12/08 s/p amikacin and zosyn D#3) --send R femoral CVC tip for culture today when removed --s/p Vascular surgery consult --Follow cardiopulmonary status and chest x-ray. --If he fevers of leukocytosis fails to improve over the next 48hrs, will plan to repeat surveillance blood cx. --monitor CBC. covering for Dr. Varela. Subjective Constitutional: Reports: no symptoms Respiratory: Reports: shortness of breath Allergies: Coded Allergies: No Known Allergies (Unverified , 12/06/16) Subjective 24 hr events: defervesed . vascular pulled his r chest wall tunneled HD cath on 12/09/16 and had pus tracked along catheter, cx of tip and swab of exudate positive for MSSA. blood cx cleared as of 12/10/16. extubated yesterday post op. Objective Vital Signs Last 24 Hour Vital Signs Date Time Temp Pulse Resp B/P Pulse Ox O2 Delivery O2 Flow Rate FiO2 12/17/16 12:00 109 12/17/16 11:20 97 Nasal Cannula 2.0 28 12/17/16 11:00 82 19 128/94 99 Nasal Cannula 2.0 12/17/16 10:00 93 19 140/93 99 Nasal Cannula 2.0 12/17/16 09:00 102 19 153/93 99 Venturi Mask 40 12/17/16 08:00 98 12/17/16 08:00 10.0 40 12/17/16 08:00 99.0 98 18 149/99 98 Venturi Mask 40 12/17/16 07:44 Venturi Mask 8.0 40 12/17/16 07:43 99 Venturi Mask 8.0 40 12/17/16 07:00 100 17 157/102 99 Venturi Mask 40 12/17/16 06:00 88 15 145/99 95 Venturi Mask 40 12/17/16 05:00 104 25 140/93 98 Venturi Mask 40 12/17/16 04:00 10.0 40 12/17/16 04:00 98.0 84 25 145/72 98 Venturi Mask 40 12/17/16 04:00 104 12/17/16 03:00 104 25 136/84 98 Venturi Mask 40 12/17/16 02:00 105 19 123/110 100 Venturi Mask 40 12/17/16 01:00 105 19 141/78 100 Venturi Mask 40 12/17/16 00:00 10.0 40 12/17/16 00:00 75 12/17/16 00:00 97.9 90 25 142/85 97 Venturi Mask 40 12/16/16 23:00 99 12 124/50 98 Venturi Mask 40 12/16/16 22:00 96 12 124/81 98 Venturi Mask 40 12/16/16 21:00 91 14 119/87 98 Venturi Mask 40 12/16/16 20:43 98 Venturi Mask 8.0 40 12/16/16 20:43 Venturi Mask 8.0 40 12/16/16 20:00 97.8 80 16 125/69 97 Venturi Mask 40 12/16/16 20:00 90 12/16/16 20:00 10.0 12/16/16 19:00 96 12 124/81 98 Venturi Mask 10.0 40 12/16/16 18:00 96 26 131/82 100 Venturi Mask 10.0 40 12/16/16 17:00 97 25 133/85 100 Venturi Mask 10.0 40 12/16/16 16:00 98.0 97 27 133/85 100 Venturi Mask 10.0 40 12/16/16 16:00 10.0 12/16/16 15:52 98 12/16/16 15:30 99 Venturi Mask 8.0 40 12/16/16 15:13 Venturi Mask 8.0 40 12/16/16 15:13 Venturi Mask 8.0 40 12/16/16 15:00 103 21 125/87 99 Mechanical Ventilator 40 12/16/16 14:00 102 21 132/86 99 Mechanical Ventilator 40 12/16/16 13:16 102 27 40 12/16/16 13:00 102 20 111/72 100 Mechanical Ventilator 40 12/16/16 12:44 Mechanical Ventilator 40 12/16/16 12:42 99.4 99 18 106/67 100 Mechanical Ventilator 40 Height (Feet): 5 Height (Inches): 7.00 Weight (Pounds): 309 Objective GENERAL: non toxic appearing. O2 via Nasal cannula. mild dysphonia s/p extubation. mentating well. HEENT: He has no cervical lymphadenopathy. No pharyngeal injection or exudate and he has no conjunctival injection and his sclerae are anicteric. CARDIOVASCULAR: The patient is tachycardic. No murmurs appreciated. PULMONARY: Decreased breath sounds at the bases with poor inspiratory effort. No wheezes or rhonchi appreciated. breathing comfortably. ABDOMEN: Healed right upper quadrant surgical scar from prior cholecystectomy, obese abdomen, nontender to palpation in all quadrants, and hypoactive bowel sounds. GENITOURINARY: Circumcised. No scrotal edema. No rash. no claudio in place EXTREMITIES: 1+ bilateral lower extremity edema. Right upper extremity in post-op dressing prox to elbow. R hand swollen but non tender, not erythematous, NVI distally. R groin cvc c/d/i. SKIN: s/p removal of R chest wall Port-a-cath on 12/09/16. no erythema, no fluctuance MSK: no pain to palpation over spinous processes, no cva tenderness to percussion. Neuro: non focal Laboratory Tests Test 12/16/16 14:20 12/17/16 04:59 Arterial Blood pH 7.369 (7.350-7.450) Arterial Blood Partial Pressure CO2 38.7 mmHg (35.0-45.0) Arterial Blood Partial Pressure O2 89.7 mmHg (75.0-100.0) Arterial Blood HCO3 21.8 mmol/L (22.0-26.0) L Arterial Blood Oxygen Saturation 96.3 % (92.0-98.0) Arterial Blood Base Excess -3.2 Valdo Test Positive White Blood Count 15.4 K/UL (4.8-10.8) H Red Blood Count 3.16 M/UL (4.70-6.10) L Hemoglobin 8.9 G/DL (14.2-18.0) L Hematocrit 28.0 % (42.0-52.0) L Mean Corpuscular Volume 89 FL (80-99) Mean Corpuscular Hemoglobin 28.1 PG (27.0-31.0) Mean Corpuscular Hemoglobin Concent 31.7 G/DL (32.0-36.0) L Red Cell Distribution Width 13.6 % (11.6-14.8) Platelet Count 396 K/UL (150-450) Mean Platelet Volume 6.7 FL (6.5-10.1) Neutrophils (%) (Auto) 76.1 % (45.0-75.0) H Lymphocytes (%) (Auto) 12.4 % (20.0-45.0) L Monocytes (%) (Auto) 8.9 % (1.0-10.0) Eosinophils (%) (Auto) 2.0 % (0.0-3.0) Basophils (%) (Auto) 0.6 % (0.0-2.0) Sodium Level 137 mEQ/L (135-145) Potassium Level 4.0 mEQ/L (3.4-4.9) Chloride Level 96 mEQ/L (98-107) L Carbon Dioxide Level 21 mEQ/L (20-30) Anion Gap 20 (5-15) H Blood Urea Nitrogen 46 mg/dL (7-23) H Creatinine 8.9 mg/dL (0.7-1.2) H Estimat Glomerular Filtration Rate 7.6 mL/min (>60) Glucose Level 103 mg/dL (74-106) Uric Acid 8.4 mg/dL (3.0-7.5) H Calcium Level 9.6 mg/dL (8.6-10.2) Phosphorus Level 7.3 mg/dL (2.5-4.8) H Magnesium Level 1.9 mg/dL (1.7-2.5) Total Bilirubin 0.4 mg/dL (0.0-1.2) Aspartate Amino Transf (AST/SGOT) 30 U/L (5-40) Alanine Aminotransferase (ALT/SGPT) 5 U/L (3-41) Alkaline Phosphatase 178 U/L (40-129) H Troponin I < 0.30 ng/mL (<=0.30) C-Reactive Protein, Quantitative 18.2 mg/dL (< 0.5) H Pro-B-Type Natriuretic Peptide 6254 pg/mL (0-125) H Total Protein 7.6 g/dL (6.6-8.7) Albumin 3.3 g/dL (3.5-5.2) L Globulin 4.3 g/dL Albumin/Globulin Ratio 0.7 (1.0-2.7) L Current Medications Medications (Trade) Dose Ordered Sig/Jeremy Route PRN Reason Start Time Stop Time Status Last Admin Dose Admin Acetaminophen (Tylenol) 650 mg Q4H PRN ORAL T>100.5 12/15/16 08:00 01/14/17 07:59 Aspirin (ASA) 81 mg DAILY ORAL 12/16/16 09:00 01/15/17 08:59 12/17/16 09:33 Cefazolin Sodium/ Dextrose (Ancef/D5W) 55 ml @ 110 mls/hr Q24HRS IVPB 12/15/16 21:00 12/22/16 20:59 12/16/16 20:31 Chlorhexidine Gluconate (Annamarie-Hex 2%) 1 applic BEDTIME TOPIC 12/16/16 21:00 01/15/17 20:59 12/16/16 20:41 Clopidogrel Bisulfate (Plavix) 75 mg DAILY ORAL 12/16/16 09:00 01/15/17 08:59 12/17/16 08:54 Dextrose (Dextrose 50%) STAT PRN IV Hypoglycemia 12/15/16 21:00 01/14/17 20:59 Epoetin Dionte (Procrit (for ESRD on dialysis)) 10,000 units THU-THU-THU SUBQ 12/17/16 21:00 01/16/17 20:59 Ergocalciferol (Drisdol) 50,000 intlu QWEEK ORAL 12/21/16 10:00 01/20/17 09:59 Folic Acid (Folate) 2 mg DAILY ORAL 12/16/16 09:00 01/15/17 08:59 12/17/16 08:54 Gabapentin (Neurontin) 100 mg THREE TIMES A DAY ORAL 12/16/16 09:00 01/15/17 08:59 12/17/16 08:54 Heparin Sodium (Porcine) (Heparin 5000 units/ml) 5,000 units EVERY 12 HOURS SUBQ 12/15/16 21:00 01/14/17 20:59 12/17/16 08:56 Lorazepam (Ativan 2mg/ml 1ml) 2 mg Q2H PRN IV For Anxiety 12/15/16 21:45 12/22/16 21:44 12/16/16 04:34 Morphine Sulfate (Morphine Sulfate) 4 mg Q2H PRN IVP PAIN 4-10 12/15/16 21:45 12/22/16 21:44 12/16/16 03:03 Ondansetron HCl (Zofran) 4 mg Q6H PRN IVP Nausea & Vomiting 12/15/16 22:00 01/14/17 21:59 Pantoprazole (Protonix) 40 mg EVERY 12 HOURS ORAL 12/15/16 21:00 01/14/17 20:59 12/17/16 08:54 Polyethylene Glycol (Miralax) 17 gm DAILYPRN PRN ORAL Constipation 12/15/16 20:30 01/14/17 20:29 Humphrye Arana M.D. Dec 17, 2016 12:36
--- NOTE | 2016-12-17 15:24 | General Progress Note ---
Assessment/Plan Status: stable Status Narrative extubated- sitting in chair Assessment/Plan status: ESRD Admitted with sepsis- Line related , has right permacath put in 12/02 HTN Obesity Anemia Plan: HD in am- remove femoral cath Has left permacath now EPO . B12 ,.... monitor H&H add renvela and laxatives Phos and Mag as needed Antibiotics BP control Per orders and per consultants Subjective ROS Limited/Unobtainable: No Constitutional: Reports: malaise, weakness Allergies: Coded Allergies: No Known Allergies (Unverified , 12/06/16) Objective Last 24 Hour Vital Signs Date Time Temp Pulse Resp B/P Pulse Ox O2 Delivery O2 Flow Rate FiO2 12/17/16 14:00 106 20 145/94 100 Nasal Cannula 2.0 12/17/16 13:00 96 20 109/72 100 Nasal Cannula 2.0 12/17/16 12:00 98.9 103 19 119/86 99 Nasal Cannula 2.0 12/17/16 12:00 109 12/17/16 11:20 97 Nasal Cannula 2.0 28 12/17/16 11:00 82 19 128/94 99 Nasal Cannula 2.0 12/17/16 10:00 93 19 140/93 99 Nasal Cannula 2.0 12/17/16 09:00 102 19 153/93 99 Venturi Mask 40 12/17/16 08:00 98 12/17/16 08:00 10.0 40 12/17/16 08:00 99.0 98 18 149/99 98 Venturi Mask 40 12/17/16 07:44 Venturi Mask 8.0 40 12/17/16 07:43 99 Venturi Mask 8.0 40 12/17/16 07:00 100 17 157/102 99 Venturi Mask 40 12/17/16 06:00 88 15 145/99 95 Venturi Mask 40 12/17/16 05:00 104 25 140/93 98 Venturi Mask 40 12/17/16 04:00 10.0 40 12/17/16 04:00 98.0 84 25 145/72 98 Venturi Mask 40 12/17/16 04:00 104 12/17/16 03:00 104 25 136/84 98 Venturi Mask 40 12/17/16 02:00 105 19 123/110 100 Venturi Mask 40 12/17/16 01:00 105 19 141/78 100 Venturi Mask 40 12/17/16 00:00 10.0 40 12/17/16 00:00 75 12/17/16 00:00 97.9 90 25 142/85 97 Venturi Mask 40 12/16/16 23:00 99 12 124/50 98 Venturi Mask 40 12/16/16 22:00 96 12 124/81 98 Venturi Mask 40 12/16/16 21:00 91 14 119/87 98 Venturi Mask 40 12/16/16 20:43 98 Venturi Mask 8.0 40 12/16/16 20:43 Venturi Mask 8.0 40 12/16/16 20:00 97.8 80 16 125/69 97 Venturi Mask 40 12/16/16 20:00 90 12/16/16 20:00 10.0 12/16/16 19:00 96 12 124/81 98 Venturi Mask 10.0 40 12/16/16 18:00 96 26 131/82 100 Venturi Mask 10.0 40 12/16/16 17:00 97 25 133/85 100 Venturi Mask 10.0 40 12/16/16 16:00 98.0 97 27 133/85 100 Venturi Mask 10.0 40 12/16/16 16:00 10.0 12/16/16 15:52 98 12/16/16 15:30 99 Venturi Mask 8.0 40 Intake and Output 12/16/16 12/17/16 19:00 07:00 Intake Total 270 ml 75 ml Output Total 3025 ml 100 ml Balance -2755 ml -25 ml Intake Oral 0 ml 20 ml IV Total 55 ml Blood Product 250 ml Other 20 ml Output Urine Total 100 ml Hemodialysis UF 3000 ml Other 25 ml Laboratory Tests 12/17/16 04:59: White Blood Count 15.4H, Red Blood Count 3.16L, Hemoglobin 8.9L, Hematocrit 28.0L, Mean Corpuscular Volume 89, Mean Corpuscular Hemoglobin 28.1, Mean Corpuscular Hemoglobin Concent 31.7L, Red Cell Distribution Width 13.6, Platelet Count 396, Mean Platelet Volume 6.7, Neutrophils (%) (Auto) 76.1H, Lymphocytes (%) (Auto) 12.4L, Monocytes (%) (Auto) 8.9, Eosinophils (%) (Auto) 2.0, Basophils (%) (Auto) 0.6, Sodium Level 137, Potassium Level 4.0, Chloride Level 96L, Carbon Dioxide Level 21, Anion Gap 20H, Blood Urea Nitrogen 46H, Creatinine 8.9H, Estimat Glomerular Filtration Rate 7.6, Glucose Level 103, Uric Acid 8.4H, Calcium Level 9.6, Phosphorus Level 7.3H, Magnesium Level 1.9, Total Bilirubin 0.4, Aspartate Amino Transf (AST/SGOT) 30, Alanine Aminotransferase (ALT/SGPT) 5, Alkaline Phosphatase 178H, Troponin I < 0.30, C- Reactive Protein, Quantitative 18.2H, Pro-B-Type Natriuretic Peptide 6254H, Total Protein 7.6, Albumin 3.3L, Globulin 4.3, Albumin/Globulin Ratio 0.7L Height (Feet): 5 Height (Inches): 7.00 Weight (Pounds): 309 General Appearance: no apparent distress, lethargic Cardiovascular: tachycardia Respiratory/Chest: decreased breath sounds, other - left permacath Abdomen: other - obese Objective no other change in PE GENNY JACK Dec 17, 2016 15:24
--- NOTE | 2016-12-17 17:38 | Cardiology Progress Note ---
Assessment/Plan Assessment/Plan intermittent episodes of av block possible due to FRANCISCO JAVIER francisco javier morbid obesity esrd on hd infected dialysis catheter hs of cardiac tamponade years ago staph bacteremia avoid neg chronotropic agents now postop: right arm AV shunt exploration, thrombectomy, resection of aneurysm , excision of stent-graft, repair of brachial artery, permcath placement monitor rate adn rhytm off vent now not bardy now telel iv abx hgb stabel cxr imporved bp is fien agree with mery out of icu Subjective Cardiovascular: Denies: chest pain, lightheadedness, palpitations Respiratory: Denies: shortness of breath Gastrointestinal/Abdominal: Denies: abdominal pain Genitourinary: Denies: burning Subjective extubted awak sittin federico the chair Objective Last 24 Hour Vital Signs Date Time Temp Pulse Resp B/P Pulse Ox O2 Delivery O2 Flow Rate FiO2 12/17/16 17:00 98 26 122/92 100 Nasal Cannula 2.0 12/17/16 16:00 104 12/17/16 16:00 98.8 78 18 110/79 100 Nasal Cannula 2.0 12/17/16 15:00 78 20 104/85 100 Nasal Cannula 2.0 12/17/16 14:00 106 20 145/94 100 Nasal Cannula 2.0 12/17/16 13:00 96 20 109/72 100 Nasal Cannula 2.0 12/17/16 12:00 98.9 103 19 119/86 99 Nasal Cannula 2.0 12/17/16 12:00 109 12/17/16 11:20 97 Nasal Cannula 2.0 28 12/17/16 11:00 82 19 128/94 99 Nasal Cannula 2.0 12/17/16 10:00 93 19 140/93 99 Nasal Cannula 2.0 12/17/16 09:00 102 19 153/93 99 Venturi Mask 40 12/17/16 08:00 98 12/17/16 08:00 10.0 40 12/17/16 08:00 99.0 98 18 149/99 98 Venturi Mask 40 12/17/16 07:44 Venturi Mask 8.0 40 12/17/16 07:43 99 Venturi Mask 8.0 40 12/17/16 07:00 100 17 157/102 99 Venturi Mask 40 12/17/16 06:00 88 15 145/99 95 Venturi Mask 40 12/17/16 05:00 104 25 140/93 98 Venturi Mask 40 12/17/16 04:00 10.0 40 12/17/16 04:00 98.0 84 25 145/72 98 Venturi Mask 40 12/17/16 04:00 104 12/17/16 03:00 104 25 136/84 98 Venturi Mask 40 12/17/16 02:00 105 19 123/110 100 Venturi Mask 40 12/17/16 01:00 105 19 141/78 100 Venturi Mask 40 12/17/16 00:00 10.0 40 12/17/16 00:00 75 12/17/16 00:00 97.9 90 25 142/85 97 Venturi Mask 40 12/16/16 23:00 99 12 124/50 98 Venturi Mask 40 12/16/16 22:00 96 12 124/81 98 Venturi Mask 40 12/16/16 21:00 91 14 119/87 98 Venturi Mask 40 12/16/16 20:43 98 Venturi Mask 8.0 40 12/16/16 20:43 Venturi Mask 8.0 40 12/16/16 20:00 97.8 80 16 125/69 97 Venturi Mask 40 12/16/16 20:00 90 12/16/16 20:00 10.0 12/16/16 19:00 96 12 124/81 98 Venturi Mask 10.0 40 12/16/16 18:00 96 26 131/82 100 Venturi Mask 10.0 40 General Appearance: no apparent distress, alert Neck: supple Cardiovascular: normal rate Respiratory/Chest: lungs clear, normal breath sounds Abdomen: normal bowel sounds, non tender, soft Extremities: trace edema Intake and Output 12/16/16 12/17/16 19:00 07:00 Intake Total 270 ml 75 ml Output Total 3025 ml 100 ml Balance -2755 ml -25 ml Intake Oral 0 ml 20 ml IV Total 55 ml Blood Product 250 ml Other 20 ml Output Urine Total 100 ml Hemodialysis UF 3000 ml Other 25 ml Laboratory Tests Test 12/17/16 04:59 White Blood Count 15.4 K/UL (4.8-10.8) H Red Blood Count 3.16 M/UL (4.70-6.10) L Hemoglobin 8.9 G/DL (14.2-18.0) L Hematocrit 28.0 % (42.0-52.0) L Mean Corpuscular Volume 89 FL (80-99) Mean Corpuscular Hemoglobin 28.1 PG (27.0-31.0) Mean Corpuscular Hemoglobin Concent 31.7 G/DL (32.0-36.0) L Red Cell Distribution Width 13.6 % (11.6-14.8) Platelet Count 396 K/UL (150-450) Mean Platelet Volume 6.7 FL (6.5-10.1) Neutrophils (%) (Auto) 76.1 % (45.0-75.0) H Lymphocytes (%) (Auto) 12.4 % (20.0-45.0) L Monocytes (%) (Auto) 8.9 % (1.0-10.0) Eosinophils (%) (Auto) 2.0 % (0.0-3.0) Basophils (%) (Auto) 0.6 % (0.0-2.0) Sodium Level 137 mEQ/L (135-145) Potassium Level 4.0 mEQ/L (3.4-4.9) Chloride Level 96 mEQ/L (98-107) L Carbon Dioxide Level 21 mEQ/L (20-30) Anion Gap 20 (5-15) H Blood Urea Nitrogen 46 mg/dL (7-23) H Creatinine 8.9 mg/dL (0.7-1.2) H Estimat Glomerular Filtration Rate 7.6 mL/min (>60) Glucose Level 103 mg/dL (74-106) Uric Acid 8.4 mg/dL (3.0-7.5) H Calcium Level 9.6 mg/dL (8.6-10.2) Phosphorus Level 7.3 mg/dL (2.5-4.8) H Magnesium Level 1.9 mg/dL (1.7-2.5) Total Bilirubin 0.4 mg/dL (0.0-1.2) Aspartate Amino Transf (AST/SGOT) 30 U/L (5-40) Alanine Aminotransferase (ALT/SGPT) 5 U/L (3-41) Alkaline Phosphatase 178 U/L (40-129) H Troponin I < 0.30 ng/mL (<=0.30) C-Reactive Protein, Quantitative 18.2 mg/dL (< 0.5) H Pro-B-Type Natriuretic Peptide 6254 pg/mL (0-125) H Total Protein 7.6 g/dL (6.6-8.7) Albumin 3.3 g/dL (3.5-5.2) L Globulin 4.3 g/dL Albumin/Globulin Ratio 0.7 (1.0-2.7) L TALAT DEJESUS Dec 17, 2016 17:38
[2016-12-17] MEDS ORDERED: Docusate 100mg cap ORAL SCH (18:00)
[2016-12-17] MEDS ORDERED: LORazepam Inj 2mg/ml 1ml IV PRN (18:30)
[2016-12-17] MEDS ORDERED: ceFAZolin sod 1 GM in D5W 55 ML IVPB SCH (21:00)
[2016-12-17] MEDS ORDERED: Epogen (for ESRD on dialysis) SUBQ SCH (21:00)
[2016-12-17] MEDS: ceFAZolin sod 1 GM in D5W 55 ML IVPB SCH (21:41)
[2016-12-17] MEDS: Epogen (for ESRD on dialysis) SUBQ SCH (21:47)
[2016-12-17] MEDS: Dyna-Hex 2% Top Sol 8oz TOPIC SCH (22:01)
[2016-12-18] VITALS (8 sets, daily range): BP systolic 128–178; BP diastolic 68–89
[2016-12-18 06:01] LABS: BASOPHILS % (AUTO) 0.6 % (0.0-2.0); EOSINOPHILS % (AUTO) 2.7 % (0.0-3.0); LYMPHOCYTES % (AUTO) 13.7 % (20.0-45.0); MEAN CORPUSCULAR HEMOGLOBIN 28.5 PG (27.0-31.0); MEAN CORPUSCULAR VOLUME 89 FL (80-99); MEAN PLATELET VOLUME 6.7 FL (6.5-10.1); MONOCYTES % (AUTO) 9.6 % (1.0-10.0); NEUTROPHILS % (AUTO) 73.4 % (45.0-75.0); PLATELET COUNT 368 K/UL (150-450); RED BLOOD COUNT 2.95 M/UL (4.70-6.10); RED CELL DISTRIBUTION WIDTH 13.9 % (11.6-14.8); WHITE BLOOD COUNT 14.3 K/UL (4.8-10.8)
[2016-12-18 06:43] LABS: ALBUMIN/GLOBULIN RATIO 0.9 (1.0-2.7); CALCIUM 9.3 mg/dL (8.6-10.2); CREATININE 10.8 mg/dL (0.7-1.2); GLOMERULAR FILTRATION RATE 6.1 mL/min (>60); MAGNESIUM 2.3 mg/dL (1.7-2.5); PHOSPHORUS 7.8 mg/dL (2.5-4.8); POTASSIUM 3.8 mEQ/L (3.4-4.9); TOTAL PROTEIN 7.5 g/dL (6.6-8.7)
[2016-12-18 06:44] LABS: URIC ACID 10.2 mg/dL (3.0-7.5)
[2016-12-18] MEDS: Docusate 100mg cap ORAL SCH ×3 (08:26→17:47)
[2016-12-18] MEDS: Aspirin Baby 81mg ORAL SCH (08:26)
[2016-12-18] MEDS: Heparin 5000 units/ml inj SUBQ SCH ×2 (08:30→22:20)
[2016-12-18 08:43] LABS: ERYTHROCYTE SEDIMENTATION RATE 116 MM/HR (0-20)
--- NOTE | 2016-12-18 09:36 | General Progress Note ---
Assessment/Plan Status: stable - post extubation Assessment/Plan status: ESRD Admitted with sepsis- Line related , has right permacath put in 12/02 HTN Obesity Anemia Plan: HD today- remove femoral cath if OK with Vasc Surg Has left permacath now EPO . B12 ,.... monitor H&H add renvela and laxatives Phos and Mag as needed Antibiotics BP control Per orders and per consultants Subjective ROS Limited/Unobtainable: No Constitutional: Reports: weakness Allergies: Coded Allergies: No Known Allergies (Unverified , 12/06/16) Objective Last 24 Hour Vital Signs Date Time Temp Pulse Resp B/P Pulse Ox O2 Delivery O2 Flow Rate FiO2 12/18/16 08:16 97.7 89 20 136/68 100 Nasal Cannula 2.0 12/18/16 08:00 89 12/18/16 04:00 97.2 101 24 146/89 100 Nasal Cannula 2.0 12/18/16 04:00 81 12/18/16 00:00 98.4 77 21 128/72 99 Nasal Cannula 2.0 12/18/16 00:00 92 12/17/16 22:00 Nasal Cannula 2.0 28 12/17/16 22:00 98 Nasal Cannula 2.0 28 12/17/16 20:00 102 12/17/16 20:00 97.7 94 19 139/84 99 Nasal Cannula 2.0 12/17/16 18:00 97.0 83 19 131/78 98 Room Air 12/17/16 17:00 98 26 122/92 100 Nasal Cannula 2.0 12/17/16 16:00 104 12/17/16 16:00 98.8 78 18 110/79 100 Nasal Cannula 2.0 12/17/16 15:00 78 20 104/85 100 Nasal Cannula 2.0 12/17/16 14:00 106 20 145/94 100 Nasal Cannula 2.0 12/17/16 13:00 96 20 109/72 100 Nasal Cannula 2.0 12/17/16 12:00 98.9 103 19 119/86 99 Nasal Cannula 2.0 12/17/16 12:00 109 12/17/16 11:20 97 Nasal Cannula 2.0 28 12/17/16 11:00 82 19 128/94 99 Nasal Cannula 2.0 12/17/16 10:00 93 19 140/93 99 Nasal Cannula 2.0 Intake and Output 12/17/16 12/18/16 19:00 07:00 Intake Total 450 ml 255 ml Output Total 150 ml 25 ml Balance 300 ml 230 ml Intake Oral 400 ml 200 ml IV Total 55 ml Other 50 ml Output Urine Total 150 ml Drainage Total 25 ml # Voids 1 1 Laboratory Tests 12/18/16 05:00: White Blood Count 14.3H, Red Blood Count 2.95L, Hemoglobin 8.4L, Hematocrit 26.3L, Mean Corpuscular Volume 89, Mean Corpuscular Hemoglobin 28.5, Mean Corpuscular Hemoglobin Concent 32.0, Red Cell Distribution Width 13.9, Platelet Count 368, Mean Platelet Volume 6.7, Neutrophils (%) (Auto) 73.4, Lymphocytes (% ) (Auto) 13.7L, Monocytes (%) (Auto) 9.6, Eosinophils (%) (Auto) 2.7, Basophils (%) (Auto) 0.6, Erythrocyte Sedimentation Rate 116H, Sodium Level 135, Potassium Level 3.8, Chloride Level 94L, Carbon Dioxide Level 21, Anion Gap 20H , Blood Urea Nitrogen 59H, Creatinine 10.8H, Estimat Glomerular Filtration Rate 6.1, Glucose Level 104, Uric Acid 10.2H, Calcium Level 9.3, Phosphorus Level 7.8H, Magnesium Level 2.3, Total Bilirubin 0.3, Aspartate Amino Transf (AST/SGOT ) 18, Alanine Aminotransferase (ALT/SGPT) 5, Alkaline Phosphatase 135H, C- Reactive Protein, Quantitative 24.0H, Pro-B-Type Natriuretic Peptide 6089H, Total Protein 7.5, Albumin 3.7, Globulin 3.8, Albumin/Globulin Ratio 0.9L Height (Feet): 5 Height (Inches): 7.00 Weight (Pounds): 328 General Appearance: no apparent distress Cardiovascular: normal rate Respiratory/Chest: decreased breath sounds Abdomen: other - obese Edema: 1+ Arm (L), 1+ Arm (R), 1+ Leg (L), 1+ Leg (R), 1+ Pedal (L), 1+ Pedal ( R), 1+ Generalized Objective no other change in PE GENNY JACK Dec 18, 2016 09:36
[2016-12-18] MEDS: Miralax 17gm pkt ORAL PRN (12:41)
[2016-12-18] MEDS ORDERED: RENVELA800 MG ORAL (14:42)
--- NOTE | 2016-12-18 14:53 | Pulmonology Progress Note ---
Assessment/Plan Problems: (1) Sepsis (2) Bacteremia (3) ESRD on hemodialysis (4) Bradycardia (5) Morbid obesity with BMI of 45.0-49.9, adult Assessment/Plan continue Iv abx, afebrile blood cultures are negative now dc femoral line temporary HD access for now dc to snif with iv abx for 20 days. Subjective ROS Limited/Unobtainable: No Constitutional: Reports: no symptoms HEENT: Repors: no symptoms Respiratory: Reports: no symptoms Allergies: Coded Allergies: No Known Allergies (Unverified , 12/06/16) Objective Last 24 Hour Vital Signs Date Time Temp Pulse Resp B/P Pulse Ox O2 Delivery O2 Flow Rate FiO2 12/18/16 12:47 Nasal Cannula 2.0 12/18/16 12:45 97.3 100 22 140/83 97 Nasal Cannula 2.0 12/18/16 12:00 85 12/18/16 11:49 98.3 98 20 178/77 94 12/18/16 09:10 Nasal Cannula 2.0 12/18/16 09:00 97.7 69 24 165/83 93 Nasal Cannula 2.0 12/18/16 08:16 97.7 89 20 136/68 100 Nasal Cannula 2.0 12/18/16 08:00 89 12/18/16 04:00 97.2 101 24 146/89 100 Nasal Cannula 2.0 12/18/16 04:00 81 12/18/16 00:00 98.4 77 21 128/72 99 Nasal Cannula 2.0 12/18/16 00:00 92 12/17/16 22:00 Nasal Cannula 2.0 28 12/17/16 22:00 98 Nasal Cannula 2.0 28 12/17/16 20:00 102 12/17/16 20:00 97.7 94 19 139/84 99 Nasal Cannula 2.0 12/17/16 18:00 97.0 83 19 131/78 98 Room Air 12/17/16 17:00 98 26 122/92 100 Nasal Cannula 2.0 12/17/16 16:00 104 12/17/16 16:00 98.8 78 18 110/79 100 Nasal Cannula 2.0 12/17/16 15:00 78 20 104/85 100 Nasal Cannula 2.0 Intake and Output 12/17/16 12/18/16 19:00 07:00 Intake Total 450 ml 255 ml Output Total 150 ml 25 ml Balance 300 ml 230 ml Intake Oral 400 ml 200 ml IV Total 55 ml Other 50 ml Output Urine Total 150 ml Drainage Total 25 ml # Voids 1 1 Objective General Appearance: WD/WN Lines, tubes and drains: peripheral, central line HEENT: normocephalic, atraumatic Neck: non-tender, normal alignment Respiratory/Chest: chest wall non-tender, lungs clear Cardiovascular/Chest: normal peripheral pulses, normal rate Laboratory Tests 12/18/16 05:00: White Blood Count 14.3H, Red Blood Count 2.95L, Hemoglobin 8.4L, Hematocrit 26.3L, Mean Corpuscular Volume 89, Mean Corpuscular Hemoglobin 28.5, Mean Corpuscular Hemoglobin Concent 32.0, Red Cell Distribution Width 13.9, Platelet Count 368, Mean Platelet Volume 6.7, Neutrophils (%) (Auto) 73.4, Lymphocytes (% ) (Auto) 13.7L, Monocytes (%) (Auto) 9.6, Eosinophils (%) (Auto) 2.7, Basophils (%) (Auto) 0.6, Erythrocyte Sedimentation Rate 116H, Sodium Level 135, Potassium Level 3.8, Chloride Level 94L, Carbon Dioxide Level 21, Anion Gap 20H , Blood Urea Nitrogen 59H, Creatinine 10.8H, Estimat Glomerular Filtration Rate 6.1, Glucose Level 104, Uric Acid 10.2H, Calcium Level 9.3, Phosphorus Level 7.8H, Magnesium Level 2.3, Total Bilirubin 0.3, Aspartate Amino Transf (AST/SGOT ) 18, Alanine Aminotransferase (ALT/SGPT) 5, Alkaline Phosphatase 135H, C- Reactive Protein, Quantitative 24.0H, Pro-B-Type Natriuretic Peptide 6089H, Total Protein 7.5, Albumin 3.7, Globulin 3.8, Albumin/Globulin Ratio 0.9L Current Medications Medications (Trade) Dose Ordered Sig/Jeremy Route PRN Reason Start Time Stop Time Status Last Admin Dose Admin Acetaminophen (Tylenol) 650 mg Q4H PRN ORAL T>100.5 12/17/16 18:30 01/16/17 18:29 Aspirin (ASA) 81 mg DAILY ORAL 12/18/16 09:00 01/17/17 08:59 12/18/16 08:26 Cefazolin Sodium/ Dextrose (Ancef/D5W) 55 ml @ 110 mls/hr Q24HRS IVPB 12/17/16 21:00 12/24/16 20:59 12/17/16 21:48 Chlorhexidine Gluconate (Annamarie-Hex 2%) 1 applic BEDTIME TOPIC 12/17/16 21:00 01/16/17 20:59 12/17/16 22:01 Clopidogrel Bisulfate (Plavix) 75 mg DAILY ORAL 12/18/16 09:00 01/17/17 08:59 12/18/16 08:27 Dextrose (Dextrose 50%) STAT PRN IV Hypoglycemia 12/17/16 21:00 01/16/17 20:59 Docusate Sodium (Colace) 100 mg THREE TIMES A DAY ORAL 12/18/16 09:00 01/17/17 08:59 12/18/16 12:39 Epoetin Dionte (Procrit (for ESRD on dialysis)) 10,000 units THU-THU-THU SUBQ 12/17/16 21:00 01/16/17 20:59 12/17/16 21:47 Ergocalciferol (Drisdol) 50,000 intlu QWEEK ORAL 12/21/16 10:00 01/20/17 09:59 Folic Acid (Folate) 2 mg DAILY ORAL 12/18/16 09:00 01/17/17 08:59 12/18/16 08:26 Gabapentin (Neurontin) 100 mg THREE TIMES A DAY ORAL 12/18/16 09:00 01/17/17 08:59 12/18/16 12:39 Heparin Sodium (Porcine) (Heparin 5000 units/ml) 5,000 units EVERY 12 HOURS SUBQ 12/17/16 21:00 01/16/17 20:59 12/18/16 08:30 Lorazepam (Ativan 2mg/ml 1ml) 2 mg Q2H PRN IV For Anxiety 12/17/16 18:30 12/24/16 18:29 Morphine Sulfate (Morphine Sulfate) 4 mg Q2H PRN IVP PAIN 4-10 12/17/16 18:30 12/24/16 18:29 Ondansetron HCl (Zofran) 4 mg Q6H PRN IVP Nausea & Vomiting 12/17/16 18:30 01/16/17 18:29 Pantoprazole (Protonix) 40 mg EVERY 12 HOURS ORAL 12/17/16 21:00 01/16/17 20:59 12/18/16 08:27 Polyethylene Glycol (Miralax) 17 gm DAILYPRN PRN ORAL Constipation 12/17/16 20:30 01/16/17 20:29 12/18/16 12:41 Sevelamer Carbonate (Renvela) 2,400 mg THREE TIMES A DAY ORAL 12/18/16 09:00 01/17/17 08:59 12/18/16 12:39 BERNADETTE COSTA Dec 18, 2016 14:53
[2016-12-18] MEDS ORDERED: CEFAZOLIN IV ×2 (15:08)
--- NOTE | 2016-12-18 15:11 | Discharge Instructions ---
Discharge Instructions Discharge Instructions Call MD/Return to Hospital if: Fevers, pain/swelling to right arm. Special Instructions Cefazolin IV dosing is 2gm after each Thursday hemodialysis, 2gm after each hemodialysis, and 3gm after each thursday hemodialysis. To complete 20 more days worth of cefazolin, with final dose through [id number]. For Congestive Heart Failure Reminder Report to your physician any weight gain of 5 pounds or more in one week. Humphrey Arana M.D. Dec 18, 2016 15:11
--- NOTE | 2016-12-18 15:14 | Infectious Diseases Prog Note ---
Assessment/Plan Assessment/Plan ASSESSMENT: 51 y/o AAM, morbidly obese, HTNsive nephropathy, ESRD on S HD, now with high grade MSSA bacteremia secondary to R chest wall tunneled HD cath tunneled site MSSA infection, s/p removal of cath 12/09/16, with clearance of bacteremia on 12/10/16. s/p RUE AV fistula thrombectomy, resection of aneurysm, excision of endoluminal stent-graft, and placement of tunneled L IJ HD cath on , extubated post-op on 12/16/16. 1. Sepsis, resolving. 2. high grade MSSA bacteremia, s/p line holiday. 3. Infected HD cath tunnel tract, s/p removal and bedside debridement 12/09/16. 4. Infected RUE fistula thrombus requiring thrombectomy, resection of aneurysm, and excision of endoluminal stent graft on 12/15/16. 5. Pulmonary edema improving s/p extubation 12/16/16. 6. Hypotension as above. 7. End-stage renal disease, on dialysis. 8. Morbid obesity. 9. FRANCISCO JAVIER 10. TTE on admission negative for obvious Infective Endocarditis 11. leukocytosis, stable today PLAN: --Continue cefazolin but adjust to intermittent dosingm IV after each thursday HD, 2gm IV after each HD, and 3gm IV after each Thursday HD, D# 12/29 s/p clearance of bacteremia. final dose through [id number]. -- (12/09 s/p IV vancomycin D#) --(12/08 s/p amikacin and zosyn D#3) --send R femoral CVC tip for culture today when removed --s/p Vascular surgery consult --Follow cardiopulmonary status and chest x-ray. --If he fevers of leukocytosis fails to improve over the next 48hrs, will plan to repeat surveillance blood cx. --monitor CBC. covering for Dr. Varela. Subjective Constitutional: Reports: no symptoms Cardiovascular: Reports: no symptoms Skin: Reports: no symptoms Allergies: Coded Allergies: No Known Allergies (Unverified , 12/06/16) Subjective 24 hr events: defervesed . vascular pulled his r chest wall tunneled HD cath on 12/09/16 and had pus tracked along catheter, cx of tip and swab of exudate positive for MSSA. blood cx cleared as of 12/10/16. extubated yesterday post op. Objective Vital Signs Last 24 Hour Vital Signs Date Time Temp Pulse Resp B/P Pulse Ox O2 Delivery O2 Flow Rate FiO2 12/18/16 12:47 Nasal Cannula 2.0 12/18/16 12:45 97.3 100 22 140/83 97 Nasal Cannula 2.0 12/18/16 12:00 85 12/18/16 11:49 98.3 98 20 178/77 94 12/18/16 09:10 Nasal Cannula 2.0 12/18/16 09:00 97.7 69 24 165/83 93 Nasal Cannula 2.0 12/18/16 08:16 97.7 89 20 136/68 100 Nasal Cannula 2.0 12/18/16 08:00 89 12/18/16 04:00 97.2 101 24 146/89 100 Nasal Cannula 2.0 12/18/16 04:00 81 12/18/16 00:00 98.4 77 21 128/72 99 Nasal Cannula 2.0 12/18/16 00:00 92 12/17/16 22:00 Nasal Cannula 2.0 28 12/17/16 22:00 98 Nasal Cannula 2.0 28 12/17/16 20:00 102 12/17/16 20:00 97.7 94 19 139/84 99 Nasal Cannula 2.0 12/17/16 18:00 97.0 83 19 131/78 98 Room Air 12/17/16 17:00 98 26 122/92 100 Nasal Cannula 2.0 12/17/16 16:00 104 12/17/16 16:00 98.8 78 18 110/79 100 Nasal Cannula 2.0 Height (Feet): 5 Height (Inches): 7.00 Weight (Pounds): 328 Objective GENERAL: non toxic appearing. O2 via Nasal cannula. mild dysphonia s/p extubation. mentating well. HEENT: He has no cervical lymphadenopathy. No pharyngeal injection or exudate and he has no conjunctival injection and his sclerae are anicteric. CARDIOVASCULAR: The patient is tachycardic. No murmurs appreciated. L sided tunneled cath in place now. PULMONARY: Decreased breath sounds at the bases with poor inspiratory effort. No wheezes or rhonchi appreciated. breathing comfortably. ABDOMEN: Healed right upper quadrant surgical scar from prior cholecystectomy, obese abdomen, nontender to palpation in all quadrants, and hypoactive bowel sounds. GENITOURINARY: Circumcised. No scrotal edema. No rash. no claudio in place EXTREMITIES: 1+ bilateral lower extremity edema. Right upper extremity in post-op dressing prox to elbow. R hand swollen but non tender, not erythematous, NVI distally. R femoral cath being dc'ed. SKIN: s/p removal of R chest wall Port-a-cath on 12/09/16. no erythema, no fluctuance MSK: no pain to palpation over spinous processes, no cva tenderness to percussion. Neuro: non focal Laboratory Tests Test 12/18/16 05:00 White Blood Count 14.3 K/UL (4.8-10.8) H Red Blood Count 2.95 M/UL (4.70-6.10) L Hemoglobin 8.4 G/DL (14.2-18.0) L Hematocrit 26.3 % (42.0-52.0) L Mean Corpuscular Volume 89 FL (80-99) Mean Corpuscular Hemoglobin 28.5 PG (27.0-31.0) Mean Corpuscular Hemoglobin Concent 32.0 G/DL (32.0-36.0) Red Cell Distribution Width 13.9 % (11.6-14.8) Platelet Count 368 K/UL (150-450) Mean Platelet Volume 6.7 FL (6.5-10.1) Neutrophils (%) (Auto) 73.4 % (45.0-75.0) Lymphocytes (%) (Auto) 13.7 % (20.0-45.0) L Monocytes (%) (Auto) 9.6 % (1.0-10.0) Eosinophils (%) (Auto) 2.7 % (0.0-3.0) Basophils (%) (Auto) 0.6 % (0.0-2.0) Erythrocyte Sedimentation Rate 116 MM/HR (0-20) H Sodium Level 135 mEQ/L (135-145) Potassium Level 3.8 mEQ/L (3.4-4.9) Chloride Level 94 mEQ/L (98-107) L Carbon Dioxide Level 21 mEQ/L (20-30) Anion Gap 20 (5-15) H Blood Urea Nitrogen 59 mg/dL (7-23) H Creatinine 10.8 mg/dL (0.7-1.2) H Estimat Glomerular Filtration Rate 6.1 mL/min (>60) Glucose Level 104 mg/dL (74-106) Uric Acid 10.2 mg/dL (3.0-7.5) H Calcium Level 9.3 mg/dL (8.6-10.2) Phosphorus Level 7.8 mg/dL (2.5-4.8) H Magnesium Level 2.3 mg/dL (1.7-2.5) Total Bilirubin 0.3 mg/dL (0.0-1.2) Aspartate Amino Transf (AST/SGOT) 18 U/L (5-40) Alanine Aminotransferase (ALT/SGPT) 5 U/L (3-41) Alkaline Phosphatase 135 U/L (40-129) H C-Reactive Protein, Quantitative 24.0 mg/dL (< 0.5) H Pro-B-Type Natriuretic Peptide 6089 pg/mL (0-125) H Total Protein 7.5 g/dL (6.6-8.7) Albumin 3.7 g/dL (3.5-5.2) Globulin 3.8 g/dL Albumin/Globulin Ratio 0.9 (1.0-2.7) L Current Medications Medications (Trade) Dose Ordered Sig/Jeremy Route PRN Reason Start Time Stop Time Status Last Admin Dose Admin Acetaminophen (Tylenol) 650 mg Q4H PRN ORAL T>100.5 12/17/16 18:30 01/16/17 18:29 Aspirin (ASA) 81 mg DAILY ORAL 12/18/16 09:00 01/17/17 08:59 12/18/16 08:26 Cefazolin Sodium 50 ml @ 100 mls/hr ONCE A WEEK IVPB 12/18/16 14:45 01/07/17 18:00 UNV Cefazolin Sodium (Ancef 2gm/50ml premix) 50 ml @ 100 mls/hr ONCE A WEEK IV 12/23/16 14:45 01/06/17 14:44 UNV Cefazolin Sodium 3 gm/Dextrose 110 ml @ 220 mls/hr ONCE A WEEK IVPB 12/20/16 14:45 01/03/17 18:00 UNV Chlorhexidine Gluconate (Annamarie-Hex 2%) 1 applic BEDTIME TOPIC 12/17/16 21:00 01/16/17 20:59 12/17/16 22:01 Clopidogrel Bisulfate (Plavix) 75 mg DAILY ORAL 12/18/16 09:00 01/17/17 08:59 12/18/16 08:27 Dextrose (Dextrose 50%) STAT PRN IV Hypoglycemia 12/17/16 21:00 01/16/17 20:59 Docusate Sodium (Colace) 100 mg THREE TIMES A DAY ORAL 12/18/16 09:00 01/17/17 08:59 12/18/16 12:39 Epoetin Dionte (Procrit (for ESRD on dialysis)) 10,000 units THU-THU-THU SUBQ 12/17/16 21:00 01/16/17 20:59 12/17/16 21:47 Ergocalciferol (Drisdol) 50,000 intlu QWEEK ORAL 12/21/16 10:00 01/20/17 09:59 Folic Acid (Folate) 2 mg DAILY ORAL 12/18/16 09:00 01/17/17 08:59 12/18/16 08:26 Gabapentin (Neurontin) 100 mg THREE TIMES A DAY ORAL 12/18/16 09:00 01/17/17 08:59 12/18/16 12:39 Heparin Sodium (Porcine) (Heparin 5000 units/ml) 5,000 units EVERY 12 HOURS SUBQ 12/17/16 21:00 01/16/17 20:59 12/18/16 08:30 Lorazepam (Ativan 2mg/ml 1ml) 2 mg Q2H PRN IV For Anxiety 12/17/16 18:30 12/24/16 18:29 Morphine Sulfate (Morphine Sulfate) 4 mg Q2H PRN IVP PAIN 4-10 12/17/16 18:30 12/24/16 18:29 Ondansetron HCl (Zofran) 4 mg Q6H PRN IVP Nausea & Vomiting 12/17/16 18:30 01/16/17 18:29 Pantoprazole (Protonix) 40 mg EVERY 12 HOURS ORAL 12/17/16 21:00 01/16/17 20:59 12/18/16 08:27 Polyethylene Glycol (Miralax) 17 gm DAILYPRN PRN ORAL Constipation 12/17/16 20:30 01/16/17 20:29 12/18/16 12:41 Sevelamer Carbonate 2400 mg 2,400 mg THREE TIMES A DAY ORAL 12/18/16 09:00 01/17/17 08:59 12/18/16 12:39 Humphrey Arana M.D. Dec 18, 2016 15:14
[2016-12-18] MEDS ORDERED: ceFAZolin 2gm/50ml Premix 50 ML IVPB SCH (18:00)
--- NOTE | 2016-12-18 18:54 | Cardiology Progress Note ---
Assessment/Plan Assessment/Plan intermittent episodes of av block possible due to FRANCISCO JAVIER francisco javier morbid obesity esrd on hd infected dialysis catheter hs of cardiac tamponade years ago staph bacteremia avoid neg chronotropic agents now postop: right arm AV shunt exploration, thrombectomy, resection of aneurysm , excision of stent-graft, repair of brachial artery, permcath placement short mark episode at tiem sleep at times awake iv abx hgb stabel cxr imporved bp is fine at time high may need antihypertensive meds Subjective Cardiovascular: Denies: chest pain, lightheadedness, palpitations Respiratory: Denies: shortness of breath Gastrointestinal/Abdominal: Denies: abdominal pain Genitourinary: Denies: burning Objective Last 24 Hour Vital Signs Date Time Temp Pulse Resp B/P Pulse Ox O2 Delivery O2 Flow Rate FiO2 12/18/16 16:00 103 12/18/16 16:00 97.8 91 20 144/76 94 12/18/16 12:47 Nasal Cannula 2.0 12/18/16 12:45 97.3 100 22 140/83 97 Nasal Cannula 2.0 12/18/16 12:00 85 12/18/16 11:49 98.3 98 20 178/77 94 12/18/16 09:10 Nasal Cannula 2.0 12/18/16 09:00 97.7 69 24 165/83 93 Nasal Cannula 2.0 12/18/16 08:16 97.7 89 20 136/68 100 Nasal Cannula 2.0 12/18/16 08:00 89 12/18/16 04:00 97.2 101 24 146/89 100 Nasal Cannula 2.0 12/18/16 04:00 81 12/18/16 00:00 98.4 77 21 128/72 99 Nasal Cannula 2.0 12/18/16 00:00 92 12/17/16 22:00 Nasal Cannula 2.0 28 12/17/16 22:00 98 Nasal Cannula 2.0 28 12/17/16 20:00 102 12/17/16 20:00 97.7 94 19 139/84 99 Nasal Cannula 2.0 General Appearance: alert, obese Neck: supple Cardiovascular: normal rate, regular rhythm Respiratory/Chest: lungs clear, normal breath sounds Abdomen: soft Extremities: no swelling Intake and Output 12/17/16 12/18/16 19:00 07:00 Intake Total 450 ml 255 ml Output Total 150 ml 25 ml Balance 300 ml 230 ml Intake Oral 400 ml 200 ml IV Total 55 ml Other 50 ml Output Urine Total 150 ml Drainage Total 25 ml # Voids 1 1 Laboratory Tests Test 12/18/16 05:00 White Blood Count 14.3 K/UL (4.8-10.8) H Red Blood Count 2.95 M/UL (4.70-6.10) L Hemoglobin 8.4 G/DL (14.2-18.0) L Hematocrit 26.3 % (42.0-52.0) L Mean Corpuscular Volume 89 FL (80-99) Mean Corpuscular Hemoglobin 28.5 PG (27.0-31.0) Mean Corpuscular Hemoglobin Concent 32.0 G/DL (32.0-36.0) Red Cell Distribution Width 13.9 % (11.6-14.8) Platelet Count 368 K/UL (150-450) Mean Platelet Volume 6.7 FL (6.5-10.1) Neutrophils (%) (Auto) 73.4 % (45.0-75.0) Lymphocytes (%) (Auto) 13.7 % (20.0-45.0) L Monocytes (%) (Auto) 9.6 % (1.0-10.0) Eosinophils (%) (Auto) 2.7 % (0.0-3.0) Basophils (%) (Auto) 0.6 % (0.0-2.0) Erythrocyte Sedimentation Rate 116 MM/HR (0-20) H Sodium Level 135 mEQ/L (135-145) Potassium Level 3.8 mEQ/L (3.4-4.9) Chloride Level 94 mEQ/L (98-107) L Carbon Dioxide Level 21 mEQ/L (20-30) Anion Gap 20 (5-15) H Blood Urea Nitrogen 59 mg/dL (7-23) H Creatinine 10.8 mg/dL (0.7-1.2) H Estimat Glomerular Filtration Rate 6.1 mL/min (>60) Glucose Level 104 mg/dL (74-106) Uric Acid 10.2 mg/dL (3.0-7.5) H Calcium Level 9.3 mg/dL (8.6-10.2) Phosphorus Level 7.8 mg/dL (2.5-4.8) H Magnesium Level 2.3 mg/dL (1.7-2.5) Total Bilirubin 0.3 mg/dL (0.0-1.2) Aspartate Amino Transf (AST/SGOT) 18 U/L (5-40) Alanine Aminotransferase (ALT/SGPT) 5 U/L (3-41) Alkaline Phosphatase 135 U/L (40-129) H C-Reactive Protein, Quantitative 24.0 mg/dL (< 0.5) H Pro-B-Type Natriuretic Peptide 6089 pg/mL (0-125) H Total Protein 7.5 g/dL (6.6-8.7) Albumin 3.7 g/dL (3.5-5.2) Globulin 3.8 g/dL Albumin/Globulin Ratio 0.9 (1.0-2.7) TALAT SANCHEZ Dec 18, 2016 18:54
[2016-12-18] MEDS: Dyna-Hex 2% Top Sol 8oz TOPIC SCH (22:18)
[2016-12-19] VITALS (7 sets, daily range): BP systolic 99–158; BP diastolic 49–99
[2016-12-19] MEDS: Docusate 100mg cap ORAL SCH ×3 (09:17→17:44)
[2016-12-19] MEDS: Heparin 5000 units/ml inj SUBQ SCH ×2 (09:18→21:46)
[2016-12-19] MEDS: Aspirin Baby 81mg ORAL SCH (09:18)
[2016-12-19 10:17] LABS: BASOPHILS % (AUTO) 0.5 % (0.0-2.0); EOSINOPHILS % (AUTO) 2.8 % (0.0-3.0); LYMPHOCYTES % (AUTO) 14.1 % (20.0-45.0); MEAN CORPUSCULAR HEMOGLOBIN 26.8 PG (27.0-31.0); MEAN CORPUSCULAR HGB CONC 30.3 G/DL (32.0-36.0); MEAN CORPUSCULAR VOLUME 89 FL (80-99); MEAN PLATELET VOLUME 6.7 FL (6.5-10.1); MONOCYTES % (AUTO) 9.9 % (1.0-10.0); NEUTROPHILS % (AUTO) 72.7 % (45.0-75.0); PLATELET COUNT 354 K/UL (150-450); RED CELL DISTRIBUTION WIDTH 13.8 % (11.6-14.8); WHITE BLOOD COUNT 13.7 K/UL (4.8-10.8)
[2016-12-19 10:40] LABS: ALBUMIN/GLOBULIN RATIO 0.9 (1.0-2.7); CALCIUM 9.8 mg/dL (8.6-10.2); CRP QUANT 21.6 mg/dL (< 0.5); GLOMERULAR FILTRATION RATE 5.9 mL/min (>60); MAGNESIUM 2.2 mg/dL (1.7-2.5); PHOSPHORUS 6.6 mg/dL (2.5-4.8); TOTAL PROTEIN 7.8 g/dL (6.6-8.7); URIC ACID 9.2 mg/dL (3.0-7.5)
--- NOTE | 2016-12-19 13:38 | Pulmonology Progress Note ---
Assessment/Plan Problems: (1) Sepsis (2) Bacteremia (3) ESRD on hemodialysis (4) Bradycardia (5) Morbid obesity with BMI of 45.0-49.9, adult Assessment/Plan continue Iv abx, afebrile blood cultures are negative now dc femoral line temporary HD access for now av shunt placement on Left arm on Thursday Subjective ROS Limited/Unobtainable: No Constitutional: Reports: no symptoms HEENT: Repors: no symptoms Respiratory: Reports: no symptoms Allergies: Coded Allergies: No Known Allergies (Unverified , 12/06/16) Objective Last 24 Hour Vital Signs Date Time Temp Pulse Resp B/P Pulse Ox O2 Delivery O2 Flow Rate FiO2 12/19/16 12:00 97.9 98 21 133/79 96 Nasal Cannula 3.0 12/19/16 12:00 80 12/19/16 08:00 102 12/19/16 08:00 97.6 99 20 135/99 100 Nasal Cannula 3.0 12/19/16 04:00 64 12/19/16 04:00 97.7 77 20 102/72 100 Nasal Cannula 2.0 28 12/19/16 00:00 97.0 96 20 99/49 96 Nasal Cannula 2.0 28 12/19/16 00:00 96 12/18/16 20:01 96 Nasal Cannula 2.0 28 12/18/16 20:01 Nasal Cannula 2.0 28 12/18/16 20:00 93 12/18/16 20:00 97.0 93 20 150/75 100 Nasal Cannula 2.0 28 12/18/16 16:00 103 12/18/16 16:00 97.8 91 20 144/76 94 Intake and Output 12/18/16 12/19/16 19:00 07:00 Intake Total 390 ml 250 ml Output Total 3410 ml 5 ml Balance -3020 ml 245 ml Intake Oral 390 ml 250 ml Drainage Total 10 ml 5 ml Hemodialysis UF 3400 ml # Voids 1 Objective General Appearance: WD/WN Lines, tubes and drains: peripheral, central line HEENT: normocephalic, atraumatic Neck: non-tender, normal alignment Respiratory/Chest: chest wall non-tender, lungs clear Cardiovascular/Chest: normal peripheral pulses, normal rate Laboratory Tests 12/19/16 09:40: White Blood Count 13.7H, Red Blood Count 3.20L, Hemoglobin 8.6L, Hematocrit 28.4L, Mean Corpuscular Volume 89, Mean Corpuscular Hemoglobin 26.8L, Mean Corpuscular Hemoglobin Concent 30.3L, Red Cell Distribution Width 13.8, Platelet Count 354, Mean Platelet Volume 6.7, Neutrophils (%) (Auto) 72.7, Lymphocytes (%) (Auto) 14.1L, Monocytes (%) (Auto) 9.9, Eosinophils (%) (Auto) 2.8, Basophils (%) (Auto) 0.5, Sodium Level 133L, Potassium Level 4.0, Chloride Level 92L, Carbon Dioxide Level 23, Anion Gap 18H, Blood Urea Nitrogen 52H, Creatinine 11.0H, Estimat Glomerular Filtration Rate 5.9, Glucose Level 103, Uric Acid 9.2H, Calcium Level 9.8, Phosphorus Level 6.6H, Magnesium Level 2.2, Total Bilirubin 0.3, Gamma Glutamyl Transpeptidase 74H, Aspartate Amino Transf ( AST/SGOT) 13, Alanine Aminotransferase (ALT/SGPT) 5, Alkaline Phosphatase 118, C -Reactive Protein, Quantitative 21.6H, Pro-B-Type Natriuretic Peptide 4658H, Total Protein 7.8, Albumin 3.8, Globulin 4.0, Albumin/Globulin Ratio 0.9L Current Medications Medications (Trade) Dose Ordered Sig/Jeremy Route PRN Reason Start Time Stop Time Status Last Admin Dose Admin Acetaminophen (Tylenol) 650 mg Q4H PRN ORAL T>100.5 12/17/16 18:30 01/16/17 18:29 Aspirin (ASA) 81 mg DAILY ORAL 12/18/16 09:00 01/17/17 08:59 12/19/16 09:18 Cefazolin Sodium 50 ml @ 100 mls/hr ONCE A WEEK IVPB 12/18/16 18:00 01/07/17 17:59 12/18/16 17:48 Cefazolin Sodium (Ancef 2gm/50ml premix) 50 ml @ 100 mls/hr ONCE A WEEK IV 12/23/16 18:00 01/06/17 17:59 Cefazolin Sodium 3 gm/Dextrose 110 ml @ 220 mls/hr ONCE A WEEK IVPB 12/20/16 18:00 01/03/17 17:59 Chlorhexidine Gluconate (Annamarie-Hex 2%) 1 applic BEDTIME TOPIC 12/17/16 21:00 01/16/17 20:59 12/18/16 22:18 Clopidogrel Bisulfate (Plavix) 75 mg DAILY ORAL 12/18/16 09:00 01/17/17 08:59 12/19/16 09:17 Dextrose (Dextrose 50%) STAT PRN IV Hypoglycemia 12/17/16 21:00 01/16/17 20:59 Docusate Sodium (Colace) 100 mg THREE TIMES A DAY ORAL 12/18/16 09:00 01/17/17 08:59 12/19/16 13:08 Epoetin Dionte (Procrit (for ESRD on dialysis)) 10,000 units MON-THU-THU SUBQ 12/17/16 21:00 01/16/17 20:59 12/17/16 21:47 Ergocalciferol (Drisdol) 50,000 intlu QWEEK ORAL 12/21/16 10:00 01/20/17 09:59 Folic Acid (Folate) 2 mg DAILY ORAL 12/18/16 09:00 01/17/17 08:59 12/19/16 09:18 Gabapentin (Neurontin) 100 mg THREE TIMES A DAY ORAL 12/18/16 09:00 01/17/17 08:59 12/19/16 13:09 Heparin Sodium (Porcine) (Heparin 5000 units/ml) 5,000 units EVERY 12 HOURS SUBQ 12/17/16 21:00 01/16/17 20:59 12/19/16 09:18 Lorazepam (Ativan 2mg/ml 1ml) 2 mg Q2H PRN IV For Anxiety 12/17/16 18:30 12/24/16 18:29 Morphine Sulfate (Morphine Sulfate) 4 mg Q2H PRN IVP PAIN 4-10 12/17/16 18:30 12/24/16 18:29 Ondansetron HCl (Zofran) 4 mg Q6H PRN IVP Nausea & Vomiting 12/17/16 18:30 01/16/17 18:29 Pantoprazole (Protonix) 40 mg EVERY 12 HOURS ORAL 12/17/16 21:00 01/16/17 20:59 12/19/16 09:18 Polyethylene Glycol (Miralax) 17 gm DAILYPRN PRN ORAL Constipation 12/17/16 20:30 01/16/17 20:29 12/18/16 12:41 Sevelamer Carbonate 2400 mg 2,400 mg THREE TIMES A DAY ORAL 12/18/16 09:00 01/17/17 08:59 12/19/16 13:08 BERNADETTE COSTA Dec 19, 2016 13:38
--- NOTE | 2016-12-19 14:11 | General Progress Note ---
Assessment/Plan Status: stable Assessment/Plan status: ESRD Admitted with sepsis- Line related , has right permacath put in 12/02 HTN Obesity Anemia Plan: HD due in am remove femoral cath if OK with Vasc Surg Has left permacath now EPO . B12 ,.... monitor H&H add renvela and laxatives Phos and Mag as needed Antibiotics BP control Per orders and per consultants Subjective ROS Limited/Unobtainable: No Allergies: Coded Allergies: No Known Allergies (Unverified , 12/06/16) Objective Last 24 Hour Vital Signs Date Time Temp Pulse Resp B/P Pulse Ox O2 Delivery O2 Flow Rate FiO2 12/19/16 12:00 97.9 98 21 133/79 96 Nasal Cannula 3.0 12/19/16 12:00 80 12/19/16 08:00 102 12/19/16 08:00 97.6 99 20 135/99 100 Nasal Cannula 3.0 12/19/16 04:00 64 12/19/16 04:00 97.7 77 20 102/72 100 Nasal Cannula 2.0 28 12/19/16 00:00 97.0 96 20 99/49 96 Nasal Cannula 2.0 28 12/19/16 00:00 96 12/18/16 20:01 96 Nasal Cannula 2.0 28 12/18/16 20:01 Nasal Cannula 2.0 28 12/18/16 20:00 93 12/18/16 20:00 97.0 93 20 150/75 100 Nasal Cannula 2.0 28 12/18/16 16:00 103 12/18/16 16:00 97.8 91 20 144/76 94 Intake and Output 12/18/16 12/19/16 19:00 07:00 Intake Total 390 ml 250 ml Output Total 3410 ml 5 ml Balance -3020 ml 245 ml Intake Oral 390 ml 250 ml Drainage Total 10 ml 5 ml Hemodialysis UF 3400 ml # Voids 1 Laboratory Tests 12/19/16 09:40: White Blood Count 13.7H, Red Blood Count 3.20L, Hemoglobin 8.6L, Hematocrit 28.4L, Mean Corpuscular Volume 89, Mean Corpuscular Hemoglobin 26.8L, Mean Corpuscular Hemoglobin Concent 30.3L, Red Cell Distribution Width 13.8, Platelet Count 354, Mean Platelet Volume 6.7, Neutrophils (%) (Auto) 72.7, Lymphocytes (%) (Auto) 14.1L, Monocytes (%) (Auto) 9.9, Eosinophils (%) (Auto) 2.8, Basophils (%) (Auto) 0.5, Sodium Level 133L, Potassium Level 4.0, Chloride Level 92L, Carbon Dioxide Level 23, Anion Gap 18H, Blood Urea Nitrogen 52H, Creatinine 11.0H, Estimat Glomerular Filtration Rate 5.9, Glucose Level 103, Uric Acid 9.2H, Calcium Level 9.8, Phosphorus Level 6.6H, Magnesium Level 2.2, Total Bilirubin 0.3, Gamma Glutamyl Transpeptidase 74H, Aspartate Amino Transf ( AST/SGOT) 13, Alanine Aminotransferase (ALT/SGPT) 5, Alkaline Phosphatase 118, C -Reactive Protein, Quantitative 21.6H, Pro-B-Type Natriuretic Peptide 4658H, Total Protein 7.8, Albumin 3.8, Globulin 4.0, Albumin/Globulin Ratio 0.9L Height (Feet): 5 Height (Inches): 7.00 Weight (Pounds): 320 General Appearance: no apparent distress Objective no other change in PE GENNY JACK Dec 19, 2016 14:11
[2016-12-19] MEDS ORDERED: Tubing Blood Filter IV ONE (16:35)
[2016-12-19] MEDS ORDERED: NS 275ml ONE (16:35)
[2016-12-19] MEDS ORDERED: Tubing IV Secondary IV ONE (16:35)
--- NOTE | 2016-12-19 17:08 | Infectious Diseases Prog Note ---
Assessment/Plan Assessment/Plan ASSESSMENT: 51 y/o AAM, morbidly obese, HTNsive nephropathy, ESRD on S HD, now with high grade MSSA bacteremia secondary to R chest wall tunneled HD cath tunneled site MSSA infection, s/p removal of cath 12/09/16, with clearance of bacteremia on 12/10/16. s/p RUE AV fistula thrombectomy, resection of aneurysm, excision of endoluminal stent-graft, and placement of tunneled L IJ HD cath on , extubated post-op on 12/16/16. 1. Sepsis, resolving. 2. high grade MSSA bacteremia, s/p line holiday. 3. Infected HD cath tunnel tract, s/p removal and bedside debridement 12/09/16. 4. Infected RUE fistula thrombus requiring thrombectomy, resection of aneurysm, and excision of endoluminal stent graft on 12/15/16. 5. Pulmonary edema improving s/p extubation 12/16/16. 6. Hypotension as above. 7. End-stage renal disease, on dialysis. 8. Morbid obesity. 9. FRANCISCO JAVIER 10. TTE on admission negative for obvious Infective Endocarditis 11. leukocytosis, stable today PLAN: --Continue cefazolin 2gm IV after each thursday HD, 2gm IV after each HD, and 3gm IV after each Thursday HD, D#01/29 s/p clearance of bacteremia. final dose through [id number]. -- (12/09 s/p IV vancomycin D#) --(12/08 s/p amikacin and zosyn D#3) --s/p Vascular surgery consult --Follow cardiopulmonary status and chest x-ray. --monitor CBC. covering for Dr. Varela. Subjective Constitutional: Reports: no symptoms Respiratory: Reports: shortness of breath Cardiovascular: Reports: no symptoms Gastrointestinal/Abdominal: Reports: no symptoms Genitourinary: Reports: no symptoms Skin: Reports: no symptoms Musculoskeletal: Reports: no symptoms Allergies: Coded Allergies: No Known Allergies (Unverified , 12/06/16) Subjective 24 hr events: defervesed . vascular pulled his r chest wall tunneled HD cath on 12/09/16 and had pus tracked along catheter, cx of tip and swab of exudate positive for MSSA. blood cx cleared as of 12/10/16. extubated yesterday post op. Objective Vital Signs Last 24 Hour Vital Signs Date Time Temp Pulse Resp B/P Pulse Ox O2 Delivery O2 Flow Rate FiO2 12/19/16 16:00 97.8 84 21 147/91 99 Nasal Cannula 2.0 12/19/16 12:00 97.9 98 21 133/79 96 Nasal Cannula 3.0 12/19/16 12:00 80 12/19/16 08:00 102 12/19/16 08:00 97.6 99 20 135/99 100 Nasal Cannula 3.0 12/19/16 04:00 64 12/19/16 04:00 97.7 77 20 102/72 100 Nasal Cannula 2.0 28 12/19/16 00:00 97.0 96 20 99/49 96 Nasal Cannula 2.0 28 12/19/16 00:00 96 12/18/16 20:01 96 Nasal Cannula 2.0 28 12/18/16 20:01 Nasal Cannula 2.0 28 12/18/16 20:00 93 12/18/16 20:00 97.0 93 20 150/75 100 Nasal Cannula 2.0 28 Height (Feet): 5 Height (Inches): 7.00 Weight (Pounds): 320 Objective GENERAL: non toxic appearing. O2 via Nasal cannula. mild dysphonia s/p extubation. mentating well. HEENT: He has no cervical lymphadenopathy. No pharyngeal injection or exudate and he has no conjunctival injection and his sclerae are anicteric. CARDIOVASCULAR: The patient is tachycardic. No murmurs appreciated. L sided tunneled cath in place now. PULMONARY: Decreased breath sounds at the bases with poor inspiratory effort. No wheezes or rhonchi appreciated. breathing comfortably. ABDOMEN: Healed right upper quadrant surgical scar from prior cholecystectomy, obese abdomen, nontender to palpation in all quadrants, and hypoactive bowel sounds. GENITOURINARY: Circumcised. No scrotal edema. No rash. no claudio in place EXTREMITIES: 1+ bilateral lower extremity edema. Right upper extremity in post-op dressing prox to elbow. R hand swollen but non tender, not erythematous, NVI distally. R femoral cath being dc'ed. SKIN: s/p removal of R chest wall Port-a-cath on 8/8/17. no erythema, no fluctuance MSK: no pain to palpation over spinous processes, no cva tenderness to percussion. Neuro: non focal Laboratory Tests Test 12/19/16 09:40 White Blood Count 13.7 K/UL (4.8-10.8) H Red Blood Count 3.20 M/UL (4.70-6.10) L Hemoglobin 8.6 G/DL (14.2-18.0) L Hematocrit 28.4 % (42.0-52.0) L Mean Corpuscular Volume 89 FL (80-99) Mean Corpuscular Hemoglobin 26.8 PG (27.0-31.0) L Mean Corpuscular Hemoglobin Concent 30.3 G/DL (32.0-36.0) L Red Cell Distribution Width 13.8 % (11.6-14.8) Platelet Count 354 K/UL (150-450) Mean Platelet Volume 6.7 FL (6.5-10.1) Neutrophils (%) (Auto) 72.7 % (45.0-75.0) Lymphocytes (%) (Auto) 14.1 % (20.0-45.0) L Monocytes (%) (Auto) 9.9 % (1.0-10.0) Eosinophils (%) (Auto) 2.8 % (0.0-3.0) Basophils (%) (Auto) 0.5 % (0.0-2.0) Sodium Level 133 mEQ/L (135-145) L Potassium Level 4.0 mEQ/L (3.4-4.9) Chloride Level 92 mEQ/L (98-107) L Carbon Dioxide Level 23 mEQ/L (20-30) Anion Gap 18 (5-15) H Blood Urea Nitrogen 52 mg/dL (7-23) H Creatinine 11.0 mg/dL (0.7-1.2) H Estimat Glomerular Filtration Rate 5.9 mL/min (>60) Glucose Level 103 mg/dL (74-106) Uric Acid 9.2 mg/dL (3.0-7.5) H Calcium Level 9.8 mg/dL (8.6-10.2) Phosphorus Level 6.6 mg/dL (2.5-4.8) H Magnesium Level 2.2 mg/dL (1.7-2.5) Total Bilirubin 0.3 mg/dL (0.0-1.2) Gamma Glutamyl Transpeptidase 74 U/L (8-61) H Aspartate Amino Transf (AST/SGOT) 13 U/L (5-40) Alanine Aminotransferase (ALT/SGPT) 5 U/L (3-41) Alkaline Phosphatase 118 U/L (40-129) C-Reactive Protein, Quantitative 21.6 mg/dL (< 0.5) H Pro-B-Type Natriuretic Peptide 4658 pg/mL (0-125) H Total Protein 7.8 g/dL (6.6-8.7) Albumin 3.8 g/dL (3.5-5.2) Globulin 4.0 g/dL Albumin/Globulin Ratio 0.9 (1.0-2.7) L Current Medications Medications (Trade) Dose Ordered Sig/Jeremy Route PRN Reason Start Time Stop Time Status Last Admin Dose Admin Acetaminophen (Tylenol) 650 mg Q4H PRN ORAL T>100.5 12/17/16 18:30 01/16/17 18:29 Aspirin (ASA) 81 mg DAILY ORAL 12/18/16 09:00 01/17/17 08:59 12/19/16 09:18 Cefazolin Sodium 50 ml @ 100 mls/hr ONCE A WEEK IV 12/23/16 18:00 01/06/17 17:59 Cefazolin Sodium 50 ml @ 100 mls/hr ONCE A WEEK IVPB 12/18/16 18:00 01/07/17 17:59 12/18/16 17:48 Cefazolin Sodium 3 gm/Dextrose 110 ml @ 220 mls/hr ONCE A WEEK IVPB 12/20/16 18:00 01/03/17 17:59 Chlorhexidine Gluconate (Annamarie-Hex 2%) 1 applic BEDTIME TOPIC 12/17/16 21:00 01/16/17 20:59 12/18/16 22:18 Clopidogrel Bisulfate (Plavix) 75 mg DAILY ORAL 12/18/16 09:00 01/17/17 08:59 12/19/16 09:17 Dextrose (Dextrose 50%) STAT PRN IV Hypoglycemia 12/17/16 21:00 01/16/17 20:59 Docusate Sodium (Colace) 100 mg THREE TIMES A DAY ORAL 12/18/16 09:00 01/17/17 08:59 12/19/16 13:08 Epoetin Dionte (Procrit (for ESRD on dialysis)) 10,000 units THU-THU-THU SUBQ 12/17/16 21:00 01/16/17 20:59 12/17/16 21:47 Ergocalciferol (Drisdol) 50,000 intlu QWEEK ORAL 12/21/16 10:00 01/20/17 09:59 Folic Acid (Folate) 2 mg DAILY ORAL 12/18/16 09:00 01/17/17 08:59 12/19/16 09:18 Gabapentin (Neurontin) 100 mg THREE TIMES A DAY ORAL 12/18/16 09:00 01/17/17 08:59 12/19/16 13:09 Heparin Sodium (Porcine) (Heparin 5000 units/ml) 5,000 units EVERY 12 HOURS SUBQ 12/17/16 21:00 01/16/17 20:59 12/19/16 09:18 Lorazepam (Ativan 2mg/ml 1ml) 2 mg Q2H PRN IV For Anxiety 12/17/16 18:30 12/24/16 18:29 Morphine Sulfate (Morphine Sulfate) 4 mg Q2H PRN IVP PAIN 4-10 12/17/16 18:30 12/24/16 18:29 Ondansetron HCl (Zofran) 4 mg Q6H PRN IVP Nausea & Vomiting 12/17/16 18:30 01/16/17 18:29 Pantoprazole (Protonix) 40 mg EVERY 12 HOURS ORAL 12/17/16 21:00 01/16/17 20:59 12/19/16 09:18 Polyethylene Glycol (Miralax) 17 gm DAILYPRN PRN ORAL Constipation 12/17/16 20:30 01/16/17 20:29 12/18/16 12:41 Sevelamer Carbonate 2400 mg 2,400 mg THREE TIMES A DAY ORAL 12/18/16 09:00 01/17/17 08:59 12/19/16 13:08 Sodium Chloride (Sodium Chloride 1000ml bag) 1,000 ml @ 10 mls/hr Q24H IV 12/19/16 16:14 12/19/16 22:00 Humphrey Arana M.D. Dec 19, 2016 17:08
--- NOTE | 2016-12-19 18:53 | Cardiology Progress Note ---
Assessment/Plan Assessment/Plan intermittent episodes of av block possible due to FRANCISCO JAVIER francisco javier morbid obesity esrd on hd infected dialysis catheter hs of cardiac tamponade years ago staph bacteremia avoid neg chronotropic agents now postop: right arm AV shunt exploration, thrombectomy, resection of aneurysm , excision of stent-graft, repair of brachial artery, permcath placement no sig pauses iv abx hgb stabel bp at tiem high at time low will observe Subjective Cardiovascular: Reports: lightheadedness - miin weh stood up , Denies: chest pain Respiratory: Denies: shortness of breath Gastrointestinal/Abdominal: Denies: abdomen distended Objective Last 24 Hour Vital Signs Date Time Temp Pulse Resp B/P Pulse Ox O2 Delivery O2 Flow Rate FiO2 12/19/16 16:00 85 12/19/16 16:00 97.8 84 21 147/91 99 Nasal Cannula 2.0 12/19/16 12:00 97.9 98 21 133/79 96 Nasal Cannula 3.0 12/19/16 12:00 80 12/19/16 08:00 102 12/19/16 08:00 97.6 99 20 135/99 100 Nasal Cannula 3.0 12/19/16 04:00 64 12/19/16 04:00 97.7 77 20 102/72 100 Nasal Cannula 2.0 28 12/19/16 00:00 97.0 96 20 99/49 96 Nasal Cannula 2.0 28 12/19/16 00:00 96 12/18/16 20:01 96 Nasal Cannula 2.0 28 12/18/16 20:01 Nasal Cannula 2.0 28 12/18/16 20:00 93 12/18/16 20:00 97.0 93 20 150/75 100 Nasal Cannula 2.0 28 General Appearance: no apparent distress, alert Cardiovascular: normal rate, regular rhythm Respiratory/Chest: lungs clear Abdomen: normal bowel sounds, non tender, soft Extremities: no swelling Intake and Output 12/18/16 12/19/16 19:00 07:00 Intake Total 390 ml 250 ml Output Total 3410 ml 5 ml Balance -3020 ml 245 ml Intake Oral 390 ml 250 ml Drainage Total 10 ml 5 ml Hemodialysis UF 3400 ml # Voids 1 Laboratory Tests Test 12/19/16 09:40 White Blood Count 13.7 K/UL (4.8-10.8) H Red Blood Count 3.20 M/UL (4.70-6.10) L Hemoglobin 8.6 G/DL (14.2-18.0) L Hematocrit 28.4 % (42.0-52.0) L Mean Corpuscular Volume 89 FL (80-99) Mean Corpuscular Hemoglobin 26.8 PG (27.0-31.0) L Mean Corpuscular Hemoglobin Concent 30.3 G/DL (32.0-36.0) L Red Cell Distribution Width 13.8 % (11.6-14.8) Platelet Count 354 K/UL (150-450) Mean Platelet Volume 6.7 FL (6.5-10.1) Neutrophils (%) (Auto) 72.7 % (45.0-75.0) Lymphocytes (%) (Auto) 14.1 % (20.0-45.0) L Monocytes (%) (Auto) 9.9 % (1.0-10.0) Eosinophils (%) (Auto) 2.8 % (0.0-3.0) Basophils (%) (Auto) 0.5 % (0.0-2.0) Sodium Level 133 mEQ/L (135-145) L Potassium Level 4.0 mEQ/L (3.4-4.9) Chloride Level 92 mEQ/L (98-107) L Carbon Dioxide Level 23 mEQ/L (20-30) Anion Gap 18 (5-15) H Blood Urea Nitrogen 52 mg/dL (7-23) H Creatinine 11.0 mg/dL (0.7-1.2) H Estimat Glomerular Filtration Rate 5.9 mL/min (>60) Glucose Level 103 mg/dL (74-106) Uric Acid 9.2 mg/dL (3.0-7.5) H Calcium Level 9.8 mg/dL (8.6-10.2) Phosphorus Level 6.6 mg/dL (2.5-4.8) H Magnesium Level 2.2 mg/dL (1.7-2.5) Total Bilirubin 0.3 mg/dL (0.0-1.2) Gamma Glutamyl Transpeptidase 74 U/L (8-61) H Aspartate Amino Transf (AST/SGOT) 13 U/L (5-40) Alanine Aminotransferase (ALT/SGPT) 5 U/L (3-41) Alkaline Phosphatase 118 U/L (40-129) C-Reactive Protein, Quantitative 21.6 mg/dL (< 0.5) H Pro-B-Type Natriuretic Peptide 4658 pg/mL (0-125) H Total Protein 7.8 g/dL (6.6-8.7) Albumin 3.8 g/dL (3.5-5.2) Globulin 4.0 g/dL Albumin/Globulin Ratio 0.9 (1.0-2.7) TALAT SANCHEZ Dec 19, 2016 18:53
[2016-12-19] MEDS: Dyna-Hex 2% Top Sol 8oz TOPIC SCH (21:39)
[2016-12-19] MEDS: Epogen (for ESRD on dialysis) SUBQ SCH (21:40)
[2016-12-20 04:07] VITALS: BP 142/98
--- NOTE | 2016-12-20 08:04 | Pulmonology Progress Note ---
Assessment/Plan Assessment/Plan ASSESSMENT sepsis with MSSA bacteremia MSSA bacteremia, Infected HD cath tunnel tract, s/p removal and bedside debridement 12/09/16. Infected RUE fistula thrombus requiring thrombectomy, resection of aneurysm, and excision of endoluminal stent graft on 12/15/16. acute respiratory failure ( due to pulmonary edema) , requiring intubation s/p extubation 12/16 acute DVT LUE pulmonary edema diastolic dysfunction HTN, End-stage renal disease, on dialysis. Morbid obesity. FRANCISCO JAVIER anemia of chronic renal disease PLAN OF CARE tele abx, ID follows HD as per nephro, nephro follows needs removal of Edgar cath monitor renal parameters lytes start heparin gtt for acute DVT, will hold on Coumadin until Edgar dc, then do bridge ( dsicussed with nephro) O2 to keep sat above 92% pulmonary toilet prn CXR with improvement BiPAP at night prn if agrees BP management, no further hypotension ECHO with pEF -60% and RVSP of 29 monitor HH , transfuse prn with goal to keep Hgb above 7 DVT , GI prophylaxis on EPO, monitor HH, transfuse prn with goal to keep Hgb above 7 case discussed and evaluated by supervising physician Subjective Allergies: Coded Allergies: No Known Allergies (Unverified , 12/06/16) Subjective leukocytosis trending down, afebrile c/o earlier of pain and swelling LUE Venous Duplex done stat with evidence of acute DVT LUE blood cx back + GPC no chest pain, no SOB Objective Last 24 Hour Vital Signs Date Time Temp Pulse Resp B/P Pulse Ox O2 Delivery O2 Flow Rate FiO2 12/20/16 04:42 98.6 12/20/16 04:07 98.6 75 19 142/98 95 Nasal Cannula 3.0 12/20/16 04:00 81 12/20/16 00:00 77 12/19/16 23:56 98.8 86 20 151/94 98 Nasal Cannula 3.0 12/19/16 20:03 98.2 80 21 158/93 100 Nasal Cannula 3.0 12/19/16 20:00 89 12/19/16 16:00 85 12/19/16 16:00 97.8 84 21 147/91 99 Nasal Cannula 2.0 12/19/16 12:00 97.9 98 21 133/79 96 Nasal Cannula 3.0 12/19/16 12:00 80 Intake and Output 12/19/16 12/20/16 19:00 07:00 Intake Total 530 ml 10 ml Balance 530 ml 10 ml Intake Oral 500 ml IV Total 30 ml 10 ml Objective General Appearance: no apparent distress, A/A/O x 4 morbidly obese male HEENT: normocephalic, atraumatic, anicteric, mucous membranes moist, PERRL Neck: non-tender, supple Respiratory/Chest: lungs clear, no respiratory distress, no accessory muscle use Cardiovascular/Chest: normal rate, regular rhythm - SR with BBB; L jugular Perma cath, R femoral Edgar Abdomen: normal bowel sounds, non tender, soft, obese Extremities: normal range of motion, non-tender, no calf tenderness, normal capillary refill, non-pitting - +1 BLE. LUE + edema and TTP Neurologic: no motor/sensory deficits, alert, oriented x 3, responsive Musculoskeletal: normal muscle bulk Laboratory Tests 12/19/16 09:40: White Blood Count 13.7H, Red Blood Count 3.20L, Hemoglobin 8.6L, Hematocrit 28.4L, Mean Corpuscular Volume 89, Mean Corpuscular Hemoglobin 26.8L, Mean Corpuscular Hemoglobin Concent 30.3L, Red Cell Distribution Width 13.8, Platelet Count 354, Mean Platelet Volume 6.7, Neutrophils (%) (Auto) 72.7, Lymphocytes (%) (Auto) 14.1L, Monocytes (%) (Auto) 9.9, Eosinophils (%) (Auto) 2.8, Basophils (%) (Auto) 0.5, Sodium Level 133L, Potassium Level 4.0, Chloride Level 92L, Carbon Dioxide Level 23, Anion Gap 18H, Blood Urea Nitrogen 52H, Creatinine 11.0H, Estimat Glomerular Filtration Rate 5.9, Glucose Level 103, Uric Acid 9.2H, Calcium Level 9.8, Phosphorus Level 6.6H, Magnesium Level 2.2, Total Bilirubin 0.3, Gamma Glutamyl Transpeptidase 74H, Aspartate Amino Transf ( AST/SGOT) 13, Alanine Aminotransferase (ALT/SGPT) 5, Alkaline Phosphatase 118, C -Reactive Protein, Quantitative 21.6H, Pro-B-Type Natriuretic Peptide 4658H, Total Protein 7.8, Albumin 3.8, Globulin 4.0, Albumin/Globulin Ratio 0.9L Current Medications Medications (Trade) Dose Ordered Sig/Jeremy Route PRN Reason Start Time Stop Time Status Last Admin Dose Admin Acetaminophen (Tylenol) 650 mg Q4H PRN ORAL T>100.5 12/17/16 18:30 01/16/17 18:29 12/20/16 03:43 Aspirin (ASA) 81 mg DAILY ORAL 12/18/16 09:00 01/17/17 08:59 12/19/16 09:18 Cefazolin Sodium 50 ml @ 100 mls/hr ONCE A WEEK IVPB 12/18/16 18:00 01/07/17 17:59 12/18/16 17:48 Cefazolin Sodium (Ancef 2gm/50ml premix) 50 ml @ 100 mls/hr ONCE A WEEK IV 12/23/16 18:00 01/06/17 17:59 Cefazolin Sodium 3 gm/Dextrose 110 ml @ 220 mls/hr ONCE A WEEK IVPB 12/20/16 18:00 01/03/17 17:59 Chlorhexidine Gluconate (Annamarie-Hex 2%) 1 applic BEDTIME TOPIC 12/17/16 21:00 01/16/17 20:59 12/19/16 21:39 Clopidogrel Bisulfate (Plavix) 75 mg DAILY ORAL 12/18/16 09:00 01/17/17 08:59 12/19/16 09:17 Dextrose (Dextrose 50%) STAT PRN IV Hypoglycemia 12/17/16 21:00 01/16/17 20:59 Docusate Sodium (Colace) 100 mg THREE TIMES A DAY ORAL 12/18/16 09:00 01/17/17 08:59 12/19/16 17:44 Epoetin Dionte (Procrit (for ESRD on dialysis)) 10,000 units MON-WED-THU SUBQ 12/17/16 21:00 01/16/17 20:59 12/19/16 21:40 Ergocalciferol (Drisdol) 50,000 intlu QWEEK ORAL 12/21/16 10:00 01/20/17 09:59 Folic Acid (Folate) 2 mg DAILY ORAL 12/18/16 09:00 01/17/17 08:59 12/19/16 09:18 Gabapentin (Neurontin) 100 mg THREE TIMES A DAY ORAL 12/18/16 09:00 01/17/17 08:59 12/19/16 17:44 Heparin Sodium (Porcine) (Heparin 5000 units/ml) 5,000 units EVERY 12 HOURS SUBQ 12/17/16 21:00 01/16/17 20:59 12/19/16 21:46 Lorazepam (Ativan 2mg/ml 1ml) 2 mg Q2H PRN IV For Anxiety 12/17/16 18:30 12/24/16 18:29 Morphine Sulfate (Morphine Sulfate) 4 mg Q2H PRN IVP PAIN 4-10 12/17/16 18:30 12/24/16 18:29 Ondansetron HCl (Zofran) 4 mg Q6H PRN IVP Nausea & Vomiting 12/17/16 18:30 01/16/17 18:29 Pantoprazole (Protonix) 40 mg EVERY 12 HOURS ORAL 12/17/16 21:00 01/16/17 20:59 12/19/16 21:39 Polyethylene Glycol (Miralax) 17 gm DAILYPRN PRN ORAL Constipation 12/17/16 20:30 01/16/17 20:29 12/18/16 12:41 Sevelamer Carbonate 2400 mg 2,400 mg THREE TIMES A DAY ORAL 12/18/16 09:00 01/17/17 08:59 12/19/16 17:43 Denia aPrker NP ([facility]anchte[facility]) Dec 20, 2016 08:03
[2016-12-20 08:16] VITALS: BP 141/106
[2016-12-20] MEDS: Docusate 100mg cap ORAL SCH ×3 (08:44→17:25)
[2016-12-20] MEDS: Miralax 17gm pkt ORAL PRN (08:45)
[2016-12-20] MEDS: Aspirin Baby 81mg ORAL SCH (08:46)
[2016-12-20] MEDS: Heparin 5000 units/ml inj SUBQ SCH (08:58)
--- NOTE | 2016-12-20 09:41 | Cardiology Progress Note ---
Assessment/Plan Assessment/Plan intermittent episodes of av block possible due to FRANCISCO JAVIER francisco javier morbid obesity esrd on hd infected dialysis catheter hs of cardiac tamponade years ago staph bacteremia left arm pain and swelling avoid neg chronotropic agents now postop: right arm AV shunt exploration, thrombectomy, resection of aneurysm , excision of stent-graft, repair of brachial artery, permcath placement no sig pauses on reveiw of tele 12/20/2016 iv abx hgb stabel bp now ruunnign high but has left arm pian will have duplex of the arm will add norvasc one dose tod ay then reevluate need tomorrow Subjective Cardiovascular: Denies: chest pain Respiratory: Denies: shortness of breath Gastrointestinal/Abdominal: Denies: abdomen distended Genitourinary: Denies: burning Subjective has pain in kristel entire left arm i s swollen no fever no chills Objective Last 24 Hour Vital Signs Date Time Temp Pulse Resp B/P Pulse Ox O2 Delivery O2 Flow Rate FiO2 12/20/16 08:16 97.0 83 21 141/106 100 Nasal Cannula 12/20/16 04:42 98.6 12/20/16 04:07 98.6 75 19 142/98 95 Nasal Cannula 3.0 12/20/16 04:00 81 12/20/16 00:00 77 12/19/16 23:56 98.8 86 20 151/94 98 Nasal Cannula 3.0 12/19/16 20:03 98.2 80 21 158/93 100 Nasal Cannula 3.0 12/19/16 20:00 89 12/19/16 16:00 85 12/19/16 16:00 97.8 84 21 147/91 99 Nasal Cannula 2.0 12/19/16 12:00 97.9 98 21 133/79 96 Nasal Cannula 3.0 12/19/16 12:00 80 General Appearance: no apparent distress, alert Neck: supple Cardiovascular: normal rate, regular rhythm Respiratory/Chest: lungs clear Abdomen: normal bowel sounds, non tender, soft Extremities: moderate edema - bilater uee left worse than right , pain on palp of kristel hadn and arm on kristel left Intake and Output 12/19/16 12/20/16 19:00 07:00 Intake Total 530 ml 10 ml Balance 530 ml 10 ml Intake Oral 500 ml IV Total 30 ml 10 ml Laboratory Tests Test 12/19/16 09:40 White Blood Count 13.7 K/UL (4.8-10.8) H Red Blood Count 3.20 M/UL (4.70-6.10) L Hemoglobin 8.6 G/DL (14.2-18.0) L Hematocrit 28.4 % (42.0-52.0) L Mean Corpuscular Volume 89 FL (80-99) Mean Corpuscular Hemoglobin 26.8 PG (27.0-31.0) L Mean Corpuscular Hemoglobin Concent 30.3 G/DL (32.0-36.0) L Red Cell Distribution Width 13.8 % (11.6-14.8) Platelet Count 354 K/UL (150-450) Mean Platelet Volume 6.7 FL (6.5-10.1) Neutrophils (%) (Auto) 72.7 % (45.0-75.0) Lymphocytes (%) (Auto) 14.1 % (20.0-45.0) L Monocytes (%) (Auto) 9.9 % (1.0-10.0) Eosinophils (%) (Auto) 2.8 % (0.0-3.0) Basophils (%) (Auto) 0.5 % (0.0-2.0) Sodium Level 133 mEQ/L (135-145) L Potassium Level 4.0 mEQ/L (3.4-4.9) Chloride Level 92 mEQ/L (98-107) L Carbon Dioxide Level 23 mEQ/L (20-30) Anion Gap 18 (5-15) H Blood Urea Nitrogen 52 mg/dL (7-23) H Creatinine 11.0 mg/dL (0.7-1.2) H Estimat Glomerular Filtration Rate 5.9 mL/min (>60) Glucose Level 103 mg/dL (74-106) Uric Acid 9.2 mg/dL (3.0-7.5) H Calcium Level 9.8 mg/dL (8.6-10.2) Phosphorus Level 6.6 mg/dL (2.5-4.8) H Magnesium Level 2.2 mg/dL (1.7-2.5) Total Bilirubin 0.3 mg/dL (0.0-1.2) Gamma Glutamyl Transpeptidase 74 U/L (8-61) H Aspartate Amino Transf (AST/SGOT) 13 U/L (5-40) Alanine Aminotransferase (ALT/SGPT) 5 U/L (3-41) Alkaline Phosphatase 118 U/L (40-129) C-Reactive Protein, Quantitative 21.6 mg/dL (< 0.5) H Pro-B-Type Natriuretic Peptide 4658 pg/mL (0-125) H Total Protein 7.8 g/dL (6.6-8.7) Albumin 3.8 g/dL (3.5-5.2) Globulin 4.0 g/dL Albumin/Globulin Ratio 0.9 (1.0-2.7) TALAT SANCHEZ Dec 20, 2016 09:41
[2016-12-20] MEDS ORDERED: Nitroglycerin Subl 0.4mg tab SL PRN (10:30)
[2016-12-20] MEDS: Morphine Sulfate 4mg/ml Inj IVP PRN ×3 (10:32→22:52)
--- NOTE | 2016-12-20 10:34 | General Progress Note ---
Assessment/Plan Status: unchanged, deteriorating Status Narrative DVT left arm Assessment/Plan status: ESRD Admitted with sepsis- Line related , has right permacath put in 12/02 HTN Obesity Anemia Plan: HD today- heparin for LUE thrombosis Cont per cardio remove femoral cath if OK with Vasc Surg Has left permacath now- EPO . B12 ,.... monitor H&H add renvela and laxatives Phos and Mag as needed Antibiotics BP control Per orders and per consultants Subjective ROS Limited/Unobtainable: No Constitutional: Reports: malaise Respiratory: Reports: shortness of breath Allergies: Coded Allergies: No Known Allergies (Unverified , 12/06/16) Objective Last 24 Hour Vital Signs Date Time Temp Pulse Resp B/P Pulse Ox O2 Delivery O2 Flow Rate FiO2 12/20/16 08:16 97.0 83 21 141/106 100 Nasal Cannula 12/20/16 08:00 84 12/20/16 04:42 98.6 12/20/16 04:07 98.6 75 19 142/98 95 Nasal Cannula 3.0 12/20/16 04:00 81 12/20/16 00:00 77 12/19/16 23:56 98.8 86 20 151/94 98 Nasal Cannula 3.0 12/19/16 20:03 98.2 80 21 158/93 100 Nasal Cannula 3.0 12/19/16 20:00 89 12/19/16 16:00 85 12/19/16 16:00 97.8 84 21 147/91 99 Nasal Cannula 2.0 12/19/16 12:00 97.9 98 21 133/79 96 Nasal Cannula 3.0 12/19/16 12:00 80 Intake and Output 12/19/16 12/20/16 19:00 07:00 Intake Total 530 ml 10 ml Balance 530 ml 10 ml Intake Oral 500 ml IV Total 30 ml 10 ml Height (Feet): 5 Height (Inches): 7.00 Weight (Pounds): 325 General Appearance: mild distress Cardiovascular: normal rate Respiratory/Chest: decreased breath sounds Abdomen: soft, other - distended Objective no other change in PE GENNY JACK Dec 20, 2016 10:34
[2016-12-20] MEDS ORDERED: Heparin 5000 units/ml inj IV ONE ×3 (10:45→19:45)
[2016-12-20] MEDS ORDERED: Heparin 25,000u/D5W 500ml 500 ML IV SCH ×3 (10:45→11:45)
[2016-12-20 11:57] VITALS: BP 127/97
[2016-12-20] MEDS: Heparin 25,000u/D5W 500ml 500 ML IV SCH ×3 (12:38→23:11)
[2016-12-20 14:38] LABS: BASOPHILS % (AUTO) 0.8 % (0.0-2.0); EOSINOPHILS % (AUTO) 2.3 % (0.0-3.0); LYMPHOCYTES % (AUTO) 13.9 % (20.0-45.0); MEAN CORPUSCULAR HEMOGLOBIN 27.8 PG (27.0-31.0); MEAN CORPUSCULAR HGB CONC 31.4 G/DL (32.0-36.0); MEAN CORPUSCULAR VOLUME 88 FL (80-99); MEAN PLATELET VOLUME 7.3 FL (6.5-10.1); MONOCYTES % (AUTO) 8.2 % (1.0-10.0); NEUTROPHILS % (AUTO) 74.8 % (45.0-75.0); PLATELET COUNT 357 K/UL (150-450); RED BLOOD COUNT 3.16 M/UL (4.70-6.10); WHITE BLOOD COUNT 16.1 K/UL (4.8-10.8)
[2016-12-20 14:44] LABS: TROPONIN I < 0.30 ng/mL (<=0.30)
--- NOTE | 2016-12-20 15:16 | Infectious Diseases Prog Note ---
Assessment/Plan Assessment/Plan ASSESSMENT: 51 y/o AAM, morbidly obese, HTNsive nephropathy, ESRD on THS HD, now with high grade MSSA bacteremia secondary to R chest wall tunneled HD cath tunneled site MSSA infection, s/p removal of cath 12/09/16, with clearance of bacteremia on 12/10/16. s/p RUE AV fistula thrombectomy, resection of aneurysm, excision of endoluminal stent-graft, and placement of tunneled L IJ HD cath on , extubated post-op on 12/16/16, now on heparin gtt for large RUE DVT extending from IJ through subclavian through basilic/cephalic past elbow. A bit volume up so planned for -3L net negative on HD today. 1. Sepsis, resolving. 2. high grade MSSA bacteremia, s/p line holiday. 3. Infected HD cath tunnel tract, s/p removal and bedside debridement 12/09/16. 4. Infected RUE fistula thrombus requiring thrombectomy, resection of aneurysm, and excision of endoluminal stent graft on 12/15/16. 5. Pulmonary edema improving s/p extubation 12/16/16. 6. Hypotension, resolved. 7. LUE DVT c/b pain and diffuse edema but exam negative for phlegmasia cerulea dolens. 7. End-stage renal disease, on dialysis. 8. Morbid obesity. 9. FRANCISCO JAVIER 10. TTE on admission negative for obvious Infective Endocarditis 11. leukocytosis, stable today PLAN: --b/c of new LUE thrombus in [place] vessels, will extend his abx for 6 weeks from date of negative blood cx. Continue cefazolin 2gm IV after each thursday HD, 2gm IV after each HD, and 3gm IV after each Thursday HD, D# s/ p clearance of bacteremia. final dose through [id number]. -- (12/09 s/p IV vancomycin D#4) --(12/08 s/p amikacin and zosyn D#3) --s/p Vascular surgery consult --Follow cardiopulmonary status and chest x-ray. --monitor CBC --monitor LUE edema. --monitor temperature. 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 covering for Dr. Varela. Subjective Constitutional: Reports: no symptoms Respiratory: Reports: dry cough, shortness of breath Cardiovascular: Reports: no symptoms Neurologic: Reports: no symptoms Skin: Reports: no symptoms Hematologic: Reports: no symptoms Musculoskeletal: Reports: pain Allergies: Coded Allergies: No Known Allergies (Unverified , 12/06/16) Subjective 24 hr events: defervesed . vascular pulled his r chest wall tunneled HD cath on 12/09/16 and had pus tracked along catheter, cx of tip and swab of exudate positive for MSSA. blood cx cleared as of 12/10/16. Objective Vital Signs Last 24 Hour Vital Signs Date Time Temp Pulse Resp B/P Pulse Ox O2 Delivery O2 Flow Rate FiO2 12/20/16 12:00 85 12/20/16 11:57 97.2 71 20 127/97 99 Nasal Cannula 12/20/16 10:35 188/105 12/20/16 08:16 97.0 83 21 141/106 100 Nasal Cannula 12/20/16 08:00 84 12/20/16 04:42 98.6 12/20/16 04:07 98.6 75 19 142/98 95 Nasal Cannula 3.0 12/20/16 04:00 81 12/20/16 00:00 77 12/19/16 23:56 98.8 86 20 151/94 98 Nasal Cannula 3.0 12/19/16 20:03 98.2 80 21 158/93 100 Nasal Cannula 3.0 12/19/16 20:00 89 12/19/16 16:00 85 12/19/16 16:00 97.8 84 21 147/91 99 Nasal Cannula 2.0 Height (Feet): 5 Height (Inches): 7.00 Weight (Pounds): 325 Objective GENERAL: non toxic appearing. O2 via Nasal cannula. mentating well. HEENT: He has no cervical lymphadenopathy. No pharyngeal injection or exudate and he has no conjunctival injection and his sclerae are anicteric. CARDIOVASCULAR: No murmurs appreciated. L sided chest wall tunneled cath in place now. PULMONARY: Decreased breath sounds at the bases with poor inspiratory effort. No wheezes or rhonchi appreciated. ABDOMEN: Healed right upper quadrant surgical scar from prior cholecystectomy, obese abdomen, nontender to palpation in all quadrants, and hypoactive bowel sounds. GENITOURINARY: Circumcised. No scrotal edema. No rash. no claudio in place EXTREMITIES: 1+ bilateral lower extremity edema. Right upper extremity in post-op dressing prox to elbow. R hand swollen but non tender, not erythematous, NVI distally. R femoral cath in place c/d/i. LUE diffusely edematous w/o cyanosis. SKIN: s/p removal of R chest wall Port-a-cath on 12/09/16. no erythema, no fluctuance MSK: no pain to palpation over spinous processes, no cva tenderness to percussion. Neuro: non focal Laboratory Tests Test 12/20/16 14:10 White Blood Count 16.1 K/UL (4.8-10.8) H Red Blood Count 3.16 M/UL (4.70-6.10) L Hemoglobin 8.8 G/DL (14.2-18.0) L Hematocrit 27.9 % (42.0-52.0) L Mean Corpuscular Volume 88 FL (80-99) Mean Corpuscular Hemoglobin 27.8 PG (27.0-31.0) Mean Corpuscular Hemoglobin Concent 31.4 G/DL (32.0-36.0) L Red Cell Distribution Width 14.0 % (11.6-14.8) Platelet Count 357 K/UL (150-450) Mean Platelet Volume 7.3 FL (6.5-10.1) Neutrophils (%) (Auto) 74.8 % (45.0-75.0) Lymphocytes (%) (Auto) 13.9 % (20.0-45.0) L Monocytes (%) (Auto) 8.2 % (1.0-10.0) Eosinophils (%) (Auto) 2.3 % (0.0-3.0) Basophils (%) (Auto) 0.8 % (0.0-2.0) Activated Partial Thromboplast Time 51 SEC (23-33) H Troponin I < 0.30 ng/mL (<=0.30) Current Medications Medications (Trade) Dose Ordered Sig/Jeremy Route PRN Reason Start Time Stop Time Status Last Admin Dose Admin Acetaminophen (Tylenol) 650 mg Q4H PRN ORAL T>100.5 12/17/16 18:30 01/16/17 18:29 12/20/16 03:43 Amlodipine Besylate 2.5 mg 2.5 mg ONCE ONCE ORAL 12/20/16 18:00 12/20/16 18:01 Aspirin (ASA) 81 mg DAILY ORAL 12/18/16 09:00 01/17/17 08:59 12/20/16 08:46 Cefazolin Sodium 50 ml @ 100 mls/hr ONCE A WEEK IVPB 12/18/16 18:00 01/07/17 17:59 12/18/16 17:48 Cefazolin Sodium (Ancef 2gm/50ml premix) 50 ml @ 100 mls/hr ONCE A WEEK IV 12/23/16 18:00 01/06/17 17:59 Cefazolin Sodium 3 gm/Dextrose 110 ml @ 220 mls/hr ONCE A WEEK IVPB 12/20/16 18:00 01/03/17 17:59 Chlorhexidine Gluconate (Annamarie-Hex 2%) 1 applic BEDTIME TOPIC 12/17/16 21:00 01/16/17 20:59 12/19/16 21:39 Clopidogrel Bisulfate (Plavix) 75 mg DAILY ORAL 12/18/16 09:00 01/17/17 08:59 12/20/16 08:44 Dextrose (Dextrose 50%) STAT PRN IV Hypoglycemia 12/17/16 21:00 01/16/17 20:59 Docusate Sodium (Colace) 100 mg THREE TIMES A DAY ORAL 12/18/16 09:00 01/17/17 08:59 12/20/16 12:27 Epoetin Dionte (Procrit (for ESRD on dialysis)) 10,000 units THU-THU-THU SUBQ 12/17/16 21:00 01/16/17 20:59 12/19/16 21:40 Ergocalciferol (Drisdol) 50,000 intlu QWEEK ORAL 12/21/16 10:00 01/20/17 09:59 Folic Acid (Folate) 2 mg DAILY ORAL 12/18/16 09:00 01/17/17 08:59 12/20/16 08:46 Gabapentin (Neurontin) 100 mg THREE TIMES A DAY ORAL 12/18/16 09:00 01/17/17 08:59 12/20/16 12:27 Heparin Sodium/ Dextrose (Heparin) 500 ml @ 45.64 mls/ hr adjust per protocol IV 12/20/16 12:00 01/19/17 11:29 12/20/16 12:38 Lorazepam (Ativan 2mg/ml 1ml) 2 mg Q2H PRN IV For Anxiety 12/17/16 18:30 12/24/16 18:29 Morphine Sulfate (Morphine Sulfate) 4 mg Q2H PRN IVP PAIN 4-10 12/17/16 18:30 12/24/16 18:29 12/20/16 10:32 Nitroglycerin (Ntg) 0.4 mg Q5M PRN SL Prn Chest Pain 12/20/16 10:30 01/19/17 10:29 12/20/16 10:35 Ondansetron HCl (Zofran) 4 mg Q6H PRN IVP Nausea & Vomiting 12/17/16 18:30 01/16/17 18:29 Pantoprazole (Protonix) 40 mg EVERY 12 HOURS ORAL 12/17/16 21:00 01/16/17 20:59 12/20/16 08:47 Polyethylene Glycol (Miralax) 17 gm DAILYPRN PRN ORAL Constipation 12/17/16 20:30 01/16/17 20:29 12/20/16 08:45 Sevelamer Carbonate 2400 mg 2,400 mg THREE TIMES A DAY ORAL 12/18/16 09:00 01/17/17 08:59 12/20/16 12:27 Humphrey Arana M.D. Dec 20, 2016 15:16
[2016-12-20] MEDS ORDERED: CEFAZOLIN SOD IVPB SCH (18:00)
[2016-12-20] MEDS ORDERED: D5W IVPB SCH (18:00)
[2016-12-20 20:21] VITALS: BP 199/100
[2016-12-20 20:30] VITALS: BP 195/105
[2016-12-20] MEDS: Dyna-Hex 2% Top Sol 8oz TOPIC SCH (20:47)
[2016-12-21] VITALS (8 sets, daily range): BP systolic 104–187; BP diastolic 60–120
[2016-12-21 03:35] LABS: MEAN CORPUSCULAR HEMOGLOBIN 27.4 PG (27.0-31.0); MEAN CORPUSCULAR HGB CONC 31.4 G/DL (32.0-36.0); MEAN CORPUSCULAR VOLUME 87 FL (80-99); MEAN PLATELET VOLUME 7.3 FL (6.5-10.1); PLATELET COUNT 383 K/UL (150-450); RED BLOOD COUNT 3.31 M/UL (4.70-6.10); RED CELL DISTRIBUTION WIDTH 13.6 % (11.6-14.8); WHITE BLOOD COUNT 18.1 K/UL (4.8-10.8)
[2016-12-21] MEDS: Heparin 25,000u/D5W 500ml 500 ML IV SCH ×2 (04:08→11:18)
[2016-12-21 04:39] LABS: BAND NEUTROPHILS % (MANUAL) 4 % (0-8); BASOPHILS % (MANUAL) 0 % (0-2); EOSINOPHILS % (MANUAL) 1 % (0-3); LYMPHOCYTES % (MANUAL) 10 % (20-45); NEUTROPHILS % (MANUAL) 78 % (45-75); PLATELET ESTIMATE INCREASED; PLATELET MORPHOLOGY NORMAL; TOTAL CELLS COUNTED 100
[2016-12-21 04:40] LABS: HYPOCHROMASIA 1+; POLYCHROMASIA 1+
[2016-12-21 05:41] LABS: TROPONIN I < 0.30 ng/mL (<=0.30)
[2016-12-21 05:44] LABS: ALBUMIN/GLOBULIN RATIO 0.9 (1.0-2.7); CALCIUM 9.6 mg/dL (8.6-10.2); CHOLESTEROL/HDL RATIO 2.6 (3.3-4.4); CREATININE 9.4 mg/dL (0.7-1.2); CRP QUANT 20.9 mg/dL (< 0.5); GLOMERULAR FILTRATION RATE 7.2 mL/min (>60); MAGNESIUM 2.1 mg/dL (1.7-2.5); PHOSPHORUS 6.4 mg/dL (2.5-4.8); POTASSIUM 4.4 mEQ/L (3.4-4.9); TOTAL PROTEIN 7.8 g/dL (6.6-8.7); URIC ACID 7.4 mg/dL (3.0-7.5)
[2016-12-21] MEDS: Miralax 17gm pkt ORAL PRN (08:50)
[2016-12-21] MEDS: Docusate 100mg cap ORAL SCH ×3 (08:51→17:29)
[2016-12-21] MEDS: Aspirin Baby 81mg ORAL SCH (08:51)
[2016-12-21] MEDS: Morphine Sulfate 4mg/ml Inj IVP PRN (08:52)
--- NOTE | 2016-12-21 09:14 | General Progress Note ---
Assessment/Plan Status: unchanged Assessment/Plan status: ESRD Admitted with sepsis- Line related , has right permacath put in 12/02 HTN Obesity Anemia DVT left UE Plan: HD in am On heparin for LUE thrombosis Cont per cardio Has left permacath now- EPO . B12 ,.... monitor H&H add renvela and laxatives Phos and Mag as needed Antibiotics BP control Per orders and per consultants Subjective ROS Limited/Unobtainable: No Constitutional: Reports: malaise Allergies: Coded Allergies: No Known Allergies (Unverified , 12/06/16) Objective Last 24 Hour Vital Signs Date Time Temp Pulse Resp B/P Pulse Ox O2 Delivery O2 Flow Rate FiO2 12/21/16 08:09 96.8 89 20 160/93 98 Nasal Cannula 3.0 12/21/16 04:48 97.3 93 20 104/82 93 Nasal Cannula 12/21/16 04:00 114 12/21/16 00:07 98.0 99 20 124/99 93 Nasal Cannula 2.0 12/21/16 00:00 99 12/20/16 21:32 105 195/105 12/20/16 20:30 105 195/105 12/20/16 20:21 98.0 93 20 199/100 98 Nasal Cannula 2.0 12/20/16 20:00 102 12/20/16 19:55 95 Nasal Cannula 2.0 28 12/20/16 19:55 Nasal Cannula 2.0 28 12/20/16 17:24 70 162/87 12/20/16 16:45 Nasal Cannula 2.0 12/20/16 16:00 70 12/20/16 13:40 Nasal Cannula 2.0 12/20/16 12:00 85 12/20/16 11:57 97.2 71 20 127/97 99 Nasal Cannula 12/20/16 10:35 188/105 Intake and Output 12/20/16 12/21/16 19:00 07:00 Intake Total 493.85 ml 584.12 ml Output Total 3375 ml 100 ml Balance -2881.15 ml 484.12 ml IV Total 493.85 ml 584.12 ml Output Urine Total 200 ml 100 ml Hemodialysis UF 3175 ml # Voids 1 1 Laboratory Tests 12/20/16 14:10: White Blood Count 16.1H, Red Blood Count 3.16L, Hemoglobin 8.8L, Hematocrit 27.9L, Mean Corpuscular Volume 88, Mean Corpuscular Hemoglobin 27.8, Mean Corpuscular Hemoglobin Concent 31.4L, Red Cell Distribution Width 14.0, Platelet Count 357, Mean Platelet Volume 7.3, Neutrophils (%) (Auto) 74.8, Lymphocytes (%) (Auto) 13.9L, Monocytes (%) (Auto) 8.2, Eosinophils (%) (Auto) 2.3, Basophils (%) (Auto) 0.8, Activated Partial Thromboplast Time 51H, Troponin I < 0.30 12/20/16 18:55: Activated Partial Thromboplast Time 64H 12/21/16 02:00: White Blood Count 18.1H, Red Blood Count 3.31L, Hemoglobin 9.0L, Hematocrit 28.8L, Mean Corpuscular Volume 87, Mean Corpuscular Hemoglobin 27.4, Mean Corpuscular Hemoglobin Concent 31.4L, Red Cell Distribution Width 13.6, Platelet Count 383, Mean Platelet Volume 7.3, Neutrophils (%) (Auto) , Lymphocytes (%) (Auto) , Monocytes (%) (Auto) , Eosinophils (%) (Auto) , Basophils (%) (Auto) , Activated Partial Thromboplast Time 111H, Differential Total Cells Counted 100, Neutrophils % (Manual) 78H, Lymphocytes % (Manual) 10L , Monocytes % (Manual) 7, Eosinophils % (Manual) 1, Basophils % (Manual) 0, Band Neutrophils 4, Platelet Estimate IncreasedH, Platelet Morphology Normal, Polychromasia 1+, Hypochromasia 1+ 12/21/16 04:00: Troponin I < 0.30, Sodium Level 133L, Potassium Level 4.4, Chloride Level 91L, Carbon Dioxide Level 23, Anion Gap 19H, Blood Urea Nitrogen 49H, Creatinine 9.4H , Estimat Glomerular Filtration Rate 7.2, Glucose Level 121H, Uric Acid 7.4, Calcium Level 9.6, Phosphorus Level 6.4H, Magnesium Level 2.1, Total Bilirubin 0.3, Aspartate Amino Transf (AST/SGOT) 10, Alanine Aminotransferase (ALT/SGPT) 5 , Alkaline Phosphatase 96, C-Reactive Protein, Quantitative 20.9H, Pro-B-Type Natriuretic Peptide 3926H, Total Protein 7.8, Albumin 3.8, Globulin 4.0, Albumin /Globulin Ratio 0.9L, Triglycerides Level 80, Cholesterol Level 128, LDL Cholesterol 63, HDL Cholesterol 49, Cholesterol/HDL Ratio 2.6L Height (Feet): 5 Height (Inches): 7.00 Weight (Pounds): 306 General Appearance: no apparent distress Cardiovascular: tachycardia Respiratory/Chest: decreased breath sounds Abdomen: other - obese Edema: 2+ Arm (L), 1+ Leg (L), 1+ Leg (R) Objective no other change in PE GENNY JACK Dec 21, 2016 09:14
--- NOTE | 2016-12-21 09:15 | Cardiology Progress Note ---
Assessment/Plan Assessment/Plan intermittent episodes of av block possible due to FRANCISCO JAVIER francisco javier morbid obesity esrd on hd infected dialysis catheter hs of cardiac tamponade years ago staph bacteremia left arm pain and swelling avoid neg chronotropic agents now postop: right arm AV shunt exploration, thrombectomy, resection of aneurysm , excision of stent-graft, repair of brachial artery, permcath placement no sig pauses on reviewed of tele 12/21/2016 iv abx hgb stabel bp now running high but has left arm pain will have duplex of the arm needed more bp meds last ntie due to increased bp prn hydralazaine was givne as well Subjective Cardiovascular: Denies: chest pain, lightheadedness Respiratory: Reports: shortness of breath Gastrointestinal/Abdominal: Denies: abdominal pain Genitourinary: Denies: burning Subjective left arm swelling is stil present but able to move no choking sesnation he feels that was related to the ett Objective Last 24 Hour Vital Signs Date Time Temp Pulse Resp B/P Pulse Ox O2 Delivery O2 Flow Rate FiO2 12/21/16 08:09 96.8 89 20 160/93 98 Nasal Cannula 3.0 12/21/16 04:48 97.3 93 20 104/82 93 Nasal Cannula 12/21/16 04:00 114 12/21/16 00:07 98.0 99 20 124/99 93 Nasal Cannula 2.0 12/21/16 00:00 99 12/20/16 21:32 105 195/105 12/20/16 20:30 105 195/105 12/20/16 20:21 98.0 93 20 199/100 98 Nasal Cannula 2.0 12/20/16 20:00 102 12/20/16 19:55 95 Nasal Cannula 2.0 28 12/20/16 19:55 Nasal Cannula 2.0 28 12/20/16 17:24 70 162/87 12/20/16 16:45 Nasal Cannula 2.0 12/20/16 16:00 70 12/20/16 13:40 Nasal Cannula 2.0 12/20/16 12:00 85 12/20/16 11:57 97.2 71 20 127/97 99 Nasal Cannula 12/20/16 10:35 188/105 General Appearance: alert, obese Neck: supple Cardiovascular: normal rate, regular rhythm Respiratory/Chest: lungs clear, normal breath sounds Abdomen: normal bowel sounds, non tender, soft Extremities: moderate edema Intake and Output 12/20/16 12/21/16 19:00 07:00 Intake Total 493.85 ml 584.12 ml Output Total 3375 ml 100 ml Balance -2881.15 ml 484.12 ml IV Total 493.85 ml 584.12 ml Output Urine Total 200 ml 100 ml Hemodialysis UF 3175 ml # Voids 1 1 Laboratory Tests Test 12/20/16 14:10 12/20/16 18:55 12/21/16 02:00 12/21/16 04:00 White Blood Count 16.1 K/UL (4.8-10.8) H 18.1 K/UL (4.8-10.8) H Red Blood Count 3.16 M/UL (4.70-6.10) L 3.31 M/UL (4.70-6.10) L Hemoglobin 8.8 G/DL (14.2-18.0) L 9.0 G/DL (14.2-18.0) L Hematocrit 27.9 % (42.0-52.0) L 28.8 % (42.0-52.0) L Mean Corpuscular Volume 88 FL (80-99) 87 FL (80-99) Mean Corpuscular Hemoglobin 27.8 PG (27.0-31.0) 27.4 PG (27.0-31.0) Mean Corpuscular Hemoglobin Concent 31.4 G/DL (32.0-36.0) L 31.4 G/DL (32.0-36.0) L Red Cell Distribution Width 14.0 % (11.6-14.8) 13.6 % (11.6-14.8) Platelet Count 357 K/UL (150-450) 383 K/UL (150-450) Mean Platelet Volume 7.3 FL (6.5-10.1) 7.3 FL (6.5-10.1) Neutrophils (%) (Auto) 74.8 % (45.0-75.0) % (45.0-75.0) Lymphocytes (%) (Auto) 13.9 % (20.0-45.0) L % (20.0-45.0) Monocytes (%) (Auto) 8.2 % (1.0-10.0) % (1.0-10.0) Eosinophils (%) (Auto) 2.3 % (0.0-3.0) % (0.0-3.0) Basophils (%) (Auto) 0.8 % (0.0-2.0) % (0.0-2.0) Activated Partial Thromboplast Time 51 SEC (23-33) H 64 SEC (23-33) H 111 SEC (23-33) H Troponin I < 0.30 ng/mL (<=0.30) < 0.30 ng/mL (<=0.30) Differential Total Cells Counted 100 Neutrophils % (Manual) 78 % (45-75) H Lymphocytes % (Manual) 10 % (20-45) L Monocytes % (Manual) 7 % (1-10) Eosinophils % (Manual) 1 % (0-3) Basophils % (Manual) 0 % (0-2) Band Neutrophils 4 % (0-8) Platelet Estimate Increased H Platelet Morphology Normal Polychromasia 1+ Hypochromasia 1+ Sodium Level 133 mEQ/L (135-145) L Potassium Level 4.4 mEQ/L (3.4-4.9) Chloride Level 91 mEQ/L (98-107) L Carbon Dioxide Level 23 mEQ/L (20-30) Anion Gap 19 (5-15) H Blood Urea Nitrogen 49 mg/dL (7-23) H Creatinine 9.4 mg/dL (0.7-1.2) H Estimat Glomerular Filtration Rate 7.2 mL/min (>60) Glucose Level 121 mg/dL (74-106) H Uric Acid 7.4 mg/dL (3.0-7.5) Calcium Level 9.6 mg/dL (8.6-10.2) Phosphorus Level 6.4 mg/dL (2.5-4.8) H Magnesium Level 2.1 mg/dL (1.7-2.5) Total Bilirubin 0.3 mg/dL (0.0-1.2) Aspartate Amino Transf (AST/SGOT) 10 U/L (5-40) Alanine Aminotransferase (ALT/SGPT) 5 U/L (3-41) Alkaline Phosphatase 96 U/L (40-129) C-Reactive Protein, Quantitative 20.9 mg/dL (< 0.5) H Pro-B-Type Natriuretic Peptide 3926 pg/mL (0-125) H Total Protein 7.8 g/dL (6.6-8.7) Albumin 3.8 g/dL (3.5-5.2) Globulin 4.0 g/dL Albumin/Globulin Ratio 0.9 (1.0-2.7) L Triglycerides Level 80 mg/dL (< 150) Cholesterol Level 128 mg/dL (< 200) LDL Cholesterol 63 mg/dL (60-99) HDL Cholesterol 49 mg/dL (> 60) Cholesterol/HDL Ratio 2.6 (3.3-4.4) L TALAT DEJESUS Dec 21, 2016 09:15
[2016-12-21] MEDS ORDERED: Vitamin D 50,000 units cap ORAL SCH ×2 (10:00)
--- NOTE | 2016-12-21 10:29 | Anethesia Preoperative Eval ---
Anesthesia Pre-op PMH/ROS General Date of Evaluation: Dec 19, 2016 Time of Evaluation: 16:12 Anesthesiologist: Wendy ASA Score: ASA 4 Mallampati Score Class I : Soft palate, uvula, fauces, pillars visible Class II: Soft palate, uvula, fauces visible Class III: Soft palate, base of uvula visible Class IV: Only hard plate visible Mallampati Classification: Class III Surgeon: Muriel Diagnosis: Dialysis access Surgical Procedure: L arm creation of A-V fistula, catheter placement Anesthesia History: none, difficult airway - see chart Family History: no anesthesia problems Allergies: Coded Allergies: No Known Allergies (Unverified , 12/06/16) Medications: see eMAR Past Medical History Cardiovascular: Reports: HTN Pulmonary: Reports: FRANCISCO JAVIER, Denies: COPD, asthma, other Gastrointestinal/Genitourinary: Reports: ESRD - on HD, GERD Neurologic/Psychiatric: Reports: depression/anxiety, Denies: CVA, TIA, dementia, other Endocrine: Denies: DM, hypothyroidism, other, steroids HEENT: Denies: JENA (L), JENA (R), cataract (L), cataract (R), glaucoma, other Hematology/Immune: Reports: anemia, Denies: DVT, bleeding disorder, other Musculoskeletal/Integumentary: Reports: edema - bilateral LE, Denies: DDD, DJD, OA, RA, other Other: obesity - morbid obesity PMH Narrative: as above PSxH Narrative: cholecystectomy, creation and maintenance of L arm A-V fistula Anesthesia Pre-op Phys. Exam Physician Exam Last Vital Signs Date Time Temp Pulse Resp B/P Pulse Ox O2 Delivery O2 Flow Rate FiO2 12/21/16 08:09 96.8 89 20 160/93 98 Nasal Cannula 3.0 12/20/16 19:55 28 Constitutional: NAD Neurologic: CN 2-12 intact Cardiovascular: RRR Respiratory: other - diminished breath sounds Gastrointestinal: other - obesity Airway Exam Mallampati Score: Class III MO: limited Neck: short ROM: limited Teeth: missing Dentures: no lower, no upper Anesthesia Pre-op A/P Labs Hematology Test 12/20/16 14:10 12/21/16 02:00 White Blood Count 16.1 K/UL (4.8-10.8) H 18.1 K/UL (4.8-10.8) H Red Blood Count 3.16 M/UL (4.70-6.10) L 3.31 M/UL (4.70-6.10) L Hemoglobin 8.8 G/DL (14.2-18.0) L 9.0 G/DL (14.2-18.0) L Hematocrit 27.9 % (42.0-52.0) L 28.8 % (42.0-52.0) L Mean Corpuscular Volume 88 FL (80-99) 87 FL (80-99) Mean Corpuscular Hemoglobin 27.8 PG (27.0-31.0) 27.4 PG (27.0-31.0) Mean Corpuscular Hemoglobin Concent 31.4 G/DL (32.0-36.0) L 31.4 G/DL (32.0-36.0) L Red Cell Distribution Width 14.0 % (11.6-14.8) 13.6 % (11.6-14.8) Platelet Count 357 K/UL (150-450) 383 K/UL (150-450) Mean Platelet Volume 7.3 FL (6.5-10.1) 7.3 FL (6.5-10.1) Neutrophils (%) (Auto) 74.8 % (45.0-75.0) % (45.0-75.0) Lymphocytes (%) (Auto) 13.9 % (20.0-45.0) L % (20.0-45.0) Monocytes (%) (Auto) 8.2 % (1.0-10.0) % (1.0-10.0) Eosinophils (%) (Auto) 2.3 % (0.0-3.0) % (0.0-3.0) Basophils (%) (Auto) 0.8 % (0.0-2.0) % (0.0-2.0) Differential Total Cells Counted 100 Neutrophils % (Manual) 78 % (45-75) H Lymphocytes % (Manual) 10 % (20-45) L Monocytes % (Manual) 7 % (1-10) Eosinophils % (Manual) 1 % (0-3) Basophils % (Manual) 0 % (0-2) Band Neutrophils 4 % (0-8) Platelet Estimate Increased H Platelet Morphology Normal Polychromasia 1+ Hypochromasia 1+ Coagulation Test 12/20/16 14:10 12/20/16 18:55 12/21/16 02:00 Activated Partial Thromboplast Time 51 SEC (23-33) H 64 SEC (23-33) H 111 SEC (23-33) H Chemistry Test 12/20/16 14:10 12/21/16 04:00 Troponin I < 0.30 ng/mL (<=0.30) < 0.30 ng/mL (<=0.30) Sodium Level 133 mEQ/L (135-145) L Potassium Level 4.4 mEQ/L (3.4-4.9) Chloride Level 91 mEQ/L (98-107) L Carbon Dioxide Level 23 mEQ/L (20-30) Anion Gap 19 (5-15) H Blood Urea Nitrogen 49 mg/dL (7-23) H Creatinine 9.4 mg/dL (0.7-1.2) H Estimat Glomerular Filtration Rate 7.2 mL/min (>60) Glucose Level 121 mg/dL (74-106) H Uric Acid 7.4 mg/dL (3.0-7.5) Calcium Level 9.6 mg/dL (8.6-10.2) Phosphorus Level 6.4 mg/dL (2.5-4.8) H Magnesium Level 2.1 mg/dL (1.7-2.5) Total Bilirubin 0.3 mg/dL (0.0-1.2) Aspartate Amino Transf (AST/SGOT) 10 U/L (5-40) Alanine Aminotransferase (ALT/SGPT) 5 U/L (3-41) Alkaline Phosphatase 96 U/L (40-129) C-Reactive Protein, Quantitative 20.9 mg/dL (< 0.5) H Pro-B-Type Natriuretic Peptide 3926 pg/mL (0-125) H Total Protein 7.8 g/dL (6.6-8.7) Albumin 3.8 g/dL (3.5-5.2) Globulin 4.0 g/dL Albumin/Globulin Ratio 0.9 (1.0-2.7) L Triglycerides Level 80 mg/dL (< 150) Cholesterol Level 128 mg/dL (< 200) LDL Cholesterol 63 mg/dL (60-99) HDL Cholesterol 49 mg/dL (> 60) Cholesterol/HDL Ratio 2.6 (3.3-4.4) L Risk Assessment & Plan Assessment: ASA 3 Plan: GA with ETT possible post op respiratory support and ICU care Status Change Before Surgery: MARJORIE Santiago M.D. Dec 21, 2016 10:29
[2016-12-21 11:08] LABS: INR 1.1 (0.9-1.1); PROTHROMBIN TIME 11.3 SEC (9.30-11.50)
--- NOTE | 2016-12-21 13:08 | Pulmonology Progress Note ---
Assessment/Plan Assessment/Plan ASSESSMENT sepsis with MSSA bacteremia MSSA bacteremia, Infected HD cath tunnel tract, s/p removal and bedside debridement 12/09/16. Infected RUE fistula thrombus requiring thrombectomy, resection of aneurysm, and excision of endoluminal stent graft on 12/15/16. acute respiratory failure ( due to pulmonary edema) , requiring intubation s/p extubation 12/16 acute DVT LUE pulmonary edema diastolic dysfunction HTN, End-stage renal disease, on dialysis. Morbid obesity. FRANCISCO JAVIER anemia of chronic renal disease PLAN OF CARE tele abx, ID follows HD as per nephro, nephro follows needs removal of Edgar cath monitor renal parameters lytes on heparin gtt for acute DVT, will hold on Coumadin until Edgar dc, then do bridge ( dsicussed with nephro) vascular surgery to follwos Friedaon to be dc may need dc of Permacath and placement of another- per vasc surgery management nurse notified vascular surgeon re oozing from HD catheter and neck pressure, awaiting for call back O2 to keep sat above 92% pulmonary toilet prn CXR with improvement Pt had his own CPAP now, using at night 3-4 hrs complication during surgery and prolonged intubation likely due to FRANCISCO JAVIER BP management, no further hypotension ECHO with pEF -60% and RVSP of 29 monitor HH , transfuse prn with goal to keep Hgb above 7 DVT , GI prophylaxis on EPO, monitor HH, transfuse prn with goal to keep Hgb above 7 case discussed and evaluated by supervising physician Subjective Allergies: Coded Allergies: No Known Allergies (Unverified , 12/06/16) Subjective still with leukocytosis, afebrile Venous Duplex done stat with evidence of acute DVT LUE on heparin gtt no chest pain, no SOB reports neck pressure with moving of his head almost feeling like a choking, had it before when his HD catheter had to be removed HD catheter oozing Objective Last 24 Hour Vital Signs Date Time Temp Pulse Resp B/P Pulse Ox O2 Delivery O2 Flow Rate FiO2 12/21/16 11:38 97.1 100 20 145/60 98 Nasal Cannula 2.0 12/21/16 11:14 85 145/60 12/21/16 08:09 96.8 89 20 160/93 98 Nasal Cannula 3.0 12/21/16 08:00 87 12/21/16 06:44 Nasal Cannula 2.0 12/21/16 06:44 98 Nasal Cannula 2.0 12/21/16 04:48 97.3 93 20 104/82 93 Nasal Cannula 12/21/16 04:00 114 12/21/16 00:07 98.0 99 20 124/99 93 Nasal Cannula 2.0 12/21/16 00:00 99 12/20/16 21:32 105 195/105 12/20/16 20:30 105 195/105 12/20/16 20:21 98.0 93 20 199/100 98 Nasal Cannula 2.0 12/20/16 20:00 102 12/20/16 19:55 95 Nasal Cannula 2.0 28 12/20/16 19:55 Nasal Cannula 2.0 28 12/20/16 17:24 70 162/87 12/20/16 16:45 Nasal Cannula 2.0 12/20/16 16:00 70 12/20/16 13:40 Nasal Cannula 2.0 Intake and Output 12/20/16 12/21/16 19:00 07:00 Intake Total 493.85 ml 584.12 ml Output Total 3375 ml 100 ml Balance -2881.15 ml 484.12 ml IV Total 493.85 ml 584.12 ml Output Urine Total 200 ml 100 ml Hemodialysis UF 3175 ml # Voids 1 1 Objective General Appearance: no apparent distress, A/A/O x 4 morbidly obese male HEENT: normocephalic, atraumatic, anicteric, mucous membranes moist, PERRL Neck: non-tender, supple Respiratory/Chest: lungs clear, no respiratory distress, no accessory muscle use Cardiovascular/Chest: normal rate, regular rhythm - SR with BBB; L jugular Perma cath, R femoral Edgar Abdomen: normal bowel sounds, non tender, soft, obese Extremities: normal range of motion, non-tender, no calf tenderness, normal capillary refill, non-pitting - +1 BLE. LUE + edema and TTP Neurologic: no motor/sensory deficits, alert, oriented x 3, responsive Musculoskeletal: normal muscle bulk Laboratory Tests 12/20/16 14:10: White Blood Count 16.1H, Red Blood Count 3.16L, Hemoglobin 8.8L, Hematocrit 27.9L, Mean Corpuscular Volume 88, Mean Corpuscular Hemoglobin 27.8, Mean Corpuscular Hemoglobin Concent 31.4L, Red Cell Distribution Width 14.0, Platelet Count 357, Mean Platelet Volume 7.3, Neutrophils (%) (Auto) 74.8, Lymphocytes (%) (Auto) 13.9L, Monocytes (%) (Auto) 8.2, Eosinophils (%) (Auto) 2.3, Basophils (%) (Auto) 0.8, Activated Partial Thromboplast Time 51H, Troponin I < 0.30 12/20/16 18:55: Activated Partial Thromboplast Time 64H 12/21/16 02:00: White Blood Count 18.1H, Red Blood Count 3.31L, Hemoglobin 9.0L, Hematocrit 28.8L, Mean Corpuscular Volume 87, Mean Corpuscular Hemoglobin 27.4, Mean Corpuscular Hemoglobin Concent 31.4L, Red Cell Distribution Width 13.6, Platelet Count 383, Mean Platelet Volume 7.3, Neutrophils (%) (Auto) , Lymphocytes (%) (Auto) , Monocytes (%) (Auto) , Eosinophils (%) (Auto) , Basophils (%) (Auto) , Activated Partial Thromboplast Time 111H, Differential Total Cells Counted 100, Neutrophils % (Manual) 78H, Lymphocytes % (Manual) 10L , Monocytes % (Manual) 7, Eosinophils % (Manual) 1, Basophils % (Manual) 0, Band Neutrophils 4, Platelet Estimate IncreasedH, Platelet Morphology Normal, Polychromasia 1+, Hypochromasia 1+ 12/21/16 04:00: Troponin I < 0.30, Sodium Level 133L, Potassium Level 4.4, Chloride Level 91L, Carbon Dioxide Level 23, Anion Gap 19H, Blood Urea Nitrogen 49H, Creatinine 9.4H , Estimat Glomerular Filtration Rate 7.2, Glucose Level 121H, Uric Acid 7.4, Calcium Level 9.6, Phosphorus Level 6.4H, Magnesium Level 2.1, Total Bilirubin 0.3, Aspartate Amino Transf (AST/SGOT) 10, Alanine Aminotransferase (ALT/SGPT) 5 , Alkaline Phosphatase 96, C-Reactive Protein, Quantitative 20.9H, Pro-B-Type Natriuretic Peptide 3926H, Total Protein 7.8, Albumin 3.8, Globulin 4.0, Albumin /Globulin Ratio 0.9L, Triglycerides Level 80, Cholesterol Level 128, LDL Cholesterol 63, HDL Cholesterol 49, Cholesterol/HDL Ratio 2.6L 12/21/16 10:05: Prothrombin Time 11.3, Prothromb Time International Ratio 1.1, Activated Partial Thromboplast Time 82H Current Medications Medications (Trade) Dose Ordered Sig/Jeremy Route PRN Reason Start Time Stop Time Status Last Admin Dose Admin Acetaminophen (Tylenol) 650 mg Q4H PRN ORAL T>100.5 12/17/16 18:30 01/16/17 18:29 12/20/16 03:43 Amlodipine Besylate (Norvasc) 5 mg BID ORAL 12/21/16 10:00 01/20/17 09:59 12/21/16 11:14 Aspirin (ASA) 81 mg DAILY ORAL 12/18/16 09:00 01/17/17 08:59 12/21/16 08:51 Cefazolin Sodium 50 ml @ 100 mls/hr ONCE A WEEK IVPB 12/18/16 18:00 01/07/17 17:59 12/18/16 17:48 Cefazolin Sodium (Ancef 2gm/50ml premix) 50 ml @ 100 mls/hr ONCE A WEEK IV 12/23/16 18:00 01/06/17 17:59 Cefazolin Sodium 3 gm/Dextrose 110 ml @ 220 mls/hr ONCE A WEEK IVPB 12/20/16 18:00 01/03/17 17:59 12/20/16 17:25 Chlorhexidine Gluconate (Annamarie-Hex 2%) 1 applic BEDTIME TOPIC 12/17/16 21:00 01/16/17 20:59 12/20/16 20:47 Clopidogrel Bisulfate (Plavix) 75 mg DAILY ORAL 12/18/16 09:00 01/17/17 08:59 12/21/16 08:50 Dextrose (Dextrose 50%) STAT PRN IV Hypoglycemia 12/17/16 21:00 01/16/17 20:59 Docusate Sodium (Colace) 100 mg THREE TIMES A DAY ORAL 12/18/16 09:00 01/17/17 08:59 12/21/16 08:51 Epoetin Dionte (Procrit (for ESRD on dialysis)) 10,000 units MON-WED-THU SUBQ 12/17/16 21:00 01/16/17 20:59 12/19/16 21:40 Ergocalciferol (Drisdol) 50,000 intlu QWEEK ORAL 12/21/16 10:00 01/20/17 09:59 12/21/16 09:01 Folic Acid (Folate) 2 mg DAILY ORAL 12/18/16 09:00 01/17/17 08:59 12/21/16 08:51 Gabapentin (Neurontin) 100 mg THREE TIMES A DAY ORAL 12/18/16 09:00 01/17/17 08:59 12/21/16 08:51 Heparin Sodium/ Dextrose (Heparin) 500 ml @ 42.788 mls/ hr adjust per protocol IV 12/21/16 04:00 01/20/17 03:59 12/21/16 11:18 Lorazepam (Ativan 2mg/ml 1ml) 2 mg Q2H PRN IV For Anxiety 12/17/16 18:30 12/24/16 18:29 Morphine Sulfate (Morphine Sulfate) 4 mg Q2H PRN IVP PAIN 4-10 12/17/16 18:30 12/24/16 18:29 12/21/16 08:52 Nitroglycerin 0.4 mg 0.4 mg Q5M PRN SL Prn Chest Pain 12/20/16 10:30 01/19/17 10:29 12/20/16 10:35 Ondansetron HCl (Zofran) 4 mg Q6H PRN IVP Nausea & Vomiting 12/17/16 18:30 01/16/17 18:29 12/20/16 17:39 Pantoprazole (Protonix) 40 mg EVERY 12 HOURS ORAL 12/17/16 21:00 01/16/17 20:59 12/21/16 08:51 Polyethylene Glycol 17 gm 17 gm DAILYPRN PRN ORAL Constipation 12/17/16 20:30 01/16/17 20:29 12/21/16 08:50 Sevelamer Carbonate (Renvela) 3,200 mg THREE TIMES A DAY ORAL 12/21/16 09:00 01/20/17 08:59 12/21/16 08:50 Denia Parker NP ([facility]anchtein) Dec 21, 2016 13:08
[2016-12-21] MEDS ORDERED: DuoNeb 0.5-3(2.5)mg/3ml neb HHN PRN (13:15)
[2016-12-21] MEDS ORDERED: Bisacodyl EC 5mg tab ORAL ONE (13:15)
--- NOTE | 2016-12-21 15:02 | Infectious Diseases Prog Note ---
Assessment/Plan Assessment/Plan ASSESSMENT: 51 y/o AAM, morbidly obese, HTNsive nephropathy, ESRD on THS HD, now with high grade MSSA bacteremia secondary to R chest wall tunneled HD cath tunneled site MSSA infection, s/p removal of cath 12/09/16, with clearance of bacteremia on 12/10/16. s/p RUE AV fistula thrombectomy, resection of aneurysm, excision of endoluminal stent-graft, and placement of tunneled L IJ HD cath on , extubated post-op on 12/16/16, now on heparin gtt for large LUE DVT extending from IJ through subclavian through basilic/cephalic past elbow. 1. Sepsis, resolving. 2. high grade MSSA bacteremia, s/p line holiday. 3. Infected HD cath tunnel tract, s/p removal and bedside debridement 12/09/16. 4. Infected RUE fistula thrombus requiring thrombectomy, resection of aneurysm, and excision of endoluminal stent graft on 12/15/16. 5. Pulmonary edema improving s/p extubation 12/16/16. 6. Hypotension, resolved. 7. LUE DVT c/b pain and diffuse edema but exam negative for phlegmasia cerulea dolens. 7. End-stage renal disease, on dialysis. 8. Morbid obesity. 9. FRANCISCO JAVIER 10. TTE on admission negative for obvious Infective Endocarditis. won't recommend GIOVANNA b/c: 1) high risk procedure in his obese FRANCISCO JAVIER patient, 2) we have a clear source (the RUE AVF and the prior R chest wall tunneled cath), 3) any positive finding won't change duration of therapy. 11. leukocytosis, generally stable. no localizing signs/sx of new infection. PLAN: --b/c of new LUE thrombus in upper [place] vessels, will extend his abx for 6 weeks from date of negative blood cx. Continue cefazolin 2gm IV after each thursday HD, 2gm IV after each HD, and 3gm IV after each Thursday HD, D# s/ p clearance of bacteremia. final dose through [id number]. -- (12/09 s/p IV vancomycin D#4) --(12/08 s/p amikacin and zosyn D#3) --If he gets dialyzed early (eg. Thursday), please give an extra dose of Cefazolin 2gm IV after HD. --s/p Vascular surgery consult --Follow cardiopulmonary status and chest x-ray. --monitor CBC --monitor LUE edema. --monitor temperature. --monitor bmp at least twice weekly on terminologist antibiotics --d/c R femorall CVC when able, and send tip for cx. covering for Dr. Varela. Subjective Constitutional: Reports: no symptoms Respiratory: Reports: no symptoms Cardiovascular: Reports: no symptoms Gastrointestinal/Abdominal: Reports: no symptoms Hematologic: Reports: bleeding Musculoskeletal: Reports: no symptoms Allergies: Coded Allergies: No Known Allergies (Unverified , 12/06/16) Subjective 24 hr events: defervesed . vascular pulled his r chest wall tunneled HD cath on 12/09/16 and had pus tracked along catheter, cx of tip and swab of exudate positive for MSSA. blood cx cleared as of 12/10/16. Objective Vital Signs Last 24 Hour Vital Signs Date Time Temp Pulse Resp B/P Pulse Ox O2 Delivery O2 Flow Rate FiO2 12/21/16 11:38 97.1 100 20 145/60 98 Nasal Cannula 2.0 12/21/16 11:14 85 145/60 12/21/16 08:09 96.8 89 20 160/93 98 Nasal Cannula 3.0 12/21/16 08:00 87 12/21/16 06:44 Nasal Cannula 2.0 12/21/16 06:44 98 Nasal Cannula 2.0 12/21/16 04:48 97.3 93 20 104/82 93 Nasal Cannula 12/21/16 04:00 114 12/21/16 00:07 98.0 99 20 124/99 93 Nasal Cannula 2.0 12/21/16 00:00 99 12/20/16 21:32 105 195/105 12/20/16 20:30 105 195/105 12/20/16 20:21 98.0 93 20 199/100 98 Nasal Cannula 2.0 12/20/16 20:00 102 12/20/16 19:55 95 Nasal Cannula 2.0 28 12/20/16 19:55 Nasal Cannula 2.0 28 12/20/16 17:24 70 162/87 12/20/16 16:45 Nasal Cannula 2.0 12/20/16 16:00 70 Height (Feet): 5 Height (Inches): 7.00 Weight (Pounds): 306 Objective GENERAL: non toxic appearing. O2 via Nasal cannula. mentating well. HEENT: He has no cervical lymphadenopathy. No pharyngeal injection or exudate and he has no conjunctival injection and his sclerae are anicteric. CARDIOVASCULAR: No murmurs appreciated. L sided chest wall tunneled cath in place now. PULMONARY: Decreased breath sounds at the bases with poor inspiratory effort. No wheezes or rhonchi appreciated. ABDOMEN: Healed right upper quadrant surgical scar from prior cholecystectomy, obese abdomen, nontender to palpation in all quadrants, and hypoactive bowel sounds. GENITOURINARY: Circumcised. No scrotal edema. No rash. no claudio in place EXTREMITIES: 1+ bilateral lower extremity edema. Right upper extremity in post-op dressing prox to elbow. R hand swollen but non tender, not erythematous, NVI distally. R femoral cath in place c/d/i. LUE diffusely edematous w/o cyanosis. SKIN: s/p removal of R chest wall Port-a-cath on 12/09/16. no erythema, no fluctuance. some bleeding from around L chest wall tunneled HD cath. MSK: no pain to palpation over spinous processes, no cva tenderness to percussion. Neuro: non focal Laboratory Tests Test 12/20/16 18:55 12/21/16 02:00 12/21/16 04:00 12/21/16 10:05 Activated Partial Thromboplast Time 64 SEC (23-33) H 111 SEC (23-33) H 82 SEC (23-33) H White Blood Count 18.1 K/UL (4.8-10.8) H Red Blood Count 3.31 M/UL (4.70-6.10) L Hemoglobin 9.0 G/DL (14.2-18.0) L Hematocrit 28.8 % (42.0-52.0) L Mean Corpuscular Volume 87 FL (80-99) Mean Corpuscular Hemoglobin 27.4 PG (27.0-31.0) Mean Corpuscular Hemoglobin Concent 31.4 G/DL (32.0-36.0) L Red Cell Distribution Width 13.6 % (11.6-14.8) Platelet Count 383 K/UL (150-450) Mean Platelet Volume 7.3 FL (6.5-10.1) Neutrophils (%) (Auto) % (45.0-75.0) Lymphocytes (%) (Auto) % (20.0-45.0) Monocytes (%) (Auto) % (1.0-10.0) Eosinophils (%) (Auto) % (0.0-3.0) Basophils (%) (Auto) % (0.0-2.0) Differential Total Cells Counted 100 Neutrophils % (Manual) 78 % (45-75) H Lymphocytes % (Manual) 10 % (20-45) L Monocytes % (Manual) 7 % (1-10) Eosinophils % (Manual) 1 % (0-3) Basophils % (Manual) 0 % (0-2) Band Neutrophils 4 % (0-8) Platelet Estimate Increased H Platelet Morphology Normal Polychromasia 1+ Hypochromasia 1+ Sodium Level 133 mEQ/L (135-145) L Potassium Level 4.4 mEQ/L (3.4-4.9) Chloride Level 91 mEQ/L (98-107) L Carbon Dioxide Level 23 mEQ/L (20-30) Anion Gap 19 (5-15) H Blood Urea Nitrogen 49 mg/dL (7-23) H Creatinine 9.4 mg/dL (0.7-1.2) H Estimat Glomerular Filtration Rate 7.2 mL/min (>60) Glucose Level 121 mg/dL (74-106) H Uric Acid 7.4 mg/dL (3.0-7.5) Calcium Level 9.6 mg/dL (8.6-10.2) Phosphorus Level 6.4 mg/dL (2.5-4.8) H Magnesium Level 2.1 mg/dL (1.7-2.5) Total Bilirubin 0.3 mg/dL (0.0-1.2) Aspartate Amino Transf (AST/SGOT) 10 U/L (5-40) Alanine Aminotransferase (ALT/SGPT) 5 U/L (3-41) Alkaline Phosphatase 96 U/L (40-129) Troponin I < 0.30 ng/mL (<=0.30) C-Reactive Protein, Quantitative 20.9 mg/dL (< 0.5) H Pro-B-Type Natriuretic Peptide 3926 pg/mL (0-125) H Total Protein 7.8 g/dL (6.6-8.7) Albumin 3.8 g/dL (3.5-5.2) Globulin 4.0 g/dL Albumin/Globulin Ratio 0.9 (1.0-2.7) L Triglycerides Level 80 mg/dL (< 150) Cholesterol Level 128 mg/dL (< 200) LDL Cholesterol 63 mg/dL (60-99) HDL Cholesterol 49 mg/dL (> 60) Cholesterol/HDL Ratio 2.6 (3.3-4.4) L Prothrombin Time 11.3 SEC (9.30-11.50) Prothromb Time International Ratio 1.1 (0.9-1.1) Current Medications Medications (Trade) Dose Ordered Sig/Jeremy Route PRN Reason Start Time Stop Time Status Last Admin Dose Admin Acetaminophen (Tylenol) 650 mg Q4H PRN ORAL T>100.5 12/17/16 18:30 01/16/17 18:29 12/20/16 03:43 Albuterol/ Ipratropium (DuoNeb 0.5-3(2.5)mg/3ml) 3 ml Q4H PRN HHN Shortness of Breath 12/21/16 13:15 12/26/16 13:14 Amlodipine Besylate (Norvasc) 5 mg BID ORAL 12/21/16 10:00 01/20/17 09:59 12/21/16 11:14 Aspirin (ASA) 81 mg DAILY ORAL 12/18/16 09:00 01/17/17 08:59 12/21/16 08:51 Cefazolin Sodium 50 ml @ 100 mls/hr ONCE A WEEK IVPB 12/18/16 18:00 01/07/17 17:59 12/18/16 17:48 Cefazolin Sodium (Ancef 2gm/50ml premix) 50 ml @ 100 mls/hr ONCE A WEEK IV 12/23/16 18:00 01/06/17 17:59 Cefazolin Sodium 3 gm/Dextrose 110 ml @ 220 mls/hr ONCE A WEEK IVPB 12/20/16 18:00 01/03/17 17:59 12/20/16 17:25 Chlorhexidine Gluconate (Annamarie-Hex 2%) 1 applic BEDTIME TOPIC 12/17/16 21:00 01/16/17 20:59 12/20/16 20:47 Clopidogrel Bisulfate (Plavix) 75 mg DAILY ORAL 12/18/16 09:00 01/17/17 08:59 12/21/16 08:50 Dextrose (Dextrose 50%) STAT PRN IV Hypoglycemia 12/17/16 21:00 01/16/17 20:59 Docusate Sodium (Colace) 100 mg THREE TIMES A DAY ORAL 12/18/16 09:00 01/17/17 08:59 12/21/16 13:55 Epoetin Dionte (Procrit (for ESRD on dialysis)) 10,000 units THU-THU-THU SUBQ 12/17/16 21:00 01/16/17 20:59 12/19/16 21:40 Ergocalciferol (Drisdol) 50,000 intlu QWEEK ORAL 12/21/16 10:00 01/20/17 09:59 12/21/16 09:01 Folic Acid (Folate) 2 mg DAILY ORAL 12/18/16 09:00 01/17/17 08:59 12/21/16 08:51 Gabapentin (Neurontin) 100 mg THREE TIMES A DAY ORAL 12/18/16 09:00 01/17/17 08:59 12/21/16 13:55 Heparin Sodium/ Dextrose (Heparin) 500 ml @ 42.788 mls/ hr adjust per protocol IV 12/21/16 04:00 01/20/17 03:59 12/21/16 11:18 Lorazepam (Ativan 2mg/ml 1ml) 2 mg Q2H PRN IV For Anxiety 12/17/16 18:30 12/24/16 18:29 Morphine Sulfate (Morphine Sulfate) 4 mg Q2H PRN IVP PAIN 4-10 12/17/16 18:30 12/24/16 18:29 12/21/16 08:52 Nitroglycerin 0.4 mg 0.4 mg Q5M PRN SL Prn Chest Pain 12/20/16 10:30 01/19/17 10:29 12/20/16 10:35 Ondansetron HCl (Zofran) 4 mg Q6H PRN IVP Nausea & Vomiting 12/17/16 18:30 01/16/17 18:29 12/21/16 14:23 Pantoprazole (Protonix) 40 mg EVERY 12 HOURS ORAL 12/17/16 21:00 01/16/17 20:59 12/21/16 08:51 Polyethylene Glycol 17 gm 17 gm DAILYPRN PRN ORAL Constipation 12/17/16 20:30 01/16/17 20:29 12/21/16 08:50 Sevelamer Carbonate (Renvela) 3,200 mg THREE TIMES A DAY ORAL 12/21/16 09:00 01/20/17 08:59 12/21/16 13:55 Humphrey Arana M.D. Dec 21, 2016 15:02
[2016-12-21] MEDS ORDERED: NS 275ml ONE (15:09)
[2016-12-21] MEDS ORDERED: Tubing IV Secondary IV ONE (15:09)
--- NOTE | 2016-12-21 17:01 | Cardiology Report ---
APPROVED REPORT EKG Measurement Heart [id number] CT 208P67 [id number] Normal sinus rhythm with sinus arrhythmia Left axis deviation Right bundle branch block Abnormal ECG
--- NOTE | 2016-12-21 17:48 | Diagnostic Imaging Report ---
APPROVED REPORT CPT Code: 24192 Present Symptoms Upper Extremity Pain: Left Shortness of breath 2D Evaluation LEFT UPPER EXTREMITY: Venous imaging reveals acute thrombus in the jugular, subclavian, axillary, brachial and the radial and ulnarl veins. The basilic and cephalic veins were also thrombosed. DERRICK Parker was notified of the abnormal results at 10:00 hours.
[2016-12-21] MEDS: Dyna-Hex 2% Top Sol 8oz TOPIC SCH (20:39)
[2016-12-22] VITALS (16 sets, daily range): BP systolic 111–184; BP diastolic 46–97
[2016-12-22 04:35] LABS: MEAN CORPUSCULAR HEMOGLOBIN 27.3 PG (27.0-31.0); MEAN CORPUSCULAR HGB CONC 31.3 G/DL (32.0-36.0); MEAN CORPUSCULAR VOLUME 87 FL (80-99); MEAN PLATELET VOLUME 7.5 FL (6.5-10.1); PLATELET COUNT 388 K/UL (150-450); RED BLOOD COUNT 3.19 M/UL (4.70-6.10); RED CELL DISTRIBUTION WIDTH 13.9 % (11.6-14.8)
[2016-12-22 04:48] LABS: WHITE BLOOD COUNT 23.5 K/UL (4.8-10.8)
[2016-12-22 04:59] LABS: CALCIUM 10.2 mg/dL (8.6-10.2); CREATININE 10.7 mg/dL (0.7-1.2); GLOMERULAR FILTRATION RATE 6.2 mL/min (>60)
[2016-12-22 05:00] LABS: PROTHROMBIN TIME 10.8 SEC (9.30-11.50)
[2016-12-22 05:12] LABS: BAND NEUTROPHILS % (MANUAL) 5 % (0-8); EOSINOPHILS % (MANUAL) 1 % (0-3); LYMPHOCYTES % (MANUAL) 9 % (20-45); NEUTROPHILS % (MANUAL) 82 % (45-75); TOTAL CELLS COUNTED 100
[2016-12-22 05:13] LABS: BASOPHILS % (MANUAL) 0 % (0-2); HYPOCHROMASIA 1+; PLATELET ESTIMATE INCREASED; PLATELET MORPHOLOGY NORMAL
--- NOTE | 2016-12-22 08:01 | Diagnostic Imaging Report ---
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 Subsequent images document opacification of the left innominate vein the left internal jugular catheter Impression: Intraoperative imaging, as described
--- NOTE | 2016-12-22 08:18 | Cardiology Report ---
APPROVED REPORT EKG Measurement Heart [id number] [id number] Normal sinus rhythm Left axis deviation Right bundle branch block Abnormal ECG
[2016-12-22] MEDS: Aspirin Baby 81mg ORAL SCH (09:00)
[2016-12-22] MEDS: Docusate 100mg cap ORAL SCH ×3 (09:00→17:10)
[2016-12-22] MEDS ORDERED: Thrombin 5000 units TOPIC ONE (09:43)
[2016-12-22] MEDS ORDERED: Lidocaine 1% Plain 30 ml INJ ONE ×2 (09:44→14:40)
[2016-12-22] MEDS ORDERED: Heparin 5000 units/ml inj ONE (09:44)
[2016-12-22] MEDS ORDERED: Bacitracin Oint 15gm Tube TOPIC ONE (09:44)
[2016-12-22] MEDS ORDERED: Iothalamate Meglumine 60% 30ML INJ ONE ×3 (09:45→12:34)
[2016-12-22] MEDS ORDERED: Bacitracin 50000 Units Vial ONE (09:45)
[2016-12-22] MEDS ORDERED: Bupivacaine 0.5% Inj 30 ml vial INJ ONE (09:45)
[2016-12-22] MEDS ORDERED: Lidocaine 2% MPF 5ml Vial INJ ONE (09:45)
[2016-12-22] MEDS ORDERED: Ropivacaine 5mg/ml Vial 20ml INJ ONE (10:00)
--- NOTE | 2016-12-22 10:05 | Infectious Diseases Prog Note ---
Assessment/Plan Assessment/Plan A; MSSA sepsis HD line infection Morbid obesity ESRD on HD Anemia Perioperative respiratory failure s/p removal of AV graft & repair of aneurysm DVT of left arm P; Continue cefazolin 2gm IV after each thursday HD, 2gm IV after each HD , and 3gm IV after each Thursday HD, D# s/p clearance of bacteremia. final dose through 21Jan2017. Subjective ROS Limited/Unobtainable: No Respiratory: Reports: other - has sleep apnea, uses BIPAP @ night Cardiovascular: Reports: no symptoms Gastrointestinal/Abdominal: Reports: no symptoms Genitourinary: Reports: no symptoms Musculoskeletal: Reports: other - in left arm, pain Allergies: Coded Allergies: No Known Allergies (Unverified , 12/06/16) Objective Vital Signs Last 24 Hour Vital Signs Date Time Temp Pulse Resp B/P Pulse Ox O2 Delivery O2 Flow Rate FiO2 12/22/16 09:00 99 131/76 12/22/16 08:00 98.4 99 20 131/76 99 Nasal Cannula 12/22/16 07:45 108 18 Nasal Cannula 2.0 28 12/22/16 07:45 100 Nasal Cannula 2.0 28 12/22/16 07:45 Nasal Cannula 2.0 28 12/22/16 07:28 111 12/22/16 04:18 98.1 70 20 146/82 94 Nasal Cannula 2.0 12/22/16 04:00 97 12/22/16 00:21 97.0 99 20 111/46 97 Nasal Cannula 2.0 12/22/16 00:00 97 12/21/16 22:00 160/84 12/21/16 20:30 97.9 100 24 187/108 98 Nasal Cannula 2.0 12/21/16 20:00 Nasal Cannula 2.0 28 12/21/16 20:00 97 Nasal Cannula 2.0 28 12/21/16 20:00 100 12/21/16 20:00 97 18 Nasal Cannula 2.0 28 12/21/16 17:28 64 139/94 12/21/16 17:13 64 139/94 12/21/16 16:00 74 12/21/16 15:42 96.1 87 20 185/120 100 Nasal Cannula 3.0 12/21/16 12:00 74 12/21/16 11:38 97.1 100 20 145/60 98 Nasal Cannula 2.0 12/21/16 11:14 85 145/60 Height (Feet): 5 Height (Inches): 7.00 Weight (Pounds): 307 General Appearance: no acute distress HEENT: mucous membranes moist Respiratory/Chest: decreased breath sounds, other - O2 by nasal canula Cardiovascular: tachycardia Abdomen: soft, non tender Extremities: other - edema of both arms Neurologic/Psychiatric: alert, oriented x 3, responsive Laboratory Tests Test 12/21/16 10:05 12/22/16 04:20 Prothrombin Time 11.3 SEC (9.30-11.50) 10.8 SEC (9.30-11.50) Prothromb Time International Ratio 1.1 (0.9-1.1) 1.0 (0.9-1.1) Activated Partial Thromboplast Time 82 SEC (23-33) H 28 SEC (23-33) White Blood Count 23.5 K/UL (4.8-10.8) *H Red Blood Count 3.19 M/UL (4.70-6.10) L Hemoglobin 8.7 G/DL (14.2-18.0) L Hematocrit 27.8 % (42.0-52.0) L Mean Corpuscular Volume 87 FL (80-99) Mean Corpuscular Hemoglobin 27.3 PG (27.0-31.0) Mean Corpuscular Hemoglobin Concent 31.3 G/DL (32.0-36.0) L Red Cell Distribution Width 13.9 % (11.6-14.8) Platelet Count 388 K/UL (150-450) Mean Platelet Volume 7.5 FL (6.5-10.1) Neutrophils (%) (Auto) % (45.0-75.0) Lymphocytes (%) (Auto) % (20.0-45.0) Monocytes (%) (Auto) % (1.0-10.0) Eosinophils (%) (Auto) % (0.0-3.0) Basophils (%) (Auto) % (0.0-2.0) Differential Total Cells Counted 100 Neutrophils % (Manual) 82 % (45-75) H Lymphocytes % (Manual) 9 % (20-45) L Monocytes % (Manual) 3 % (1-10) Eosinophils % (Manual) 1 % (0-3) Basophils % (Manual) 0 % (0-2) Band Neutrophils 5 % (0-8) Platelet Estimate Increased H Platelet Morphology Normal Hypochromasia 1+ Sodium Level 131 mEQ/L (135-145) L Potassium Level 5.0 mEQ/L (3.4-4.9) H Chloride Level 87 mEQ/L (98-107) L Carbon Dioxide Level 20 mEQ/L (20-30) Anion Gap 24 (5-15) H Blood Urea Nitrogen 64 mg/dL (7-23) H Creatinine 10.7 mg/dL (0.7-1.2) H Estimat Glomerular Filtration Rate 6.2 mL/min (>60) Glucose Level 105 mg/dL (74-106) Calcium Level 10.2 mg/dL (8.6-10.2) Current Medications Medications (Trade) Dose Ordered Sig/Jeremy Route PRN Reason Start Time Stop Time Status Last Admin Dose Admin Acetaminophen (Tylenol) 650 mg Q4H PRN ORAL T>100.5 12/17/16 18:30 01/16/17 18:29 12/20/16 03:43 Albuterol/ Ipratropium 3 ml 3 ml Q4H PRN HHN Shortness of Breath 12/21/16 13:15 12/26/16 13:14 Amlodipine Besylate (Norvasc) 5 mg BID ORAL 12/21/16 10:00 01/20/17 09:59 12/21/16 17:28 Aspirin (ASA) 81 mg DAILY ORAL 12/18/16 09:00 01/17/17 08:59 12/21/16 08:51 Cefazolin Sodium 50 ml @ 100 mls/hr ONCE A WEEK IVPB 12/18/16 18:00 01/07/17 17:59 12/18/16 17:48 Cefazolin Sodium (Ancef 2gm/50ml premix) 50 ml @ 100 mls/hr ONCE ONCE IVPB 12/22/16 18:00 12/22/16 18:29 Cefazolin Sodium (Ancef 2gm/50ml premix) 50 ml @ 100 mls/hr ONCE A WEEK IV 12/23/16 18:00 01/06/17 17:59 Cefazolin Sodium 3 gm/Dextrose 110 ml @ 220 mls/hr ONCE A WEEK IVPB 12/20/16 18:00 01/03/17 17:59 12/20/16 17:25 Chlorhexidine Gluconate (Annamarie-Hex 2%) 1 applic BEDTIME TOPIC 12/17/16 21:00 01/16/17 20:59 12/21/16 20:39 Clopidogrel Bisulfate (Plavix) 75 mg DAILY ORAL 12/18/16 09:00 01/17/17 08:59 12/21/16 08:50 Dextrose (Dextrose 50%) STAT PRN IV Hypoglycemia 12/17/16 21:00 01/16/17 20:59 Docusate Sodium (Colace) 100 mg THREE TIMES A DAY ORAL 12/18/16 09:00 01/17/17 08:59 12/21/16 17:29 Epoetin Dionte (Procrit (for ESRD on dialysis)) 10,000 units THU-THU-THU SUBQ 12/17/16 21:00 01/16/17 20:59 12/19/16 21:40 Ergocalciferol (Drisdol) 50,000 intlu QWEEK ORAL 12/21/16 10:00 01/20/17 09:59 12/21/16 09:01 Folic Acid (Folate) 2 mg DAILY ORAL 12/18/16 09:00 01/17/17 08:59 12/21/16 08:51 Gabapentin (Neurontin) 100 mg THREE TIMES A DAY ORAL 12/18/16 09:00 01/17/17 08:59 12/21/16 17:29 Lorazepam (Ativan 2mg/ml 1ml) 2 mg Q2H PRN IV For Anxiety 12/17/16 18:30 12/24/16 18:29 Morphine Sulfate (Morphine Sulfate) 4 mg Q2H PRN IVP PAIN 4-10 12/17/16 18:30 12/24/16 18:29 12/21/16 08:52 Nitroglycerin (Ntg) 0.4 mg Q5M PRN SL Prn Chest Pain 12/20/16 10:30 01/19/17 10:29 12/20/16 10:35 Ondansetron HCl (Zofran) 4 mg Q6H PRN IVP Nausea & Vomiting 12/17/16 18:30 01/16/17 18:29 12/21/16 20:39 Pantoprazole (Protonix) 40 mg EVERY 12 HOURS ORAL 12/17/16 21:00 01/16/17 20:59 12/21/16 20:39 Polyethylene Glycol 17 gm 17 gm DAILYPRN PRN ORAL Constipation 12/17/16 20:30 01/16/17 20:29 12/21/16 08:50 Sevelamer Carbonate (Renvela) 3,200 mg THREE TIMES A DAY ORAL 12/21/16 09:00 01/20/17 08:59 12/21/16 17:29 KIRBY SEGURA Dec 22, 2016 10:05
--- NOTE | 2016-12-22 10:55 | Pre-Procedure Note/Attestation ---
Pre-Procedure Note/Attestation Complete Prior to Procedure Planned Procedure: not applicable Procedure Narrative: removal of dialysis catheters and placement of new one; venogram with possible angioplasty, stent, thrombectomy, and thrombolysis Indications for Procedure Pre-Operative Diagnosis: arm edema; leukocytosis; ESRD Attestation I attest that I discussed the nature of the procedure; its benefits; risks and complications; and alternatives (and the risks and benefits of such alternatives ), prior to the procedure, with the patient (or the patient's legal retail service representative). I attest that, if there was a reasonable possibility of needing a blood transfusion, the patient (or the patient's legal retail service representative) was given the [place] [facility] [employer] [facility] standardized written summary, pursuant to the Marty [place] Blood Safety Act ([place] Health and Safety Code # 1645, as amended). I attest that I re-evaluated the patient just prior to the surgery and that there has been no change in the patient's H&P, except as documented below: CYNDI LOPES Dec 22, 2016 10:55
[2016-12-22] MEDS ORDERED: LR 1000ml 1,000 ML IVLG SCH (11:36)
--- NOTE | 2016-12-22 11:39 | Immediate Post-Op Evaluation ---
Immediate Post-Op Evalulation Immediate Post-Op Evalulation Procedure: Dialysis catheter change, A-V shunt right UE Date of Evaluation: Dec 22, 2016 Time of Evaluation: 13:30 IV Fluids: 500 Estimated Blood Loss: 50 Blood Pressure Systolic: 157 Blood Pressure Diastolic: 67 Pulse Rate: 61 Respiratory Rate: 22 O2 Sat by Pulse Oximetry: 100 Temperature (Fahrenheit): 98.1 Pain Score (1-10): 0 Nausea: No Vomiting: No Complications No complication Patient Status: awake, patent, none Hydration Status: adequate Drug: None LINDEN ROSE M.D. Dec 22, 2016 11:39
[2016-12-22] MEDS ORDERED: fentaNYL 100 mcg/2 mL IV PRN (11:45)
[2016-12-22] MEDS ORDERED: Cathflo Alteplase 2mg Inj INJ ONE ×3 (12:00→12:30)
--- NOTE | 2016-12-22 13:41 | Brief Operative Note ---
Immediate Post Operative Note Operative Note Pre-op Diagnosis: arm edema; leukocytosis; ESRD Procedure: right arm AV shunt exploration, thrombectomy, resection of aneurysm, excision of stent-graft, repair of brachial artery, permcath placement Post-op Diagnosis: same as pre-op Findings: consistent w/pre-op dx studies Surgeon: Ana Maria Sorenson Anesthesiologist: Sondra Cha Anesthesia: local, MAC Specimen: yes - right groin and left IJ catheter tips for C&S Complications: none Condition: stable Fluids: see anesthesia record Estimated Blood Loss: minimal Drains: none Implant(s) used?: Yes - Trialysis catheter via left CFV CYNDI SORENSON Dec 22, 2016 13:41
--- NOTE | 2016-12-22 14:52 | General Progress Note ---
Assessment/Plan Status: unchanged Status Narrative Post Op Assessment/Plan status: ESRD Admitted with sepsis- Line related , has right permacath put in 12/02 HTN Obesity Anemia DVT left UE Plan: Patient had surgery and all the old catheters were removed and has a new Edgar HD today On heparin for LUE thrombosis Cont per cardio EPO . B12 ,.... monitor H&H add renvela and laxatives Phos and Mag as needed Antibiotics BP control Per orders and per consultants Subjective ROS Limited/Unobtainable: No Constitutional: Reports: malaise Allergies: Coded Allergies: No Known Allergies (Unverified , 12/06/16) Objective Last 24 Hour Vital Signs Date Time Temp Pulse Resp B/P Pulse Ox O2 Delivery O2 Flow Rate FiO2 12/22/16 14:20 76 26 179/79 98 Nasal Cannula 3.0 12/22/16 14:05 61 27 163/65 96 Nasal Cannula 3.0 12/22/16 13:50 89 23 151/76 99 Simple Mask 6.0 12/22/16 13:40 88 22 157/69 99 Simple Mask 6.0 12/22/16 13:30 89 29 167/63 99 Simple Mask 6.0 12/22/16 13:30 61 22 100 12/22/16 13:25 60 28 157/67 99 Simple Mask 6.0 12/22/16 13:20 98.1 71 28 153/72 99 Simple Mask 6.0 12/22/16 09:00 99 131/76 12/22/16 08:00 98.4 99 20 131/76 99 Nasal Cannula 12/22/16 07:45 108 18 Nasal Cannula 2.0 28 12/22/16 07:45 100 Nasal Cannula 2.0 28 12/22/16 07:45 Nasal Cannula 2.0 28 12/22/16 07:28 111 12/22/16 04:18 98.1 70 20 146/82 94 Nasal Cannula 2.0 12/22/16 04:00 97 12/22/16 00:21 97.0 99 20 111/46 97 Nasal Cannula 2.0 12/22/16 00:00 97 12/21/16 22:00 160/84 12/21/16 20:30 97.9 100 24 187/108 98 Nasal Cannula 2.0 12/21/16 20:00 Nasal Cannula 2.0 28 12/21/16 20:00 97 Nasal Cannula 2.0 28 12/21/16 20:00 100 12/21/16 20:00 97 18 Nasal Cannula 2.0 28 12/21/16 17:28 64 139/94 12/21/16 17:13 64 139/94 12/21/16 16:00 74 12/21/16 15:42 96.1 87 20 185/120 100 Nasal Cannula 3.0 Intake and Output 12/21/16 12/22/16 19:00 07:00 Intake Total 453.00 ml 120 ml Balance 453.00 ml 120 ml Intake Oral 120 ml 120 ml IV Total 333.00 ml Laboratory Tests 12/22/16 04:20: White Blood Count 23.5*H, Red Blood Count 3.19L, Hemoglobin 8.7L, Hematocrit 27.8L, Mean Corpuscular Volume 87, Mean Corpuscular Hemoglobin 27.3, Mean Corpuscular Hemoglobin Concent 31.3L, Red Cell Distribution Width 13.9, Platelet Count 388, Mean Platelet Volume 7.5, Neutrophils (%) (Auto) , Lymphocytes (%) (Auto) , Monocytes (%) (Auto) , Eosinophils (%) (Auto) , Basophils (%) (Auto) , Differential Total Cells Counted 100, Neutrophils % ( Manual) 82H, Lymphocytes % (Manual) 9L, Monocytes % (Manual) 3, Eosinophils % ( Manual) 1, Basophils % (Manual) 0, Band Neutrophils 5, Platelet Estimate IncreasedH, Platelet Morphology Normal, Hypochromasia 1+, Prothrombin Time 10.8 , Prothromb Time International Ratio 1.0, Activated Partial Thromboplast Time 28 , Sodium Level 131L, Potassium Level 5.0H, Chloride Level 87L, Carbon Dioxide Level 20, Anion Gap 24H, Blood Urea Nitrogen 64H, Creatinine 10.7H, Estimat Glomerular Filtration Rate 6.2, Glucose Level 105, Calcium Level 10.2 Height (Feet): 5 Height (Inches): 7.00 Weight (Pounds): 307 General Appearance: no apparent distress Objective no other change in PE GENNY JACK Dec 22, 2016 14:52
--- NOTE | 2016-12-22 14:58 | Pulmonology Progress Note ---
Assessment/Plan Problems: (1) DVT (deep venous thrombosis) (2) Sepsis (3) Bacteremia (4) ESRD on hemodialysis (5) Bradycardia (6) Morbid obesity with BMI of 45.0-49.9, adult Assessment/Plan continue Iv abx, afebrile blood cultures are negative now dc femoral line temporary HD access for now av shunt placement on Left arm on Thursday Subjective ROS Limited/Unobtainable: No Interval Events: tolerated the surgery very well Allergies: Coded Allergies: No Known Allergies (Unverified , 12/06/16) Objective Last 24 Hour Vital Signs Date Time Temp Pulse Resp B/P Pulse Ox O2 Delivery O2 Flow Rate FiO2 12/22/16 14:20 76 26 179/79 98 Nasal Cannula 3.0 12/22/16 14:05 61 27 163/65 96 Nasal Cannula 3.0 12/22/16 13:50 89 23 151/76 99 Simple Mask 6.0 12/22/16 13:40 88 22 157/69 99 Simple Mask 6.0 12/22/16 13:30 89 29 167/63 99 Simple Mask 6.0 12/22/16 13:30 61 22 100 12/22/16 13:25 60 28 157/67 99 Simple Mask 6.0 12/22/16 13:20 98.1 71 28 153/72 99 Simple Mask 6.0 12/22/16 09:00 99 131/76 12/22/16 08:00 98.4 99 20 131/76 99 Nasal Cannula 12/22/16 07:45 108 18 Nasal Cannula 2.0 28 12/22/16 07:45 100 Nasal Cannula 2.0 28 12/22/16 07:45 Nasal Cannula 2.0 28 12/22/16 07:28 111 12/22/16 04:18 98.1 70 20 146/82 94 Nasal Cannula 2.0 12/22/16 04:00 97 12/22/16 00:21 97.0 99 20 111/46 97 Nasal Cannula 2.0 12/22/16 00:00 97 12/21/16 22:00 160/84 12/21/16 20:30 97.9 100 24 187/108 98 Nasal Cannula 2.0 12/21/16 20:00 Nasal Cannula 2.0 28 12/21/16 20:00 97 Nasal Cannula 2.0 28 12/21/16 20:00 100 12/21/16 20:00 97 18 Nasal Cannula 2.0 28 12/21/16 17:28 64 139/94 12/21/16 17:13 64 139/94 12/21/16 16:00 74 12/21/16 15:42 96.1 87 20 185/120 100 Nasal Cannula 3.0 Intake and Output 12/21/16 12/22/16 19:00 07:00 Intake Total 453.00 ml 120 ml Balance 453.00 ml 120 ml Intake Oral 120 ml 120 ml IV Total 333.00 ml Objective General Appearance: WD/WN Lines, tubes and drains: peripheral, central line HEENT: normocephalic, atraumatic Neck: non-tender, normal alignment Respiratory/Chest: chest wall non-tender, lungs clear Cardiovascular/Chest: normal peripheral pulses, normal rate Laboratory Tests 12/22/16 04:20: White Blood Count 23.5*H, Red Blood Count 3.19L, Hemoglobin 8.7L, Hematocrit 27.8L, Mean Corpuscular Volume 87, Mean Corpuscular Hemoglobin 27.3, Mean Corpuscular Hemoglobin Concent 31.3L, Red Cell Distribution Width 13.9, Platelet Count 388, Mean Platelet Volume 7.5, Neutrophils (%) (Auto) , Lymphocytes (%) (Auto) , Monocytes (%) (Auto) , Eosinophils (%) (Auto) , Basophils (%) (Auto) , Differential Total Cells Counted 100, Neutrophils % ( Manual) 82H, Lymphocytes % (Manual) 9L, Monocytes % (Manual) 3, Eosinophils % ( Manual) 1, Basophils % (Manual) 0, Band Neutrophils 5, Platelet Estimate IncreasedH, Platelet Morphology Normal, Hypochromasia 1+, Prothrombin Time 10.8 , Prothromb Time International Ratio 1.0, Activated Partial Thromboplast Time 28 , Sodium Level 131L, Potassium Level 5.0H, Chloride Level 87L, Carbon Dioxide Level 20, Anion Gap 24H, Blood Urea Nitrogen 64H, Creatinine 10.7H, Estimat Glomerular Filtration Rate 6.2, Glucose Level 105, Calcium Level 10.2 Current Medications Medications (Trade) Dose Ordered Sig/Jeremy Route PRN Reason Start Time Stop Time Status Last Admin Dose Admin Acetaminophen (Tylenol) 650 mg Q4H PRN ORAL T>100.5 12/17/16 18:30 01/16/17 18:29 12/20/16 03:43 Albuterol/ Ipratropium 3 ml 3 ml Q4H PRN HHN Shortness of Breath 12/21/16 13:15 12/26/16 13:14 Amlodipine Besylate (Norvasc) 5 mg BID ORAL 12/21/16 10:00 01/20/17 09:59 12/21/16 17:28 Aspirin (ASA) 81 mg DAILY ORAL 12/18/16 09:00 01/17/17 08:59 12/21/16 08:51 Cefazolin Sodium 50 ml @ 100 mls/hr ONCE A WEEK IVPB 12/18/16 18:00 01/07/17 17:59 12/18/16 17:48 Cefazolin Sodium (Ancef 2gm/50ml premix) 50 ml @ 100 mls/hr ONCE ONCE IVPB 12/22/16 18:00 12/22/16 18:29 Cefazolin Sodium (Ancef 2gm/50ml premix) 50 ml @ 100 mls/hr ONCE A WEEK IV 12/23/16 18:00 01/06/17 17:59 Cefazolin Sodium 3 gm/Dextrose 110 ml @ 220 mls/hr ONCE A WEEK IVPB 12/20/16 18:00 01/03/17 17:59 12/20/16 17:25 Chlorhexidine Gluconate (Annamarie-Hex 2%) 1 applic BEDTIME TOPIC 12/17/16 21:00 01/16/17 20:59 12/21/16 20:39 Clopidogrel Bisulfate (Plavix) 75 mg DAILY ORAL 12/18/16 09:00 01/17/17 08:59 12/21/16 08:50 Dextrose (Dextrose 50%) STAT PRN IV Hypoglycemia 12/17/16 21:00 01/16/17 20:59 Docusate Sodium (Colace) 100 mg THREE TIMES A DAY ORAL 12/18/16 09:00 01/17/17 08:59 12/21/16 17:29 Epoetin Dionte (Procrit (for ESRD on dialysis)) 10,000 units THU-THU-THU SUBQ 12/17/16 21:00 01/16/17 20:59 12/19/16 21:40 Ergocalciferol (Drisdol) 50,000 intlu QWEEK ORAL 12/21/16 10:00 01/20/17 09:59 12/21/16 09:01 Fentanyl Citrate (Sublimaze 100 mcg/2 mL) 25 mcg Q10M PRN IV Moderate Pain (Pain Scale 4-6) 12/22/16 11:45 12/22/16 17:45 Folic Acid (Folate) 2 mg DAILY ORAL 12/18/16 09:00 01/17/17 08:59 12/21/16 08:51 Gabapentin (Neurontin) 100 mg THREE TIMES A DAY ORAL 12/18/16 09:00 01/17/17 08:59 12/21/16 17:29 Lorazepam (Ativan 2mg/ml 1ml) 2 mg Q2H PRN IV For Anxiety 12/17/16 18:30 12/24/16 18:29 Morphine Sulfate (Morphine Sulfate) 4 mg Q2H PRN IVP PAIN 4-10 12/17/16 18:30 12/24/16 18:29 12/21/16 08:52 Nitroglycerin (Ntg) 0.4 mg Q5M PRN SL Prn Chest Pain 12/20/16 10:30 01/19/17 10:29 12/20/16 10:35 Ondansetron HCl (Zofran) 4 mg Q1H PRN IVP Nausea & Vomiting 12/22/16 11:45 12/22/16 17:45 Ondansetron HCl (Zofran) 4 mg Q6H PRN IVP Nausea & Vomiting 12/17/16 18:30 01/16/17 18:29 12/21/16 20:39 Pantoprazole (Protonix) 40 mg EVERY 12 HOURS ORAL 12/17/16 21:00 01/16/17 20:59 12/21/16 20:39 Polyethylene Glycol 17 gm 17 gm DAILYPRN PRN ORAL Constipation 12/17/16 20:30 01/16/17 20:29 12/21/16 08:50 Sevelamer Carbonate (Renvela) 3,200 mg THREE TIMES A DAY ORAL 12/21/16 09:00 01/20/17 08:59 12/21/16 17:29 BERNADETTE COSTA Dec 22, 2016 14:58
[2016-12-22] MEDS ORDERED: ceFAZolin 2gm/50ml Premix 50 ML IVPB ONE (18:00)
--- NOTE | 2016-12-22 19:57 | Cardiology Progress Note ---
Assessment/Plan Assessment/Plan intermittent episodes of av block possible due to FRANCISCO JAVIER francisco javier morbid obesity esrd on hd infected dialysis catheter hs of cardiac tamponade years ago staph bacteremia left arm pain and swelling avoid neg chronotropic agents now postop: right arm AV shunt exploration, thrombectomy, resection of aneurysm , excision of stent-graft, repair of brachial artery, permcath placement no sig pauses iv abx hgb stabel bp now running high but has left arm pain will have duplex of the arm hydralazien adn otehr bp meds Subjective Cardiovascular: Denies: chest pain, lightheadedness Respiratory: Denies: shortness of breath Gastrointestinal/Abdominal: Denies: abdominal pain Subjective left arm swelling is stil present but able to move no choking sesnation he feels that was related to the ett Objective Last 24 Hour Vital Signs Date Time Temp Pulse Resp B/P Pulse Ox O2 Delivery O2 Flow Rate FiO2 12/22/16 19:20 97.0 72 175/79 Nasal Cannula 3.0 12/22/16 17:11 67 138/78 12/22/16 16:03 76 12/22/16 15:45 98.1 67 20 138/78 98 Nasal Cannula 12/22/16 14:50 97.8 75 22 145/97 99 Nasal Cannula 3.0 12/22/16 14:35 85 25 184/80 98 Nasal Cannula 3.0 12/22/16 14:20 76 26 179/79 98 Nasal Cannula 3.0 12/22/16 14:05 61 27 163/65 96 Nasal Cannula 3.0 12/22/16 13:50 89 23 151/76 99 Simple Mask 6.0 12/22/16 13:40 88 22 157/69 99 Simple Mask 6.0 12/22/16 13:30 89 29 167/63 99 Simple Mask 6.0 12/22/16 13:30 61 22 100 12/22/16 13:25 60 28 157/67 99 Simple Mask 6.0 12/22/16 13:20 98.1 71 28 153/72 99 Simple Mask 6.0 12/22/16 09:00 99 131/76 12/22/16 08:00 98.4 99 20 131/76 99 Nasal Cannula 12/22/16 07:45 108 18 Nasal Cannula 2.0 12/22/16 07:45 100 Nasal Cannula 2.0 28 12/22/16 07:45 Nasal Cannula 2.0 28 12/22/16 07:28 111 12/22/16 04:18 98.1 70 20 146/82 94 Nasal Cannula 2.0 12/22/16 04:00 97 12/22/16 00:21 97.0 99 20 111/46 97 Nasal Cannula 2.0 12/22/16 00:00 97 12/21/16 22:00 160/84 12/21/16 20:30 97.9 100 24 187/108 98 Nasal Cannula 2.0 12/21/16 20:00 Nasal Cannula 2.0 28 12/21/16 20:00 97 Nasal Cannula 2.0 28 12/21/16 20:00 100 12/21/16 20:00 97 18 Nasal Cannula 2.0 28 General Appearance: alert Neck: supple Cardiovascular: normal rate, regular rhythm Respiratory/Chest: lungs clear Abdomen: normal bowel sounds, non tender, soft Extremities: trace edema Intake and Output 12/21/16 12/22/16 19:00 07:00 Intake Total 453.00 ml 120 ml Balance 453.00 ml 120 ml Intake Oral 120 ml 120 ml IV Total 333.00 ml Laboratory Tests Test 12/22/16 04:20 White Blood Count 23.5 K/UL (4.8-10.8) *H Red Blood Count 3.19 M/UL (4.70-6.10) L Hemoglobin 8.7 G/DL (14.2-18.0) L Hematocrit 27.8 % (42.0-52.0) L Mean Corpuscular Volume 87 FL (80-99) Mean Corpuscular Hemoglobin 27.3 PG (27.0-31.0) Mean Corpuscular Hemoglobin Concent 31.3 G/DL (32.0-36.0) L Red Cell Distribution Width 13.9 % (11.6-14.8) Platelet Count 388 K/UL (150-450) Mean Platelet Volume 7.5 FL (6.5-10.1) Neutrophils (%) (Auto) % (45.0-75.0) Lymphocytes (%) (Auto) % (20.0-45.0) Monocytes (%) (Auto) % (1.0-10.0) Eosinophils (%) (Auto) % (0.0-3.0) Basophils (%) (Auto) % (0.0-2.0) Differential Total Cells Counted 100 Neutrophils % (Manual) 82 % (45-75) H Lymphocytes % (Manual) 9 % (20-45) L Monocytes % (Manual) 3 % (1-10) Eosinophils % (Manual) 1 % (0-3) Basophils % (Manual) 0 % (0-2) Band Neutrophils 5 % (0-8) Platelet Estimate Increased H Platelet Morphology Normal Hypochromasia 1+ Prothrombin Time 10.8 SEC (9.30-11.50) Prothromb Time International Ratio 1.0 (0.9-1.1) Activated Partial Thromboplast Time 28 SEC (23-33) Sodium Level 131 mEQ/L (135-145) L Potassium Level 5.0 mEQ/L (3.4-4.9) H Chloride Level 87 mEQ/L (98-107) L Carbon Dioxide Level 20 mEQ/L (20-30) Anion Gap 24 (5-15) H Blood Urea Nitrogen 64 mg/dL (7-23) H Creatinine 10.7 mg/dL (0.7-1.2) H Estimat Glomerular Filtration Rate 6.2 mL/min (>60) Glucose Level 105 mg/dL (74-106) Calcium Level 10.2 mg/dL (8.6-10.2) TALAT DEJESUS Dec 22, 2016 19:57
[2016-12-22] MEDS: Dyna-Hex 2% Top Sol 8oz TOPIC SCH (23:07)
[2016-12-22] MEDS: Epogen (for ESRD on dialysis) SUBQ SCH (23:09)
[2016-12-23] VITALS: BP 117/60
[2016-12-23 04:00] VITALS: BP 145/90
[2016-12-23 07:40] LABS: INR 1.1 (0.9-1.1); PROTHROMBIN TIME 11.2 SEC (9.30-11.50)
[2016-12-23 07:41] LABS: MEAN CORPUSCULAR HEMOGLOBIN 27.8 PG (27.0-31.0); MEAN CORPUSCULAR HGB CONC 31.7 G/DL (32.0-36.0); MEAN CORPUSCULAR VOLUME 88 FL (80-99); PLATELET COUNT 373 K/UL (150-450)
[2016-12-23 08:01] VITALS: BP 147/79
[2016-12-23 08:20] LABS: ALBUMIN/GLOBULIN RATIO 0.9 (1.0-2.7); CALCIUM 9.5 mg/dL (8.6-10.2); CREATININE 9.2 mg/dL (0.7-1.2); GLOMERULAR FILTRATION RATE 7.3 mL/min (>60); MAGNESIUM 2.2 mg/dL (1.7-2.5); PHOSPHORUS 7.1 mg/dL (2.5-4.8); POTASSIUM 4.6 mEQ/L (3.4-4.9); TOTAL PROTEIN 7.3 g/dL (6.6-8.7); URIC ACID 6.5 mg/dL (3.0-7.5)
[2016-12-23 08:35] LABS: CRP QUANT 32.3 mg/dL (< 0.5)
[2016-12-23] MEDS: Docusate 100mg cap ORAL SCH ×3 (09:11→17:15)
[2016-12-23] MEDS: Aspirin Baby 81mg ORAL SCH (09:11)
[2016-12-23] MEDS: Miralax 17gm pkt ORAL PRN ×2 (09:11→09:12)
--- NOTE | 2016-12-23 09:53 | 48 Hour Post Anesthesia Eval ---
Post Anesthesia Evaluation Procedure: Dialysis catheter change, A-V shunt right UE Date of Evaluation: Dec 23, 2016 Time of Evaluation: 15:00 Blood Pressure Systolic: 147 0: 79 Pulse Rate: 88 Respiratory Rate: 20 Temperature (Fahrenheit): 97.0 O2 Sat by Pulse Oximetry: 99 Airway: patent Nausea: No Vomiting: No Pain Intensity: 3 Hydration Status: adequate Cardiopulmonary Status: Stable Mental Status/LOC: patient returned to baseline Follow-up Care/Observations: As per surgery and critical care. Patient discharged from the ICU to the floor. Post-Anesthesia Complications: No anesthetic complication Follow-up care needed: N/A LINDEN ROSE M.D. Dec 23, 2016 09:53
[2016-12-23 09:57] LABS: BAND NEUTROPHILS % (MANUAL) 0 % (0-8); BASOPHILS % (MANUAL) 0 % (0-2); EOSINOPHILS % (MANUAL) 1 % (0-3); HYPOCHROMASIA 2+; LYMPHOCYTES % (MANUAL) 2 % (20-45); NEUTROPHILS % (MANUAL) 91 % (45-75); NUCLEATED RED BLOOD CELLS 1 /100 WBC; PLATELET MORPHOLOGY NORMAL; TOTAL CELLS COUNTED 100
[2016-12-23 09:58] LABS: PLATELET ESTIMATE INCREASED
[2016-12-23] MEDS ORDERED: NS 275ml ONE (10:37)
[2016-12-23] MEDS ORDERED: Tubing IV Secondary IV ONE (10:37)
--- NOTE | 2016-12-23 10:51 | General Progress Note ---
Assessment/Plan Status: unchanged Status Narrative WBC lowering Assessment/Plan status: ESRD Admitted with sepsis- Line related , has right permacath put in 12/02 HTN Obesity Anemia DVT left UE Plan: Patient had surgery and all the old catheters were removed and has a new Edgar HD in am On heparin for LUE thrombosis Cont per cardio EPO . B12 ,.... monitor H&H add renvela and laxatives Phos and Mag as needed Antibiotics BP control Per orders and per consultants Subjective ROS Limited/Unobtainable: No Constitutional: Reports: malaise Allergies: Coded Allergies: No Known Allergies (Unverified , 12/06/16) Objective Last 24 Hour Vital Signs Date Time Temp Pulse Resp B/P Pulse Ox O2 Delivery O2 Flow Rate FiO2 12/23/16 09:53 88 20 99 12/23/16 09:12 88 147/79 12/23/16 08:01 97.0 88 20 147/79 99 Nasal Cannula 3.0 12/23/16 07:58 95 20 Room Air 21 12/23/16 07:57 99 Room Air 21 12/23/16 07:57 Room Air 12/23/16 04:00 98.2 96 21 145/90 99 Nasal Cannula 3.0 12/23/16 04:00 86 12/23/16 00:00 87 12/23/16 00:00 97.7 84 20 117/60 98 Nasal Cannula 3.0 12/22/16 22:48 Nasal Cannula 3.0 12/22/16 22:47 97.4 90 21 140/70 98 Nasal Cannula 3.0 12/22/16 20:00 78 12/22/16 20:00 97.0 74 24 178/79 94 Nasal Cannula 2.0 12/22/16 19:30 Nasal Cannula 2.0 28 12/22/16 19:30 95 Nasal Cannula 2.0 28 12/22/16 19:30 104 20 Nasal Cannula 2.0 28 12/22/16 19:20 Nasal Cannula 3.0 12/22/16 19:20 97.0 72 175/79 Nasal Cannula 3.0 12/22/16 17:11 67 138/78 12/22/16 16:03 76 12/22/16 15:45 98.1 67 20 138/78 98 Nasal Cannula 12/22/16 14:50 97.8 75 22 145/97 99 Nasal Cannula 3.0 12/22/16 14:35 85 25 184/80 98 Nasal Cannula 3.0 12/22/16 14:20 76 26 179/79 98 Nasal Cannula 3.0 12/22/16 14:05 61 27 163/65 96 Nasal Cannula 3.0 12/22/16 13:50 89 23 151/76 99 Simple Mask 6.0 12/22/16 13:40 88 22 157/69 99 Simple Mask 6.0 12/22/16 13:30 89 29 167/63 99 Simple Mask 6.0 12/22/16 13:30 61 22 100 12/22/16 13:25 60 28 157/67 99 Simple Mask 6.0 12/22/16 13:20 98.1 71 28 153/72 99 Simple Mask 6.0 Intake and Output 12/22/16 12/23/16 19:00 07:00 Intake Total 600 ml 50 ml Output Total 50 ml 3200 ml Balance 550 ml -3150 ml IV Total 600 ml 50 ml Hemodialysis UF 3200 ml Estimated Blood Loss 50 ml # Voids 1 Laboratory Tests 12/23/16 06:25: White Blood Count 20.0H, Red Blood Count 2.80L, Hemoglobin 7.8L, Hematocrit 24.6L, Mean Corpuscular Volume 88, Mean Corpuscular Hemoglobin 27.8, Mean Corpuscular Hemoglobin Concent 31.7L, Red Cell Distribution Width 14.0, Platelet Count 373, Mean Platelet Volume 7.0, Neutrophils (%) (Auto) , Lymphocytes (%) (Auto) , Monocytes (%) (Auto) , Eosinophils (%) (Auto) , Basophils (%) (Auto) , Differential Total Cells Counted 100, Neutrophils % ( Manual) 91H, Lymphocytes % (Manual) 2L, Monocytes % (Manual) 6, Eosinophils % ( Manual) 1, Basophils % (Manual) 0, Band Neutrophils 0, Nucleated Red Blood Cells 1, Platelet Estimate IncreasedH, Platelet Morphology Normal, Hypochromasia 2+, Prothrombin Time 11.2, Prothromb Time International Ratio 1.1 , Activated Partial Thromboplast Time 32, Sodium Level 134L, Potassium Level 4.6 , Chloride Level 95L, Carbon Dioxide Level 22, Anion Gap 17H, Blood Urea Nitrogen 47H, Creatinine 9.2H, Estimat Glomerular Filtration Rate 7.3, Glucose Level 127H, Uric Acid 6.5, Calcium Level 9.5, Phosphorus Level 7.1H, Magnesium Level 2.2, Total Bilirubin 0.3, Gamma Glutamyl Transpeptidase 40, Aspartate Amino Transf (AST/SGOT) 9, Alanine Aminotransferase (ALT/SGPT) 5, Alkaline Phosphatase 89, C-Reactive Protein, Quantitative 32.3H, Pro-B-Type Natriuretic Peptide 3284H, Total Protein 7.3, Albumin 3.5, Globulin 3.8, Albumin/Globulin Ratio 0.9L Height (Feet): 5 Height (Inches): 7.00 Weight (Pounds): 307 General Appearance: no apparent distress, lethargic Cardiovascular: regular rhythm Respiratory/Chest: decreased breath sounds Objective no other change in PE GENNY JACK Dec 23, 2016 10:51
[2016-12-23] MEDS ORDERED: Midazolam 2mg/2ml Inj ONE (11:00)
[2016-12-23] MEDS ORDERED: Labetalol 5mg/ml 20ml vial IV ONE (11:00)
[2016-12-23] MEDS ORDERED: NS Irrig 1000ml ONE (11:00)
[2016-12-23] MEDS ORDERED: Sterile Water Irrig 1000ml IRRIG ONE (11:00)
[2016-12-23] MEDS ORDERED: Propofol 200mg/20ml IV ONE (11:00)
--- NOTE | 2016-12-23 11:07 | Diagnostic Imaging Report ---
Indications: Hemodialysis-dependent chronic kidney disease, evaluation for hemodialysis catheter placement of Technique: Superior and inferior vena cava angiograms performed via existing venous access sites by Dr. Sorenson. Total fluoroscopy time 928.5 seconds. 10.5 mgy-meters squared Findings: Comparison: Chest radiograph 12/17/16; total hemodialysis catheter placement 12/15/16; none tunneled hemodialysis catheter placement 12/11/16 Initial venogram performed through indwelling tunneled hemodialysis catheter previously placed via left internal jugular vein with the catheter pulled back to level of subclavian-jugular vein confluence. Filling defects throughout the caudal part of inferior jugular vein and throughout right cephalic vein with thrombus. Contrast extravasation retrograde along the subcutaneous catheter tract. Superior vena cava patent, normal caliber. Subsequent venogram performed via indwelling temporary hemodialysis catheter previously placed via right common femoral vein partially opacifies the inferior vena cava, poorly imaged. IMPRESSION: Intraprocedural changes as described
[2016-12-23 11:49] VITALS: BP 123/73
--- NOTE | 2016-12-23 11:49 | Infectious Diseases Prog Note ---
Assessment/Plan Assessment/Plan A; MSSA sepsis HD line infection Morbid obesity ESRD on HD Anemia Perioperative respiratory failure s/p removal of AV graft & repair of aneurysm DVT of left arm P; Continue cefazolin 2gm IV after each Thursday HD, 2gm IV after each HD , and 3gm IV after each Thursday HD, D# s/p clearance of bacteremia. final dose through 21Jan2017. Subjective ROS Limited/Unobtainable: Yes Allergies: Coded Allergies: No Known Allergies (Unverified , 12/06/16) Objective Vital Signs Last 24 Hour Vital Signs Date Time Temp Pulse Resp B/P Pulse Ox O2 Delivery O2 Flow Rate FiO2 12/23/16 09:53 88 20 99 12/23/16 09:12 88 147/79 12/23/16 08:01 97.0 88 20 147/79 99 Nasal Cannula 3.0 12/23/16 08:00 72 12/23/16 07:58 95 20 Room Air 21 12/23/16 07:57 99 Room Air 21 12/23/16 07:57 Room Air 12/23/16 04:00 98.2 96 21 145/90 99 Nasal Cannula 3.0 12/23/16 04:00 86 12/23/16 00:00 87 12/23/16 00:00 97.7 84 20 117/60 98 Nasal Cannula 3.0 12/22/16 22:48 Nasal Cannula 3.0 12/22/16 22:47 97.4 90 21 140/70 98 Nasal Cannula 3.0 12/22/16 20:00 78 12/22/16 20:00 97.0 74 24 178/79 94 Nasal Cannula 2.0 12/22/16 19:30 Nasal Cannula 2.0 28 12/22/16 19:30 95 Nasal Cannula 2.0 28 12/22/16 19:30 104 20 Nasal Cannula 2.0 28 12/22/16 19:20 Nasal Cannula 3.0 12/22/16 19:20 97.0 72 175/79 Nasal Cannula 3.0 12/22/16 17:11 67 138/78 12/22/16 16:03 76 12/22/16 15:45 98.1 67 20 138/78 98 Nasal Cannula 12/22/16 14:50 97.8 75 22 145/97 99 Nasal Cannula 3.0 12/22/16 14:35 85 25 184/80 98 Nasal Cannula 3.0 12/22/16 14:20 76 26 179/79 98 Nasal Cannula 3.0 12/22/16 14:05 61 27 163/65 96 Nasal Cannula 3.0 12/22/16 13:50 89 23 151/76 99 Simple Mask 6.0 12/22/16 13:40 88 22 157/69 99 Simple Mask 6.0 12/22/16 13:30 89 29 167/63 99 Simple Mask 6.0 12/22/16 13:30 61 22 100 12/22/16 13:25 60 28 157/67 99 Simple Mask 6.0 12/22/16 13:20 98.1 71 28 153/72 99 Simple Mask 6.0 Height (Feet): 5 Height (Inches): 7.00 Weight (Pounds): 307 General Appearance: no acute distress HEENT: mucous membranes moist Respiratory/Chest: lungs clear Cardiovascular: normal rate Abdomen: soft, non tender Extremities: other - edema of upper extremities Neurologic/Psychiatric: other - sleeping Laboratory Tests Test 12/23/16 06:25 White Blood Count 20.0 K/UL (4.8-10.8) H Red Blood Count 2.80 M/UL (4.70-6.10) L Hemoglobin 7.8 G/DL (14.2-18.0) L Hematocrit 24.6 % (42.0-52.0) L Mean Corpuscular Volume 88 FL (80-99) Mean Corpuscular Hemoglobin 27.8 PG (27.0-31.0) Mean Corpuscular Hemoglobin Concent 31.7 G/DL (32.0-36.0) L Red Cell Distribution Width 14.0 % (11.6-14.8) Platelet Count 373 K/UL (150-450) Mean Platelet Volume 7.0 FL (6.5-10.1) Neutrophils (%) (Auto) % (45.0-75.0) Lymphocytes (%) (Auto) % (20.0-45.0) Monocytes (%) (Auto) % (1.0-10.0) Eosinophils (%) (Auto) % (0.0-3.0) Basophils (%) (Auto) % (0.0-2.0) Differential Total Cells Counted 100 Neutrophils % (Manual) 91 % (45-75) H Lymphocytes % (Manual) 2 % (20-45) L Monocytes % (Manual) 6 % (1-10) Eosinophils % (Manual) 1 % (0-3) Basophils % (Manual) 0 % (0-2) Band Neutrophils 0 % (0-8) Nucleated Red Blood Cells 1 /100 WBC Platelet Estimate Increased H Platelet Morphology Normal Hypochromasia 2+ Prothrombin Time 11.2 SEC (9.30-11.50) Prothromb Time International Ratio 1.1 (0.9-1.1) Activated Partial Thromboplast Time 32 SEC (23-33) Sodium Level 134 mEQ/L (135-145) L Potassium Level 4.6 mEQ/L (3.4-4.9) Chloride Level 95 mEQ/L (98-107) L Carbon Dioxide Level 22 mEQ/L (20-30) Anion Gap 17 (5-15) H Blood Urea Nitrogen 47 mg/dL (7-23) H Creatinine 9.2 mg/dL (0.7-1.2) H Estimat Glomerular Filtration Rate 7.3 mL/min (>60) Glucose Level 127 mg/dL (74-106) H Uric Acid 6.5 mg/dL (3.0-7.5) Calcium Level 9.5 mg/dL (8.6-10.2) Phosphorus Level 7.1 mg/dL (2.5-4.8) H Magnesium Level 2.2 mg/dL (1.7-2.5) Total Bilirubin 0.3 mg/dL (0.0-1.2) Gamma Glutamyl Transpeptidase 40 U/L (8-61) Aspartate Amino Transf (AST/SGOT) 9 U/L (5-40) Alanine Aminotransferase (ALT/SGPT) 5 U/L (3-41) Alkaline Phosphatase 89 U/L (40-129) C-Reactive Protein, Quantitative 32.3 mg/dL (< 0.5) H Pro-B-Type Natriuretic Peptide 3284 pg/mL (0-125) H Total Protein 7.3 g/dL (6.6-8.7) Albumin 3.5 g/dL (3.5-5.2) Globulin 3.8 g/dL Albumin/Globulin Ratio 0.9 (1.0-2.7) L Current Medications Medications (Trade) Dose Ordered Sig/Jeremy Route PRN Reason Start Time Stop Time Status Last Admin Dose Admin Acetaminophen (Tylenol) 650 mg Q4H PRN ORAL T>100.5 12/17/16 18:30 01/16/17 18:29 12/20/16 03:43 Albuterol/ Ipratropium (DuoNeb 0.5-3(2.5)mg/3ml) 3 ml Q4H PRN HHN Shortness of Breath 12/21/16 13:15 12/26/16 13:14 Amlodipine Besylate (Norvasc) 5 mg BID ORAL 12/21/16 10:00 01/20/17 09:59 12/23/16 09:12 Aspirin (ASA) 81 mg DAILY ORAL 12/18/16 09:00 01/17/17 08:59 12/23/16 09:11 Cefazolin Sodium 50 ml @ 100 mls/hr ONCE A WEEK IVPB 12/18/16 18:00 01/07/17 17:59 12/18/16 17:48 Cefazolin Sodium (Ancef 2gm/50ml premix) 50 ml @ 100 mls/hr ONCE A WEEK IV 12/23/16 18:00 01/06/17 17:59 Cefazolin Sodium 3 gm/Dextrose 110 ml @ 220 mls/hr ONCE A WEEK IVPB 12/20/16 18:00 01/03/17 17:59 12/20/16 17:25 Chlorhexidine Gluconate (Annamarie-Hex 2%) 1 applic BEDTIME TOPIC 12/17/16 21:00 01/16/17 20:59 12/22/16 23:07 Clopidogrel Bisulfate (Plavix) 75 mg DAILY ORAL 12/18/16 09:00 01/17/17 08:59 12/23/16 09:10 Dextrose (Dextrose 50%) STAT PRN IV Hypoglycemia 12/17/16 21:00 01/16/17 20:59 Docusate Sodium (Colace) 100 mg THREE TIMES A DAY ORAL 12/18/16 09:00 01/17/17 08:59 12/23/16 09:11 Epoetin Dionte (Procrit (for ESRD on dialysis)) 10,000 units MON-WED-THU SUBQ 12/17/16 21:00 01/16/17 20:59 12/22/16 23:09 Ergocalciferol (Drisdol) 50,000 intlu QWEEK ORAL 12/21/16 10:00 01/20/17 09:59 12/21/16 09:01 Folic Acid (Folate) 2 mg DAILY ORAL 12/18/16 09:00 01/17/17 08:59 12/23/16 09:10 Gabapentin (Neurontin) 100 mg THREE TIMES A DAY ORAL 12/18/16 09:00 01/17/17 08:59 12/23/16 09:10 Hydralazine HCl (Apresoline) 10 mg Q4H PRN IV SBP > 165 12/22/16 20:00 01/21/17 19:59 Lorazepam (Ativan 2mg/ml 1ml) 2 mg Q2H PRN IV For Anxiety 12/17/16 18:30 12/24/16 18:29 Morphine Sulfate (Morphine Sulfate) 4 mg Q2H PRN IVP PAIN 4-10 12/17/16 18:30 12/24/16 18:29 12/21/16 08:52 Nitroglycerin (Ntg) 0.4 mg Q5M PRN SL Prn Chest Pain 12/20/16 10:30 01/19/17 10:29 12/20/16 10:35 Ondansetron HCl (Zofran) 4 mg Q6H PRN IVP Nausea & Vomiting 12/17/16 18:30 01/16/17 18:29 12/21/16 20:39 Pantoprazole (Protonix) 40 mg EVERY 12 HOURS ORAL 12/17/16 21:00 01/16/17 20:59 12/23/16 09:11 Polyethylene Glycol 17 gm 17 gm DAILYPRN PRN ORAL Constipation 12/17/16 20:30 01/16/17 20:29 12/23/16 09:12 Sevelamer Carbonate (Renvela) 3,200 mg THREE TIMES A DAY ORAL 12/21/16 09:00 01/20/17 08:59 12/23/16 09:10 KIRBY SEGURA Dec 23, 2016 11:49
[2016-12-23] MEDS ORDERED: ceFAZolin 2gm/50ml Premix 50 ML IV ONE (15:30)
[2016-12-23 15:46] VITALS: BP 135/71
[2016-12-23] MEDS ORDERED: ceFAZolin 2gm/50ml Premix 50 ML IV SCH (18:00)
[2016-12-23 20:00] VITALS: BP 147/76
[2016-12-23] MEDS: Dyna-Hex 2% Top Sol 8oz TOPIC SCH (20:58)
[2016-12-24] VITALS (7 sets, daily range): BP systolic 123–168; BP diastolic 61–110
[2016-12-24] MEDS: Morphine Sulfate 4mg/ml Inj IVP PRN (01:52)
[2016-12-24] MEDS: Miralax 17gm pkt ORAL PRN (08:22)
[2016-12-24] MEDS: Aspirin Baby 81mg ORAL SCH (08:22)
[2016-12-24] MEDS: Docusate 100mg cap ORAL SCH ×3 (08:25→18:43)
--- NOTE | 2016-12-24 10:04 | General Progress Note ---
Assessment/Plan Status: stable Assessment/Plan status: ESRD Admitted with sepsis- Line related , has right permacath put in 12/02 HTN Obesity Anemia DVT left UE Plan: Patient had surgery and all the old catheters were removed and has a new Edgar in left groin HD today On heparin for LUE thrombosis Cont per cardio EPO . B12 ,.... monitor H&H add renvela and laxatives Phos and Mag as needed Antibiotics BP control Per orders and per consultants Subjective ROS Limited/Unobtainable: No Constitutional: Reports: malaise Allergies: Coded Allergies: No Known Allergies (Unverified , 12/06/16) Objective Last 24 Hour Vital Signs Date Time Temp Pulse Resp B/P (MAP) Pulse Ox O2 Delivery O2 Flow Rate FiO2 12/24/16 08:23 91 136/80 12/24/16 07:58 Nasal Cannula 2.0 28 12/24/16 07:56 93 18 Nasal Cannula 2.0 28 12/24/16 07:55 98 Nasal Cannula 2.0 28 12/24/16 07:48 97.5 91 20 136/80 98 Nasal Cannula 2.0 12/24/16 04:00 97.9 95 20 139/75 98 Nasal Cannula 2.0 12/24/16 04:00 68 12/24/16 00:00 97.7 84 17 157/83 99 Nasal Cannula 2.0 12/24/16 00:00 76 12/23/16 20:00 94 12/23/16 20:00 97.9 95 24 147/76 99 Nasal Cannula 2.0 12/23/16 19:52 Nasal Cannula 2.0 28 12/23/16 19:52 95 Nasal Cannula 2.0 28 12/23/16 19:51 100 20 Nasal Cannula 2.0 28 12/23/16 17:15 87 135/71 12/23/16 16:00 87 12/23/16 15:46 97.5 88 20 135/71 97 Nasal Cannula 3.0 12/23/16 12:00 92 12/23/16 11:49 97.7 63 20 123/73 95 Nasal Cannula 3.0 Intake and Output 12/24/16 12/25/16 19:00 07:00 Intake Total 120 ml Balance 120 ml Intake Oral 120 ml Height (Feet): 5 Height (Inches): 7.00 Weight (Pounds): 307 General Appearance: no apparent distress Objective no other change in PE GENNY JACK Dec 24, 2016 10:04
--- NOTE | 2016-12-24 10:16 | Consultation ---
DATE OF CONSULTATION: 12/22/2016 HEMATOLOGY/ONCOLOGY CONSULTATION CONSULTING PHYSICIAN: Sunil Brownlee M.D. REQUESTING PHYSICIAN: Екатерина Pastrana M.D. REASON FOR CONSULTATION: Evaluation of hypercoagulable disorder and anemia. IDENTIFICATION DATA: Dear Dr. Pastrana, The patient is a pleasant 51-year-old male with a past medical history significant for bradycardia, hypertension, end-stage renal disease on hemodialysis, right upper extremity AV fistula, subsequent thrombosis, right PermCath placement and removal, history of anemia, and sleep apnea on CPAP, presents to the hospital with dizziness, shortness of breath, cough, initially diagnosed with pneumonia, urinary tract infection, and treated with antibiotics. He was diagnosed with an infection of his right tunneled hemodialysis catheter. He was seen by Cardiology service who recommended telemetry monitoring with medications. In addition, the patient has been seen by Vascular Surgery and PermCath catheter removed, tip was sent for culture and stain. Hematology service was consulted for evaluation of potential hypercoagulable disorder. The patient is noted to have pain in the left upper extremity with acute thrombosis in the subclavian, axillary, brachial, radial and ulnar vein and therefore Hematology service was consulted. Given the patient's shortness of breath, further imaging was reviewed as well. The patient required a right upper fistula thrombectomy 04:38. Hematology service was consulted for evaluation of potential hypercoagulable disorder given recurrence of clot. PAST MEDICAL HISTORY: As noted above. PAST SURGICAL HISTORY: As reported above. Medications: Currently, hydralazine, cefazolin, albuterol, vitamin D, 05:32, aspirin, Plavix, folic acid, Epogen, lorazepam, and Zofran. ALLERGIES: No known drug allergies. SOCIAL HISTORY: Nonsmoker. No alcohol or illicit drug use. REVIEW OF SYSTEMS: A 12-point review of systems as noted above. PHYSICAL EXAMINATION: GENERAL: The patient is in no acute distress. Vital Signs: Temperature of 97 degrees Fahrenheit, pulse 74, respiratory rate 12, blood pressure 128/79, and 06:22 2 L nasal cannula. Pulmonary: Decreased breath sounds. 06:24 CARDIOVASCULAR: Regular rhythm and rate. No S3 or S4. ABDOMEN: Soft, nontender, and nondistended. EXTREMITIES: Right upper extremity swelling. LABORATORY DATA: Platelet count of 262,000, hemoglobin 8.7, and WBC 24,000. ASSESSMENT AND PLAN: 1. Left upper extremity deep venous thrombosis 07:31 for a hypercoagulable disorder. The patient has multiple risk factors for clotting 07:40 and discussion with Cardiology service. Again, the patient with multiple risk factors for recurrent clots. He is on aspirin and Plavix. 2. Right arm AV shunt. 3. Thrombectomy 08:05. 4. Anemia secondary to kidney disease. Continue Epogen. The patient's iron levels are within normal limits. 5. Decrease in hemoglobin and hematocrit, rule out gastrointestinal bleed. 6. Leukocytosis potentially secondary to infection versus reactive process. 7. Morbid obesity. 8. End-stage renal disease on hemodialysis. 9. Left arm pain and swelling, again the patient with new clot noted on 08:57. Sunil Brownlee M.D. DR: CHELLY JOB#: [id number] CC:
--- NOTE | 2016-12-24 10:44 | General Progress Note ---
Assessment/Plan Assessment/Plan 1. Left upper extremity deep venous thrombosis. The patient has multiple risk factors for clotting. --> continue aspirin and plavix. --> Hold off on systemic anticoag given persistent anemia --> duplex scan of legs needed, pending. 2. S/p removal of AV graft 3. Anemia secondary to kidney disease. Continue Epogen. The patient's iron levels are within normal limits. 4. Decrease in hemoglobin and hematocrit, rule out gastrointestinal bleed. 5. Leukocytosis potentially secondary to infection versus reactive process. 6. Morbid obesity. 7. End-stage renal disease on hemodialysis. 8. Left arm pain and swelling, again the patient with new clot Subjective Date patient seen: Dec 23, 2016 Constitutional: Reports: no symptoms HEENT: Reports: no symptoms Cardiovascular: Reports: no symptoms Respiratory: Reports: no symptoms Gastrointestinal/Abdominal: Reports: no symptoms Genitourinary: Reports: no symptoms Neurologic/Psychiatric: Reports: no symptoms Endocrine: Reports: no symptoms Hematologic/Lymphatic: Reports: anemia Allergies: Coded Allergies: No Known Allergies (Unverified , 12/06/16) Subjective lethargic Objective Last 24 Hour Vital Signs Date Time Temp Pulse Resp B/P (MAP) Pulse Ox O2 Delivery O2 Flow Rate FiO2 12/24/16 08:23 91 136/80 12/24/16 07:58 Nasal Cannula 2.0 12/24/16 07:56 93 18 Nasal Cannula 2.0 12/24/16 07:55 98 Nasal Cannula 2.0 12/24/16 07:48 97.5 91 20 136/80 98 Nasal Cannula 2.0 12/24/16 04:00 97.9 95 20 139/75 98 Nasal Cannula 2.0 12/24/16 04:00 68 12/24/16 00:00 97.7 84 17 157/83 99 Nasal Cannula 2.0 12/24/16 00:00 76 12/23/16 20:00 94 12/23/16 20:00 97.9 95 24 147/76 99 Nasal Cannula 2.0 12/23/16 19:52 Nasal Cannula 2.0 12/23/16 19:52 95 Nasal Cannula 2.0 12/23/16 19:51 100 20 Nasal Cannula 2.0 12/23/16 17:15 87 135/71 12/23/16 16:00 87 12/23/16 15:46 97.5 88 20 135/71 97 Nasal Cannula 3.0 12/23/16 12:00 92 12/23/16 11:49 97.7 63 20 123/73 95 Nasal Cannula 3.0 Intake and Output 12/24/16 12/25/16 19:00 07:00 Intake Total 120 ml Balance 120 ml Intake Oral 120 ml Height (Feet): 5 Height (Inches): 7.00 Weight (Pounds): 307 General Appearance: WD/WN EENT: normal ENT inspection Neck: supple Cardiovascular: normal rate Respiratory/Chest: decreased breath sounds Neurologic: disoriented Skin: warm/dry Sunil Brownlee Dec 24, 2016 10:44
--- NOTE | 2016-12-24 11:59 | Pulmonology Progress Note ---
Assessment/Plan Problems: (1) DVT (deep venous thrombosis) (2) Sepsis (3) Bacteremia (4) ESRD on hemodialysis (5) Bradycardia (6) Morbid obesity with BMI of 45.0-49.9, adult Assessment/Plan continue Iv abx, afebrile blood cultures are negative now dc femoral line temporary HD access for now hematology consult Dr. Gonzalez called av shunt placement on Left arm on Thursday Subjective ROS Limited/Unobtainable: No Interval Events: latte not for 12/23 Constitutional: Reports: no symptoms HEENT: Repors: no symptoms Allergies: Coded Allergies: No Known Allergies (Unverified , 12/06/16) Objective Last 24 Hour Vital Signs Date Time Temp Pulse Resp B/P (MAP) Pulse Ox O2 Delivery O2 Flow Rate FiO2 12/24/16 11:54 97.5 80 20 155/95 97 Nasal Cannula 2.0 12/24/16 08:23 91 136/80 12/24/16 08:00 72 12/24/16 07:58 Nasal Cannula 2.0 28 12/24/16 07:56 93 18 Nasal Cannula 2.0 28 12/24/16 07:55 98 Nasal Cannula 2.0 28 12/24/16 07:48 97.5 91 20 136/80 98 Nasal Cannula 2.0 12/24/16 04:00 97.9 95 20 139/75 98 Nasal Cannula 2.0 12/24/16 04:00 68 12/24/16 00:00 97.7 84 17 157/83 99 Nasal Cannula 2.0 12/24/16 00:00 76 12/23/16 20:00 94 12/23/16 20:00 97.9 95 24 147/76 99 Nasal Cannula 2.0 12/23/16 19:52 Nasal Cannula 2.0 28 12/23/16 19:52 95 Nasal Cannula 2.0 28 12/23/16 19:51 100 20 Nasal Cannula 2.0 28 12/23/16 17:15 87 135/71 12/23/16 16:00 87 12/23/16 15:46 97.5 88 20 135/71 97 Nasal Cannula 3.0 12/23/16 12:00 92 Intake and Output 12/24/16 12/25/16 19:00 07:00 Intake Total 120 ml Balance 120 ml Intake Oral 120 ml Objective General Appearance: WD/WN Lines, tubes and drains: peripheral, central line HEENT: normocephalic, atraumatic Neck: non-tender, normal alignment Respiratory/Chest: chest wall non-tender, lungs clear Cardiovascular/Chest: normal peripheral pulses, normal rate Current Medications Medications (Trade) Dose Ordered Sig/Jeremy Route PRN Reason Start Time Stop Time Status Last Admin Dose Admin Acetaminophen (Tylenol) 650 mg Q4H PRN ORAL T>100.5 12/17/16 18:30 01/16/17 18:29 12/20/16 03:43 Albuterol/ Ipratropium (DuoNeb 0.5-3(2.5)mg/3ml) 3 ml Q4H PRN HHN Shortness of Breath 12/21/16 13:15 12/26/16 13:14 Amlodipine Besylate (Norvasc) 5 mg BID ORAL 12/21/16 10:00 01/20/17 09:59 12/24/16 08:23 Aspirin (ASA) 81 mg DAILY ORAL 12/18/16 09:00 01/17/17 08:59 12/24/16 08:22 Cefazolin Sodium 50 ml @ 100 mls/hr QWEEK IV 12/24/16 21:00 12/31/16 20:59 Cefazolin Sodium 50 ml @ 100 mls/hr QWEEK IVPB 12/29/16 21:00 01/05/17 20:59 Cefazolin Sodium 3 gm/Dextrose 110 ml @ 220 mls/hr ONCE A WEEK IVPB 12/27/16 21:00 01/03/17 20:59 Chlorhexidine Gluconate (Annamarie-Hex 2%) 1 applic BEDTIME TOPIC 12/17/16 21:00 01/16/17 20:59 12/23/16 20:58 Clopidogrel Bisulfate (Plavix) 75 mg DAILY ORAL 12/18/16 09:00 01/17/17 08:59 12/24/16 08:25 Dextrose (Dextrose 50%) STAT PRN IV Hypoglycemia 12/17/16 21:00 01/16/17 20:59 Docusate Sodium (Colace) 100 mg THREE TIMES A DAY ORAL 12/18/16 09:00 01/17/17 08:59 12/24/16 08:25 Epoetin Dionte (Procrit (for ESRD on dialysis)) 10,000 units MON-WED-THU SUBQ 12/17/16 21:00 01/16/17 20:59 12/22/16 23:09 Ergocalciferol (Drisdol) 50,000 intlu QWEEK ORAL 12/21/16 10:00 01/20/17 09:59 12/21/16 09:01 Folic Acid (Folate) 2 mg DAILY ORAL 12/18/16 09:00 01/17/17 08:59 12/24/16 08:25 Gabapentin (Neurontin) 100 mg THREE TIMES A DAY ORAL 12/18/16 09:00 01/17/17 08:59 12/24/16 09:00 Hydralazine HCl (Apresoline) 10 mg Q4H PRN IV SBP > 165 12/22/16 20:00 01/21/17 19:59 Lorazepam (Ativan 2mg/ml 1ml) 2 mg Q2H PRN IV For Anxiety 12/17/16 18:30 12/24/16 18:29 Morphine Sulfate (Morphine Sulfate) 4 mg Q2H PRN IVP PAIN 4-10 12/17/16 18:30 12/24/16 18:29 12/24/16 01:52 Nitroglycerin (Ntg) 0.4 mg Q5M PRN SL Prn Chest Pain 12/20/16 10:30 01/19/17 10:29 12/20/16 10:35 Ondansetron HCl (Zofran) 4 mg Q6H PRN IVP Nausea & Vomiting 12/17/16 18:30 01/16/17 18:29 12/21/16 20:39 Pantoprazole (Protonix) 40 mg EVERY 12 HOURS ORAL 12/17/16 21:00 01/16/17 20:59 12/24/16 08:25 Polyethylene Glycol (Miralax) 17 gm DAILYPRN PRN ORAL Constipation 12/17/16 20:30 01/16/17 20:29 12/24/16 08:22 Sevelamer Carbonate (Renvela) 3,200 mg THREE TIMES A DAY ORAL 12/21/16 09:00 01/20/17 08:59 12/24/16 08:22 BERNADETTE COSTA Dec 24, 2016 11:59
--- NOTE | 2016-12-24 12:05 | Pulmonology Progress Note ---
Assessment/Plan Problems: (1) DVT (deep venous thrombosis) (2) Sepsis (3) Bacteremia (4) ESRD on hemodialysis (5) Bradycardia (6) Morbid obesity with BMI of 45.0-49.9, adult Assessment/Plan continue Iv abx, afebrile blood cultures are negative now Hd and blood transfusin today hematology consult Dr. Gonzalez note appreciated dc once cleared by other docs Subjective ROS Limited/Unobtainable: No Constitutional: Reports: no symptoms HEENT: Repors: no symptoms Allergies: Coded Allergies: No Known Allergies (Unverified , 12/06/16) Objective Last 24 Hour Vital Signs Date Time Temp Pulse Resp B/P (MAP) Pulse Ox O2 Delivery O2 Flow Rate FiO2 12/24/16 11:54 97.5 80 20 155/95 97 Nasal Cannula 2.0 12/24/16 08:23 91 136/80 12/24/16 08:00 72 12/24/16 07:58 Nasal Cannula 2.0 28 12/24/16 07:56 93 18 Nasal Cannula 2.0 28 12/24/16 07:55 98 Nasal Cannula 2.0 28 12/24/16 07:48 97.5 91 20 136/80 98 Nasal Cannula 2.0 12/24/16 04:00 97.9 95 20 139/75 98 Nasal Cannula 2.0 12/24/16 04:00 68 12/24/16 00:00 97.7 84 17 157/83 99 Nasal Cannula 2.0 12/24/16 00:00 76 12/23/16 20:00 94 12/23/16 20:00 97.9 95 24 147/76 99 Nasal Cannula 2.0 12/23/16 19:52 Nasal Cannula 2.0 28 12/23/16 19:52 95 Nasal Cannula 2.0 28 12/23/16 19:51 100 20 Nasal Cannula 2.0 28 12/23/16 17:15 87 135/71 12/23/16 16:00 87 12/23/16 15:46 97.5 88 20 135/71 97 Nasal Cannula 3.0 Intake and Output 12/24/16 12/25/16 19:00 07:00 Intake Total 120 ml Balance 120 ml Intake Oral 120 ml Objective General Appearance: WD/WN Lines, tubes and drains: peripheral, central line HEENT: normocephalic, atraumatic Neck: non-tender, normal alignment Respiratory/Chest: chest wall non-tender, lungs clear Cardiovascular/Chest: normal peripheral pulses, normal rate Current Medications Medications (Trade) Dose Ordered Sig/Jeremy Route PRN Reason Start Time Stop Time Status Last Admin Dose Admin Acetaminophen (Tylenol) 650 mg Q4H PRN ORAL T>100.5 12/17/16 18:30 01/16/17 18:29 12/20/16 03:43 Albuterol/ Ipratropium (DuoNeb 0.5-3(2.5)mg/3ml) 3 ml Q4H PRN HHN Shortness of Breath 12/21/16 13:15 12/26/16 13:14 Amlodipine Besylate (Norvasc) 5 mg BID ORAL 12/21/16 10:00 01/20/17 09:59 12/24/16 08:23 Aspirin (ASA) 81 mg DAILY ORAL 12/18/16 09:00 01/17/17 08:59 12/24/16 08:22 Cefazolin Sodium 50 ml @ 100 mls/hr QWEEK IV 12/24/16 21:00 12/31/16 20:59 Cefazolin Sodium 50 ml @ 100 mls/hr QWEEK IVPB 12/29/16 21:00 01/05/17 20:59 Cefazolin Sodium 3 gm/Dextrose 110 ml @ 220 mls/hr ONCE A WEEK IVPB 12/27/16 21:00 01/03/17 20:59 Chlorhexidine Gluconate (Annamarie-Hex 2%) 1 applic BEDTIME TOPIC 12/17/16 21:00 01/16/17 20:59 12/23/16 20:58 Clopidogrel Bisulfate (Plavix) 75 mg DAILY ORAL 12/18/16 09:00 01/17/17 08:59 12/24/16 08:25 Dextrose (Dextrose 50%) STAT PRN IV Hypoglycemia 12/17/16 21:00 01/16/17 20:59 Docusate Sodium (Colace) 100 mg THREE TIMES A DAY ORAL 12/18/16 09:00 01/17/17 08:59 12/24/16 08:25 Epoetin Dionte (Procrit (for ESRD on dialysis)) 10,000 units THU-WED-THU SUBQ 12/17/16 21:00 01/16/17 20:59 12/22/16 23:09 Ergocalciferol (Drisdol) 50,000 intlu QWEEK ORAL 12/21/16 10:00 01/20/17 09:59 12/21/16 09:01 Folic Acid (Folate) 2 mg DAILY ORAL 12/18/16 09:00 01/17/17 08:59 12/24/16 08:25 Gabapentin (Neurontin) 100 mg THREE TIMES A DAY ORAL 12/18/16 09:00 01/17/17 08:59 12/24/16 09:00 Hydralazine HCl (Apresoline) 10 mg Q4H PRN IV SBP > 165 12/22/16 20:00 01/21/17 19:59 Lorazepam (Ativan 2mg/ml 1ml) 2 mg Q2H PRN IV For Anxiety 12/17/16 18:30 12/24/16 18:29 Morphine Sulfate (Morphine Sulfate) 4 mg Q2H PRN IVP PAIN 4-10 12/17/16 18:30 12/24/16 18:29 12/24/16 01:52 Nitroglycerin (Ntg) 0.4 mg Q5M PRN SL Prn Chest Pain 12/20/16 10:30 01/19/17 10:29 12/20/16 10:35 Ondansetron HCl (Zofran) 4 mg Q6H PRN IVP Nausea & Vomiting 12/17/16 18:30 01/16/17 18:29 12/21/16 20:39 Pantoprazole (Protonix) 40 mg EVERY 12 HOURS ORAL 12/17/16 21:00 01/16/17 20:59 12/24/16 08:25 Polyethylene Glycol (Miralax) 17 gm DAILYPRN PRN ORAL Constipation 12/17/16 20:30 01/16/17 20:29 12/24/16 08:22 Sevelamer Carbonate (Renvela) 3,200 mg THREE TIMES A DAY ORAL 12/21/16 09:00 01/20/17 08:59 12/24/16 08:22 BERNADETTE COSTA Dec 24, 2016 12:04
[2016-12-24 12:56] LABS: MEAN CORPUSCULAR HEMOGLOBIN 27.4 PG (27.0-31.0); MEAN CORPUSCULAR HGB CONC 31.2 G/DL (32.0-36.0); MEAN CORPUSCULAR VOLUME 88 FL (80-99); MEAN PLATELET VOLUME 5.7 FL (6.5-10.1); PLATELET COUNT 417 K/UL (150-450); RED BLOOD COUNT 2.77 M/UL (4.70-6.10); RED CELL DISTRIBUTION WIDTH 14.2 % (11.6-14.8); WHITE BLOOD COUNT 18.6 K/UL (4.8-10.8)
[2016-12-24 13:12] LABS: EOSINOPHILS % (MANUAL) 4 % (0-3); LYMPHOCYTES % (MANUAL) 12 % (20-45); NEUTROPHILS % (MANUAL) 79 % (45-75); TOTAL CELLS COUNTED 100
[2016-12-24 13:13] LABS: BAND NEUTROPHILS % (MANUAL) 0 % (0-8); BASOPHILS % (MANUAL) 0 % (0-2); PLATELET ESTIMATE ADEQUATE; PLATELET MORPHOLOGY NORMAL
[2016-12-24 13:14] LABS: HYPOCHROMASIA 1+
--- NOTE | 2016-12-24 16:33 | Infectious Diseases Prog Note ---
Assessment/Plan Assessment/Plan ASSESSMENT: 51 y/o AAM, morbidly obese, HTNsive nephropathy, ESRD on THS HD, now with high grade MSSA bacteremia secondary to R chest wall tunneled HD cath tunneled site MSSA infection, s/p removal of cath 12/09/16, with clearance of bacteremia on 12/10/16. s/p RUE AV fistula thrombectomy, resection of aneurysm, excision of endoluminal stent-graft, and placement of tunneled L IJ HD cath on , extubated post-op on 12/16/16, now owith large LUE DVT extending from IJ through subclavian through basilic/cephalic past elbow s/p placement of new L CFV Trialysis cath and venogram on 12/22/16. HD sessions switched to MWF. 1. Sepsis, resolving. 2. high grade MSSA bacteremia, s/p line holiday. 3. Infected HD cath tunnel tract, s/p removal and bedside debridement 12/09/16. 4. Infected RUE fistula thrombus requiring thrombectomy, resection of aneurysm, and excision of endoluminal stent graft on 12/15/16. 5. Pulmonary edema improving s/p extubation 12/16/16. 6. Hypotension, resolved. 7. LUE DVT c/b pain and diffuse edema but exam negative for phlegmasia cerulea dolens. 7. End-stage renal disease, on dialysis. 8. Morbid obesity. 9. FRANCISCO JAVIER 10. TTE on admission negative for obvious Infective Endocarditis. won't recommend GIOVANNA b/c: 1) high risk procedure in his obese FRANCISCO JAVIER patient, 2) we have a clear source (the RUE AVF and the prior R chest wall tunneled cath), 3) any positive finding won't change duration of therapy. 11. leukocytosis, generally stable. no localizing signs/sx of new infection. PLAN: --b/c of new LUE thrombus in [facility] vessels, will extend his abx for 6 weeks from date of negative blood cx. Continue cefazolin 2gm IV after each thursday HD , 2gm IV after each thursday HD, and 3gm IV after each thursday HD, D#14 s/p clearance of bacteremia. final dose through [id number]. -- (12/09 s/p IV vancomycin D#4) --(12/08 s/p amikacin and zosyn D#3) --If he gets dialyzed early, please give an extra dose of Cefazolin 2gm IV after HD. --s/p Vascular surgery consult --Follow cardiopulmonary status and chest x-ray. --monitor CBC --monitor LUE edema. --monitor temperature. 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 Varela. Subjective Constitutional: Reports: no symptoms Respiratory: Reports: shortness of breath Cardiovascular: Reports: no symptoms Gastrointestinal/Abdominal: Reports: no symptoms Skin: Reports: no symptoms Hematologic: Reports: no symptoms Allergies: Coded Allergies: No Known Allergies (Unverified , 12/06/16) Subjective 24 hr events: defervesed . vascular pulled his r chest wall tunneled HD cath on 12/09/16 and had pus tracked along catheter, cx of tip and swab of exudate positive for MSSA. blood cx cleared as of 12/10/16. Objective Vital Signs Last 24 Hour Vital Signs Date Time Temp Pulse Resp B/P (MAP) Pulse Ox O2 Delivery O2 Flow Rate FiO2 12/24/16 16:00 78 12/24/16 15:49 97.2 71 20 168/110 97 Nasal Cannula 2.0 12/24/16 12:00 74 12/24/16 11:54 97.5 80 20 155/95 97 Nasal Cannula 2.0 12/24/16 08:23 91 136/80 12/24/16 08:00 72 12/24/16 07:58 Nasal Cannula 2.0 28 12/24/16 07:56 93 18 Nasal Cannula 2.0 28 12/24/16 07:55 98 Nasal Cannula 2.0 28 12/24/16 07:48 97.5 91 20 136/80 98 Nasal Cannula 2.0 12/24/16 04:00 97.9 95 20 139/75 98 Nasal Cannula 2.0 12/24/16 04:00 68 12/24/16 00:00 97.7 84 17 157/83 99 Nasal Cannula 2.0 12/24/16 00:00 76 12/23/16 20:00 94 12/23/16 20:00 97.9 95 24 147/76 99 Nasal Cannula 2.0 12/23/16 19:52 Nasal Cannula 2.0 28 /22/17 19:52 95 Nasal Cannula 2.0 12/23/16 19:51 100 20 Nasal Cannula 2.0 12/23/16 17:15 87 135/71 Height (Feet): 5 Height (Inches): 7.00 Weight (Pounds): 307 Objective GENERAL: non toxic appearing. O2 via Nasal cannula. mentating well. about to receive HD HEENT: He has no cervical lymphadenopathy. No pharyngeal injection or exudate and he has no conjunctival injection and his sclerae are anicteric. CARDIOVASCULAR: No murmurs appreciated. L chest wall dressing in place PULMONARY: Decreased breath sounds at the bases with poor inspiratory effort. No wheezes or rhonchi appreciated. ABDOMEN: Healed right upper quadrant surgical scar from prior cholecystectomy, obese abdomen, nontender to palpation in all quadrants, and hypoactive bowel sounds. GENITOURINARY: Circumcised. No scrotal edema. No rash. no claudio in place EXTREMITIES: 1+ bilateral lower extremity edema. Right upper extremity sutures c/d/i. R hand swollen but non tender, not erythematous, NVI distally. L CFV Trialysis cath placed in OR 12/22/16. LUE diffusely edematous w /o cyanosis. SKIN: s/p removal of R chest wall Port-a-cath on 12/09/16. no erythema, no fluctuance. MSK: no pain to palpation over spinous processes, no cva tenderness to percussion. Neuro: non focal Laboratory Tests Test 12/24/16 12:15 White Blood Count 18.6 K/UL (4.8-10.8) H Red Blood Count 2.77 M/UL (4.70-6.10) L Hemoglobin 7.6 G/DL (14.2-18.0) L Hematocrit 24.3 % (42.0-52.0) L Mean Corpuscular Volume 88 FL (80-99) Mean Corpuscular Hemoglobin 27.4 PG (27.0-31.0) Mean Corpuscular Hemoglobin Concent 31.2 G/DL (32.0-36.0) L Red Cell Distribution Width 14.2 % (11.6-14.8) Platelet Count 417 K/UL (150-450) Mean Platelet Volume 5.7 FL (6.5-10.1) L Neutrophils (%) (Auto) % (45.0-75.0) Lymphocytes (%) (Auto) % (20.0-45.0) Monocytes (%) (Auto) % (1.0-10.0) Eosinophils (%) (Auto) % (0.0-3.0) Basophils (%) (Auto) % (0.0-2.0) Differential Total Cells Counted 100 Neutrophils % (Manual) 79 % (45-75) H Lymphocytes % (Manual) 12 % (20-45) L Monocytes % (Manual) 5 % (1-10) Eosinophils % (Manual) 4 % (0-3) H Basophils % (Manual) 0 % (0-2) Band Neutrophils 0 % (0-8) Platelet Estimate Adequate Platelet Morphology Normal Hypochromasia 1+ Current Medications Medications (Trade) Dose Ordered Sig/Jeremy Route PRN Reason Start Time Stop Time Status Last Admin Dose Admin Acetaminophen (Tylenol) 650 mg Q4H PRN ORAL T>100.5 12/17/16 18:30 01/16/17 18:29 12/20/16 03:43 Albuterol/ Ipratropium (DuoNeb 0.5-3(2.5)mg/3ml) 3 ml Q4H PRN HHN Shortness of Breath 12/21/16 13:15 12/26/16 13:14 Amlodipine Besylate (Norvasc) 5 mg BID ORAL 12/21/16 10:00 01/20/17 09:59 12/24/16 08:23 Aspirin (ASA) 81 mg DAILY ORAL 12/18/16 09:00 01/17/17 08:59 12/24/16 08:22 Cefazolin Sodium 50 ml @ 100 mls/hr QWEEK IV 12/24/16 21:00 12/31/16 20:59 Cefazolin Sodium 50 ml @ 100 mls/hr QWEEK IVPB 12/29/16 21:00 01/05/17 20:59 Cefazolin Sodium 3 gm/Dextrose 110 ml @ 220 mls/hr ONCE A WEEK IVPB 12/27/16 21:00 01/03/17 20:59 Chlorhexidine Gluconate (Annamarie-Hex 2%) 1 applic BEDTIME TOPIC 12/17/16 21:00 01/16/17 20:59 12/23/16 20:58 Clopidogrel Bisulfate (Plavix) 75 mg DAILY ORAL 12/18/16 09:00 01/17/17 08:59 12/24/16 08:25 Dextrose (Dextrose 50%) STAT PRN IV Hypoglycemia 12/17/16 21:00 01/16/17 20:59 Docusate Sodium (Colace) 100 mg THREE TIMES A DAY ORAL 12/18/16 09:00 01/17/17 08:59 12/24/16 13:23 Epoetin Dionte (Procrit (for ESRD on dialysis)) 10,000 units THU-THU-THU SUBQ 12/17/16 21:00 01/16/17 20:59 12/22/16 23:09 Ergocalciferol (Drisdol) 50,000 intlu QWEEK ORAL 12/21/16 10:00 01/20/17 09:59 12/21/16 09:01 Folic Acid (Folate) 2 mg DAILY ORAL 12/18/16 09:00 01/17/17 08:59 12/24/16 08:25 Gabapentin (Neurontin) 100 mg THREE TIMES A DAY ORAL 12/18/16 09:00 01/17/17 08:59 12/24/16 13:23 Hydralazine HCl (Apresoline) 10 mg Q4H PRN IV SBP > 165 12/22/16 20:00 01/21/17 19:59 Lorazepam (Ativan 2mg/ml 1ml) 2 mg Q2H PRN IV For Anxiety 12/17/16 18:30 12/24/16 18:29 Morphine Sulfate (Morphine Sulfate) 4 mg Q2H PRN IVP PAIN 4-10 12/17/16 18:30 12/24/16 18:29 12/24/16 01:52 Nitroglycerin (Ntg) 0.4 mg Q5M PRN SL Prn Chest Pain 12/20/16 10:30 01/19/17 10:29 12/20/16 10:35 Ondansetron HCl (Zofran) 4 mg Q6H PRN IVP Nausea & Vomiting 12/17/16 18:30 01/16/17 18:29 12/21/16 20:39 Pantoprazole (Protonix) 40 mg EVERY 12 HOURS ORAL 12/17/16 21:00 01/16/17 20:59 12/24/16 08:25 Polyethylene Glycol (Miralax) 17 gm DAILYPRN PRN ORAL Constipation 12/17/16 20:30 01/16/17 20:29 12/24/16 08:22 Sevelamer Carbonate (Renvela) 3,200 mg THREE TIMES A DAY ORAL 12/21/16 09:00 01/20/17 08:59 12/24/16 13:23 Humphrey Arana M.D. Dec 24, 2016 16:33
--- NOTE | 2016-12-24 17:55 | General Progress Note ---
Assessment/Plan Assessment/Plan 1. Left upper extremity deep venous thrombosis. The patient has multiple risk factors for clotting. --> continue aspirin and plavix. --> Hold off on systemic anticoag given persistent anemia --> duplex scan of legs needed, still pending. 2. S/p removal of AV graft 3. Anemia secondary to kidney disease. Continue Epogen. The patient's iron levels are within normal limits. --> monitor counts --> ok to transfuse if hgb below 8 4. Decrease in hemoglobin and hematocrit, rule out gastrointestinal bleed. 5. Leukocytosis potentially secondary to infection versus reactive process. --> improving 6. Morbid obesity. 7. End-stage renal disease on hemodialysis. 8. Left arm pain and swelling 2/2 thrombosis Subjective Constitutional: Reports: no symptoms HEENT: Reports: no symptoms Cardiovascular: Reports: no symptoms Respiratory: Reports: no symptoms Gastrointestinal/Abdominal: Reports: no symptoms Genitourinary: Reports: no symptoms Neurologic/Psychiatric: Reports: no symptoms Endocrine: Reports: no symptoms Hematologic/Lymphatic: Reports: anemia Allergies: Coded Allergies: No Known Allergies (Unverified , 12/06/16) Subjective HD and blood transfusion today Objective Last 24 Hour Vital Signs Date Time Temp Pulse Resp B/P (MAP) Pulse Ox O2 Delivery O2 Flow Rate FiO2 12/24/16 16:00 78 12/24/16 15:49 97.2 71 20 168/110 97 Nasal Cannula 2.0 12/24/16 12:00 74 12/24/16 11:54 97.5 80 20 155/95 97 Nasal Cannula 2.0 12/24/16 08:23 91 136/80 12/24/16 08:00 72 12/24/16 07:58 Nasal Cannula 2.0 28 12/24/16 07:56 93 18 Nasal Cannula 2.0 28 12/24/16 07:55 98 Nasal Cannula 2.0 28 12/24/16 07:48 97.5 91 20 136/80 98 Nasal Cannula 2.0 12/24/16 04:00 97.9 95 20 139/75 98 Nasal Cannula 2.0 12/24/16 04:00 68 12/24/16 00:00 97.7 84 17 157/83 99 Nasal Cannula 2.0 12/24/16 00:00 76 12/23/16 20:00 94 12/23/16 20:00 97.9 95 24 147/76 99 Nasal Cannula 2.0 12/23/16 19:52 Nasal Cannula 2.0 28 12/23/16 19:52 95 Nasal Cannula 2.0 28 12/23/16 19:51 100 20 Nasal Cannula 2.0 28 Intake and Output 12/24/16 12/25/16 19:00 07:00 Intake Total 120 ml Balance 120 ml Intake Oral 120 ml Laboratory Tests 12/24/16 12:15: White Blood Count 18.6H, Red Blood Count 2.77L, Hemoglobin 7.6L, Hematocrit 24.3L, Mean Corpuscular Volume 88, Mean Corpuscular Hemoglobin 27.4, Mean Corpuscular Hemoglobin Concent 31.2L, Red Cell Distribution Width 14.2, Platelet Count 417, Mean Platelet Volume 5.7L, Neutrophils (%) (Auto) , Lymphocytes (%) (Auto) , Monocytes (%) (Auto) , Eosinophils (%) (Auto) , Basophils (%) (Auto) , Differential Total Cells Counted 100, Neutrophils % ( Manual) 79H, Lymphocytes % (Manual) 12L, Monocytes % (Manual) 5, Eosinophils % ( Manual) 4H, Basophils % (Manual) 0, Band Neutrophils 0, Platelet Estimate Adequate, Platelet Morphology Normal, Hypochromasia 1+ Height (Feet): 5 Height (Inches): 7.00 Weight (Pounds): 307 General Appearance: no apparent distress EENT: normal ENT inspection Abdomen: non tender Skin: warm/dry Sunil Brownlee Dec 24, 2016 17:55
[2016-12-24] MEDS: Dyna-Hex 2% Top Sol 8oz TOPIC SCH (20:30)
[2016-12-24] MEDS ORDERED: ceFAZolin 2gm/50ml Premix 50 ML IV SCH (21:00)
[2016-12-24] MEDS: Epogen (for ESRD on dialysis) SUBQ SCH (21:35)
[2016-12-25 03:49] VITALS: BP 136/68
[2016-12-25 07:13] LABS: MEAN CORPUSCULAR HGB CONC 30.8 G/DL (32.0-36.0); MEAN CORPUSCULAR VOLUME 88 FL (80-99); MEAN PLATELET VOLUME 6.7 FL (6.5-10.1); PLATELET COUNT 407 K/UL (150-450); RED BLOOD COUNT 2.89 M/UL (4.70-6.10); RED CELL DISTRIBUTION WIDTH 13.9 % (11.6-14.8); WHITE BLOOD COUNT 16.7 K/UL (4.8-10.8)
[2016-12-25 08:05] VITALS: BP 124/77
[2016-12-25] MEDS: Aspirin Baby 81mg ORAL SCH (08:42)
[2016-12-25] MEDS: Docusate 100mg cap ORAL SCH ×3 (08:42→18:03)
[2016-12-25 09:03] LABS: BAND NEUTROPHILS % (MANUAL) 0 % (0-8); BASOPHILS % (MANUAL) 0 % (0-2); EOSINOPHILS % (MANUAL) 3 % (0-3); HYPOCHROMASIA 2+; LYMPHOCYTES % (MANUAL) 6 % (20-45); NEUTROPHILS % (MANUAL) 87 % (45-75); PLATELET ESTIMATE INCREASED; PLATELET MORPHOLOGY NORMAL; TOTAL CELLS COUNTED 100
[2016-12-25 09:24] LABS: ALBUMIN/GLOBULIN RATIO 0.8 (1.0-2.7); CALCIUM 9.5 mg/dL (8.6-10.2); CREATININE 9.1 mg/dL (0.7-1.2); CRP QUANT 21.6 mg/dL (< 0.5); GLOMERULAR FILTRATION RATE 7.4 mL/min (>60); PHOSPHORUS 4.1 mg/dL (2.5-4.8); POTASSIUM 4.3 mEQ/L (3.4-4.9); TOTAL PROTEIN 7.2 g/dL (6.6-8.7)
[2016-12-25 10:03] LABS: MEAN CORPUSCULAR HEMOGLOBIN 27.2 PG (27.0-31.0); MEAN CORPUSCULAR HGB CONC 31.1 G/DL (32.0-36.0); MEAN CORPUSCULAR VOLUME 87 FL (80-99); MEAN PLATELET VOLUME 7.2 FL (6.5-10.1); PLATELET COUNT 427 K/UL (150-450); RED BLOOD COUNT 2.96 M/UL (4.70-6.10); WHITE BLOOD COUNT 19.4 K/UL (4.8-10.8)
[2016-12-25 10:40] LABS: BAND NEUTROPHILS % (MANUAL) 0 % (0-8); BASOPHILS % (MANUAL) 0 % (0-2); EOSINOPHILS % (MANUAL) 4 % (0-3); LYMPHOCYTES % (MANUAL) 14 % (20-45); NEUTROPHILS % (MANUAL) 76 % (45-75); PLATELET ESTIMATE INCREASED; PLATELET MORPHOLOGY NORMAL; TOTAL CELLS COUNTED 100
[2016-12-25 10:41] LABS: HYPOCHROMASIA 2+
[2016-12-25 12:13] VITALS: BP 137/73
--- NOTE | 2016-12-25 12:23 | General Progress Note ---
Assessment/Plan Status: stable Status Narrative WBCs lowering Assessment/Plan status: ESRD Admitted with sepsis- Line related , has right permacath put in 12/02 HTN Obesity Anemia DVT left UE Plan: Patient had surgery and all the old catheters were removed and has a new Edgar in left groin Need to have a femoral permacath prior to DC HD in am On heparin for LUE thrombosis Cont per cardio EPO . B12 ,.... monitor H&H add renvela and laxatives Phos and Mag as needed Antibiotics BP control Per orders and per consultants Subjective ROS Limited/Unobtainable: No Constitutional: Reports: malaise Allergies: Coded Allergies: No Known Allergies (Unverified , 12/06/16) Objective Last 24 Hour Vital Signs Date Time Temp Pulse Resp B/P (MAP) Pulse Ox O2 Delivery O2 Flow Rate FiO2 12/25/16 12:13 97.5 104 20 137/73 95 Nasal Cannula 2.0 12/25/16 08:43 99 130/74 12/25/16 08:05 99.1 81 20 124/77 97 Nasal Cannula 2.0 12/25/16 04:00 71 12/25/16 03:49 98.3 99 20 136/68 96 Nasal Cannula 3.0 12/25/16 00:00 102 12/24/16 23:55 98.6 112 21 148/83 98 Nasal Cannula 3.0 12/24/16 20:17 Nasal Cannula 2.0 28 12/24/16 20:17 96 Nasal Cannula 2.0 28 12/24/16 20:15 92 18 Nasal Cannula 2.0 28 12/24/16 20:01 Room Air 2.0 28 12/24/16 20:00 104 12/24/16 19:53 97.8 94 20 123/61 96 Room Air 12/24/16 16:00 78 12/24/16 15:50 Nasal Cannula 2.0 28 12/24/16 15:49 97.2 71 20 168/110 97 Nasal Cannula 2.0 Intake and Output 12/25/16 12/26/16 19:00 07:00 Intake Total 240 ml Balance 240 ml Intake Oral 240 ml Laboratory Tests 12/25/16 05:30: Sodium Level 134L, Potassium Level 4.3, Chloride Level 90L, Carbon Dioxide Level 27, Anion Gap 17H, Blood Urea Nitrogen 46H, Creatinine 9.1H, Estimat Glomerular Filtration Rate 7.4, Glucose Level 126H, Calcium Level 9.5, Phosphorus Level 4.1, Total Bilirubin 0.2, Aspartate Amino Transf (AST/SGOT) 12 , Alanine Aminotransferase (ALT/SGPT) 5, Alkaline Phosphatase 107, C-Reactive Protein, Quantitative 21.6H, Total Protein 7.2, Albumin 3.4L, Globulin 3.8, Albumin/Globulin Ratio 0.8L 12/25/16 06:20: White Blood Count 16.7H, Red Blood Count 2.89L, Hemoglobin 7.8L, Hematocrit 25.3L, Mean Corpuscular Volume 88, Mean Corpuscular Hemoglobin 27.0, Mean Corpuscular Hemoglobin Concent 30.8L, Red Cell Distribution Width 13.9, Platelet Count 407, Mean Platelet Volume 6.7, Neutrophils (%) (Auto) , Lymphocytes (%) (Auto) , Monocytes (%) (Auto) , Eosinophils (%) (Auto) , Basophils (%) (Auto) , Differential Total Cells Counted 100, Neutrophils % ( Manual) 87H, Lymphocytes % (Manual) 6L, Monocytes % (Manual) 4, Eosinophils % ( Manual) 3, Basophils % (Manual) 0, Band Neutrophils 0, Platelet Estimate IncreasedH, Platelet Morphology Normal, Hypochromasia 2+ 12/25/16 09:15: White Blood Count 19.4H, Red Blood Count 2.96L, Hemoglobin 8.0L, Hematocrit 25.8L, Mean Corpuscular Volume 87, Mean Corpuscular Hemoglobin 27.2, Mean Corpuscular Hemoglobin Concent 31.1L, Red Cell Distribution Width 14.0, Platelet Count 427, Mean Platelet Volume 7.2, Neutrophils (%) (Auto) , Lymphocytes (%) (Auto) , Monocytes (%) (Auto) , Eosinophils (%) (Auto) , Basophils (%) (Auto) , Differential Total Cells Counted 100, Neutrophils % ( Manual) 76H, Lymphocytes % (Manual) 14L, Monocytes % (Manual) 6, Eosinophils % ( Manual) 4H, Basophils % (Manual) 0, Band Neutrophils 0, Platelet Estimate IncreasedH, Platelet Morphology Normal, Hypochromasia 2+ Height (Feet): 5 Height (Inches): 7.00 Weight (Pounds): 307 General Appearance: no apparent distress Objective no other change in PE GENNY JACK Dec 25, 2016 12:23
--- NOTE | 2016-12-25 13:36 | Pulmonology Progress Note ---
Assessment/Plan Problems: (1) DVT (deep venous thrombosis) (2) Sepsis (3) Bacteremia (4) ESRD on hemodialysis (5) Bradycardia (6) Morbid obesity with BMI of 45.0-49.9, adult Assessment/Plan continue Iv abx, afebrile, wbc stable blood cultures are negative now Permacath by radiology today then he can be discharged. hematology consult Dr. Gonzalez note appreciated Subjective ROS Limited/Unobtainable: No Constitutional: Reports: no symptoms HEENT: Repors: no symptoms Respiratory: Reports: no symptoms Allergies: Coded Allergies: No Known Allergies (Unverified , 12/06/16) Objective Last 24 Hour Vital Signs Date Time Temp Pulse Resp B/P (MAP) Pulse Ox O2 Delivery O2 Flow Rate FiO2 12/25/16 12:13 97.5 104 20 137/73 95 Nasal Cannula 2.0 12/25/16 08:43 99 130/74 12/25/16 08:05 99.1 81 20 124/77 97 Nasal Cannula 2.0 12/25/16 04:00 71 12/25/16 03:49 98.3 99 20 136/68 96 Nasal Cannula 3.0 12/25/16 00:00 102 12/24/16 23:55 98.6 112 21 148/83 98 Nasal Cannula 3.0 12/24/16 20:17 Nasal Cannula 2.0 28 12/24/16 20:17 96 Nasal Cannula 2.0 28 12/24/16 20:15 92 18 Nasal Cannula 2.0 28 12/24/16 20:01 Room Air 2.0 28 12/24/16 20:00 104 12/24/16 19:53 97.8 94 20 123/61 96 Room Air 12/24/16 16:00 78 12/24/16 15:50 Nasal Cannula 2.0 28 12/24/16 15:49 97.2 71 20 168/110 97 Nasal Cannula 2.0 Intake and Output 12/25/16 12/26/16 19:00 07:00 Intake Total 240 ml Balance 240 ml Intake Oral 240 ml Objective General Appearance: WD/WN Lines, tubes and drains: peripheral, central line HEENT: normocephalic, atraumatic Neck: non-tender, normal alignment Respiratory/Chest: chest wall non-tender, lungs clear Cardiovascular/Chest: normal peripheral pulses, normal rate Laboratory Tests 12/25/16 05:30: Sodium Level 134L, Potassium Level 4.3, Chloride Level 90L, Carbon Dioxide Level 27, Anion Gap 17H, Blood Urea Nitrogen 46H, Creatinine 9.1H, Estimat Glomerular Filtration Rate 7.4, Glucose Level 126H, Calcium Level 9.5, Phosphorus Level 4.1, Total Bilirubin 0.2, Aspartate Amino Transf (AST/SGOT) 12 , Alanine Aminotransferase (ALT/SGPT) 5, Alkaline Phosphatase 107, C-Reactive Protein, Quantitative 21.6H, Total Protein 7.2, Albumin 3.4L, Globulin 3.8, Albumin/Globulin Ratio 0.8L 12/25/16 06:20: White Blood Count 16.7H, Red Blood Count 2.89L, Hemoglobin 7.8L, Hematocrit 25.3L, Mean Corpuscular Volume 88, Mean Corpuscular Hemoglobin 27.0, Mean Corpuscular Hemoglobin Concent 30.8L, Red Cell Distribution Width 13.9, Platelet Count 407, Mean Platelet Volume 6.7, Neutrophils (%) (Auto) , Lymphocytes (%) (Auto) , Monocytes (%) (Auto) , Eosinophils (%) (Auto) , Basophils (%) (Auto) , Differential Total Cells Counted 100, Neutrophils % ( Manual) 87H, Lymphocytes % (Manual) 6L, Monocytes % (Manual) 4, Eosinophils % ( Manual) 3, Basophils % (Manual) 0, Band Neutrophils 0, Platelet Estimate IncreasedH, Platelet Morphology Normal, Hypochromasia 2+ 12/25/16 09:15: White Blood Count 19.4H, Red Blood Count 2.96L, Hemoglobin 8.0L, Hematocrit 25.8L, Mean Corpuscular Volume 87, Mean Corpuscular Hemoglobin 27.2, Mean Corpuscular Hemoglobin Concent 31.1L, Red Cell Distribution Width 14.0, Platelet Count 427, Mean Platelet Volume 7.2, Neutrophils (%) (Auto) , Lymphocytes (%) (Auto) , Monocytes (%) (Auto) , Eosinophils (%) (Auto) , Basophils (%) (Auto) , Differential Total Cells Counted 100, Neutrophils % ( Manual) 76H, Lymphocytes % (Manual) 14L, Monocytes % (Manual) 6, Eosinophils % ( Manual) 4H, Basophils % (Manual) 0, Band Neutrophils 0, Platelet Estimate IncreasedH, Platelet Morphology Normal, Hypochromasia 2+ Current Medications Medications (Trade) Dose Ordered Sig/Jeremy Route PRN Reason Start Time Stop Time Status Last Admin Dose Admin Acetaminophen (Tylenol) 650 mg Q4H PRN ORAL T>100.5 12/17/16 18:30 01/16/17 18:29 12/20/16 03:43 Albuterol/ Ipratropium (DuoNeb 0.5-3(2.5)mg/3ml) 3 ml Q4H PRN HHN Shortness of Breath 12/21/16 13:15 12/26/16 13:14 Amlodipine Besylate (Norvasc) 5 mg BID ORAL 12/21/16 10:00 01/20/17 09:59 12/25/16 08:43 Aspirin (ASA) 81 mg DAILY ORAL 12/18/16 09:00 01/17/17 08:59 12/25/16 08:42 Cefazolin Sodium 50 ml @ 100 mls/hr QWEEK IV 12/24/16 21:00 12/31/16 20:59 12/24/16 20:30 Cefazolin Sodium 50 ml @ 100 mls/hr QWEEK IVPB 12/29/16 21:00 01/05/17 20:59 Cefazolin Sodium 3 gm/Dextrose 110 ml @ 220 mls/hr ONCE A WEEK IVPB 12/27/16 21:00 01/03/17 20:59 Chlorhexidine Gluconate (Annamarie-Hex 2%) 1 applic BEDTIME TOPIC 12/17/16 21:00 01/16/17 20:59 12/24/16 20:30 Clopidogrel Bisulfate (Plavix) 75 mg DAILY ORAL 12/18/16 09:00 01/17/17 08:59 12/25/16 08:42 Dextrose (Dextrose 50%) STAT PRN IV Hypoglycemia 12/17/16 21:00 01/16/17 20:59 Docusate Sodium (Colace) 100 mg THREE TIMES A DAY ORAL 12/18/16 09:00 01/17/17 08:59 12/25/16 08:42 Epoetin Dionte (Procrit (for ESRD on dialysis)) 10,000 units MON-WED-FRI SUBQ 12/17/16 21:00 01/16/17 20:59 12/24/16 21:35 Ergocalciferol (Drisdol) 50,000 intlu QWEEK ORAL 12/21/16 10:00 01/20/17 09:59 12/21/16 09:01 Folic Acid (Folate) 2 mg DAILY ORAL 12/18/16 09:00 01/17/17 08:59 12/25/16 08:42 Gabapentin (Neurontin) 100 mg THREE TIMES A DAY ORAL 12/18/16 09:00 01/17/17 08:59 12/25/16 08:43 Hydralazine HCl (Apresoline) 10 mg Q4H PRN IV SBP > 165 12/22/16 20:00 01/21/17 19:59 Nitroglycerin (Ntg) 0.4 mg Q5M PRN SL Prn Chest Pain 12/20/16 10:30 01/19/17 10:29 12/20/16 10:35 Ondansetron HCl (Zofran) 4 mg Q6H PRN IVP Nausea & Vomiting 12/17/16 18:30 01/16/17 18:29 12/21/16 20:39 Pantoprazole (Protonix) 40 mg EVERY 12 HOURS ORAL 12/17/16 21:00 01/16/17 20:59 12/25/16 08:42 Polyethylene Glycol (Miralax) 17 gm DAILYPRN PRN ORAL Constipation 12/17/16 20:30 01/16/17 20:29 12/24/16 08:22 Sevelamer Carbonate (Renvela) 3,200 mg THREE TIMES A DAY ORAL 12/21/16 09:00 01/20/17 08:59 12/25/16 08:42 BERNADETTE COSTA Dec 25, 2016 13:36
--- NOTE | 2016-12-25 13:38 | Diagnostic Imaging Report ---
APPROVED REPORT CPT Code: 59601 Present Symptoms Upper Extremity Edema: Left DVT of Upper Extremity: Shortness of breath Comments: Hemodialysis patient. Left indwelling tunneled catheter. Prior venous duplex 12/20/2016 LEFT UPPER EXTREMITY: The distal internal jugular vein is thrombosed. The subclavian vein is also thrombosed. Venous imaging reveals patency of the internal jugular vein indwelling tunnelled catheter, the area of the mid subclavian (collaterals noted), axillary and brachial veins. Doppler indicates normal spontaneous flow within these venous segments. The cephalic vein is also thrombosed at the level of the distal axillary vein. The basilic vein is patent. CLEMENCIA Borden was informed of the abnormal results at 11:40 hrs.
--- NOTE | 2016-12-25 14:13 | Infectious Diseases Prog Note ---
Assessment/Plan Assessment/Plan ASSESSMENT: 51 y/o AAM, morbidly obese, HTNsive nephropathy, ESRD on THS HD, now with high grade MSSA bacteremia secondary to R chest wall tunneled HD cath tunneled site MSSA infection, s/p removal of cath 12/09/16, with clearance of bacteremia on 12/10/16. s/p RUE AV fistula thrombectomy, resection of aneurysm, excision of endoluminal stent-graft, and placement of tunneled L IJ HD cath on , extubated post-op on 12/16/16, now with large LUE DVT extending from IJ through subclavian through basilic/cephalic past elbow s/p placement of new L CFV Trialysis cath and venogram on 12/22/16. HD sessions switched to MWF. 1. Sepsis, resolving. 2. high grade MSSA bacteremia, s/p line holiday. 3. Infected HD cath tunnel tract, s/p removal and bedside debridement 12/09/16. 4. Infected RUE fistula thrombus requiring thrombectomy, resection of aneurysm, and excision of endoluminal stent graft on 12/15/16. 5. Pulmonary edema improving s/p extubation 12/16/16. 6. Hypotension, resolved. 7. LUE DVT now with slightly decreased edema. 7. End-stage renal disease, on dialysis. 8. Morbid obesity. 9. FRANCISCO JAVIER 10. TTE on admission negative for obvious Infective Endocarditis. won't recommend GIOVANNA b/c: 1) high risk procedure in his obese FRANCISCO JAVIER patient, 2) we have a clear source (the RUE AVF and the prior R chest wall tunneled cath), 3) any positive finding won't change duration of therapy. 11. leukocytosis, generally stable. no localizing signs/sx of new infection. multiple u/s show no skin/soft tissue abscess in L arm 12. elevated inflammatory markers. CRP 21.6mg/dL today, decreased from 2 days prior. ESR 116mm/hr on 12/18/16. PLAN: --b/c of new LUE thrombus in [place] vessels, will extend his abx for 6 weeks from date of negative blood cx. Continue cefazolin 2gm IV after each thursday HD , 2gm IV after each thursday HD, and 3gm IV after each thursday HD, D#15/ s/p clearance of bacteremia. final dose through [id number]. -- (12/09 s/p IV vancomycin D#4) --(12/08 s/p amikacin and zosyn D#3) --If he gets dialyzed early, please give an extra dose of Cefazolin 2gm IV after HD. --s/p Vascular surgery consult --Follow cardiopulmonary status and chest x-ray. repeat CXR now to document presence of lines/stents. --monitor CBC --monitor LUE edema. --monitor temperature. --monitor bmp at least twice weekly on manager travel antibiotics --repeat ESR now for new baseline. stable for discharge from ID perspective once his vascular issues resolved, to continue outpatient IV cefazolin through dialysis. covering for Dr. Varela. Subjective Constitutional: Reports: no symptoms Respiratory: Reports: no symptoms Cardiovascular: Reports: no symptoms Gastrointestinal/Abdominal: Reports: no symptoms Skin: Reports: no symptoms Musculoskeletal: Reports: swelling Allergies: Coded Allergies: No Known Allergies (Unverified , 12/06/16) Subjective 24 hr events: defervesed . vascular pulled his r chest wall tunneled HD cath on 12/09/16 and had pus tracked along catheter, cx of tip and swab of exudate positive for MSSA. blood cx cleared as of 12/10/16. Objective Vital Signs Last 24 Hour Vital Signs Date Time Temp Pulse Resp B/P (MAP) Pulse Ox O2 Delivery O2 Flow Rate FiO2 12/25/16 12:13 97.5 104 20 137/73 95 Nasal Cannula 2.0 12/25/16 08:43 99 130/74 12/25/16 08:05 99.1 81 20 124/77 97 Nasal Cannula 2.0 12/25/16 04:00 71 12/25/16 03:49 98.3 99 20 136/68 96 Nasal Cannula 3.0 12/25/16 00:00 102 12/24/16 23:55 98.6 112 21 148/83 98 Nasal Cannula 3.0 12/24/16 20:17 Nasal Cannula 2.0 28 12/24/16 20:17 96 Nasal Cannula 2.0 28 12/24/16 20:15 92 18 Nasal Cannula 2.0 28 12/24/16 20:01 Room Air 2.0 28 12/24/16 20:00 104 8/23/17 19:53 97.8 94 20 123/61 96 Room Air 12/24/16 16:00 78 12/24/16 15:50 Nasal Cannula 2.0 28 12/24/16 15:49 97.2 71 20 168/110 97 Nasal Cannula 2.0 Height (Feet): 5 Height (Inches): 7.00 Weight (Pounds): 307 Objective GENERAL: non toxic appearing. com room air. mentating well. HEENT: He has no cervical lymphadenopathy. No pharyngeal injection or exudate and he has no conjunctival injection and his sclerae are anicteric. CARDIOVASCULAR: No murmurs appreciated. L chest wall dressing in place. prior HD cath site c/d/i w/o drainage or erythema PULMONARY: Decreased breath sounds at the bases with improved inspiratory effort. No wheezes or rhonchi appreciated. ABDOMEN: Healed right upper quadrant surgical scar from prior cholecystectomy, obese abdomen, nontender to palpation in all quadrants, and hypoactive bowel sounds. GENITOURINARY: Circumcised. No scrotal edema. No rash. no claudio in place EXTREMITIES: 1+ bilateral lower extremity edema. Right upper extremity sutures c/d/i. R hand swollen but non tender, not erythematous, NVI distally. L CFV Trialysis cath placed in OR 12/22/16. LUE diffusely edematous w /o cyanosis, but edema decreased from yesterday and he has no residual pain. SKIN: s/p removal of R chest wall Port-a-cath on 12/09/16. no erythema, no fluctuance. MSK: no pain to palpation over spinous processes, no cva tenderness to percussion. Neuro: non focal Laboratory Tests Test 12/25/16 05:30 12/25/16 06:20 12/25/16 09:15 Sodium Level 134 mEQ/L (135-145) L Potassium Level 4.3 mEQ/L (3.4-4.9) Chloride Level 90 mEQ/L (98-107) L Carbon Dioxide Level 27 mEQ/L (20-30) Anion Gap 17 (5-15) H Blood Urea Nitrogen 46 mg/dL (7-23) H Creatinine 9.1 mg/dL (0.7-1.2) H Estimat Glomerular Filtration Rate 7.4 mL/min (>60) Glucose Level 126 mg/dL (74-106) H Calcium Level 9.5 mg/dL (8.6-10.2) Phosphorus Level 4.1 mg/dL (2.5-4.8) Total Bilirubin 0.2 mg/dL (0.0-1.2) Aspartate Amino Transf (AST/SGOT) 12 U/L (5-40) Alanine Aminotransferase (ALT/SGPT) 5 U/L (3-41) Alkaline Phosphatase 107 U/L (40-129) C-Reactive Protein, Quantitative 21.6 mg/dL (< 0.5) H Total Protein 7.2 g/dL (6.6-8.7) Albumin 3.4 g/dL (3.5-5.2) L Globulin 3.8 g/dL Albumin/Globulin Ratio 0.8 (1.0-2.7) L White Blood Count 16.7 K/UL (4.8-10.8) H 19.4 K/UL (4.8-10.8) H Red Blood Count 2.89 M/UL (4.70-6.10) L 2.96 M/UL (4.70-6.10) L Hemoglobin 7.8 G/DL (14.2-18.0) L 8.0 G/DL (14.2-18.0) L Hematocrit 25.3 % (42.0-52.0) L 25.8 % (42.0-52.0) L Mean Corpuscular Volume 88 FL (80-99) 87 FL (80-99) Mean Corpuscular Hemoglobin 27.0 PG (27.0-31.0) 27.2 PG (27.0-31.0) Mean Corpuscular Hemoglobin Concent 30.8 G/DL (32.0-36.0) L 31.1 G/DL (32.0-36.0) L Red Cell Distribution Width 13.9 % (11.6-14.8) 14.0 % (11.6-14.8) Platelet Count 407 K/UL (150-450) 427 K/UL (150-450) Mean Platelet Volume 6.7 FL (6.5-10.1) 7.2 FL (6.5-10.1) Neutrophils (%) (Auto) % (45.0-75.0) % (45.0-75.0) Lymphocytes (%) (Auto) % (20.0-45.0) % (20.0-45.0) Monocytes (%) (Auto) % (1.0-10.0) % (1.0-10.0) Eosinophils (%) (Auto) % (0.0-3.0) % (0.0-3.0) Basophils (%) (Auto) % (0.0-2.0) % (0.0-2.0) Differential Total Cells Counted 100 100 Neutrophils % (Manual) 87 % (45-75) H 76 % (45-75) H Lymphocytes % (Manual) 6 % (20-45) L 14 % (20-45) L Monocytes % (Manual) 4 % (1-10) 6 % (1-10) Eosinophils % (Manual) 3 % (0-3) 4 % (0-3) H Basophils % (Manual) 0 % (0-2) 0 % (0-2) Band Neutrophils 0 % (0-8) 0 % (0-8) Platelet Estimate Increased H Increased H Platelet Morphology Normal Normal Hypochromasia 2+ 2+ Current Medications Medications (Trade) Dose Ordered Sig/Jeremy Route PRN Reason Start Time Stop Time Status Last Admin Dose Admin Acetaminophen (Tylenol) 650 mg Q4H PRN ORAL T>100.5 12/17/16 18:30 01/16/17 18:29 12/20/16 03:43 Albuterol/ Ipratropium (DuoNeb 0.5-3(2.5)mg/3ml) 3 ml Q4H PRN HHN Shortness of Breath 12/21/16 13:15 12/26/16 13:14 Amlodipine Besylate (Norvasc) 5 mg BID ORAL 12/21/16 10:00 01/20/17 09:59 12/25/16 08:43 Aspirin (ASA) 81 mg DAILY ORAL 12/18/16 09:00 01/17/17 08:59 12/25/16 08:42 Cefazolin Sodium 50 ml @ 100 mls/hr QWEEK IV 12/24/16 21:00 12/31/16 20:59 12/24/16 20:30 Cefazolin Sodium 50 ml @ 100 mls/hr QWEEK IVPB 12/29/16 21:00 01/05/17 20:59 Cefazolin Sodium 3 gm/Dextrose 110 ml @ 220 mls/hr ONCE A WEEK IVPB 12/27/16 21:00 01/03/17 20:59 Chlorhexidine Gluconate (Annamarie-Hex 2%) 1 applic BEDTIME TOPIC 12/17/16 21:00 01/16/17 20:59 12/24/16 20:30 Clopidogrel Bisulfate (Plavix) 75 mg DAILY ORAL 12/18/16 09:00 01/17/17 08:59 12/25/16 08:42 Dextrose (Dextrose 50%) STAT PRN IV Hypoglycemia 12/17/16 21:00 01/16/17 20:59 Docusate Sodium (Colace) 100 mg THREE TIMES A DAY ORAL 12/18/16 09:00 01/17/17 08:59 12/25/16 08:42 Epoetin Dionte (Procrit (for ESRD on dialysis)) 10,000 units THU-THU-THU SUBQ 12/17/16 21:00 01/16/17 20:59 12/24/16 21:35 Ergocalciferol (Drisdol) 50,000 intlu QWEEK ORAL 12/21/16 10:00 01/20/17 09:59 12/21/16 09:01 Folic Acid (Folate) 2 mg DAILY ORAL 12/18/16 09:00 01/17/17 08:59 12/25/16 08:42 Gabapentin (Neurontin) 100 mg THREE TIMES A DAY ORAL 12/18/16 09:00 01/17/17 08:59 12/25/16 08:43 Hydralazine HCl (Apresoline) 10 mg Q4H PRN IV SBP > 165 12/22/16 20:00 01/21/17 19:59 Nitroglycerin (Ntg) 0.4 mg Q5M PRN SL Prn Chest Pain 12/20/16 10:30 01/19/17 10:29 12/20/16 10:35 Ondansetron HCl (Zofran) 4 mg Q6H PRN IVP Nausea & Vomiting 12/17/16 18:30 01/16/17 18:29 12/21/16 20:39 Pantoprazole (Protonix) 40 mg EVERY 12 HOURS ORAL 12/17/16 21:00 01/16/17 20:59 12/25/16 08:42 Polyethylene Glycol (Miralax) 17 gm DAILYPRN PRN ORAL Constipation 12/17/16 20:30 01/16/17 20:29 12/24/16 08:22 Sevelamer Carbonate (Renvela) 3,200 mg THREE TIMES A DAY ORAL 12/21/16 09:00 01/20/17 08:59 12/25/16 08:42 Humphrey Arana M.D. Dec 25, 2016 14:13
--- NOTE | 2016-12-25 15:31 | Diagnostic Imaging Report ---
Indication: Dyspnea Comparison: 12/17/16 A single view chest radiograph was obtained. Findings: Mild linear densities at the left lung base with slight elevation of the diaphragm consistent with atelectasis. Pulmonary vascularity is mildly prominent but stable compared to last study. There is a right innominate venous stent extending into the SVC. Impression: Mild atelectasis left lung base. Probable mild pulmonary venous congestion.. Please correlate clinically
[2016-12-25 16:01] VITALS: BP 124/78
--- NOTE | 2016-12-25 16:33 | General Progress Note ---
Assessment/Plan Assessment/Plan 1. Left upper extremity deep venous thrombosis. The patient has multiple risk factors for clotting. --> continue aspirin and plavix. --> Hold off on systemic anticoag given persistent anemia --> duplex scan of legs needed, still pending. 2. S/p removal of AV graft 3. Anemia secondary to kidney disease. Continue Epogen. The patient's iron levels are within normal limits. --> monitor counts --> ok to transfuse if hgb below 8 --> s/p transfusion 4. Decrease in hemoglobin and hematocrit, rule out gastrointestinal bleed. 5. Leukocytosis potentially secondary to infection versus reactive process. --> improving 6. Morbid obesity. 7. End-stage renal disease on hemodialysis. 8. Left arm pain and swelling 2/2 thrombosis Subjective Constitutional: Reports: no symptoms HEENT: Reports: no symptoms Cardiovascular: Reports: no symptoms Respiratory: Reports: no symptoms Gastrointestinal/Abdominal: Reports: no symptoms Genitourinary: Reports: no symptoms Neurologic/Psychiatric: Reports: no symptoms Endocrine: Reports: no symptoms Hematologic/Lymphatic: Reports: anemia Allergies: Coded Allergies: No Known Allergies (Unverified , 12/06/16) Subjective afebrile Objective Last 24 Hour Vital Signs Date Time Temp Pulse Resp B/P (MAP) Pulse Ox O2 Delivery O2 Flow Rate FiO2 12/25/16 16:01 98.1 82 21 124/78 95 Room Air 12/25/16 12:13 97.5 104 20 137/73 95 Nasal Cannula 2.0 12/25/16 12:00 94 12/25/16 08:43 99 130/74 12/25/16 08:05 99.1 81 20 124/77 97 Nasal Cannula 2.0 12/25/16 08:00 99 12/25/16 04:00 71 12/25/16 03:49 98.3 99 20 136/68 96 Nasal Cannula 3.0 12/25/16 00:00 102 12/24/16 23:55 98.6 112 21 148/83 98 Nasal Cannula 3.0 12/24/16 20:17 Nasal Cannula 2.0 28 12/24/16 20:17 96 Nasal Cannula 2.0 28 12/24/16 20:15 92 18 Nasal Cannula 2.0 28 12/24/16 20:01 Room Air 2.0 28 12/24/16 20:00 104 12/24/16 19:53 97.8 94 20 123/61 96 Room Air Intake and Output 12/25/16 12/26/16 19:00 07:00 Intake Total 480 ml Balance 480 ml Intake Oral 480 ml Laboratory Tests 12/25/16 05:30: Sodium Level 134L, Potassium Level 4.3, Chloride Level 90L, Carbon Dioxide Level 27, Anion Gap 17H, Blood Urea Nitrogen 46H, Creatinine 9.1H, Estimat Glomerular Filtration Rate 7.4, Glucose Level 126H, Calcium Level 9.5, Phosphorus Level 4.1, Total Bilirubin 0.2, Aspartate Amino Transf (AST/SGOT) 12 , Alanine Aminotransferase (ALT/SGPT) 5, Alkaline Phosphatase 107, C-Reactive Protein, Quantitative 21.6H, Total Protein 7.2, Albumin 3.4L, Globulin 3.8, Albumin/Globulin Ratio 0.8L 12/25/16 06:20: White Blood Count 16.7H, Red Blood Count 2.89L, Hemoglobin 7.8L, Hematocrit 25.3L, Mean Corpuscular Volume 88, Mean Corpuscular Hemoglobin 27.0, Mean Corpuscular Hemoglobin Concent 30.8L, Red Cell Distribution Width 13.9, Platelet Count 407, Mean Platelet Volume 6.7, Neutrophils (%) (Auto) , Lymphocytes (%) (Auto) , Monocytes (%) (Auto) , Eosinophils (%) (Auto) , Basophils (%) (Auto) , Differential Total Cells Counted 100, Neutrophils % ( Manual) 87H, Lymphocytes % (Manual) 6L, Monocytes % (Manual) 4, Eosinophils % ( Manual) 3, Basophils % (Manual) 0, Band Neutrophils 0, Platelet Estimate IncreasedH, Platelet Morphology Normal, Hypochromasia 2+ 12/25/16 09:15: White Blood Count 19.4H, Red Blood Count 2.96L, Hemoglobin 8.0L, Hematocrit 25.8L, Mean Corpuscular Volume 87, Mean Corpuscular Hemoglobin 27.2, Mean Corpuscular Hemoglobin Concent 31.1L, Red Cell Distribution Width 14.0, Platelet Count 427, Mean Platelet Volume 7.2, Neutrophils (%) (Auto) , Lymphocytes (%) (Auto) , Monocytes (%) (Auto) , Eosinophils (%) (Auto) , Basophils (%) (Auto) , Differential Total Cells Counted 100, Neutrophils % ( Manual) 76H, Lymphocytes % (Manual) 14L, Monocytes % (Manual) 6, Eosinophils % ( Manual) 4H, Basophils % (Manual) 0, Band Neutrophils 0, Platelet Estimate IncreasedH, Platelet Morphology Normal, Hypochromasia 2+, Erythrocyte Sedimentation Rate [Pending] Height (Feet): 5 Height (Inches): 7.00 Weight (Pounds): 307 General Appearance: no apparent distress EENT: normal ENT inspection Neck: normal alignment Cardiovascular: normal peripheral pulses Skin: warm/dry Sunil Brownlee Dec 25, 2016 16:33
--- NOTE | 2016-12-25 19:29 | Cardiology Progress Note ---
Assessment/Plan Assessment/Plan intermittent episodes of av block possible due to FRANCISCO JAVIER francisco javier morbid obesity esrd on hd infected dialysis catheter hs of cardiac tamponade years ago staph bacteremia left arm pain and swelling avoid neg chronotropic agents now postop: right arm AV shunt exploration, thrombectomy, resection of aneurysm , excision of stent-graft, repair of brachial artery, permcath placement no sig pauses iv abx hgb stabel bp now better echo Subjective Cardiovascular: Denies: chest pain, lightheadedness Respiratory: Denies: shortness of breath Gastrointestinal/Abdominal: Denies: abdominal pain Genitourinary: Denies: burning Subjective left arm swelling isbetter Objective Last 24 Hour Vital Signs Date Time Temp Pulse Resp B/P (MAP) Pulse Ox O2 Delivery O2 Flow Rate FiO2 12/25/16 18:03 90 120/71 12/25/16 16:01 98.1 82 21 124/78 95 Room Air 12/25/16 16:00 92 12/25/16 12:13 97.5 104 20 137/73 95 Nasal Cannula 2.0 12/25/16 12:00 94 12/25/16 08:43 99 130/74 12/25/16 08:05 99.1 81 20 124/77 97 Nasal Cannula 2.0 12/25/16 08:00 99 12/25/16 06:53 Nasal Cannula 2.0 28 12/25/16 06:52 97 Nasal Cannula 2.0 28 12/25/16 06:51 78 18 Nasal Cannula 2.0 28 12/25/16 04:00 71 12/25/16 03:49 98.3 99 20 136/68 96 Nasal Cannula 3.0 12/25/16 00:00 102 12/24/16 23:55 98.6 112 21 148/83 98 Nasal Cannula 3.0 12/24/16 20:17 Nasal Cannula 2.0 28 12/24/16 20:17 96 Nasal Cannula 2.0 28 12/24/16 20:15 92 18 Nasal Cannula 2.0 28 12/24/16 20:01 Room Air 2.0 28 12/24/16 20:00 104 12/24/16 19:53 97.8 94 20 123/61 96 Room Air General Appearance: no apparent distress, alert Cardiovascular: normal rate, regular rhythm Respiratory/Chest: lungs clear Abdomen: normal bowel sounds, non tender, soft Extremities: moderate edema Intake and Output 12/25/16 12/26/16 19:00 07:00 Intake Total 480 ml Balance 480 ml Intake Oral 480 ml Laboratory Tests Test 12/25/16 05:30 12/25/16 06:20 12/25/16 09:15 Sodium Level 134 mEQ/L (135-145) L Potassium Level 4.3 mEQ/L (3.4-4.9) Chloride Level 90 mEQ/L (98-107) L Carbon Dioxide Level 27 mEQ/L (20-30) Anion Gap 17 (5-15) H Blood Urea Nitrogen 46 mg/dL (7-23) H Creatinine 9.1 mg/dL (0.7-1.2) H Estimat Glomerular Filtration Rate 7.4 mL/min (>60) Glucose Level 126 mg/dL (74-106) H Calcium Level 9.5 mg/dL (8.6-10.2) Phosphorus Level 4.1 mg/dL (2.5-4.8) Total Bilirubin 0.2 mg/dL (0.0-1.2) Aspartate Amino Transf (AST/SGOT) 12 U/L (5-40) Alanine Aminotransferase (ALT/SGPT) 5 U/L (3-41) Alkaline Phosphatase 107 U/L (40-129) C-Reactive Protein, Quantitative 21.6 mg/dL (< 0.5) H Total Protein 7.2 g/dL (6.6-8.7) Albumin 3.4 g/dL (3.5-5.2) L Globulin 3.8 g/dL Albumin/Globulin Ratio 0.8 (1.0-2.7) L White Blood Count 16.7 K/UL (4.8-10.8) H 19.4 K/UL (4.8-10.8) H Red Blood Count 2.89 M/UL (4.70-6.10) L 2.96 M/UL (4.70-6.10) L Hemoglobin 7.8 G/DL (14.2-18.0) L 8.0 G/DL (14.2-18.0) L Hematocrit 25.3 % (42.0-52.0) L 25.8 % (42.0-52.0) L Mean Corpuscular Volume 88 FL (80-99) 87 FL (80-99) Mean Corpuscular Hemoglobin 27.0 PG (27.0-31.0) 27.2 PG (27.0-31.0) Mean Corpuscular Hemoglobin Concent 30.8 G/DL (32.0-36.0) L 31.1 G/DL (32.0-36.0) L Red Cell Distribution Width 13.9 % (11.6-14.8) 14.0 % (11.6-14.8) Platelet Count 407 K/UL (150-450) 427 K/UL (150-450) Mean Platelet Volume 6.7 FL (6.5-10.1) 7.2 FL (6.5-10.1) Neutrophils (%) (Auto) % (45.0-75.0) % (45.0-75.0) Lymphocytes (%) (Auto) % (20.0-45.0) % (20.0-45.0) Monocytes (%) (Auto) % (1.0-10.0) % (1.0-10.0) Eosinophils (%) (Auto) % (0.0-3.0) % (0.0-3.0) Basophils (%) (Auto) % (0.0-2.0) % (0.0-2.0) Differential Total Cells Counted 100 100 Neutrophils % (Manual) 87 % (45-75) H 76 % (45-75) H Lymphocytes % (Manual) 6 % (20-45) L 14 % (20-45) L Monocytes % (Manual) 4 % (1-10) 6 % (1-10) Eosinophils % (Manual) 3 % (0-3) 4 % (0-3) H Basophils % (Manual) 0 % (0-2) 0 % (0-2) Band Neutrophils 0 % (0-8) 0 % (0-8) Platelet Estimate Increased H Increased H Platelet Morphology Normal Normal Hypochromasia 2+ 2+ Erythrocyte Sedimentation Rate 124 MM/HR (0-20) H TALAT DEJESUS Dec 25, 2016 19:29
[2016-12-25] MEDS: Dyna-Hex 2% Top Sol 8oz TOPIC SCH (20:27)
[2016-12-25 20:49] VITALS: BP 152/75
[2016-12-25 23:33] VITALS: BP 137/81
[2016-12-26] VITALS (15 sets, daily range): BP systolic 132–205; BP diastolic 87–125
[2016-12-26 06:05] LABS: BASOPHILS % (AUTO) 0.7 % (0.0-2.0); EOSINOPHILS % (AUTO) 2.3 % (0.0-3.0); LYMPHOCYTES % (AUTO) 10.6 % (20.0-45.0); MEAN CORPUSCULAR HEMOGLOBIN 28.2 PG (27.0-31.0); MEAN CORPUSCULAR HGB CONC 32.2 G/DL (32.0-36.0); MEAN CORPUSCULAR VOLUME 88 FL (80-99); MEAN PLATELET VOLUME 6.4 FL (6.5-10.1); MONOCYTES % (AUTO) 8.4 % (1.0-10.0); NEUTROPHILS % (AUTO) 78.1 % (45.0-75.0); PLATELET COUNT 422 K/UL (150-450); RED CELL DISTRIBUTION WIDTH 14.3 % (11.6-14.8); WHITE BLOOD COUNT 16.6 K/UL (4.8-10.8)
[2016-12-26 06:27] LABS: ALBUMIN/GLOBULIN RATIO 0.7 (1.0-2.7); CALCIUM 9.8 mg/dL (8.6-10.2); CREATININE 11.2 mg/dL (0.7-1.2); GLOMERULAR FILTRATION RATE 5.8 mL/min (>60); MAGNESIUM 2.2 mg/dL (1.7-2.5); PHOSPHORUS 4.5 mg/dL (2.5-4.8); POTASSIUM 4.4 mEQ/L (3.4-4.9); TOTAL PROTEIN 7.7 g/dL (6.6-8.7)
[2016-12-26] MEDS: Aspirin Baby 81mg ORAL SCH (09:52)
[2016-12-26] MEDS: Docusate 100mg cap ORAL SCH ×3 (09:54→19:11)
--- NOTE | 2016-12-26 10:54 | General Progress Note ---
Assessment/Plan Status: stable Assessment/Plan status: ESRD Admitted with sepsis- Line related , has right permacath put in 12/02 HTN Obesity Anemia DVT left UE Plan: Patient had surgery and all the old catheters were removed and has a new Edgar in left groin Need to have a femoral permacath , due today HD On heparin for LUE thrombosis Cont per cardio EPO . B12 ,.... monitor H&H add renvela and laxatives Phos and Mag as needed Antibiotics BP control Per orders and per consultants Subjective ROS Limited/Unobtainable: No Constitutional: Reports: malaise Allergies: Coded Allergies: No Known Allergies (Unverified , 12/06/16) Objective Last 24 Hour Vital Signs Date Time Temp Pulse Resp B/P (MAP) Pulse Ox O2 Delivery O2 Flow Rate FiO2 12/26/16 09:55 89 162/97 12/26/16 08:00 97.7 89 21 162/97 98 Nasal Cannula 2.0 12/26/16 04:00 86 12/26/16 03:59 97.6 82 21 132/89 Room Air 12/26/16 00:00 77 12/25/16 23:33 97.7 71 19 137/81 94 Room Air 12/25/16 20:49 97.6 89 20 152/75 Nasal Cannula 12/25/16 20:09 90 18 Room Air 21 12/25/16 20:09 95 Room Air 12/25/16 20:09 Room Air 12/25/16 20:00 81 12/25/16 18:03 90 120/71 12/25/16 16:01 98.1 82 21 124/78 95 Room Air 12/25/16 16:00 92 12/25/16 12:13 97.5 104 20 137/73 95 Nasal Cannula 2.0 12/25/16 12:00 94 Intake and Output 12/26/16 12/27/16 19:00 07:00 Intake Total 240 ml Balance 240 ml Intake Oral 240 ml Laboratory Tests 12/26/16 05:40: White Blood Count 16.6H, Red Blood Count 2.90L, Hemoglobin 8.2L, Hematocrit 25.4L, Mean Corpuscular Volume 88, Mean Corpuscular Hemoglobin 28.2, Mean Corpuscular Hemoglobin Concent 32.2, Red Cell Distribution Width 14.3, Platelet Count 422, Mean Platelet Volume 6.4L, Neutrophils (%) (Auto) 78.1H, Lymphocytes (%) (Auto) 10.6L, Monocytes (%) (Auto) 8.4, Eosinophils (%) (Auto) 2.3, Basophils (%) (Auto) 0.7, Sodium Level 136, Potassium Level 4.4, Chloride Level 92L, Carbon Dioxide Level 25, Anion Gap 19H, Blood Urea Nitrogen 60H, Creatinine 11.2H, Estimat Glomerular Filtration Rate 5.8, Glucose Level 111H, Calcium Level 9.8, Phosphorus Level 4.5, Magnesium Level 2.2, Total Bilirubin 0.3, Aspartate Amino Transf (AST/SGOT) 12, Alanine Aminotransferase (ALT/SGPT) 5 , Alkaline Phosphatase 107, Total Protein 7.7, Albumin 3.4L, Globulin 4.3, Albumin/Globulin Ratio 0.7L Height (Feet): 5 Height (Inches): 7.00 Weight (Pounds): 313 General Appearance: no apparent distress Cardiovascular: normal rate Respiratory/Chest: decreased breath sounds Objective no other change in PE GENNY JACK Dec 26, 2016 10:54
[2016-12-26] MEDS ORDERED: Lidocaine 1% 10mg/ml/Epi 0.005mg/ml 30ml vial INJ ONE (11:00)
[2016-12-26] MEDS ORDERED: Lidocaine 1% Plain 30 ml INJ ONE (13:30)
[2016-12-26] MEDS ORDERED: Heparin Sod 1000 units/ml 10ml INJ ONE (13:30)
[2016-12-26] MEDS ORDERED: Heparin 2000 units/Ns 1000ml INJ ONE (13:30)
--- NOTE | 2016-12-26 13:35 | Infectious Diseases Prog Note ---
Assessment/Plan Assessment/Plan ASSESSMENT: 51 y/o AAM, morbidly obese, HTNsive nephropathy, ESRD on THS HD, now with high grade MSSA bacteremia secondary to R chest wall tunneled HD cath tunneled site MSSA infection, s/p removal of cath 12/09/16, with clearance of bacteremia on 12/10/16. s/p RUE AV fistula thrombectomy, resection of aneurysm, excision of endoluminal stent-graft, and placement of tunneled L IJ HD cath on with r innominate venous stent extending into SVC, extubated post-op on , now with large LUE DVT extending from IJ through subclavian through basilic/cephalic past elbow s/p placement of new L CFV Trialysis cath and venogram on 12/22/16.. HD sessions switched to MWF. 1. Sepsis, resolving. 2. high grade MSSA bacteremia, s/p line holiday. 3. Infected HD cath tunnel tract, s/p removal and bedside debridement 12/09/16. 4. Infected RUE fistula thrombus requiring thrombectomy, resection of aneurysm, and excision of endoluminal stent graft on 12/15/16. 5. Pulmonary edema improving s/p extubation 12/16/16. 6. Hypotension, resolved. 7. LUE DVT now with slightly decreased edema. 7. End-stage renal disease, on dialysis. 8. Morbid obesity. 9. FRANCISCO JAVIER 10. TTE on admission negative for obvious Infective Endocarditis. won't recommend GIOVANNA b/c: 1) high risk procedure in his obese FRANCISCO JAVIER patient, 2) we have a clear source (the RUE AVF and the prior R chest wall tunneled cath), 3) any positive finding won't change duration of therapy. 11. leukocytosis, generally stable. no localizing signs/sx of new infection. multiple u/s show no skin/soft tissue abscess in L arm 12. elevated inflammatory markers. CRP 21.6mg/dL yesterday, decreased from 2 days prior. ESR 116mm/hr on 12/18/16. PLAN: --b/c of new LUE thrombus in [place] vessels, will extend his abx for 6 weeks from date of negative blood cx. Continue cefazolin 2gm IV after each thursday HD , 2gm IV after each thursday HD, and 3gm IV after each thursday HD, D# s/p clearance of bacteremia. final dose through [id number]. -- (12/09 s/p IV vancomycin D#4) --(12/08 s/p amikacin and zosyn D#3) --If he gets dialyzed early, please give an extra dose of Cefazolin 2gm IV after HD. --s/p Vascular surgery consult --Follow cardiopulmonary status and chest x-ray. --monitor CBC --monitor LUE edema. --monitor temperature. --monitor bmp at least twice weekly on retirement antibiotics --okay for permacath from ID standpoint now, as he's defervesced as of [id number] with confirmed clearance of bacteremia on 10dec2016. stable for discharge from ID perspective once his vascular issues resolved, to continue outpatient IV cefazolin through dialysis. covering for Dr. Varela. Subjective Constitutional: Reports: no symptoms Respiratory: Reports: shortness of breath Cardiovascular: Reports: no symptoms Gastrointestinal/Abdominal: Reports: no symptoms Genitourinary: Reports: no symptoms Hematologic: Reports: no symptoms Musculoskeletal: Reports: no symptoms Allergies: Coded Allergies: No Known Allergies (Unverified , 12/06/16) Subjective 24 hr events: defervesed . vascular pulled his r chest wall tunneled HD cath on 12/09/16 and had pus tracked along catheter, cx of tip and swab of exudate positive for MSSA. blood cx cleared as of 12/10/16. Objective Vital Signs Last 24 Hour Vital Signs Date Time Temp Pulse Resp B/P (MAP) Pulse Ox O2 Delivery O2 Flow Rate FiO2 12/26/16 13:10 73 18 166/94 98 Nasal Cannula 2.0 12/26/16 13:05 72 20 168/87 99 Nasal Cannula 2.0 12/26/16 13:00 76 18 169/92 99 Nasal Cannula 2.0 12/26/16 12:55 93 25 162/92 95 Nasal Cannula 2.0 12/26/16 12:50 76 14 156/99 100 Nasal Cannula 2.0 12/26/16 12:45 84 15 153/100 100 Nasal Cannula 2.0 12/26/16 12:40 69 18 158/97 100 Nasal Cannula 2.0 12/26/16 12:35 53 18 153/97 99 Nasal Cannula 2.0 12/26/16 11:36 90 22 2.0 12/26/16 09:55 89 162/97 12/26/16 08:00 97.7 89 21 162/97 98 Nasal Cannula 2.0 12/26/16 04:00 86 12/26/16 03:59 97.6 82 21 132/89 Room Air 12/26/16 00:00 77 12/25/16 23:33 97.7 71 19 137/81 94 Room Air 12/25/16 20:49 97.6 89 20 152/75 Nasal Cannula 12/25/16 20:09 90 18 Room Air 21 12/25/16 20:09 95 Room Air 12/25/16 20:09 Room Air 12/25/16 20:00 81 12/25/16 18:03 90 120/71 12/25/16 16:01 98.1 82 21 124/78 95 Room Air 12/25/16 16:00 92 Height (Feet): 5 Height (Inches): 7.00 Weight (Pounds): 313 Objective GENERAL: non toxic appearing. on room air. mentating well. HEENT: He has no cervical lymphadenopathy. No pharyngeal injection or exudate and he has no conjunctival injection and his sclerae are anicteric. CARDIOVASCULAR: No murmurs appreciated. L chest wall dressing in place. prior HD cath site c/d/i w/o drainage or erythema PULMONARY: Decreased breath sounds at the bases with improved inspiratory effort. No wheezes or rhonchi appreciated. ABDOMEN: Healed right upper quadrant surgical scar from prior cholecystectomy, obese abdomen, nontender to palpation in all quadrants, and hypoactive bowel sounds. GENITOURINARY: Circumcised. No scrotal edema. No rash. no claudio in place EXTREMITIES: 1+ bilateral lower extremity edema. Right upper extremity sutures c/d/i. R hand swollen but non tender, not erythematous, NVI distally. L CFV Trialysis cath placed in OR 12/22/16. LUE diffusely edematous w /o cyanosis, but edema decreased and he has no residual pain with intact sensation. SKIN: s/p removal of R chest wall Port-a-cath on 12/09/16. no erythema, no fluctuance. MSK: no pain to palpation over spinous processes, no cva tenderness to percussion. Neuro: non focal Laboratory Tests Test 12/26/16 05:40 White Blood Count 16.6 K/UL (4.8-10.8) H Red Blood Count 2.90 M/UL (4.70-6.10) L Hemoglobin 8.2 G/DL (14.2-18.0) L Hematocrit 25.4 % (42.0-52.0) L Mean Corpuscular Volume 88 FL (80-99) Mean Corpuscular Hemoglobin 28.2 PG (27.0-31.0) Mean Corpuscular Hemoglobin Concent 32.2 G/DL (32.0-36.0) Red Cell Distribution Width 14.3 % (11.6-14.8) Platelet Count 422 K/UL (150-450) Mean Platelet Volume 6.4 FL (6.5-10.1) L Neutrophils (%) (Auto) 78.1 % (45.0-75.0) H Lymphocytes (%) (Auto) 10.6 % (20.0-45.0) L Monocytes (%) (Auto) 8.4 % (1.0-10.0) Eosinophils (%) (Auto) 2.3 % (0.0-3.0) Basophils (%) (Auto) 0.7 % (0.0-2.0) Sodium Level 136 mEQ/L (135-145) Potassium Level 4.4 mEQ/L (3.4-4.9) Chloride Level 92 mEQ/L (98-107) L Carbon Dioxide Level 25 mEQ/L (20-30) Anion Gap 19 (5-15) H Blood Urea Nitrogen 60 mg/dL (7-23) H Creatinine 11.2 mg/dL (0.7-1.2) H Estimat Glomerular Filtration Rate 5.8 mL/min (>60) Glucose Level 111 mg/dL (74-106) H Calcium Level 9.8 mg/dL (8.6-10.2) Phosphorus Level 4.5 mg/dL (2.5-4.8) Magnesium Level 2.2 mg/dL (1.7-2.5) Total Bilirubin 0.3 mg/dL (0.0-1.2) Aspartate Amino Transf (AST/SGOT) 12 U/L (5-40) Alanine Aminotransferase (ALT/SGPT) 5 U/L (3-41) Alkaline Phosphatase 107 U/L (40-129) Total Protein 7.7 g/dL (6.6-8.7) Albumin 3.4 g/dL (3.5-5.2) L Globulin 4.3 g/dL Albumin/Globulin Ratio 0.7 (1.0-2.7) L Current Medications Medications (Trade) Dose Ordered Sig/Jeremy Route PRN Reason Start Time Stop Time Status Last Admin Dose Admin Acetaminophen (Tylenol) 650 mg Q4H PRN ORAL T>100.5 12/17/16 18:30 01/16/17 18:29 12/20/16 03:43 Amlodipine Besylate (Norvasc) 5 mg BID ORAL 12/21/16 10:00 01/20/17 09:59 12/26/16 09:55 Aspirin (ASA) 81 mg DAILY ORAL 12/18/16 09:00 01/17/17 08:59 12/26/16 09:52 Cefazolin Sodium 50 ml @ 100 mls/hr QWEEK IV 12/24/16 21:00 12/31/16 20:59 12/24/16 20:30 Cefazolin Sodium 50 ml @ 100 mls/hr QWEEK IVPB 12/29/16 21:00 01/05/17 20:59 Cefazolin Sodium 3 gm/Dextrose 110 ml @ 220 mls/hr ONCE A WEEK IVPB 12/27/16 21:00 01/03/17 20:59 Chlorhexidine Gluconate (Annamarie-Hex 2%) 1 applic BEDTIME TOPIC 12/17/16 21:00 01/16/17 20:59 12/25/16 20:27 Clopidogrel Bisulfate (Plavix) 75 mg DAILY ORAL 12/18/16 09:00 01/17/17 08:59 12/26/16 09:54 Dextrose (Dextrose 50%) STAT PRN IV Hypoglycemia 12/17/16 21:00 01/16/17 20:59 Docusate Sodium (Colace) 100 mg THREE TIMES A DAY ORAL 12/18/16 09:00 01/17/17 08:59 12/26/16 09:54 Epoetin Dionte (Procrit (for ESRD on dialysis)) 10,000 units THU-THU-THU SUBQ 12/17/16 21:00 01/16/17 20:59 12/24/16 21:35 Ergocalciferol (Drisdol) 50,000 intlu QWEEK ORAL 12/21/16 10:00 01/20/17 09:59 12/21/16 09:01 Folic Acid (Folate) 2 mg DAILY ORAL 12/18/16 09:00 01/17/17 08:59 12/26/16 09:55 Gabapentin (Neurontin) 100 mg THREE TIMES A DAY ORAL 12/18/16 09:00 01/17/17 08:59 12/26/16 09:55 Heparin Sodium (Porcine) (Heparin Sod 1000 units/ml 10ml) 2,000 unit ONCE ONCE INJ 12/26/16 13:30 12/26/16 13:31 Heparin Sodium/ Sodium Chloride (Heparin 2000 units/Ns 1000ml premix) 2,000 unit ONCE ONCE INJ 12/26/16 13:30 12/26/16 13:31 Hydralazine HCl (Apresoline) 10 mg Q4H PRN IV SBP > 165 12/22/16 20:00 01/21/17 19:59 Lidocaine HCl (Xylocaine 1% 30ml) 30 ml ONCE ONCE INJ 12/26/16 13:30 12/26/16 13:31 Nitroglycerin (Ntg) 0.4 mg Q5M PRN SL Prn Chest Pain 12/20/16 10:30 01/19/17 10:29 12/20/16 10:35 Ondansetron HCl (Zofran) 4 mg Q6H PRN IVP Nausea & Vomiting 12/17/16 18:30 01/16/17 18:29 12/21/16 20:39 Pantoprazole (Protonix) 40 mg EVERY 12 HOURS ORAL 12/17/16 21:00 01/16/17 20:59 12/26/16 09:53 Polyethylene Glycol (Miralax) 17 gm DAILYPRN PRN ORAL Constipation 12/17/16 20:30 01/16/17 20:29 12/24/16 08:22 Sevelamer Carbonate (Renvela) 3,200 mg THREE TIMES A DAY ORAL 12/21/16 09:00 01/20/17 08:59 12/26/16 09:53 Humphrey Arana M.D. Dec 26, 2016 13:35
--- NOTE | 2016-12-26 13:49 | Pulmonology Progress Note ---
Assessment/Plan Problems: (1) DVT (deep venous thrombosis) (2) Sepsis (3) Bacteremia (4) ESRD on hemodialysis (5) Bradycardia (6) Morbid obesity with BMI of 45.0-49.9, adult Assessment/Plan continue Iv abx, afebrile, wbc stable blood cultures are negative now Permacath by radiology today then he can be discharged. hematology consult Dr. Gonzalez note appreciated for femoral perma cath today dc to SNf when OK with Renal Subjective ROS Limited/Unobtainable: No Constitutional: Reports: no symptoms HEENT: Repors: no symptoms Respiratory: Reports: no symptoms Allergies: Coded Allergies: No Known Allergies (Unverified , 12/06/16) Objective Last 24 Hour Vital Signs Date Time Temp Pulse Resp B/P (MAP) Pulse Ox O2 Delivery O2 Flow Rate FiO2 12/26/16 13:10 73 18 166/94 98 Nasal Cannula 2.0 12/26/16 13:05 72 20 168/87 99 Nasal Cannula 2.0 12/26/16 13:00 76 18 169/92 99 Nasal Cannula 2.0 12/26/16 12:55 93 25 162/92 95 Nasal Cannula 2.0 12/26/16 12:50 76 14 156/99 100 Nasal Cannula 2.0 12/26/16 12:45 84 15 153/100 100 Nasal Cannula 2.0 12/26/16 12:40 69 18 158/97 100 Nasal Cannula 2.0 12/26/16 12:35 53 18 153/97 99 Nasal Cannula 2.0 12/26/16 11:36 90 22 2.0 12/26/16 09:55 89 162/97 12/26/16 08:00 97.7 89 21 162/97 98 Nasal Cannula 2.0 12/26/16 04:00 86 12/26/16 03:59 97.6 82 21 132/89 Room Air 12/26/16 00:00 77 12/25/16 23:33 97.7 71 19 137/81 94 Room Air 12/25/16 20:49 97.6 89 20 152/75 Nasal Cannula 12/25/16 20:09 90 18 Room Air 21 12/25/16 20:09 95 Room Air 12/25/16 20:09 Room Air 12/25/16 20:00 81 12/25/16 18:03 90 120/71 12/25/16 16:01 98.1 82 21 124/78 95 Room Air 12/25/16 16:00 92 Intake and Output 12/26/16 12/27/16 19:00 07:00 Intake Total 240 ml Balance 240 ml Intake Oral 240 ml Objective General Appearance: WD/WN Lines, tubes and drains: peripheral, central line HEENT: normocephalic, atraumatic Neck: non-tender, normal alignment Respiratory/Chest: chest wall non-tender, lungs clear Cardiovascular/Chest: normal peripheral pulses, normal rate HEENT: normocephalic, atraumatic Respiratory/Chest: chest wall non-tender, lungs clear Cardiovascular: normal peripheral pulses, normal rate Abdomen: normal bowel sounds, soft, non tender, no organomegaly Genitourinary: normal external genitalia Extremities: no clubbing Skin: no rash Laboratory Tests 12/26/16 05:40: White Blood Count 16.6H, Red Blood Count 2.90L, Hemoglobin 8.2L, Hematocrit 25.4L, Mean Corpuscular Volume 88, Mean Corpuscular Hemoglobin 28.2, Mean Corpuscular Hemoglobin Concent 32.2, Red Cell Distribution Width 14.3, Platelet Count 422, Mean Platelet Volume 6.4L, Neutrophils (%) (Auto) 78.1H, Lymphocytes (%) (Auto) 10.6L, Monocytes (%) (Auto) 8.4, Eosinophils (%) (Auto) 2.3, Basophils (%) (Auto) 0.7, Sodium Level 136, Potassium Level 4.4, Chloride Level 92L, Carbon Dioxide Level 25, Anion Gap 19H, Blood Urea Nitrogen 60H, Creatinine 11.2H, Estimat Glomerular Filtration Rate 5.8, Glucose Level 111H, Calcium Level 9.8, Phosphorus Level 4.5, Magnesium Level 2.2, Total Bilirubin 0.3, Aspartate Amino Transf (AST/SGOT) 12, Alanine Aminotransferase (ALT/SGPT) 5 , Alkaline Phosphatase 107, Total Protein 7.7, Albumin 3.4L, Globulin 4.3, Albumin/Globulin Ratio 0.7L Current Medications Medications (Trade) Dose Ordered Sig/Jeremy Route PRN Reason Start Time Stop Time Status Last Admin Dose Admin Acetaminophen (Tylenol) 650 mg Q4H PRN ORAL T>100.5 12/17/16 18:30 01/16/17 18:29 12/20/16 03:43 Amlodipine Besylate (Norvasc) 5 mg BID ORAL 12/21/16 10:00 01/20/17 09:59 12/26/16 09:55 Aspirin (ASA) 81 mg DAILY ORAL 12/18/16 09:00 01/17/17 08:59 12/26/16 09:52 Cefazolin Sodium 50 ml @ 100 mls/hr QWEEK IV 12/24/16 21:00 12/31/16 20:59 12/24/16 20:30 Cefazolin Sodium 50 ml @ 100 mls/hr QWEEK IVPB 12/29/16 21:00 01/05/17 20:59 Cefazolin Sodium 3 gm/Dextrose 110 ml @ 220 mls/hr ONCE A WEEK IVPB 12/27/16 21:00 01/03/17 20:59 Chlorhexidine Gluconate (Annamarie-Hex 2%) 1 applic BEDTIME TOPIC 12/17/16 21:00 01/16/17 20:59 12/25/16 20:27 Clopidogrel Bisulfate (Plavix) 75 mg DAILY ORAL 12/18/16 09:00 01/17/17 08:59 12/26/16 09:54 Dextrose (Dextrose 50%) STAT PRN IV Hypoglycemia 12/17/16 21:00 01/16/17 20:59 Docusate Sodium (Colace) 100 mg THREE TIMES A DAY ORAL 12/18/16 09:00 01/17/17 08:59 12/26/16 13:40 Epoetin Dionte (Procrit (for ESRD on dialysis)) 10,000 units THU-THU-THU SUBQ 12/17/16 21:00 01/16/17 20:59 12/24/16 21:35 Ergocalciferol (Drisdol) 50,000 intlu QWEEK ORAL 12/21/16 10:00 01/20/17 09:59 12/21/16 09:01 Folic Acid (Folate) 2 mg DAILY ORAL 12/18/16 09:00 01/17/17 08:59 12/26/16 09:55 Gabapentin (Neurontin) 100 mg THREE TIMES A DAY ORAL 12/18/16 09:00 01/17/17 08:59 12/26/16 13:41 Hydralazine HCl (Apresoline) 10 mg Q4H PRN IV SBP > 165 12/22/16 20:00 01/21/17 19:59 Nitroglycerin (Ntg) 0.4 mg Q5M PRN SL Prn Chest Pain 12/20/16 10:30 01/19/17 10:29 12/20/16 10:35 Ondansetron HCl (Zofran) 4 mg Q6H PRN IVP Nausea & Vomiting 12/17/16 18:30 01/16/17 18:29 12/21/16 20:39 Pantoprazole (Protonix) 40 mg EVERY 12 HOURS ORAL 12/17/16 21:00 01/16/17 20:59 12/26/16 09:53 Polyethylene Glycol (Miralax) 17 gm DAILYPRN PRN ORAL Constipation 12/17/16 20:30 01/16/17 20:29 12/24/16 08:22 Sevelamer Carbonate (Renvela) 3,200 mg THREE TIMES A DAY ORAL 12/21/16 09:00 01/20/17 08:59 12/26/16 13:41 BERNADETTE COSTA Dec 26, 2016 13:49
--- NOTE | 2016-12-26 15:22 | Diagnostic Imaging Report ---
Indication: Patient requires long-term hemodialysis. Findings: After the indications, procedure, risks, complications, and alternatives of the procedure were explained, written informed consent was obtained. Patient was brought to the angio-fluoroscopic suite and placed supine on the table. All elements of maximum sterile barrier technique were followed including use of a cap and mask, sterile gown, sterile gloves, and a large sterile sheet. Alcohol used to prep the skin. 1% lidocaine was used to anesthetize the skin and subcutaneous tissue. Sonographic evaluation of the the left femoral vein was performed demonstrating a patent and compressible vein. Access to the femoral vein was via the indwelling Edgar catheter. Lidocaine infiltration of the site of catheter entry into the femoral vein was performed under sonographic guidance. Lidocaine infiltration of the left groin was then performed followed by dermatotomy. A tunnel of lidocaine was then made between this site and the venous access site. A 14.5 [place] 43 cm dual-lumen catheter was then tunneled through the tract. The catheter was then exchanged for a dilator over a stiff Amplatz wire. Serial dilatations were performed. The permacath catheter was then inserted into the last dilator/peel-away sheath such that the tip resides in the IVC. The dilator/peel-away sheath and wire were removed and the catheter was completely buried under the skin. Proximal portion of the catheter was secured to the skin using 2-0 Prolene suture. Both ports aspirate and flush easily. Both dermatotomy sites were closed with Dermabond. Impression: Successful placement of tunneled left femoral hemodialysis catheter. No complications.
--- NOTE | 2016-12-26 15:38 | General Progress Note ---
Assessment/Plan Assessment/Plan 1. Left upper extremity deep venous thrombosis. The patient has multiple risk factors for clotting. --> continue aspirin and plavix. --> Hold off on systemic anticoag given persistent anemia --> duplex scan of legs needed, still pending. Has been re-orded. enter results into emr 2. S/p removal of AV graft 3. Anemia secondary to kidney disease. Continue Epogen. The patient's iron levels are within normal limits. --> monitor counts --> ok to transfuse if hgb below 8 --> s/p transfusion 5. Leukocytosis potentially secondary to infection versus reactive process. --> improving 6. Morbid obesity. 7. End-stage renal disease on hemodialysis. 8. Left arm pain and swelling 2/2 thrombosis Subjective Constitutional: Reports: no symptoms HEENT: Reports: no symptoms Cardiovascular: Reports: no symptoms Respiratory: Reports: no symptoms Gastrointestinal/Abdominal: Reports: no symptoms Genitourinary: Reports: no symptoms Neurologic/Psychiatric: Reports: no symptoms Endocrine: Reports: no symptoms Hematologic/Lymphatic: Reports: anemia Allergies: Coded Allergies: No Known Allergies (Unverified , 12/06/16) Subjective no major changes, afebrile Objective Last 24 Hour Vital Signs Date Time Temp Pulse Resp B/P (MAP) Pulse Ox O2 Delivery O2 Flow Rate FiO2 12/26/16 13:10 73 18 166/94 98 Nasal Cannula 2.0 12/26/16 13:05 72 20 168/87 99 Nasal Cannula 2.0 12/26/16 13:00 76 18 169/92 99 Nasal Cannula 2.0 12/26/16 12:55 93 25 162/92 95 Nasal Cannula 2.0 12/26/16 12:50 76 14 156/99 100 Nasal Cannula 2.0 12/26/16 12:45 84 15 153/100 100 Nasal Cannula 2.0 12/26/16 12:40 69 18 158/97 100 Nasal Cannula 2.0 12/26/16 12:35 53 18 153/97 99 Nasal Cannula 2.0 12/26/16 11:36 90 22 2.0 12/26/16 09:55 89 162/97 12/26/16 08:00 97.7 89 21 162/97 98 Nasal Cannula 2.0 12/26/16 04:00 86 12/26/16 03:59 97.6 82 21 132/89 Room Air 12/26/16 00:00 77 12/25/16 23:33 97.7 71 19 137/81 94 Room Air 12/25/16 20:49 97.6 89 20 152/75 Nasal Cannula 12/25/16 20:09 90 18 Room Air 21 12/25/16 20:09 95 Room Air 12/25/16 20:09 Room Air 12/25/16 20:00 81 12/25/16 18:03 90 120/71 12/25/16 16:01 98.1 82 21 124/78 95 Room Air 12/25/16 16:00 92 Intake and Output 12/26/16 12/27/16 19:00 07:00 Intake Total 240 ml Balance 240 ml Intake Oral 240 ml Laboratory Tests 12/26/16 05:40: White Blood Count 16.6H, Red Blood Count 2.90L, Hemoglobin 8.2L, Hematocrit 25.4L, Mean Corpuscular Volume 88, Mean Corpuscular Hemoglobin 28.2, Mean Corpuscular Hemoglobin Concent 32.2, Red Cell Distribution Width 14.3, Platelet Count 422, Mean Platelet Volume 6.4L, Neutrophils (%) (Auto) 78.1H, Lymphocytes (%) (Auto) 10.6L, Monocytes (%) (Auto) 8.4, Eosinophils (%) (Auto) 2.3, Basophils (%) (Auto) 0.7, Sodium Level 136, Potassium Level 4.4, Chloride Level 92L, Carbon Dioxide Level 25, Anion Gap 19H, Blood Urea Nitrogen 60H, Creatinine 11.2H, Estimat Glomerular Filtration Rate 5.8, Glucose Level 111H, Calcium Level 9.8, Phosphorus Level 4.5, Magnesium Level 2.2, Total Bilirubin 0.3, Aspartate Amino Transf (AST/SGOT) 12, Alanine Aminotransferase (ALT/SGPT) 5 , Alkaline Phosphatase 107, Total Protein 7.7, Albumin 3.4L, Globulin 4.3, Albumin/Globulin Ratio 0.7L Height (Feet): 5 Height (Inches): 7.00 Weight (Pounds): 313 General Appearance: no apparent distress EENT: normal ENT inspection Neck: normal inspection Extremities: normal inspection Neurologic: alert Skin: normal pigmentation, warm/dry Sunil Brownlee Dec 26, 2016 15:38
[2016-12-26] MEDS ORDERED: Tubing Blood Filter IV ONE (16:12)
[2016-12-26] MEDS ORDERED: Tubing IV Secondary IV ONE (16:12)
[2016-12-26] MEDS ORDERED: NS 275ml ONE (16:12)
--- NOTE | 2016-12-26 18:28 | Cardiology Report ---
APPROVED REPORT EXAM: Two-dimensional and M-mode echocardiogram with Doppler and color Doppler. INDICATION Palpitations M-Mode DIMENSIONS IVSd2.0 (0.7-1.1cm)Left Atrium (MM)3.7 (1.6-4.0cm) LVDd6.2 (3.5-5.6cm)Aortic Root3.6 (2.0-3.7cm) PWd1.2 (0.7-1.1cm)Aortic Cusp Exc.2.6 (1.5-2.0cm) LVDs2.8 (2.5-4.0cm) PWs2.4 cm Technically difficult study due to patient body habitus. Study quality precludes accurate assessment of regional wall motion. Normal left ventricular chamber size, systolic function and wall motion. Left ventricular ejection fraction estimated to be 65-70 %. Moderate left ventricular hypertrophy. Anterior Echo-free space, may be due to pericardial fat or effusion. Mild right atrial enlargement. Right ventricular chamber size is within normal limits. Left atrial chamber size is within normal limits. Mild focal aortic valve sclerosis with adequate cusp excursion. Mildly thickened mitral valve leaflets with normal excursion. Mild mitral annulus and aortic root calcification. Pulmonic valve not well visualized. Normal tricuspid valve structure. IVC is normal in size with physiologic collapse. VERY POOR VALVULAR DETAIL A color flow and spectral Doppler study was performed and revealed: Trace aortic regurgitation. Trace mitral regurgitation. Mitral inflow velocities indicates possible pseudo normalization pattern implying significant left ventricular diastolic dysfunction (Grade II). Mild tricuspid regurgitation. Tricuspid systolic velocities suggests peak right ventricular systolic pressure of 33 mmHg. Trace pulmonic regurgitation present.
--- NOTE | 2016-12-26 19:14 | Cardiology Progress Note ---
Assessment/Plan Assessment/Plan intermittent episodes of av block possible due to FRANCISCO JAVIER francisco javier morbid obesity esrd on hd infected dialysis catheter hs of cardiac tamponade years ago staph bacteremia left arm pain and swelling avoid neg chronotropic agents now postop: right arm AV shunt exploration, thrombectomy, resection of aneurysm , excision of stent-graft, repair of brachial artery, permcath placement no sig pauses iv abx hgb stabel bp now better echo reviewed tech difficult studyu vavle wre not fully visible wbc is better Subjective Cardiovascular: Denies: chest pain, lightheadedness Respiratory: Denies: shortness of breath Subjective left arm swelling isbetter Objective Last 24 Hour Vital Signs Date Time Temp Pulse Resp B/P (MAP) Pulse Ox O2 Delivery O2 Flow Rate FiO2 12/26/16 19:10 97 143/88 12/26/16 16:00 98.1 97 21 143/88 97 Nasal Cannula 2.0 12/26/16 13:10 73 18 166/94 98 Nasal Cannula 2.0 12/26/16 13:05 72 20 168/87 99 Nasal Cannula 2.0 12/26/16 13:00 76 18 169/92 99 Nasal Cannula 2.0 12/26/16 12:55 93 25 162/92 95 Nasal Cannula 2.0 12/26/16 12:50 76 14 156/99 100 Nasal Cannula 2.0 12/26/16 12:45 84 15 153/100 100 Nasal Cannula 2.0 12/26/16 12:40 69 18 158/97 100 Nasal Cannula 2.0 12/26/16 12:35 53 18 153/97 99 Nasal Cannula 2.0 12/26/16 11:36 90 22 2.0 12/26/16 09:55 89 162/97 12/26/16 08:00 97.7 89 21 162/97 98 Nasal Cannula 2.0 12/26/16 04:00 86 12/26/16 03:59 97.6 82 21 132/89 Room Air 12/26/16 00:00 77 12/25/16 23:33 97.7 71 19 137/81 94 Room Air 12/25/16 20:49 97.6 89 20 152/75 Nasal Cannula 12/25/16 20:09 90 18 Room Air 21 12/25/16 20:09 95 Room Air 12/25/16 20:09 Room Air 12/25/16 20:00 81 General Appearance: alert Neck: supple Cardiovascular: normal rate, regular rhythm Abdomen: non tender, soft Extremities: moderate edema Intake and Output 12/26/16 12/27/16 19:00 07:00 Intake Total 240 ml Balance 240 ml Intake Oral 240 ml Laboratory Tests Test 12/26/16 05:40 White Blood Count 16.6 K/UL (4.8-10.8) H Red Blood Count 2.90 M/UL (4.70-6.10) L Hemoglobin 8.2 G/DL (14.2-18.0) L Hematocrit 25.4 % (42.0-52.0) L Mean Corpuscular Volume 88 FL (80-99) Mean Corpuscular Hemoglobin 28.2 PG (27.0-31.0) Mean Corpuscular Hemoglobin Concent 32.2 G/DL (32.0-36.0) Red Cell Distribution Width 14.3 % (11.6-14.8) Platelet Count 422 K/UL (150-450) Mean Platelet Volume 6.4 FL (6.5-10.1) L Neutrophils (%) (Auto) 78.1 % (45.0-75.0) H Lymphocytes (%) (Auto) 10.6 % (20.0-45.0) L Monocytes (%) (Auto) 8.4 % (1.0-10.0) Eosinophils (%) (Auto) 2.3 % (0.0-3.0) Basophils (%) (Auto) 0.7 % (0.0-2.0) Sodium Level 136 mEQ/L (135-145) Potassium Level 4.4 mEQ/L (3.4-4.9) Chloride Level 92 mEQ/L (98-107) L Carbon Dioxide Level 25 mEQ/L (20-30) Anion Gap 19 (5-15) H Blood Urea Nitrogen 60 mg/dL (7-23) H Creatinine 11.2 mg/dL (0.7-1.2) H Estimat Glomerular Filtration Rate 5.8 mL/min (>60) Glucose Level 111 mg/dL (74-106) H Calcium Level 9.8 mg/dL (8.6-10.2) Phosphorus Level 4.5 mg/dL (2.5-4.8) Magnesium Level 2.2 mg/dL (1.7-2.5) Total Bilirubin 0.3 mg/dL (0.0-1.2) Aspartate Amino Transf (AST/SGOT) 12 U/L (5-40) Alanine Aminotransferase (ALT/SGPT) 5 U/L (3-41) Alkaline Phosphatase 107 U/L (40-129) Total Protein 7.7 g/dL (6.6-8.7) Albumin 3.4 g/dL (3.5-5.2) L Globulin 4.3 g/dL Albumin/Globulin Ratio 0.7 (1.0-2.7) L TALAT DEJESUS Dec 26, 2016 19:14
[2016-12-26] MEDS: Dyna-Hex 2% Top Sol 8oz TOPIC SCH (21:00)
[2016-12-26] MEDS ORDERED: D5W IVPB SCH (21:00)
[2016-12-26] MEDS ORDERED: CEFAZOLIN SOD IVPB SCH (21:00)
[2016-12-26] MEDS: Epogen (for ESRD on dialysis) SUBQ SCH (22:28)
[2016-12-27] MEDS ORDERED: CEFAZOLIN SOD IVPB SCH ×2 (21:00)
[2016-12-27] MEDS ORDERED: D5W IVPB SCH ×2 (21:00)
--- NOTE | 2016-12-29 11:20 | Diagnostic Imaging Report ---
APPROVED REPORT CPT Code: 28540 Present Symptoms Comments: R/O DVT RIGHT UPPER EXTREMITY: Venous imaging reveals partially occlusive acute thrombus in the internal jugular vein. The remaining segments are within normal limits. There is no evidence of thrombus within the subclavian, axillary and brachial veins. The cephalic vein is thrombosed. The basilic vein was within normal limits. CLEMENCIA Borden was notified of abnormal results at 1340 hours.
--- NOTE | 2016-12-29 11:20 | Diagnostic Imaging Report ---
APPROVED REPORT CPT Code: 74713 Present Symptoms Comments: R/O DVT BILATERAL: Imaging reveals a patent deep venous system bilaterally. There is no evidence of thrombus within the femoral, popliteal or tibial segments. The greater saphenous veins are also within normal limits. Doppler indicates normal spontaneous flow within these segments.
[2016-12-29] MEDS ORDERED: ceFAZolin 2gm/50ml Premix 50 ML IVPB SCH (21:00)
--- NOTE | 2016-12-31 11:21 | Discharge Summary ---
Discharge Summary Hospital Course Date of Admission Dec 06, 2016 at 04:49 Date of Discharge Dec 26, 2016 at 23:15 Admitting Diagnosis SEPSIS, UTI HPI Humphrey Du is a 51 year old male who was admitted on Dec 06, 2016 at 04:49 for Sepsis/Urinary Tract Infection Hospital Course dc summary #[id number] Discharge Medications New Medications: Cefazolin Sodium/Water (Cefazolin 3 G/20 Ml-Water Syrg) 3 Gm/20 Ml Syringe 2 GM IV with dialysis for 20 Days, ML Cefazolin Sodium/Water (Cefazolin Sod-Water 1 G/10 ml) 1 Gm/10 Ml Syringe 1 GM IV ONCE A WEEK thursday for 3 Days, EA Cefazolin is to be dosed IV 2gm after each thursday HD, 2gm after each HD, and 3gm after each thursday HD. final dose through 07Jan2017. Sevelamer Carbonate (Renvela) 800 Mg Tablet 2400 MG ORAL THREE TIMES A DAY for 30 Days, TAB Continued Medications: Aspirin* (Aspirin*) 81 Mg Tab.chew 81 MG ORAL DAILY, TAB Clopidogrel* (Clopidogrel*) 75 Mg Tablet 75 MG ORAL DAILY, TAB Metoprolol Tartrate* (Metoprolol Tartrate*) 100 Mg Tablet 100 MG ORAL EVERY 12 HOURS, TAB Discharge Condition Upon Discharge: stable Discharge Disposition Patient was discharged to SNF/Subacute Facility(03) Discharge Diagnoses: Discharge Instructions Discharge Instructions Call MD/Return to Hospital if: Fevers, pain/swelling to right arm. Denia Parker NP (Vanchtein) Dec 31, 2016 11:21
--- NOTE | 2016-12-31 22:30 | Discharge Summary 2 SIG ---
DATE OF ADMISSION: 12/06/2016 DATE OF DISCHARGE: 12/26/2016 REASON FOR ADMISSION: 51-year-old male with past medical history significant for hypertension, end-stage renal disease, on hemodialysis, and status post recent thrombectomy of clotted right upper arm fistula at [facility], presented to [facility] the night before coming to [place] [facility] due to fever of 102, mild shortness of breath, and cough. He was diagnosed with pneumonia and UTI, and was discharged home with prescription for Levaquin. However, at home he took antibiotic but still had high-grade fever and chills and came to [place] ED for evaluation. Workup in ED revealed leukocytosis -19.6 and elevated lactic acid -2.3. Troponin was negative. Evidence of anemia. Renal parameters consistent with history of end-stage renal disease. Chest x-ray with evidence of congestive heart failure and cardiomegaly. EKG revealed sinus rhythm with right bundle-branch block. The patient reported recently diagnosis with obstructive sleep apnea, just received his CPAP but not used it yet at home. The patient was admitted for further management. ADMITTING DIAGNOSES: 1. Sepsis 2. Li yancy bacteremia (given clinical course). 3. Urinary tract infection. 4. Possible pneumonia. 5. Likely skin/soft tissue infection right upper extremity AV fistula, status post recent thrombectomy. 6. Possible infected residual thrombus in the right upper extremity fistula. 7. Diastolic dysfunction. 8. Pulmonary edema. 9. End-stage renal disease, on hemodialysis. 10. History of hypertension. 11. Obstructive sleep apnea. 12. Anemia of chronic renal disease. 13. Morbid obesity. PLAN OF CARE: The patient was admitted to telemetry floor. The patient was started on empiric antibiotics. ID consult was requested. Nephrology consult was requested for hemodialysis management. Supplemental oxygen provided as needed to keep saturation above 92%. Pulmonary toilet provided. BiPAP started at night. Blood pressure support provided. All antihypertensive medications initially were on hold due to hypotension. Cardiology consult was requested. Echocardiogram revealed preserved ejection fraction of 60% and right ventricular systolic pressure of 29. Hemoglobin and hematocrit were closely monitored with transfusion parameters. DVT and GI prophylaxes provided. Vascular surgery consult was requested. The patient subsequently undergone removal of the catheter on 12/09/2016 with clearance of bacteremia on 12/10/2016. The patient had blood culture positive for Staph aureus on 12/06/2016, 12/07/2016, and 12/08/2016. Sputum culture was negative and catheter tip, showed Staph aureus. The patient was intubated during the procedure and was unable to be extubated initially after surgery. The patient was placed to intensive care unit, kept intubated until the next procedure. The patient subsequently undergone on 12/15/2016 right upper extremity AV fistula thrombectomy with resection of aneurysm, excision of endoluminal stent graft and placement of left internal jugular hemodialysis catheter with the right innominate venous stent extending into the superior vena cava . Patient was extubated postoperatively on 2016. The patient subsequently developed acute DVT. On 12/20/2016 venous duplex of left upper extremity was done due to the excessive edema and revealed acute thrombus in the jugular, subclavian, axillary, brachial and the radial and ulnar veins. Basilic and cephalic veins were also thrombosed. The patient was started on heparin drip. Coumadin was on hold until Edgar will be discontinued. On 12/22/2016, the patient undergone another surgical procedure with placement of new left common femoral vein trialysis catheter and venogram and removal of old right groin Edgar and left internal jugular PermCath. Afebrile, leukocytosis trending down . The patient was on Epogen. Hemoglobin and hematocrit stable prior to discharge. Gastrointestinal prophylaxis provided. Per infectious control doctor due to the high-grade MSSA bacteremia and due to the new left upper extremity thrombus in [place] vessel, recommended to extend antibiotic treatment for a total of six weeks from the date of negative blood culture. ID recommended cefazolin 2 g intravenously after each Thursday hemodialysis, 2 g intravenous after each Thursday hemodialysis, and 3 g intravenous after each Thursday hemodialysis. Final dose January 21, 2017. The patient status post treatment with amikacin, Zosyn, and vancomycin. Vascular surgeon closely followed. Hemodialysis was done per yard demurrage clerk and renal parameters and electrolytes were closely monitored. TTE on admission was negative for obvious infective endocarditis. ID will not recommend GIOVANNA due to the high risk procedure in this obese FRANCISCO JAVIER, obstructive sleep apnea patient and secondly that clear source of the bacteremia is known in the right upper extremity AV fistula and the prior right chest wall tunneled catheter, and the third one that any positive finding would not change duration of the therapy. No localized signs and symptoms of new infection. Multiple ultrasounds showed no skin soft tissue abscess in the left arm. Leukocytosis resolving. Inflammatory markers still elevated, but slowly decreasing. The patient required a total of four units transfusion of packed red blood cells. Echocardiogram actually was repeated on 12/26/2016, and revealed still preserved ejection fraction of 65% to 70%, moderate left ventricular hypertrophy, very poor valvular detail. No clear evidence of vegetation . Diastolic dysfunction grade 2. Textile Worker was called on a consult due to persistent clots and DVT. Due to persistent anemia, loss control representative recommended to hold off on systemic anticoagulation. Anemia was secondary to kidney disease. Continue Epogen. The patient had multiple risk factors for clotting. Continue aspirin and Plavix, but no systemic anticoagulation. Venous duplex of bilateral lower extremities was negative for DVT. The patient was discharged on aspirin and Plavix. Filter Changing Technician followed the patient. Blood pressure was stable, no further hypotension. Filter Changing Technician recommended to avoid negative chronotropic agents in view of intermittent episodes of AV block possible due to the obstructive sleep apnea. The patient was encouraged to use CPAP at nighttime Tele strips were reviewed by public information officer, and blood pressure better. Hemoglobin stable. All consultants cleared for discharge. The patient was stable for discharge to longterm facility with antibiotics after dialysis as outlined by Infectious Disease doctor. DISCHARGE DIAGNOSES: 1. Sepsis with methicillin-sensitive Staphylococcus aureus bacteremia. 2. High-grade methicillin-sensitive Staphylococcus aureus bacteremia. 3. Infected hemodialysis catheter, tunnel tract, status post removal and bedside debridement on 12/09/2016. 4. Infected right upper extremity fistula thrombosis requiring thrombectomy, resection of aneurysm and excision of endoluminal stent graft on 12/15/2016. 5. Acute respiratory failure requiring intubation, likely due to pulmonary edema. 6. Pulmonary edema-improv ed 7. Status post extubation 12/16/2016. 8. Acute deep venous thrombosis, left upper extremity. 9. Diastolic dysfunction. 10. Hypertension. 11. End-stage renal disease, on hemodialysis. 12. Morbid obesity. 13. Obstructive sleep apnea. 14. Anemia of chronic renal disease. 15. Status post placement of new left CFV trialysis catheter and venogram on 12/22/2106. 16. Hypertension, resolved DISCHARGE MEDICATIONS: See medication reconciliation list. DISCHARGE INSTRUCTIONS: The patient is discharged to longterm facility for short-term for IV antibiotics with final date 01/21/2017. Екатерина Pastrana M.D. Denia Parker N.P. (Vanchtein) DR: JACLYN JOB#: [id number] CC: TATA
--- NOTE | 2017-01-28 17:30 | Operative Note - Dictated ---
DATE OF OPERATION: 12/15/2016 PREOPERATIVE DIAGNOSES: 1. Thrombosed dialysis arteriovenous fistula in the right upper extremity. 2. End-stage renal disease. 3. Aneurysmal arteriovenous fistula. 4. Cellulitis of the right arm. POSTOPERATIVE DIAGNOSES: 1. Thrombosed dialysis arteriovenous fistula in the right upper extremity. 2. End-stage renal disease. 3. Aneurysmal arteriovenous fistula. 4. Cellulitis of the right arm. FINDINGS: Below. PROCEDURES: 1. Exploration of the right arm dialysis shunt. 2. Thrombectomy of AV shunt. 3. Resection of the arteriovenous fistula aneurysm. 4. Excision of foreign body from right arm (stent graft and a piece of a balloon catheter). 5. Repair of right brachial artery. 6. Placement of a tunneled dialysis catheter (PermCath) via left internal jugular vein. 7. Intraoperative ultrasound. 8. Digital subtraction angiography. 9. Supervision and interpretation of angiogram and intervention. 10. Complex intervention (-) due to multiple medical problems and severe obesity and multiple previous failed dialysis accesses. SURGEON: Thaddeus Sorenson M.D. ANESTHESIA: General. ANESTHESIOLOGIST: Marty Cha M.D. Indication: The patient initially presented with fever and right arm edema and cellulitis and after removal of the existing infected tunneled catheter and a period of antibiotics and clinical optimization, the patient was cleared for exploration of the dialysis shunt in the right arm and additional placement of long-term dialysis access. The patient has been receiving dialysis through a temporary catheter in the groin in the interval. Intraoperative Findings/Interpretation of the Results: The dialysis shunt was aneurysmal and completely thrombosed with a portion containing a stent graft and what appeared to be a segment of an angioplasty catheter, which may also have been infected. The shunt was not therefore salvageable and the aneurysmal portion was excised and foreign body was removed with plan to dialyze the patient through a tunneled catheter until adequate healing has been done and the patient can be worked up for the best location for a new dialysis shunt. The new catheter was placed through the left internal jugular vein; however, the outflow into the superior vena cava appears to have a stenotic segment, which will be managed at a later time due to the patient's difficulty during the procedure with airway and a prolonged procedure and blood loss. After clinical stabilization, the patient will likely require repositioning of the newly placed dialysis catheter. Meanwhile, the existing femoral catheter will continue to be used for dialysis. The patient was intubated using a nasotracheal tube due to concerns for his airway at the end of the procedure and he was transferred to the ICU for observation and stabilization after the procedure. He was hemodynamically otherwise stable. Chest x-ray was ordered postoperatively to rule out hemopneumothorax. Procedure in Detail: With the patient in supine position and after induction of anesthesia, the right upper extremity and later the neck and upper chest areas were prepped and draped in the usual sterile fashion. Skin was also further infiltrated with local anesthetic. An incision was made near the arterial anastomosis in the right upper extremity antecubital area, through which the thrombosed AV fistula was exposed and encircled with a vessel loop near the arterial anastomosis. Later, through a separate incision, it was also exposed and controlled more proximally in the upper arm, and after the lower incision was later extended more distally, the brachial artery was also exposed at the anastomotic location and controlled with vessel loops proximally and distal to the anastomotic site. The AV fistula was accessed through a small incision transversely in the distal segment and a large amount of thrombus was encountered. As much of the thrombus as possible was expressed manually in addition with a Yanelis balloon catheter in a standard fashion. A reliable flow could not be established. Further exploration revealed a stent graft with possible deformity and a partially transected and retained balloon catheter likely from previous percutaneous attempts at intervention in the AV shunt. These were excised and sent as specimen. Furthermore, the aneurysmal portion was also excised and sent as a specimen. The vein was ligated in the upper arm and a segment of the vein near the arterial anastomosis was used to repair the brachial artery at the anastomotic sites. It was flushed with heparinized saline proximally and distally and a good flow was established before the minimal amount of the vein at the anastomotic site was used as a patch with a continuous suture of 6-0 Prolene in 2 layers to repair the cuff of the vessel at the arterial anastomotic site. After removal of the vessel loop, excellent flow in the brachial artery was noted, and a distal radial pulse and Doppler signals were noted. Any devitalized tissue was debrided and a Vik drain was brought through a stab incision in the arm and secured to the skin with nylon suture and the incisions were then closed over the drain with interrupted sutures of 2-0 and 3-0 Vicryl for deep layers followed by nylon sutures in an interrupted vertical mattress fashion for skin closure. Antibiotic ointment and dressings were placed. With the patient in Trendelenburg position, attention was then turned to placement of a new tunneled dialysis catheter. Under ultrasound and fluoroscopic guidance, the left internal jugular vein was entered with a micropuncture needle using a single wall puncture and modified Seldinger technique through a posterior approach to the left sternocleidomastoid muscle and a wire was advanced under fluoroscopy into the vessel and the needle removed. After infiltration was given with more local anesthetic, 2 stab incisions were made, 1 at the puncture site in the neck and the other in the left anterolateral chest, and the 2 were connected through a subcutaneous tunnel, through which a catheter was brought out of the upper incision. Since the wire could not be advanced all the way into the superior vena cava, an introducer sheath was placed over wire and a bolus of contrast administered revealing possible stenosis at the junction of the left innominate vein and superior vena cava. Attempts at crossing this segment with a wire were unsuccessful, and therefore, a catheter was advanced to this level to be able to dialyze the patient. Good flow was obtained through both ports of the catheter, which had been placed through a peel-away sheath once we checked it already and dilated in a standard fashion. The catheter was in good position except for the tip, which as described above was noted to be at the junction of the innominate vein. Otherwise, no kinks noted along its length. Good flow was obtained from the ports of the catheter, which were flushed with heparinized saline and then the catheter secured to skin with nylon sutures. After hemostasis was assured, the neck incision was irrigated with antibiotic solution and closed with interrupted sutures of 4-0 Vicryl in a vertical mattress subcuticular fashion. Betadine solution was applied to both incisions and sterile dressings were placed. After securing adequate airway as described above, the patient was transferred to the ICU in stable condition. At the conclusion of procedure, sponge, needle, and instrument counts were correct. ESTIMATED BLOOD LOSS: 700 mL. DRAINS: A Vik drain in the right arm. Total Fluids: 700 mL of crystalloid and 1 unit of packed red blood cells. TOTAL FLUOROSCOPY TIME: 23.2 minutes. TOTAL CONTRAST: 10 mL. The procedure was performed using maximal sterile barrier technique. Thaddeus Sorenson M.D. DR: ERIC JOB#: [id number] CC: Екатерина Pastrana M.D.; Fax#: [phone]
--- NOTE | 2017-01-28 18:00 | Operative Note - Dictated ---
DATE OF OPERATION: 12/09/2016 PREOPERATIVE DIAGNOSES: 1. Infected tunneled dialysis catheter. 2. Fever. 3. Thrombosed arteriovenous fistula in the right upper extremity. 4. Right arm edema. 5. End-stage renal disease. POSTOPERATIVE DIAGNOSES: 1. Infected tunneled dialysis catheter. 2. Fever. 3. Thrombosed arteriovenous fistula in the right upper extremity. 4. Right arm edema. 5. End-stage renal disease. Procedure: Removal of tunneled dialysis catheter (PermCath) from right chest. SURGEON: Thaddeus Sorenson M.D. ANESTHESIA: Local. Indication: The patient presented with fever and workup is suspicious for the infected dialysis catheter as the source. Furthermore, he was noted to have a thrombosed shunt in the right arm, which is swollen and erythematous. The patient will have the dialysis access addressed after the catheter removal and further clinical stabilization. Intraoperative Findings: Gross pus was delivered from the subcutaneous tunnel of the catheter and sent for culture and sensitivity, and the catheter removed in its entirety as described below. The patient will have an interval of antibiotics for further clinical stabilization before placement of the new catheter access and definitive treatment for long-term dialysis following negative blood cultures. Procedure in Detail: With the patient in supine position and after neck and upper chest areas were prepped and draped in usual sterile fashion, skin was infiltrated with local anesthetic and after the catheter sutures, the skin were cut off and removed. The subcutaneous cuff of the catheter was easily mobilized with minimal blunt dissection allowing the entire catheter to be pulled out of the subcutaneous tunnel. Pus was also expressed from the tunnel and sent for culture and sensitivity. Manual compression was maintained and pressure dressing was applied for hemostasis. The patient tolerated procedure well. ESTIMATED BLOOD LOSS: Minimal. COMPLICATIONS: None. DRAINS: None. Specimens: Subcutaneous catheter site drainage for culture and sensitivity. The procedure was performed using maximal sterile barrier technique. Thaddeus Sorenson M.D. DR: ERIC JOB#: [id number] CC: Екатерина Pastrana M.D.; Fax#: [phone]
== END 2016-12-26 23:15 | DRG 252 ==
LOC: EDBD 04:02 → EMR 04:14 → 2E 04:49 → EDBEDREQ 05:19 → ICU 12-15 20:31 → 2E 12-17 18:19
DX: T80.211A Bloodstream infection due to central venous catheter, initial encounter (principal); A41.01 Sepsis due to Methicillin susceptible Staphylococcus aureus; J96.00 Acute respiratory failure, unspecified whether with hypoxia or hypercapnia; J18.9 Pneumonia, unspecified organism; J81.1 Chronic pulmonary edema; I82.622 Acute embolism and thrombosis of deep veins of left upper extremity; I12.0 Hypertensive chronic kidney disease with stage 5 chronic kidney disease or end stage renal disease; N18.6 End stage renal disease; T82.868A Thrombosis due to vascular prosthetic devices, implants and grafts, initial encounter; D68.59 Other primary thrombophilia; Z68.42 Body mass index [BMI] 45.0-49.9, adult; N39.0 Urinary tract infection, site not specified; I44.1 Atrioventricular block, second degree; Z99.2 Dependence on renal dialysis; E66.01 Morbid (severe) obesity due to excess calories; I44.0 Atrioventricular block, first degree; R00.1 Bradycardia, unspecified; D63.1 Anemia in chronic kidney disease; G47.33 Obstructive sleep apnea (adult) (pediatric); E87.5 Hyperkalemia
CPT/HCPCS: 36415; 36569; 36600; 36902; 71010; 75825; 75827; 76000; 76882; 76937; 80048; 80053; 80061; 80150; 80202; 81001; 82550; 82553; 82607; 82728; 82746; 82803; 82977; 83036; 83540; 83550; 83605; 83735; 83880; 84100; 84443; 84484; 84550; 85007; 85025; 85610; 85651; 85730; 86140; 86850; 86900; 86901; 86920; 87040; 87070; 87081; 87086; 87181; 87205; 87324; 93005; 93306; 93922; 93970; 93971; 94002; 94003; 94150; 94640; 94660; 94664; 94760; J2250; J2405; J7620